=== PATIENT | male | born 1960 | race Caucasian/White ===

== ENCOUNTER 2018-07-20 00:44 | Outpatient (CLI) | payer MEDICARE, MEDICAID, SELFPAY ==
--- NOTE | 2018-07-20 11:55 | DI.MRI_ITS ---
SYMPTOMS/DIAGNOSIS: VERTIGO, ARM PARESTHESIAS BRAIN MRI: T 2 sagittal, T 2 axial, axial diffusion, axial T 2 blade, axial T 1 and axial T 2 hemo pulse sequences were obtained. There are no regions of restricted diffusion. The ventricles are unremarkable. The normal flow void is noted in the cerebral vessels. SUMMARY: A suboptimal examination was obtained due to patient motion. No abnormality is identified.
== END 2018-07-20 01:04 ==
PROVIDERS: PCP General Practice; Visit Provider General Practice
DX: R42 Dizziness and giddiness (principal); R20.2 Paresthesia of skin
CPT/HCPCS: 70551

== ENCOUNTER → 2018-08-11 09:38 | Outpatient (BNVA) | payer MEDICARE, MEDICAID, SELFPAY | PROVIDERS: PCP General Practice; Referring Provider General Practice; Visit Provider Surgery | DX: K42.9 Umbilical hernia without obstruction or gangrene (principal); Z86.010 Personal history of colon polyps | CPT/HCPCS: 99213; 99203 ==

== ENCOUNTER → 2018-08-20 08:41 | Outpatient (BNVA) | payer MEDICARE, MEDICAID, SELFPAY | PROVIDERS: PCP General Practice; Referring Provider General Practice; Visit Provider Student in an Organized Health Care Education/Training Program | DX: M19.071 Primary osteoarthritis, right ankle and foot (principal); E11.9 Type 2 diabetes mellitus without complications; Z79.4 Long term (current) use of insulin; I10 Essential (primary) hypertension | CPT/HCPCS: 20605; 99213; J1040 ==

== ENCOUNTER → 2018-11-01 09:32 | Outpatient (BNVA) | payer MEDICARE, MEDICAID, SELFPAY | PROVIDERS: PCP General Practice; Referring Provider General Practice; Visit Provider Surgery | DX: Z12.11 Encounter for screening for malignant neoplasm of colon (principal); Z12.12 Encounter for screening for malignant neoplasm of rectum; E11.9 Type 2 diabetes mellitus without complications; Z79.4 Long term (current) use of insulin; I10 Essential (primary) hypertension; Z86.010 Personal history of colon polyps ==

== ENCOUNTER 2018-11-05 10:30 | Day surgery (SDC) | payer MEDICARE, MEDICAID, SELFPAY ==
[2018-11-05 10:58] VITALS: BP 126/82; PULSE 67; RESP 18; TEMP 36.9; O2SAT 93
[2018-11-05] MEDS: Lactated Ringers 1,000 ML 30 ML IV (11:44)
--- NOTE | 2018-11-05 12:20 | BOWEL_PTH ---
PATIENT: Armen Fernandez LOC: [facility] U#:[id number] AGE/SX: 58/M ROOM: RE11/05/[address]: Randy Dinero DO : 1960 BED: DIS: 11/05/2018 SPEC #: [id number] RECD: 11/05/18 17:54 STATUS: ANABELA REQ #: [id number] SHRUTHI: 11/05/18 12:[address]: Randy Dinero DEPT: Surgical Specimen RECD BY: Eleanor Rojas ENTERED: 11/05/18 17:55 SP TYPE: Bowel OTHR DR: Angel Camp Tissues: 1 - BIOPSY BOWEL 2 - BIOPSY BOWEL Procedures: GROSS AND MICRO LEVEL 4 Comments: [id number]
--- NOTE | 2018-11-05 12:52 | COLE_ITS ---
Date of service: 11/05/18 Time of Service: 12:52 Colonoscopy Report Date of procedure: 11/05/18 Pre-op diagnosis general: Colorectal cancer screening with a personal history of colon polyps Post-op diagnosis procedure note: other (Colon and rectal polyp) Procedure: Colonoscopy to the cecum with biopsy by cold forceps Surgeon: Randy Dinero Anesthesia proc note operative: MAC (Betty Felix CRNA; ASA 3 Mallampati class II) Estimated blood loss (mL): 1 Pathology: other (1. Ascending colon polyp 2. Rectal polyp) Complications: None Disposition: same day Indications: 58-year-old gentleman presenting for colorectal cancer screening with a personal history of colon polyps. His last colonoscopy was remarkable for a tubular adenoma. He is been asymptomatic since his last colonoscopy. And has no family history of colorectal cancer. The procedure is been reviewed with him, and and the risks of the procedure discussed at length. All his questions been answered to his satisfaction. Consents been obtained to proceed with colonoscopy. Prep: Miralax/Dulcolax (Prep quality good) Findings: In examining the colon from cecum to anus, the patient was noted to have a small less than 1 cm polyp in the ascending colon and a second polyp was identified in the rectum also less than 1 cm in greatest diameter. Both polyps were removed by cold biopsy forceps. No other abnormalities were noted in the colon, rectum, or anorectal junction. Procedure Description: The patient was seen in the day surgery waiting area. His identification was confirmed, and procedure checked. He was then brought to the procedure room. Monitoring for telemetry, blood pressure, oxygen saturation, and end tidal CO2 monitoring were applied. An appropriate time out was performed to confirm, identification, allergies, medication, procedure, was performed. Sedation was titrated for affect by the WOOD TILE INSTALLATION HELPER; Once adequate sedation was achieved, I performed a inspection of the external perineum, and a digitial rectal examination. No significant external abnormalities were noted. On digital rectal examination, there was no blood, no masses, good rectal tone, and a normal prostate. I advanced the colonoscope from the anus to the cecum under direct visualization. The cecum was identified by the ileal-cecal valve, and the appendiceal orifice. The scope was then withdrawn in circumferential manner from the cecum to the rectum. A single polyp was identified in the ascending colon which was less than 1 cm in greatest diameter, and subsequently removed by cold biopsy forceps. The scope was then withdrawn into the rectum, where a second polyp was identified which was less than 1 cm in greatest diameter and removed by cold biopsy forceps. The scope was then retroflexed in the rectum and no further abnormalities are noted of the rectum or anorectal junction.. The scope was then withdrawn, terminating the procedure. There were no complications during the procedure, and the patient tolerated the procedure well. He was returned to the day surgery recovery area in good condition. Plan: We will await pathology results before making further recommendations.
--- NOTE | 2018-11-05 13:04 | W.PM.DSUDISC ---
Discharge Plan Disposition Patient Disposition: HOME Condition: Good Discharge Details Reason For Visit: PERSONAL HX OF COLON POLYPS Attending Provider: Randy Dinero Primary Care Provider: Angel Camp Home Meds and New Rx's Prescriptions: Continued buspirone 15 mg tablet 7.5 mg PO BID RF: 0 Kalyani Brace Qty: 1 RF: 0 escitalopram oxalate [Lexapro] 20 MG tablet 20 mg PO DAILY RF: 0 hydrochlorothiazide 25 MG tablet 50 tab PO DAILY RF: 0 Humalog U-100 Insulin 100 UNITS/ML solution 1 - 8 unit Sub-Q AC PRNRF: 0 gabapentin 300 MG capsule 300 mg PO QID RF: 0 testosterone cypionate 200 MG/1 ML oil 200 mg IM .[id number] RF: 0 bupropion HCl 150 MG tablet extended release 24 hr 75 mg PO DAILY RF: 0 multivitamin 1 EACH capsule 1 ea PO DAILY RF: 0 methadone 5 MG/5 ML solution 123 mg PO DAILY RF: 0 meloxicam 15 MG tablet 15 mg PO DAILY RF: 0 Lantus U-100 Insulin 100 UNITS/ML solution 60 units Sub-Q DAILY RF: 0 Discontinued bisacodyl [Dulcolax (bisacodyl)] 5 mg tablet,delayed release (DR/EC) 10 mg PO BID Qty: 4 RF: 0 Discharge Instructions Instructions: Colonoscopy (DC) Activity:: Activity as Tolerated Diet:: As Tolerated Discharge Orders Discharge Orders: Discharge Order (Routine); Ordered 11/05/18 Ordered By: Randy Dinero DS: Diagnosis Discharge Diagnosis (1) Personal history of colonic polyps: Status: Resolved Asessment and Plan: Colonoscopy performed Colonoscopy Report Date of procedure: 11/05/18 Pre-op diagnosis general: Colorectal cancer screening with a personal history of colon polyps Post-op diagnosis procedure note: other (Colon and rectal polyp) Procedure: Colonoscopy to the cecum with biopsy by cold forceps Surgeon: Randy Dinero Anesthesia proc note operative: MAC (Betty Felix CRNA; ASA 3 Mallampati class II) Estimated blood loss (mL): 1 Pathology: other (1. Ascending colon polyp 2. Rectal polyp) Complications: None Disposition: same day Indications: 58-year-old gentleman presenting for colorectal cancer screening with a personal history of colon polyps. His last colonoscopy was remarkable for a tubular adenoma. He is been asymptomatic since his last colonoscopy. And has no family history of colorectal cancer. The procedure is been reviewed with him, and and the risks of the procedure discussed at length. All his questions been answered to his satisfaction. Consents been obtained to proceed with colonoscopy. Prep: Miralax/Dulcolax (Prep quality good) Findings: In examining the colon from cecum to anus, the patient was noted to have a small less than 1 cm polyp in the ascending colon and a second polyp was identified in the rectum also less than 1 cm in greatest diameter. Both polyps were removed by cold biopsy forceps. No other abnormalities were noted in the colon, rectum, or anorectal junction. Procedure Description: The patient was seen in the day surgery waiting area. His identification was confirmed, and procedure checked. He was then brought to the procedure room. Monitoring for telemetry, blood pressure, oxygen saturation, and end tidal CO2 monitoring were applied. An appropriate time out was performed to confirm, identification, allergies, medication, procedure, was performed. Sedation was titrated for affect by the OPEN SOURCE DEVELOPER; Once adequate sedation was achieved, I performed a inspection of the external perineum, and a digitial rectal examination. No significant external abnormalities were noted. On digital rectal examination, there was no blood, no masses, good rectal tone, and a normal prostate. I advanced the colonoscope from the anus to the cecum under direct visualization. The cecum was identified by the ileal-cecal valve, and the appendiceal orifice. The scope was then withdrawn in circumferential manner from the cecum to the rectum. A single polyp was identified in the ascending colon which was less than 1 cm in greatest diameter, and subsequently removed by cold biopsy forceps. The scope was then withdrawn into the rectum, where a second polyp was identified which was less than 1 cm in greatest diameter and removed by cold biopsy forceps. The scope was then retroflexed in the rectum and no further abnormalities are noted of the rectum or anorectal junction.. The scope was then withdrawn, terminating the procedure. There were no complications during the procedure, and the patient tolerated the procedure well. He was returned to the day surgery recovery area in good condition. Plan: We will await pathology results before making further recommendations.
[2018-11-05 13:21] VITALS: BP 131/84; PULSE 66; RESP 20; TEMP 36.5; O2SAT 93
== END 2018-11-05 13:46 | disposition home or self-care (01) ==
PROVIDERS: PCP General Practice; Visit Provider Surgery
PROC: 0DJD8ZZ Inspection of Lower Intestinal Tract, Via Natural or Artificial Opening Endoscopic (ICD-10-PCS; CPT 45378; principal; 2018-11-05 11:30)
DX: Z12.11 Encounter for screening for malignant neoplasm of colon (principal); K62.1 Rectal polyp; K63.5 Polyp of colon; Z86.010 Personal history of colon polyps; E11.9 Type 2 diabetes mellitus without complications; Z79.4 Long term (current) use of insulin; I10 Essential (primary) hypertension
CPT/HCPCS: 45380; 88305; J2250

== ENCOUNTER 2018-11-30 11:36 | Outpatient (CLI) | payer MEDICARE, MEDICAID, SELFPAY ==
[2018-11-30 12:51] LABS: Hemoglobin A1C 7.5 % (4.5-6.2)
== END 2018-11-30 11:56 ==
PROVIDERS: PCP General Practice; Visit Provider General Practice
DX: E10.9 Type 1 diabetes mellitus without complications (principal)
CPT/HCPCS: 36415; 83036

== ENCOUNTER 2019-03-23 10:01 | Outpatient (CLI) | payer MEDICARE, MEDICAID, SELFPAY ==
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
== END 2019-03-23 10:21 ==
PROVIDERS: PCP General Practice; Referring Provider General Practice; Visit Provider Student in an Organized Health Care Education/Training Program
DX: M54.2 Cervicalgia (principal); M47.812 Spondylosis without myelopathy or radiculopathy, cervical region; E11.9 Type 2 diabetes mellitus without complications; I10 Essential (primary) hypertension; Z79.4 Long term (current) use of insulin; M19.071 Primary osteoarthritis, right ankle and foot; M43.02 Spondylolysis, cervical region
CPT/HCPCS: 99213; 72050

== ENCOUNTER 2019-03-24 07:58 | Outpatient (CLI) | payer MEDICARE, MEDICAID, SELFPAY ==
--- NOTE | 2019-03-24 11:00 | DI.RAD_ITS ---
SYMPTOMS/DIAGNOSIS: RT ANKLE INJECTION, PRIMARY OA, M01.071 RIGHT ANKLE INJECTION: Fluoroscopy Time: 27.9 sec 1.18 mGy Under fluoroscopic guidance, Dr. Banuelos positioned a needle and carried out an injection into the right tibiotalar joint. Please see the procedure report for further information.
[2019-03-24] MEDS: Omnipaque 300 MG/ML 10 ML BTL IJ (11:52)
[2019-03-24] MEDS: Bupivacaine 0.5% Pres-Free 10 ML VIAL 4 ML IJ (11:53)
[2019-03-24] MEDS: methylPREDNISolone ACETATE 80 MG/ML VIAL IM (11:54)
--- NOTE | 2019-03-29 16:47 | W.PROCNOTE ---
Date of service: 03/24/19 Time of Service: 10:47 Procedure Note Date of procedure: 03/24/19 Procedure: Right ankle joint injection with fluoroscopy Surgeon/Proceduralist/Physician: Eddie Banuelos Procedure Diagnosis: Right ankle arthritis Procedure Indications: Armen has had persistent pain of the RIGHT ankle. Noninvasive measures have been tried. To serve as both diagnostic and therapeutic, an injection under fluoroscopy was recommended. Previously attempted injection in the office was unsuccessful. I had discussed the risks of the procedure and the patient elected to proceed. Procedure Description: Armen was greeted in the flouroscopy room. The correct side was identified and the consent was reviewed with the patient and signed. The patient was then placed in the supine position on the fluoroscopy table. The RIGHT ankle was then prepped with Chloraprep. The anterior injection starting point was identiifed by bony landmarks and fluoroscopy. The skin and soft tissue in the tract of the injection was anesthetized with 1% Lidocaine. A needle was then inserted deep into the shoulder joint at the level of the recess between the glenoid and superior humeral head. A small amount of Omnipaque solution was injected to confirm intraarticular placement. Once confirmed, the shoulder was injected with 2cc of 0.5% Bupivicaine and 40mg of Depo-Medrol. A bandaid was placed on the injection site. The patient tolerated the procedure well and noted improvement in pre-injection pain.
== END 2019-03-24 08:18 ==
PROVIDERS: PCP General Practice; Visit Provider Student in an Organized Health Care Education/Training Program
DX: M19.071 Primary osteoarthritis, right ankle and foot (principal); M25.571 Pain in right ankle and joints of right foot
CPT/HCPCS: 20605; 77002; J1040

== ENCOUNTER 2019-04-22 13:28 | Emergency (ER) | payer MEDICARE, MEDICAID, SELFPAY ==
[2019-04-22 13:31] VITALS: TEMP 37
[2019-04-22 13:39] VITALS: BP 137/76; RESP 16; O2SAT 92
--- NOTE | 2019-04-22 13:50 | DI.RAD_ITS ---
SYMPTOMS/DIAGNOSIS: PAIN S/P FALL PELVIS AND RIGHT HIP: No fracture or dislocation is seen. There are smoothly marginated bony densities adjacent to the right superior acetabulum, which may represent a nonunited ossification center versus a soft tissue calcification. IMPRESSION: No acute abnormality.
--- NOTE | 2019-04-22 13:52 | W.ED.GENAD ---
Discharge Plan Disposition Patient Disposition: HOME Condition: Stable Discharge Details Chief Complaint: Orthopedic Clinical Impression: Contusion of hip, right, Muscle spasm Primary Care Provider: Alfredo Camp ED Provider: Bennett Verduzco Home Meds and New Rx's Prescriptions: New cyclobenzaprine 10 mg tablet 10 mg PO TID PRN (Reason: muscle spasm) Qty: 20 RF: 0 Continued amlodipine 10 mg tablet 10 mg PO DAILY RF: 0 clonazepam [Klonopin] 1 mg tablet 0.75 mg PO BID RF: 0 Kalyani Brace Qty: 1 RF: 0 escitalopram oxalate [Lexapro] 20 MG tablet 20 mg PO DAILY RF: 0 hydrochlorothiazide 25 MG tablet 50 tab PO DAILY RF: 0 Humalog U-100 Insulin 100 UNITS/ML solution 1 - 8 unit Sub-Q AC PRNRF: 0 gabapentin 300 MG capsule 800 mg PO QID RF: 0 testosterone cypionate 200 MG/1 ML oil 200 mg IM .[id number] RF: 0 multivitamin 1 EACH capsule 1 ea PO DAILY RF: 0 methadone 5 MG/5 ML solution 123 mg PO DAILY RF: 0 meloxicam 15 MG tablet 15 mg PO DAILY RF: 0 Lantus U-100 Insulin 100 UNITS/ML solution 60 units Sub-Q DAILY RF: 0 Discharge Instructions Instructions: Contusion in Adults (ED), Muscle Spasm (ED) Additional Instructions: if pain continues next week see your primary care provider do not drive or drink alcohol if you take the flexeril if you develop severe worsening pain or new symptoms such as fevers or rash return to the emergency department for reevaluation Medical Decision Making 58 yo male comes in with right sided hip pain. he states he tripped using his walker about a week ago and then landed on his right hip and has had pain since. Denies any systemic symptoms such as fevers, chills, and no rashes. He has pain over lateral right hip, is able to bear weight. No warmth, erythema, crepitus, no findings to suspect infectious etiologies such as septic joint at this time. I suspect muscle contusion but will xray to eval for possible fx though unlikely given able to bear weight pt remains stable still with full rom of the hip. xray negative on my read, will d/c if radiology agrees. Differential Diagnosis contusion, fx, sprain strain, muscle spasm Imaging Data Radiologic Study: Attestation: I personally reviewed and interpreted this imaging study as follows: Imaging: X-Ray My impression: no acute findings HPI General Mode of arrival: ambulatory. Date/Time Provider Initiated Documentation: 04/22/19 13:29. Limitations to Documentation: no limitations. Information obtained by: patient. History of Present Illness 58 year old M presents to the emergency department with the chief complaint of right hip pain, described as moderate, Quality is described as aching, and is localized to the right and lower extremity. Patient reports no radiation. Patient started experiencing this week(s) (1) and it has been constant. No relieving factors improve symptom(s), No exacerbating factors reported . Patient notes no other symptoms.. Related Data Home Medications Medication Instructions Recorded Confirmed escitalopram oxalate [Lexapro] 20 mg PO DAILY 06/24/15 04/22/19 hydrochlorothiazide 50 tab PO DAILY 07/12/15 04/22/19 Humalog U-100 Insulin 1 - 8 unit SUB-Q AC PRN 06/11/16 04/22/19 gabapentin 800 mg PO QID 06/11/16 04/22/19 methadone 123 mg PO DAILY 02/10/17 04/22/19 multivitamin 1 ea PO DAILY 02/10/17 04/22/19 testosterone cypionate 200 mg IM .[id number] 02/10/17 04/22/19 meloxicam 15 mg PO DAILY 08/20/17 04/22/19 Lantus U-100 Insulin 60 units SUB-Q DAILY 11/05/18 04/22/19 amlodipine 10 mg tablet 10 mg PO DAILY 03/23/19 04/22/19 clonazepam 1 mg tablet 0.75 mg PO BID tab 03/23/19 04/22/19 cyclobenzaprine 10 mg PO TID PRN #20 tab 04/22/19 Previous Rx's Medication Instructions Recorded cyclobenzaprine 10 mg PO TID PRN #20 tab 04/22/19 Allergies Allergy/AdvReac Type Severity Reaction Status Date / Time lisinopril Allergy angioedema Verified 03/23/19 09:27 ? General Stated Complaint: Orthopedic SHWETA: 3 Review of Systems Review of Systems All systems reviewed & are unremarkable except as noted in HPI and below Constitutional Denies chills, Denies fever(s) and Denies weakness Cardiovascular Denies chest pain and Denies dyspnea Respiratory Denies cough and Denies dyspnea Gastrointestinal Denies abdominal pain, Denies nausea and Denies vomiting Musculoskeletal Denies joint swelling Integumentary/Breasts Denies rash Neurologic Denies weakness Endocrine Denies heat intolerance PFSH Medical History History of MRSA infection (Chronic ~10/2017) Diabetes mellitus (Chronic) Depression (Chronic) Chronic pain of left knee (Chronic) Tobacco abuse (Chronic) HTN (hypertension) (Chronic) Personal history of colonic polyps (Chronic) Colon adenoma (Resolved) Fibula fracture (Resolved) Normal colonoscopy (Resolved 11/05/18) Surgical History Colonoscopy planned (Acute ~11/2018) H/O colonoscopy with polypectomy (Resolved) History of repair of left rotator cuff (Resolved) History of left knee replacement (Resolved) Umbilical hernia without mention of obstruction or gangrene (Acute) Arthroplasty of knee Rotator Cuff Repair left index finger amputation Social History Smoking/Tobacco Use Status: Current every day Tobacco Type: cigarettes Tobacco: How many years used: 30 Alcohol Intake: former Drug use: Never Substance use type: former substance user Do you feel safe in your relationship?: Yes Exam Const General: no acute distress Orientation: alert HENMT Head: normal to inspection Ears: external ears normal General nose exam: external nose normal Mouth: moist mucous membranes Eyes General: appearance normal, both eyes and all related structures Neck Neck: normal visual inspection Resp Effort & Inspection: normal respiratory effort and able to speak in complete sentences Cardio Rate: regular rate Skin General skin exam: no rashes or lesions noted Neuro General: alert and oriented x3 Extrem General: normal capillary refill Psych Mental Status: mental status grossly normal Course Vital Signs Temperature 37 C 04/22/19 13:31 Temperature 37 C 04/22/19 13:31 Temperature Source Temporal Artery Scan 04/22/19 13:31 Respiratory Rate 16 04/22/19 13:39 Respiratory Effort Non-Labored 04/22/19 13:40 Blood Pressure 137/76 04/22/19 13:39 Pulse Oximetry 92 L 04/22/19 13:39 Oxygen Delivery Method Room Air 04/22/19 13:39 Oxygen Flow Rate 0 04/22/19 13:39 Pain Level 6 04/22/19 13:39
[2019-04-22] MEDS: Acetaminophen 500 MG TAB 1000 MG PO (13:54)
--- NOTE | 2019-04-22 14:00 | ED.GENADUL_ITS ---
Discharge Plan Disposition Patient Disposition: HOME Condition: Stable Discharge Details Chief Complaint: Orthopedic Clinical Impression: Contusion of hip, right, Muscle spasm Primary Care Provider: Alfredo Camp ED Provider: Bennett Verduzco Home Meds and New Rx's Prescriptions: New cyclobenzaprine 10 mg tablet 10 mg PO TID PRN (Reason: muscle spasm) Qty: 20 RF: 0 Continued amlodipine 10 mg tablet 10 mg PO DAILY RF: 0 clonazepam [Klonopin] 1 mg tablet 0.75 mg PO BID RF: 0 Kalyani Brace Qty: 1 RF: 0 escitalopram oxalate [Lexapro] 20 MG tablet 20 mg PO DAILY RF: 0 hydrochlorothiazide 25 MG tablet 50 tab PO DAILY RF: 0 Humalog U-100 Insulin 100 UNITS/ML solution 1 - 8 unit Sub-Q AC PRNRF: 0 gabapentin 300 MG capsule 800 mg PO QID RF: 0 testosterone cypionate 200 MG/1 ML oil 200 mg IM .[id number] RF: 0 multivitamin 1 EACH capsule 1 ea PO DAILY RF: 0 methadone 5 MG/5 ML solution 123 mg PO DAILY RF: 0 meloxicam 15 MG tablet 15 mg PO DAILY RF: 0 Lantus U-100 Insulin 100 UNITS/ML solution 60 units Sub-Q DAILY RF: 0 Discharge Instructions Instructions: Contusion in Adults (ED), Muscle Spasm (ED) Additional Instructions: if pain continues next week see your primary care provider do not drive or drink alcohol if you take the flexeril if you develop severe worsening pain or new symptoms such as fevers or rash return to the emergency department for reevaluation Medical Decision Making 58 yo male comes in with right sided hip pain. he states he tripped using his walker about a week ago and then landed on his right hip and has had pain since. Denies any systemic symptoms such as fevers, chills, and no rashes. He has pain over lateral right hip, is able to bear weight. No warmth, erythema, crepitus, no findings to suspect infectious etiologies such as septic joint at this time. I suspect muscle contusion but will xray to eval for possible fx though unlikely given able to bear weight pt remains stable still with full rom of the hip. xray negative on my read, will d/c if radiology agrees. Differential Diagnosis contusion, fx, sprain strain, muscle spasm Imaging Data Radiologic Study: Attestation: I personally reviewed and interpreted this imaging study as follows: Imaging: X-Ray My impression: no acute findings HPI General Mode of arrival: ambulatory . Date/Time Provider Initiated Documentation: 04/22/19 13:29 . Limitations to Documentation: no limitations . Information obtained by: patient . History of Present Illness 58 year old M presents to the emergency department with the chief complaint of right hip pain, described as moderate, Quality is described as aching, and is localized to the right and lower extremity. Patient reports no radiation. Patient started experiencing this week(s) (1) and it has been constant. No relieving factors improve symptom(s), No exacerbating factors reported . Patient notes no other symptoms.. Related Data Home Medications Medication Instructions Recorded Confirmed escitalopram oxalate [Lexapro] 20 mg PO DAILY 06/24/15 04/22/19 hydrochlorothiazide 50 tab PO DAILY 07/12/15 04/22/19 Humalog U-100 Insulin 1 - 8 unit SUB-Q AC PRN 06/11/16 04/22/19 gabapentin 800 mg PO QID 06/11/16 04/22/19 methadone 123 mg PO DAILY 02/10/17 04/22/19 multivitamin 1 ea PO DAILY 02/10/17 04/22/19 testosterone cypionate 200 mg IM .[id number] 02/10/17 04/22/19 meloxicam 15 mg PO DAILY 08/20/17 04/22/19 Lantus U-100 Insulin 60 units SUB-Q DAILY 11/05/18 04/22/19 amlodipine 10 mg tablet 10 mg PO DAILY 03/23/19 04/22/19 clonazepam 1 mg tablet 0.75 mg PO BID tab 03/23/19 04/22/19 cyclobenzaprine 10 mg PO TID PRN #20 tab 04/22/19 Previous Rx's Medication Instructions Recorded cyclobenzaprine 10 mg PO TID PRN #20 tab 04/22/19 Allergies Allergy/AdvReac Type Severity Reaction Status Date / Time lisinopril Allergy angioedema Verified 03/23/19 09:27 ? General Stated Complaint: Orthopedic SHWETA: 3 Review of Systems Review of Systems All systems reviewed & are unremarkable except as noted in HPI and below Constitutional Denies chills, Denies fever(s) and Denies weakness Cardiovascular Denies chest pain and Denies dyspnea Respiratory Denies cough and Denies dyspnea Gastrointestinal Denies abdominal pain, Denies nausea and Denies vomiting Musculoskeletal Denies joint swelling Integumentary/Breasts Denies rash Neurologic Denies weakness Endocrine Denies heat intolerance PFSH Medical History History of MRSA infection (Chronic ~10/2017) Diabetes mellitus (Chronic) Depression (Chronic) Chronic pain of left knee (Chronic) Tobacco abuse (Chronic) HTN (hypertension) (Chronic) Personal history of colonic polyps (Chronic) Colon adenoma (Resolved) Fibula fracture (Resolved) Normal colonoscopy (Resolved 11/05/18) Surgical History Colonoscopy planned (Acute ~11/2018) H/O colonoscopy with polypectomy (Resolved) History of repair of left rotator cuff (Resolved) History of left knee replacement (Resolved) Umbilical hernia without mention of obstruction or gangrene (Acute) Arthroplasty of knee Rotator Cuff Repair left index finger amputation Social History Smoking/Tobacco Use Status: Current every day Tobacco Type: cigarettes Tobacco: How many years used: 30 Alcohol Intake: former Drug use: Never Substance use type: former substance user Do you feel safe in your relationship?: Yes Exam Const General: no acute distress Orientation: alert HENMT Head: normal to inspection Ears: external ears normal General nose exam: external nose normal Mouth: moist mucous membranes Eyes General: appearance normal, both eyes and all related structures Neck Neck: normal visual inspection Resp Effort & Inspection: normal respiratory effort and able to speak in complete sentences Cardio Rate: regular rate Skin General skin exam: no rashes or lesions noted Neuro General: alert and oriented x3 Extrem General: normal capillary refill Psych Mental Status: mental status grossly normal Course Vital Signs Temperature 37 C 04/22/19 13:31 Temperature 37 C 04/22/19 13:31 Temperature Source Temporal Artery Scan 04/22/19 13:31 Respiratory Rate 16 04/22/19 13:39 Respiratory Effort Non-Labored 04/22/19 13:40 Blood Pressure 137/76 04/22/19 13:39 Pulse Oximetry 92 L 04/22/19 13:39 Oxygen Delivery Method Room Air 04/22/19 13:39 Oxygen Flow Rate 0 04/22/19 13:39 Pain Level 6 04/22/19 13:39
[2019-04-22 15:09] VITALS: BP 124/80; PULSE 68; O2SAT 99
== END 2019-04-22 15:13 | disposition home or self-care (01) ==
PROVIDERS: Emergency Provider Emergency Medicine; PCP General Practice
DX: S70.01XA Contusion of right hip, initial encounter (principal); M62.838 Other muscle spasm; W18.09XA Striking against other object with subsequent fall, initial encounter; I10 Essential (primary) hypertension; E11.9 Type 2 diabetes mellitus without complications; Z79.4 Long term (current) use of insulin
CPT/HCPCS: 99283; 73502

== ENCOUNTER 2019-09-08 15:54 | Outpatient (CLI) | payer MEDICARE, MEDICAID, SELFPAY ==
[2019-09-08 17:23] LABS: COMMENT (LAB VIEW ONLY) 118.15 mg/dL; Microalb ug/mg Crea 57.3 ug/mg Cr
[2019-09-08 18:11] LABS: Hemoglobin A1C 7.1 % (4.5-6.2)
[2019-09-08 23:38] LABS: Anion Gap 8.8 mmol/L (3-11); BUN 17 mg/dL (7-18); CO2 31.2 mmol/L (21.0-32.0); CREATININE 1.06 mg/dL (0.70-1.30); Chloride 100 mmol/L (98-107); Potassium 3.7 mmol/L (3.5-5.1); Sodium 140 mmol/L (136-145)
== END 2019-09-08 16:14 ==
PROVIDERS: PCP Obstetrics & Gynecology; Visit Provider General Practice
DX: E11.9 Type 2 diabetes mellitus without complications (principal); I10 Essential (primary) hypertension
CPT/HCPCS: 36415; 80051; 84520; 82043; 82565; 82570; 83036

== ENCOUNTER 2019-10-04 07:43 | Emergency (ER) | payer MEDICARE, MEDICAID, SELFPAY ==
[2019-10-04 07:46] VITALS: BP 152/77; PULSE 90; RESP 18; TEMP 36.1; O2SAT 91
--- NOTE | 2019-10-04 08:21 | W.ED.GENAD ---
Discharge Plan Disposition Patient Disposition: HOME Discharge Details Chief Complaint: Laceration Clinical Impression: Foreign body in right upper extremity Primary Care Provider: Angel Camp ED Provider: Gurinedr Singleton Home Meds and New Rx's Prescriptions: Continued amlodipine 10 mg tablet 10 mg PO DAILY RF: 0 Kalyani Brace Qty: 1 RF: 0 hydrochlorothiazide 25 MG tablet 50 tab PO DAILY RF: 0 insulin lispro [Humalog U-100 Insulin] 100 UNITS/ML solution 1 - 8 unit Sub-Q AC PRNRF: 0 gabapentin 300 MG capsule 800 mg PO QID RF: 0 testosterone cypionate 200 MG/1 ML oil 200 mg IM .[id number] RF: 0 multivitamin 1 EACH capsule 1 ea PO DAILY RF: 0 methadone 5 MG/5 ML solution 115 mg PO DAILY RF: 0 meloxicam 15 MG tablet 15 mg PO DAILY RF: 0 Lantus U-100 Insulin 100 UNITS/ML solution 65 units Sub-Q DAILY RF: 0 clonazepam 0.5 mg Tablet 0.5 mg PO TID RF: 0 venlafaxine 150 mg Capsule,Extended Release 24hr 150 mg PO DAILY RF: 0 Discharge Instructions Additional Instructions: Please stop abusing drugs. Please follow-up with general surgery as necessary for foreign body removal if you develop redness, pain, or other concerning symptom. Return to the ER for any worsening or new concerning symptoms. Referrals: Dara Christine MD [ [facility] STAFF PHYSICIAN] - Medical Decision Making 59-year-old male here with concern for insulin needle broken off in his right upper arm. No signs of infection. Bedside [id number] ultrasound performed by me does not reveal definitive foreign body. X-ray of the right upper arm reviewed and interpreted by me: fb in soft tissue. Patient was instructed to follow-up with surgery. Usual and customary discharge instructions were provided. HPI General Mode of arrival: ambulatory. Date/Time Provider Initiated Documentation: 10/04/19 08:09. Limitations to Documentation: no limitations. Information obtained by: patient. HPI Narrative: 59-year-old male here with complaint of foreign body in his right upper arm. Patient notes he was injecting Ritalin into his right upper arm yesterday and believes he broke off the tip of insulin needle. Patient notes no discomfort in the arm. No associated redness. No modifiers. Related Data Home Medications Medication Instructions Recorded Confirmed hydrochlorothiazide 50 tab PO DAILY 07/12/15 10/04/19 gabapentin 800 mg PO QID 06/11/16 10/04/19 insulin lispro [Humalog U-100 1 - 8 unit SUB-Q AC PRN 06/11/16 10/04/19 Insulin] methadone 115 mg PO DAILY 02/10/17 10/04/19 multivitamin 1 ea PO DAILY 02/10/17 10/04/19 testosterone cypionate 200 mg IM .[id number] 02/10/17 10/04/19 meloxicam 15 mg PO DAILY 08/20/17 10/04/19 Lantus U-100 Insulin 65 units SUB-Q DAILY 11/05/18 10/04/19 amlodipine 10 mg tablet 10 mg PO DAILY 03/23/19 10/04/19 clonazepam 0.5 mg PO TID 10/04/19 10/04/19 venlafaxine 150 mg PO DAILY 10/04/19 10/04/19 Allergies Allergy/AdvReac Type Severity Reaction Status Date / Time lisinopril Allergy angioedema Verified 10/04/19 07:51 ? General Stated Complaint: Laceration SHWETA: 4 Review of Systems Integumentary/Breasts Skin/Breast: Reports as per HPI [facility] Medical History Chronic pain of left knee (Chronic) Colon adenoma (Resolved) 11/10/11 - Dr Benson Hebert, hyperplastic polyp, but with tubulovillous adenoma in nov, recommended repeat in five years. Depression (Chronic) Diabetes mellitus (Chronic) Fibula fracture (Resolved) right History of MRSA infection (Chronic ~10/2017) HTN (hypertension) (Chronic) Normal colonoscopy (Resolved 11/05/18) [facility] recommends repeat in 5 years. Personal history of colonic polyps (Chronic) Tobacco abuse (Chronic) Surgical History Arthroplasty of knee left knee Colonoscopy planned (Acute ~11/2018) H/O colonoscopy with polypectomy (Resolved) 11/10/11 - Dr Benson Hebert, hyperplastic polyp, but with tubulovillous adenoma in nov, recommended repeat in five years. History of left knee replacement (Resolved) History of repair of left rotator cuff (Resolved) left index finger amputation Rotator Cuff Repair left Umbilical hernia without mention of obstruction or gangrene (Acute) Social History Smoking/Tobacco Use Status: Current every day Tobacco Type: cigarettes Smoking packs per day: 0.5 Smoking cigarettes per day: 10.0 Years smoked: 30 Smoking pack-years: 15.00 Tobacco: How many years used: 30 Alcohol Intake: former Drug use: Occasionally Substance use type: marijuana and methamphetamine Do you feel safe at home: Yes Do you feel safe in your relationship?: Yes Exam Const General: cooperative, comfortable and no acute distress Skin Rashes: no rashes Extrem General: other (2+ radial right) Right upper extremity: shoulder/upper arm (No palpable foreign body) Course Vital Signs Vital signs: Vital Signs Temperature 36.1 C L 10/04/19 07:46 Pulse 90 10/04/19 07:46 Respiratory Rate 18 10/04/19 07:46 Blood Pressure 152/77 H 10/04/19 07:46 Pulse Oximetry 91 L 10/04/19 07:46 Temperature 36.1 C L 10/04/19 07:46 Temperature Source Temporal Artery Scan 10/04/19 07:46 Pulse 90 10/04/19 07:46 Respiratory Rate 18 10/04/19 07:46 Respiratory Effort Non-Labored 10/04/19 07:49 Blood Pressure 152/77 H 10/04/19 07:46 Blood Pressure Position Sitting 10/04/19 07:46 Pulse Oximetry 91 L 10/04/19 07:46 Oxygen Delivery Method Room Air 10/04/19 07:46 Oxygen Flow Rate 0 10/04/19 07:46 Pain Level 0 10/04/19 07:59
--- NOTE | 2019-10-04 08:30 | DI.RAD_ITS ---
EXAM: XR HUMERUS RT INDICATION: insulin needle broke off in rt upper arm. COMPARISON: No exams were available for comparison TECHNIQUE: 2D digital imaging was performed. FINDINGS: There is a 1.5 centimeter long linear density in the soft tissues anterior to the mid shaft of the ri ght humerus. This would be consistent with a foreign body. The bone is unremarkable. No other radi opaque foreign bodies are seen in the soft tissues. IMPRESSION: 1.5 centimeter long foreign body in the soft tissues anterior to the midshaft of the right humerus.
== END 2019-10-04 08:51 | disposition home or self-care (01) ==
PROVIDERS: Emergency Provider Student in an Organized Health Care Education/Training Program; PCP General Practice
DX: S41.141A Puncture wound with foreign body of right upper arm, initial encounter (principal); W46.1XXA Contact with contaminated hypodermic needle, initial encounter; F15.10 Other stimulant abuse, uncomplicated; I10 Essential (primary) hypertension; E11.9 Type 2 diabetes mellitus without complications; Z79.4 Long term (current) use of insulin
CPT/HCPCS: 99283; 73060

== ENCOUNTER 2019-12-05 14:49 | Outpatient (CLI) | payer MEDICARE, MEDICAID, SELFPAY ==
--- NOTE | 2019-12-05 14:03 | DI.RAD_ITS ---
EXAM: XR ANKLE RT 2V INDICATION: ankle pain. COMPARISON: No exams were available for comparison TECHNIQUE: 2D digital imaging was performed. FINDINGS: Chronic advanced changes are seen in the right ankle. Findings include narrow marked narrowing of th e ankle joint. Deformity of the articular surfaces the talar dome and the tibial plafond. Osteophyt ic densities apparent around the ankle joint. These appear chronic. But an acute fracture cannot be excluded. There is marked soft tissue swelling about the ankle. There are degenerative changes see n in the tarsal bones IMPRESSION: Chronic severe changes of the ankle joint. While this may be degenerative in nature, infection and p ost-traumatic change cannot be excluded. A CT scan of the right ankle should be considered in this p atient for further evaluation.
== END 2019-12-05 15:09 ==
PROVIDERS: PCP Family Medicine; Referring Provider General Practice; Visit Provider Student in an Organized Health Care Education/Training Program
DX: M25.571 Pain in right ankle and joints of right foot (principal); M79.89 Other specified soft tissue disorders; M19.071 Primary osteoarthritis, right ankle and foot; M25.771 Osteophyte, right ankle; I10 Essential (primary) hypertension; E11.9 Type 2 diabetes mellitus without complications; Z79.4 Long term (current) use of insulin
CPT/HCPCS: 99213; 73600

== ENCOUNTER 2020-01-11 01:28 | Outpatient (CLI) | payer MEDICARE, MEDICAID, SELFPAY ==
--- NOTE | 2020-01-11 06:15 | DI.CT_ITS ---
EXAM: CT LOWER EXTREMITY RT WO CLINICAL HISTORY: R ankle OA and deformity,SURGICAL PLANNING,M19.071,PRIMARY OA TECHNIQUE: Noncontrast COMPARISON: RIGHT FOOT COMPLETE from 08/19/2017 XR ANKLE RT 2V from 12/05/2019 FINDINGS: The exam is mildly limited by patient motion. As seen on plain films, there are severe degenerative changes of the tibiotalar joint, fibular talar, tibial fibular and posterior talocalcaneal joints. There is obliteration of the joint spaces with multiple subchondral cysts on both sides of the joint. Degenerative changes are also seen in the tarsal region. There is diffuse soft tissue edema as wel l as joint effusion. IMPRESSION: Numerous bony erosions about the ankle joint. The findings could be secondary to longstanding erosive osteoarthritis or be secondary to previous or current infection. Clinical correlation is recommende paul
== END 2020-01-11 01:48 ==
PROVIDERS: PCP Family Medicine; Visit Provider Student in an Organized Health Care Education/Training Program
DX: M19.071 Primary osteoarthritis, right ankle and foot (principal); M25.471 Effusion, right ankle; M85.871 Other specified disorders of bone density and structure, right ankle and foot; Z01.818 Encounter for other preprocedural examination
CPT/HCPCS: 73700

== ENCOUNTER 2020-12-28 14:56 | Emergency (ER) | payer MEDICARE, MEDICAID, SELFPAY ==
[2020-12-28 15:00] VITALS: BP 121/67; PULSE 89; RESP 20; TEMP 36.2; O2SAT 95
--- NOTE | 2020-12-28 15:15 | DI.CT_ITS ---
EXAM: CT HEAD WO CLINICAL HISTORY: confusion. TECHNIQUE: Imaging Protocol: Axial computed tomography images with coronal and sagittal reformatted images were created and reviewed COMPARISON: CT HEAD AND CSPINE W/O CONTRAST from 04/26/2016 FINDINGS: Ventricles and Extra axial spaces: Normal in size and morphology for the patient's age. Hemorrhage: None. Cerebral parenchyma: Normal. Midline shift: None. Brainstem/Cerebellum: Normal. Calvarium: Normal. Visualized Paranasal sinuses/Mastoids: Clear. Soft Tissues: Unremarkable. IMPRESSION: No acute intracranial process. RADIATION DOSE DELIVERED: 788.56mGy.cm Total DLP DATA REPOSITORY: All CT scans at this facility are submitted to the National Radiology Data Registry (NRDR) Dose Index Registry (DIR) with the [employer] ([employer]). RADIATION OPTIMIZATION: All CT scans at this facility use at least one of these dose optimization te chniques: automated exposure control; mA and/or kV adjustment per patient size (includes targeted exa ms where dose is matched to clinical indication); or iterative reconstruction.
[2020-12-28 15:30] VITALS: BP 102/62; PULSE 81; RESP 18; TEMP 36.6; O2SAT 93
--- NOTE | 2020-12-28 15:30 | DI.RAD_ITS ---
EXAM: XR FOOT RT COMPLETE CLINICAL HISTORY: cellulitis, ?osteo. TECHNIQUE: 2D digital imaging was performed. COMPARISON: CR RIGHT FOOT COMPLETE from 08/19/[address] LOWER EXTREMITY RT WO from 01/11/2020 FINDINGS: There are marked degenerative changes of the ankle joint with subchondral sclerosis, subchondral cyst s, joint space narrowing and hypertrophic changes. Dystrophic calcifications are seen around the ank le joint. There are degenerative changes seen at the tarsal joints. There is an amputation of the 2 nd toe at the MTP joint. No new destructive or erosive changes are seen to suggest osteomyelitis. N o acute fracture or dislocation is seen. There is diffuse soft tissue swelling of the ankle and foot . No radiopaque foreign bodies are seen. IMPRESSION: 1. Status post amputation of the 2nd toe. 2. No new erosive changes or subcutaneous gas seen to suggest acute osteomyelitis. 3. Marked degenerative changes seen at the ankle joint. DATA REPOSITORY: RADIATION DOSE DELIVERED:
--- NOTE | 2020-12-28 15:35 | W.ED.GENAD ---
Discharge Plan Disposition Patient Disposition: HOME Condition: Stable Discharge Details Clinical Impression: Headache, Cellulitis of foot, right Primary Care Provider: Delaney Box ED Provider: Bennett Verduzco Home Meds and New Rx's Prescriptions: New ciprofloxacin HCl 500 mg tablet 500 mg PO BID Qty: 14 RF: 0 doxycycline hyclate 100 mg tablet 100 mg PO BID Qty: 14 RF: 0 Continued amlodipine 10 mg tablet 10 mg PO DAILY RF: 0 (DME) Rolling Knee Scooter Qty: 1 RF: 0 Kalayni Brace Qty: 1 RF: 0 hydrochlorothiazide 25 MG tablet 50 tab PO DAILY RF: 0 insulin lispro [Humalog U-100 Insulin] 100 UNITS/ML solution 1 - 8 unit Sub-Q AC PRNRF: 0 gabapentin 300 mg capsule 800 mg PO TID RF: 0 multivitamin 1 EACH capsule 1 ea PO DAILY RF: 0 methadone 5 MG/5 ML solution 115 mg PO DAILY RF: 0 meloxicam 15 MG tablet 15 mg PO DAILY RF: 0 Lantus U-100 Insulin 100 UNITS/ML solution 65 units Sub-Q DAILY RF: 0 clonazepam 0.5 mg Tablet 1 mg PO BID RF: 0 venlafaxine 150 mg Capsule,Extended Release 24hr 150 mg PO DAILY RF: 0 Discharge Instructions Instructions: Cellulitis (ED) Additional Instructions: follow up with your primary care provider within 1 week if you have severe worsening pain, fevers or feel more ill return to the emergency department Medical Decision Making 60 yo male with hx of diabetes, depression, prior osteo of right big toe s/p amputation, who comes in with complaint of not feeling well for a week.He states he was started on zyprexa on 12/17 and when these symptoms started and still has them. He states he has had intermittent subjective fevers but he will check his temperature and it will be normal. Denies pain, dyspnea, vomit, urinary symptoms. HE has had intermittent confusion per the patient and intermittent mild headaches. No neck stiffness of pain. He does have 2 1mm open wounds to the right medial foot without tunneling and has erythema of dorsal surface of the foot which he is not sure is new or not. No crepitus, has neuropathy so can't feel in his feet at baseline. No meningismus, caox4, speaking clearly without si/hi and nofocal neuro deficits. Suspect he could have a diabetic foot infection, will obtain lab work and xray of the foot. GIven the headaches and confusion will obtain ct head. No findings on history such as thundeclap headache or worse headache of life so doubt subarachnoid hemorhage. No meningismus and pain has been mild so doubt currency exchange specialist infection labs show mild leukocytosis of 15 and crp elevated, imaging unremarkable. He remains stable, sitting in a chair eating without complaints now and still caox4 with no si/hi and clear thoughts. Suspect diabetic foot infection. Dicussed admitting for iv antibiotics vs trialling outpatient therapy and he would prefer to try outpatient therapy and if not improving following up with pcp and returning if worsening which I feel is reasonable given well systemic appearance. Will d/c home and return precautions given Differential Diagnosis Differential Diagnosis: diabetic foot, medication reaction, dka Medical Records Medical records reviewed: Yes I reviewed the patient's medical records. Imaging Data Radiologic Study: Attestation: I personally reviewed and interpreted this imaging study as follows: Imaging: CT Scan Radiologist's impression: IMPRESSION: No acute intracranial abnormality Radiologic Study #2: Attestation: I personally reviewed and interpreted this imaging study as follows: Imaging: X-Ray Radiologist's impression: IMPRESSION: 1. 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 2. Status post amputation of the 2nd toe. 3. No gas is noted within the soft tissues. Lab Data Lab results reviewed: Yes I reviewed the patient's lab results. HPI General Mode of arrival: ambulatory. Date/Time Provider Initiated Documentation: 12/28/20 14:59. Limitations to Documentation: no limitations. Information obtained by: patient. History of Present Illness 60 year old M presents to the emergency department with the chief complaint of not feeling well, described as moderate, Patient started experiencing this week(s) (1) and it has been intermittent. No relieving factors improve symptom(s), No exacerbating factors reported . Patient did receive the following treatments prior to arrival, none Related Data Home Medications Medication Instructions Recorded Confirmed hydrochlorothiazide 50 tab PO DAILY 07/12/15 12/28/20 insulin lispro [Humalog U-100 1 - 8 unit SUB-Q AC PRN 06/11/16 12/28/20 Insulin] methadone 115 mg PO DAILY 02/10/17 12/28/20 multivitamin 1 ea PO DAILY 02/10/17 12/28/20 meloxicam 15 mg PO DAILY 08/20/17 12/28/20 Lantus U-100 Insulin 65 units SUB-Q DAILY 11/05/18 12/28/20 amlodipine 10 mg tablet 10 mg PO DAILY 03/23/19 12/28/20 clonazepam 1 mg PO BID 10/04/19 12/28/20 venlafaxine 150 mg PO DAILY 10/04/19 12/28/20 gabapentin 300 mg capsule 800 mg PO TID cap 12/05/19 12/28/20 Rolling Knee Scooter #1 ea 12/07/19 01/09/20 ciprofloxacin HCl 500 mg PO BID #14 tab 12/28/20 doxycycline hyclate 100 mg PO BID #14 tab 12/28/20 Previous Rx's Medication Instructions Recorded Rolling Knee Scooter #1 ea 12/07/19 ciprofloxacin HCl 500 mg PO BID #14 tab 12/28/20 doxycycline hyclate 100 mg PO BID #14 tab 12/28/20 Allergies Allergy/AdvReac Type Severity Reaction Status Date / Time lisinopril Allergy angioedema Verified 12/28/20 15:11 ? General Stated Complaint: PsychEval SHWETA: 2 Review of Systems All systems reviewed & are unremarkable except as noted in HPI and below Constitutional Constitutional: Denies weakness Cardiovascular Cardiovascular: Denies chest pain and Denies dyspnea Respiratory Respiratory: Denies cough and Denies dyspnea Gastrointestinal Gastrointestinal: Denies abdominal pain, Denies nausea and Denies vomiting Musculoskeletal Musculoskeletal: Denies joint swelling Neurologic Neurologic: Denies weakness [facility] Medical History (Updated 12/28/20 @ 17:53 by Bennett Verduzco MD) Chronic pain of left knee Colon adenoma 11/10/11 - Dr Benson Hebert, hyperplastic polyp, but with tubulovillous adenoma in nov, recommended repeat in five years. Depression Diabetes mellitus Fibula fracture right History of MRSA infection (~10/2017) HTN (hypertension) Hypogonadism Normal colonoscopy (11/05/18) [facility] recommends repeat in 5 years. Personal history of colonic polyps Tobacco abuse Surgical History Amputated toe of right foot (~11/2016) 2nd toe, Rt foot Arthroplasty of knee left knee Colonoscopy planned (~11/2018) H/O colonoscopy with polypectomy 11/10/11 - Dr Benson Hebert, hyperplastic polyp, but with tubulovillous adenoma in nov, recommended repeat in five years. History of left knee replacement History of repair of left rotator cuff left index finger amputation (~1994) Rotator Cuff Repair left Umbilical hernia without mention of obstruction or gangrene Family History Father Alcohol abuse Hypertension Sister Anxiety Mother Depression Maternal Grandmother Depression Cancer Colon Paternal Grandmother Depression Cancer Colon Aunt Cancer Colon cancer Social History (Updated 12/19/19 @ 11:10 by Latasha Crabtree LPN) Smoking/Tobacco Use Status: Current, status unknown Tobacco Type: cigarettes Smoking risk assessment performed?: Yes Alcohol Intake: former Drug use: Occasionally Substance use type: marijuana and methamphetamine Adopted: No Caregiver/Support person: No Foster care: No Household members: none Housing: apartment Number of Children: 3 Communication Needs: None Do you need help understanding health information?: Often current occupation: Disabled Sexually active: Yes Do you think of yourself as: straight/heterosexual Current gender identity: male What is your relationship status?: Panel score (0-1 are the most socially isolated patients): 0 What type of physical activity do you participate in: none Seatbelt use: always Drive intox or ride w/intox 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 Working smoke detector in home: Yes Fire extinguisher in home: Yes Carbon monox detector in home: Yes Do you feel safe at home: Yes Do you feel safe in your relationship?: Yes Exam Const General: no acute distress Orientation: alert HENMT Head: normal to inspection Ears: external ears normal General nose exam: external nose normal Mouth: moist mucous membranes Eyes General: appearance normal, both eyes and all related structures Neck Neck: normal visual inspection Resp Effort & Inspection: normal respiratory effort and able to speak in complete sentences Cardio Rate: regular rate Skin General skin exam: no rashes or lesions noted Neuro General: patient alert and patient oriented x3 Extrem General: full ROM Psych Mental Status: mental status grossly normal Course Vital Signs Vital signs: Vital Signs Temperature 36.2 C L 12/28/20 15:00 Pulse 89 12/28/20 15:00 Respiratory Rate 20 12/28/20 15:00 Blood Pressure 121/67 12/28/20 15:00 Pulse Oximetry 95 12/28/20 15:00 Temperature 36.2 C L 12/28/20 15:00 Temperature Source Skin 12/28/20 15:00 Pulse 89 12/28/20 15:00 Respiratory Rate 20 12/28/20 15:00 Respiratory Effort Non-Labored 12/28/20 15:09 Blood Pressure 121/67 12/28/20 15:00 Blood Pressure Position Supine 12/28/20 15:00 Pulse Oximetry 95 12/28/20 15:00 Oxygen Delivery Method Room Air 12/28/20 15:00 Oxygen Flow Rate 0 12/28/20 15:00 Pain Level 0 12/28/20 15:00 Lab/Test Results Lab/Test Results: 12/28/20 15:23 Blood Blood Culture - Pending 12/28/20 15:23 Blood Blood Culture - Pending
[2020-12-28 16:23] LABS: BE (Venous) 15 mmol/L (-2-3); HCO3 (Venous) 38 mmol/L (23-28); O2 Sat (Venous) 56 %; TCO2 (Venous) 35 mmol/L (24-29); pCO2 (Venous) 52 mmHg (41-51); pH (Venous) 7.48 (7.31-7.41); pO2 (Venous) 27 mmHg
[2020-12-28 16:25] LABS: Lactate 0.9 mmol/L (0.6-1.4)
[2020-12-28 16:32] LABS: Abs Immature Grans 0.06 10^3/uL (0.0-0.06); Absolute Basophil Count 0.03 10^3/uL (0.0-0.2); Absolute Lymphocyte Count 1.74 10^3/uL (1.2-3.4); Absolute Monocyte Count 1.93 10^3/uL (0.1-0.8); Basophils % 0.2; Eosinophils % 0.6; HCT 34.7 % (40.0-50.0); HGB 11.6 g/dL (13.5-17.5); Immature Grans % 0.4; Lymphocytes % 10.9; MCH 31.4 pg (27.0-33.0); MCHC 33.4 % (32.0-36.0); MPV 9.8 fL (8.0-11.0); Monocytes % 12.1; Neutrophils % 75.8; Nucleated RBC 0 %; Platelet Count 215 10^3/uL (130-400); RBC 3.69 10^6/uL (4.36-5.78); RDW 13.8 % (11.8-14.1); RDW-SD 47.2 fL; WBC 15.97 10^3/uL (4.4-10.8)
[2020-12-28 16:38] LABS: INR 1.1 (0.9-1.1); PTT Activated 28.4 sec (21.0-27.5); Prothrombin Time 10.8 sec (9.3-11.0)
[2020-12-28 16:40] LABS: ALT 59 U/L (16-63); AST 54 U/L (15-37); Alkaline Phosphatase 103 U/L (46-116); Anion Gap 7.2 mmol/L (3-11); BUN 17 mg/dL (7-18); Bilirubin, Total 0.9 mg/dL (0.2-1.0); CO2 34.8 mmol/L (21.0-32.0); Chloride 93 mmol/L (98-107); Glucose 136 mg/dL (74-106); Magnesium 1.8 mg/dL (1.8-2.4); Potassium 3.3 mmol/L (3.5-5.1); Sodium 135 mmol/L (136-145)
[2020-12-28 16:48] LABS: Absolute Neutrophil Count 12.11 10^3/uL (1.2-6.7)
[2020-12-28 16:54] LABS: C-Reactive Protein > 25.00 mg/dL (0.0-0.3); Diff Comment Diff Reviewed
[2020-12-28 16:55] LABS: RBC Morphology Normal
--- NOTE | 2020-12-28 17:18 | DI.VRAD_ITS ---
PROCEDURE INFORMATION: Exam: CT Head Without Contrast Exam date and time: 12/28/2020 4:49 PM Age: 60 years old Clinical indication: Altered mental status/memory loss; Confusion or disorientation TECHNIQUE: Imaging protocol: Computed tomography of the head without contrast. COMPARISON: CT HEAD AND CSPINE W/O CONTRAST 04/26/2016 7:46 AM FINDINGS: Brain: Normal. No hemorrhage. Unremarkable white matter. No mass effect. Cerebral ventricles: No ventriculomegaly. Bones/joints: Unremarkable. No acute fracture. Paranasal sinuses: Visualized sinuses are unremarkable. No fluid levels. Mastoid air cells: Visualized mastoid air cells are well aerated. Soft tissues: Unremarkable. IMPRESSION: No acute intracranial abnormality. Dictated and Authenticated by: Everardo Gomez MD. Ordering:VICENTE Guajardo MD
--- NOTE | 2020-12-28 17:22 | DI.VRAD_ITS ---
PROCEDURE INFORMATION: Exam: XR Right Foot Exam date and time: 12/28/2020 3:35 PM Age: 60 years old Clinical indication: Condition or disease; Patient HX: Cellulitis, ? osteo TECHNIQUE: Imaging protocol: XR Right foot. Views: 3 or more views. COMPARISON: CT LOWER EXTREMITY RT WO 01/11/2020 8:52 AM FINDINGS: Bones/joints: As seen on the prior CT there are advanced erosive changes of the ankle joint with marked loss of joint space, subchondral sclerosis, and subchondral cyst formation. Heterotopic calcification of adjacent soft tissues is present. The 2nd toe is surgically absent. Mild hypertrophic change at the 1st MTP joint is present. No acute fracture or dislocation is seen. No focal new erosive changes are seen. Soft tissues: Normal. IMPRESSION: 1. 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 2. Status post amputation of the 2nd toe. 3. No gas is noted within the soft tissues. Dictated and Authenticated by: Everardo Gomez MD. Ordering:VICENTE Guajardo MD
[2020-12-28 17:26] LABS: Bilirubin Small (Negative); Blood Negative (Negative); Clarity Clear (Clear); Glucose Negative (Negative); Ketones Trace mg/dL (Negative); Leukocyte Esterase Negative (Negative); Nitrite Negative (Negative); Specific Gravity 1.025 (1.005-1.025)
[2020-12-28 17:38] LABS: Epithelial Cells Few HPF (Negative); RBC Negative HPF (0-2)
[2020-12-28 17:39] LABS: Bacteria Negative HPF (Negative); C & S Indicated? Yes; Casts Negative LPF (Negative); Crystals Negative HPF (Negative); Mucus Moderate (Negative); Other Cells Mod Transitional (Negative)
[2020-12-28] MEDS: Ciprofloxacin 500 MG TAB PO (17:54)
[2020-12-28] MEDS: Clindamycin 150 MG CAP 450 MG PO (17:54)
[2020-12-28 18:32] VITALS: BP 101/55; PULSE 89; RESP 20; TEMP 37.2; O2SAT 94
[2020-12-28 20:31] LABS: ESR 127 mm/hr (<or=20)
[2020-12-30 16:34] LABS: COVID-19 RT-PCR UVMMC Result Negative (Negative)
== END 2020-12-28 18:50 | disposition home or self-care (01) ==
PROVIDERS: Emergency Provider Emergency Medicine; PCP Nurse Practitioner Family
DX: L03.115 Cellulitis of right lower limb (principal); B96.89 Other specified bacterial agents as the cause of diseases classified elsewhere; R51.9 Headache, unspecified; Z20.822 Contact with and (suspected) exposure to COVID-19
CPT/HCPCS: 80053; 82805; 85652; 87040; 99284; U0003; 70450; 73630; 81003; 81015; 83605; 83735; 85025; 85610; 85730; 86140; 87086; 99283

== ENCOUNTER 2021-01-01 05:22 | Emergency (ER) | payer MEDICARE, MEDICAID, SELFPAY ==
[2021-01-01] VITALS (117 sets, daily range): BP systolic 88–153; BP diastolic 57–96; PULSE 47–99; RESP 8–35; TEMP 36.5–38.7; O2SAT 77–100
--- NOTE | 2021-01-01 05:30 | DI.RAD_ITS ---
EXAM: XR PORTABLE CHEST AP CLINICAL HISTORY: fever, rlq abd pain TECHNIQUE: COMPARISON: CR CHEST 2 VIEWS PA,LAT from 08/19/2017 FINDINGS: The heart is not enlarged. Lungs are grossly clear and well expanded. No gross pleural effusion on this frontal film. IMPRESSION: No evidence of acute process. RADIATION DOSE DELIVERED: Total DLP
--- NOTE | 2021-01-01 05:30 | DI.CT_ITS ---
EXAM: CT ABDOMEN PELVIS CTA INDICATION: rlq pain. COMPARISON: No exams were available for comparison TECHNIQUE: FINDINGS: CT examination of the abdomen and pelvis was performed using CT angiography protocol with intravenous infusion of 100 cc of Visipaque 320 period No prior images available for comparison. Images obtained through the lung bases are unremarkable ex cept for slight atelectasis or scarring bases.. The liver contains a large apparently septated low-attenuation lesion of the posterior segment the ri ght hepatic lobe with mild surrounding enhancement of hepatic parenchyma, the patient reportedly is f ebrile and in the appropriate clinical situation the findings would be highly suspicious for hepatic abscess. Please correlate clinically. Other etiologies including primary or metastatic hepatic lesi on not excluded. Gallbladder and bile ducts are CT normal. Pancreas appears normal. Spleen is unremarkable in appearance. Adrenals appear normal. The kidneys contain multiple homogeneous low-attenuation lesions consistent with cysts, the largest o f the left kidney measuring roughly 5-6 cm in greatest diameter. No hydronephrosis, renal solid mass , or nephrolithiasis seen. Urinary bladder grossly unremarkable. Abdominal aorta is of normal diameter and no major vascular abnormality is seen. There are small bilateral fat containing inguinal hernias and small fat containing umbilical hernia. No abdominal or pelvic adenopathy. Prostate and seminal vesicles are unremarkable. Appendix is normal. No evidence of diverticulitis or bowel obstruction. IMPRESSION: Findings suggestive of large right lobe posterior segment hepatic abscess in the appropriate clinical setting. Other etiologies including primary or metastatic neoplastic disease not excluded. RADIATION DOSE DELIVERED: 999.83mGy.cm Total DLP 999.83mGy.cm Total DLP
--- NOTE | 2021-01-01 05:44 | W.ED.GENAD ---
Discharge Plan Disposition Patient Disposition: STILL A PATIENT Condition: Serious Discharge Details Clinical Impression: Abscess, hepatic, Hypoxia, Fever, Hypokalemia Primary Care Provider: Delaney Box ED Provider: Maya Mcnamara Home Meds and New Rx's Prescriptions: No Action amlodipine 10 mg tablet 10 mg PO DAILY RF: 0 (DME) Rolling Knee Scooter Qty: 1 RF: 0 Kalyani Brace Qty: 1 RF: 0 hydrochlorothiazide 25 MG tablet 50 tab PO DAILY RF: 0 insulin lispro [Humalog U-100 Insulin] 100 UNITS/ML solution 1 - 8 unit Sub-Q AC PRNRF: 0 gabapentin 300 mg capsule 800 mg PO TID RF: 0 methadone 5 MG/5 ML solution 115 mg PO DAILY RF: 0 olanzapine 5 mg tablet 5 mg PO DAILY RF: 0 meloxicam 15 MG tablet 15 mg PO DAILY RF: 0 Lantus U-100 Insulin 100 UNITS/ML solution 65 units Sub-Q DAILY RF: 0 clonazepam 0.5 mg Tablet 1 mg PO BID RF: 0 venlafaxine 150 mg Capsule,Extended Release 24hr 150 mg PO DAILY RF: 0 Discharge Data Discharge Date/Time-TO BE ENTERED AT DEPARTURE: 01/01/21 12:53 Medical Decision Making <Boom Barros DO - Last Filed: 01/01/21 07:37> 60-year-old male with a past medical history of diabetes, cellulitis of his toe for which he is currently taking Cipro and doxycycline which she was just prescribed. He presents today for evaluation of abdominal pain, patient states that 25 minutes prior to arrival he had a sudden onset sharp right lower quadrant abdominal pain which she describes as on and off, and severe. He denies any tearing or ripping sensation. He was febrile per EMS upon their arrival. He denies any genital or groin pain. Slight radiation is present to the back. He denies history of kidney stones. He was nauseous prior to arrival. No other complaints at this time. No other modifying factors. Exam demonstrates notable tenderness in the right lower quadrant, positive Rovsing sign, positive rebound. Differential is highest for acute appendicitis, but also includes AAA and less likely dissection. Dorsalis pedis pulses +2 bilaterally. Radial pulses +2 bilaterally. We will treat the patient's pain, gently rehydrate, get a CAT scan, monitor closely and reassess. Vital signs are encouraging at this point. 7:30 AM Laboratory work-up is returned, lactate is equivocal, white count elevated at 13.5, notable left shift. Patient is hypokalemic with a potassium of 3, magnesium is normal. We will replace the potassium with IV potassium [address] results show evidence of a large hepatic abscess that is 11 x 7.7 cm. We started the patient on Zosyn. I did contact her surgeon Dr. Dacosta, she felt that this case would be best managed at [facility] with more robust ICU capabilities. We will contact [facility] for transfer. Case will be signed out to my colleague Dr. Maya Mcnamara for facilitation of transfer to [facility]. FINDINGS: Aorta: No aortic aneurysm. No aortic dissection. Celiac trunk and mesenteric arteries: No occlusion or significant stenosis. Renal arteries: No occlusion or significant stenosis. Right iliac arteries: No occlusion or significant stenosis. Left iliac arteries: No occlusion or significant stenosis. Liver: Heterogeneous focus of decreased attenuation involving segments 6 and 7 of the posterior right lobe of the liver suspicious for hepatic abscess measuring up to 11 x 7.7 cm. Gallbladder and bile ducts: Unremarkable. No calcified stones. No ductal dilation. Pancreas: Unremarkable. No mass. No ductal dilation. Spleen: Unremarkable. No splenomegaly. Adrenal glands: Unremarkable. No mass. Kidneys and ureters: Simple renal cysts measure up to 6.7 cm on the left Stomach and bowel: Unremarkable. No obstruction. No mucosal thickening. Appendix: No evidence of appendicitis. Intraperitoneal space: Unremarkable. No free air. No significant fluid collection. Lymph nodes: Unremarkable. No enlarged lymph nodes. Urinary bladder: Unremarkable. No mass. Reproductive: Unremarkable as visualized. Bones/joints: No acute fracture. No dislocation. Soft tissues: Unremarkable. IMPRESSION: Heterogeneous focus of decreased attenuation involving segments 6 and 7 of the posterior right lobe of the liver suspicious for hepatic abscess measuring up to 11 x 7.7 cm. Thank you for allowing us to participate in the care of your patient. Dictated and Authenticated by: Sukhdeep Gilliland MD 01/01/2021 7:17 AM Eastern Time ([place] & [place]) FINDINGS: Lungs: Mild interstitial prominence may be slightly increased No consolidation. Pleural spaces: Unremarkable. No pleural effusion. No pneumothorax. Heart/Mediastinum: Unremarkable. No cardiomegaly. Bones/joints: Postsurgical changes in the left clavicle and left shoulder are grossly stable IMPRESSION: Question mild increased interstitial prominence which may represent mild interstitial pneumonitis versus edema No focal consolidation Thank you for allowing us to participate in the care of your patient. Dictated and Authenticated by: Joseph Fletcher MD 01/01/2021 6:32 AM Eastern Time ([place] & [place]) <Maya Mcnamara DO - Last Filed: 01/03/21 09:07> 0800 -- Please see Dr. Barros's note for initial presentation, exam or plan. Case endorsed to follow-up with [facility] for transfer. 60-year-old male with a history of diabetes, IV drug use, last use in the last week, complaints of fatigue, body aches and headache for the past week, noted to have a temp of 101.6, white blood cell count of 13, lactate of 1.5, potassium 3.0, and hepatic abscess on CT this morning. He arrived to the ED on 5 L of nasal cannula oxygen. He has been continued on 4 L nasal cannula oxygen in the ED. He denies any complaint of cough, shortness of breath. Chest x-ray noted questionable pneumonitis versus edema. Denies any pleuritic pain, chest pain, shortness of breath and presentation not consistent with PE. Nasal cannula oxygen discontinued during my assessment oxygen saturation 94% on room air. He is a marijuana smoker and longtime tobacco smoker who quit within the last year in prep for surgery of his chronic right ankle deformity and pain. He has a morbidly obese body habitus, consider hypoventilation, COPD, obstructive sleep apnea. He has slightly diminished breath sounds right chest but no wheezing or rhonchi. His abdomen is soft and tender in the right upper or right lower quadrants. He did not take his methadone dose this morning. He is complaining of continued abdominal pain. We will give IV Tylenol for his fever, another dose of IV morphine and IV Zofran for his nausea. 0845 -- oxygen saturation decreased to high 70s with a good waveform. Patient placed on 1 L nasal cannula oxygen and O2 sat increased to 93 to 94%. 0945 -- discussed with [facility] and there is likely not a bed available. Surgery does not think this is a surgical case. Interventional radiology may be able to drain the abscess tomorrow. I discussed with [facility] and they are closed to transfers. I discussed with our hospitalist and she would potentially accept the patient if they could do IR drainage today. [facility] unable to do IR drainage today but can tomorrow. 1115 -- I discussed with [facility] and they have accepted patient for transfer. Accepting physician Dr. Bautista. Patient remained hemodynamically stable prior to transfer. Medical Records Medical records reviewed: Yes I reviewed the patient's medical records. Imaging Data Radiologic Study: Radiologist's impression: CT ABDOMEN PELVIS CTA INDICATION: rlq pain. COMPARISON: No exams were available for comparison TECHNIQUE: FINDINGS: CT examination of the abdomen and pelvis was performed using CT angiography protocol with intravenous infusion of 100 cc of Visipaque 320 period No prior images available for comparison. Images obtained through the lung bases are unremarkable except for slight atelectasis or scarring bases.. The liver contains a large apparently septated low-attenuation lesion of the posterior segment the right hepatic lobe with mild surrounding enhancement of hepatic parenchyma, the patient reportedly is febrile and in the appropriate clinical situation the findings would be highly suspicious for hepatic abscess. Please correlate clinically. Other etiologies including primary or metastatic hepatic lesion not excluded. Gallbladder and bile ducts are CT normal. Pancreas appears normal. Spleen is unremarkable in appearance. Adrenals appear normal. The kidneys contain multiple homogeneous low-attenuation lesions consistent with cysts, the largest of the left kidney measuring roughly 5-6 cm in greatest diameter. No hydronephrosis, renal solid mass, or nephrolithiasis seen. Urinary bladder grossly unremarkable. Abdominal aorta is of normal diameter and no major vascular abnormality is seen. There are small bilateral fat containing inguinal hernias and small fat containing umbilical hernia. No abdominal or pelvic adenopathy. Prostate and seminal vesicles are unremarkable. Appendix is normal. No evidence of diverticulitis or bowel obstruction. IMPRESSION: Findings suggestive of large right lobe posterior segment hepatic abscess in the appropriate clinical setting. Other etiologies including primary or metastatic neoplastic disease not excluded. Lab Data Lab results reviewed: Yes I reviewed the patient's lab results. Labs: 01/01/21 07:10 Urine - Reflex from Ua Urine Culture - Final Gram Positive Christine 01/01/21 05:40 Blood Blood Culture - Preliminary NO GROWTH 48 HOURS 01/01/21 05:40 Blood Blood Culture - Preliminary NO GROWTH 48 HOURS Laboratory Tests Range/Units 01/01/21 01/01/21 01/01/21 04:40 04:40 04:40 WBC (4.4-10.8) 10^3/uL 13.55 H RBC (4.36-5.78) 10^6/uL 3.83 L Hgb (13.5-17.5) g/dL 11.9 L Hct (40.0-50.0) % 36.5 L MCV (80-95) fL 95.3 H MCH (27.0-33.0) pg 31.1 MCHC (32.0-36.0) % 32.6 RDW (11.8-14.1) % 13.7 Plt Count (130-400) 10^3/uL 334 D MPV (8.0-11.0) fL 10.1 Immature Gran % 0.9 Neutrophils % 79.3 Lymphocytes % 7.3 Monocytes % 11.8 Eosinophils % 0.4 Basophils % 0.3 Nucleated RBC % % 0 Absolute Neutrophils (1.2-6.7) 10^3/uL 10.75 H Absolute Lymphocytes (1.2-3.4) 10^3/uL 0.99 L Absolute Monocytes (0.1-0.8) 10^3/uL 1.60 H Absolute Eosinophils (0.0-0.7) 10^3/uL 0.05 Absolute Basophils (0.0-0.2) 10^3/uL 0.04 VBG Lactate (0.6-1.4) mmol/L 1.5 H Sodium (136-145) mmol/L 134 L Potassium (3.5-5.1) mmol/L 3.0 L Chloride (98-107) mmol/L 89 L Carbon Dioxide (21.0-32.0) mmol/L 35.9 H Anion Gap (3-11) mmol/L 9.1 BUN (7-18) mg/dL 14 Creatinine (0.70-1.30) mg/dL 1.2 Estimated GFR/1.73 m2 (mL/min/1.73m2) >= 60.00 Glucose (74-106) mg/dL 193 H Calcium (8.5-10.1) mg/dL 8.6 Magnesium (1.8-2.4) mg/dL Total Bilirubin (0.2-1.0) mg/dL 0.7 AST (15-37) U/L 70 H ALT (16-63) U/L 87 H Alkaline Phosphatase (46-116) U/L 170 H Total Protein (6.4-8.2) g/dL 8.0 Albumin (3.4-5.0) g/dL 2.7 L Lipase (73-393) U/L 44 Urine Color (Yellow) Urine Clarity (Clear) Urine pH (5-8) Ur Specific [place] (1.005-1.025) Urine Protein (Negative) mg/dL Urine Ketones (Negative) mg/dL Urine Blood (Negative) Urine Nitrite (Negative) Urine Bilirubin (Negative) Urine Urobilinogen (Up TO 0.2) EU/dL Ur Leukocyte Esterase (Negative) Urine RBC (0-2) HPF Urine WBC (0-5) HPF Ur Epithelial Cells (Negative) HPF Urine Crystals (Negative) HPF Urine Bacteria (Negative) HPF Urine Casts (Negative) LPF Urine Mucus (Negative) Urine Other (Negative) Ur Culture Indicated? Urine Glucose (Negative) mg/dL COVID-19 Source SARS-CoV-2 (PCR) (Negative) Influenza Type A (PCR) (Negative) Influenza Type B (PCR) (Negative) RSV (PCR) (Negative) Range/Units 01/01/21 01/01/21 01/01/21 04:40 06:11 07:10 WBC (4.4-10.8) 10^3/uL RBC (4.36-5.78) 10^6/uL Hgb (13.5-17.5) g/dL Hct (40.0-50.0) % MCV (80-95) fL MCH (27.0-33.0) pg MCHC (32.0-36.0) % RDW (11.8-14.1) % Plt Count (130-400) 10^3/uL MPV (8.0-11.0) fL Immature Gran % Neutrophils % Lymphocytes % Monocytes % Eosinophils % Basophils % Nucleated RBC % % Absolute Neutrophils (1.2-6.7) 10^3/uL Absolute Lymphocytes (1.2-3.4) 10^3/uL Absolute Monocytes (0.1-0.8) 10^3/uL Absolute Eosinophils (0.0-0.7) 10^3/uL Absolute Basophils (0.0-0.2) 10^3/uL VBG Lactate (0.6-1.4) mmol/L Sodium (136-145) mmol/L Potassium (3.5-5.1) mmol/L Chloride (98-107) mmol/L Carbon Dioxide (21.0-32.0) mmol/L Anion Gap (3-11) mmol/L BUN (7-18) mg/dL Creatinine (0.70-1.30) mg/dL Estimated GFR/1.73 m2 (mL/min/1.73m2) Glucose (74-106) mg/dL Calcium (8.5-10.1) mg/dL Magnesium (1.8-2.4) mg/dL 1.9 Total Bilirubin (0.2-1.0) mg/dL AST (15-37) U/L ALT (16-63) U/L Alkaline Phosphatase (46-116) U/L Total Protein (6.4-8.2) g/dL Albumin (3.4-5.0) g/dL Lipase (73-393) U/L Urine Color (Yellow) Dark yellow Urine Clarity (Clear) Clear Urine pH (5-8) 6.5 Ur Specific [place] (1.005-1.025) 1.020 Urine Protein (Negative) mg/dL 100 H Urine Ketones (Negative) mg/dL 40 H Urine Blood (Negative) Negative Urine Nitrite (Negative) Negative Urine Bilirubin (Negative) Negative Urine Urobilinogen (Up TO 0.2) EU/dL 1.0 H Ur Leukocyte Esterase (Negative) Negative Urine RBC (0-2) HPF 0-2 Urine WBC (0-5) HPF 10-20 H Ur Epithelial Cells (Negative) HPF Rare Urine Crystals (Negative) HPF Negative Urine Bacteria (Negative) HPF Few Urine Casts (Negative) LPF 0-2 fine granular Urine Mucus (Negative) Negative Urine Other (Negative) Few renal Ur Culture Indicated? Yes Urine Glucose (Negative) mg/dL Negative COVID-19 Source Nasopharyx SARS-CoV-2 (PCR) (Negative) Negative Influenza Type A (PCR) (Negative) Negative Influenza Type B (PCR) (Negative) Negative RSV (PCR) (Negative) Negative HPI <Boom Barros DO - Last Filed: 01/01/21 07:37> General Date/Time Provider Initiated Documentation: 01/01/21 05:30. HPI Narrative: 60-year-old male with a past medical history of diabetes, cellulitis of his toe for which he is currently taking Cipro and doxycycline which she was just prescribed. He presents today for evaluation of abdominal pain, patient states that 25 minutes prior to arrival he had a sudden onset sharp right lower quadrant abdominal pain which she describes as on and off, and severe. He denies any tearing or ripping sensation. He was febrile per EMS upon their arrival. He denies any genital or groin pain. Slight radiation is present to the back. He denies history of kidney stones. He was nauseous prior to arrival. No other complaints at this time. No other modifying factors. Related Data Home Medications Medication Instructions Recorded Confirmed hydrochlorothiazide 50 tab PO DAILY 07/12/15 01/01/21 insulin lispro [Humalog U-100 1 - 8 unit SUB-Q AC PRN 06/11/16 01/01/21 Insulin] methadone 115 mg PO DAILY 02/10/17 01/01/21 meloxicam 15 mg PO DAILY 08/20/17 01/01/21 Lantus U-100 Insulin 65 units SUB-Q DAILY 11/05/18 01/01/21 amlodipine 10 mg tablet 10 mg PO DAILY 03/23/19 01/01/21 clonazepam 1 mg PO BID 10/04/19 01/01/21 venlafaxine 150 mg PO DAILY 10/04/19 01/01/21 gabapentin 300 mg capsule 800 mg PO TID cap 12/05/19 01/01/21 Rolling Knee Scooter #1 ea 12/07/19 01/09/20 olanzapine 5 mg PO DAILY 01/01/21 01/01/21 Previous Rx's Medication Instructions Recorded Rolling Knee Scooter #1 ea 12/07/19 Allergies Allergy/AdvReac Type Severity Reaction Status Date / Time lisinopril Allergy angioedema Verified 01/01/21 05:48 ? General Stated Complaint: Abd Prob SHWETA: 3 Review of Systems <Boom Barros DO - Last Filed: 01/01/21 07:37> All systems reviewed & are unremarkable except as noted in HPI and below PFS <Boom Barros DO - Last Filed: 01/01/21 07:37> Medical History Chronic pain of left knee Colon adenoma 11/10/11 - Dr Benson Hebert, hyperplastic polyp, but with tubulovillous adenoma in nov, recommended repeat in five years. Depression Diabetes mellitus Fibula fracture right History of MRSA infection (~10/2017) HTN (hypertension) Hypogonadism Normal colonoscopy (11/05/18) [facility] recommends repeat in 5 years. Personal history of colonic polyps Tobacco abuse Surgical History Amputated toe of right foot (~11/2016) 2nd toe, Rt foot Arthroplasty of knee left knee Colonoscopy planned (~11/2018) H/O colonoscopy with polypectomy 11/10/11 - Dr Benson Hebert, hyperplastic polyp, but with tubulovillous adenoma in nov, recommended repeat in five years. History of left knee replacement History of repair of left rotator cuff left index finger amputation (~1994) Rotator Cuff Repair left Umbilical hernia without mention of obstruction or gangrene Family History Father Alcohol abuse Hypertension Sister Anxiety Mother Depression Maternal Grandmother Depression Cancer Colon Paternal Grandmother Depression Cancer Colon Aunt Cancer Colon cancer Social History Smoking/Tobacco Use Status: Former Tobacco Use Smoking risk assessment performed?: Yes Alcohol Intake: former Drug use: Occasionally Substance use type: marijuana and methamphetamine Adopted: No Caregiver/Support person: No Foster care: No Household members: none Housing: apartment Number of Children: 3 Communication Needs: None Do you need help understanding health information?: Often current occupation: Disabled Sexually active: Yes Do you think of yourself as: straight/heterosexual Current gender identity: male What is your relationship status?: Panel score (0-1 are the most socially isolated patients): 0 What type of physical activity do you participate in: none Seatbelt use: always Drive intox or ride w/intox 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 3.ENT: Atraumatic external nose and ears. Moist MM. Neck: Symmetric, trachea midline, No thyromegaly. 4.CVS: +S1/S2, No murmurs or gallops. Peripheral pulses 2+ and equal in all extremities. Brisk capillary refill in all extremities. 5.RESP: Unlabored respiratory effort. Clear to auscultation bilaterally. No wheezes rales or rhonchi 6.GI: Soft, nondistended, voluntary guarding, notable right lower quadrant tenderness, positive Rovsing sign. Rebound is present. 7.MSK: Normocephalic/Atraumatic, Extremities w/o deformity or ttp No cyanosis or clubbing, Normal movement of all extremities 8.Skin: Warm, Dry. No rashes or lesions. 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 Sensation grossly intact, no focal neurologic deficits. 10.Psych: (AAO) x3. Appropriate mood and affect Course <Boom Romano Papo DO - Last Filed: 01/01/21 07:37> Vital Signs Vital signs: Vital Signs Temperature 38.7 C H 01/01/21 05:32 Pulse 90 01/01/21 05:32 Respiratory Rate 14 01/01/21 05:32 Blood Pressure 134/77 01/01/21 05:32 Pulse Oximetry 98 01/01/21 05:32 Temperature 38.7 C H 01/01/21 05:32 Temperature Source Oral 01/01/21 05:32 Pulse 90 01/01/21 05:32 Respiratory Rate 14 01/01/21 05:32 Respiratory Effort Non-Labored 01/01/21 05:41 Blood Pressure 134/77 01/01/21 05:32 Blood Pressure Position Sitting 01/01/21 05:32 Pulse Oximetry 98 01/01/21 05:32 Oxygen Delivery Method Room Air 01/01/21 05:32 Oxygen Flow Rate 0 01/01/21 05:32 Pain Level 7 01/01/21 05:32 Lab/Test Results Lab/Test Results: 01/01/21 05:41 Blood Blood Culture - Pending 01/01/21 05:41 Blood Blood Culture - Pending Sign Out <Boom Barros DO - Last Filed: 01/01/21 07:37> Sign Out Data: Sign Out Comment: Large hepatic abscess, surgery recommends transfer to [facility] for SICU management. Pending [facility] callback Last updated by Boom Barros DO at 01/01/21 07:50
[2021-01-01 06:00] LABS: Lactate 1.5 mmol/L (0.6-1.4)
[2021-01-01 06:01] LABS: Abs Immature Grans 0.12 10^3/uL (0.0-0.06); Absolute Basophil Count 0.04 10^3/uL (0.0-0.2); Absolute Eosinophil Count 0.05 10^3/uL (0.0-0.7); Absolute Lymphocyte Count 0.99 10^3/uL (1.2-3.4); Absolute Neutrophil Count 10.75 10^3/uL (1.2-6.7); Basophils % 0.3; Eosinophils % 0.4; HCT 36.5 % (40.0-50.0); HGB 11.9 g/dL (13.5-17.5); Immature Grans % 0.9; Lymphocytes % 7.3; MCH 31.1 pg (27.0-33.0); MCHC 32.6 % (32.0-36.0); MCV 95.3 fL (80-95); MPV 10.1 fL (8.0-11.0); Monocytes % 11.8; Neutrophils % 79.3; Nucleated RBC 0 %; RBC 3.83 10^6/uL (4.36-5.78); RDW 13.7 % (11.8-14.1); RDW-SD 47.9 fL; WBC 13.55 10^3/uL (4.4-10.8)
[2021-01-01] MEDS: Ondansetron 4 MG/2 ML VIAL IVP ×2 (06:06→08:23)
[2021-01-01] MEDS: Normal Saline 500 ML IV (06:07)
[2021-01-01 06:16] LABS: ALT 87 U/L (16-63); AST 70 U/L (15-37); Albumin 2.7 g/dL (3.4-5.0); Alkaline Phosphatase 170 U/L (46-116); Anion Gap 9.1 mmol/L (3-11); BUN 14 mg/dL (7-18); Bilirubin, Total 0.7 mg/dL (0.2-1.0); CO2 35.9 mmol/L (21.0-32.0); CREATININE 1.2 mg/dL (0.70-1.30); Calcium 8.6 mg/dL (8.5-10.1); Chloride 89 mmol/L (98-107); Glucose 193 mg/dL (74-106); Lipase 44 U/L (73-393); Sodium 134 mmol/L (136-145)
[2021-01-01 06:27] LABS: Diff Comment Agrees w/ Instrument; Platelet Count 334 10^3/uL (130-400)
--- NOTE | 2021-01-01 06:32 | DI.VRAD_ITS ---
PROCEDURE INFORMATION: Exam: XR Chest Exam date and time: 01/01/2021 5:43 AM Age: 60 years old Clinical indication: Fever; Prior surgery; Surgery date: 6+ months; Surgery type: Clavicle; Additional info: Fever, rlq abd pain TECHNIQUE: Imaging protocol: XR of the chest Views: 1 view. COMPARISON: CR CHEST 2 VIEWS PA,LAT 08/19/2017 1:19 PM FINDINGS: Lungs: Mild interstitial prominence may be slightly increased No consolidation. Pleural spaces: Unremarkable. No pleural effusion. No pneumothorax. Heart/Mediastinum: Unremarkable. No cardiomegaly. Bones/joints: Postsurgical changes in the left clavicle and left shoulder are grossly stable IMPRESSION: Question mild increased interstitial prominence which may represent mild interstitial pneumonitis versus edema No focal consolidation Dictated and Authenticated by: Joseph Fletcher MD. Ordering:DOMINGO Nur MD
[2021-01-01 06:37] LABS: Magnesium 1.9 mg/dL (1.8-2.4)
[2021-01-01 06:55] LABS: COVID-19 PCR Negative (Negative); Influenza A PCR Negative (Negative); Influenza B PCR Negative (Negative); RSV PCR Negative (Negative)
[2021-01-01] MEDS: Normal Saline - Diluent 50 ML VIAL IV (07:06)
[2021-01-01] MEDS: Normal Saline Flush 10 ML SYR IVP (07:07)
--- NOTE | 2021-01-01 07:17 | DI.VRAD_ITS ---
PROCEDURE INFORMATION: Exam: CT Angiography Abdomen and Pelvis With Contrast Exam date and time: 01/01/2021 6:50 AM Age: 60 years old Clinical indication: Abdominal pain; Localized; Right lower quadrant (rlq); Prior surgery; Surgery date: 6+ months; Surgery type: Hernia repair; Additional info: Fever, rlq abd pain TECHNIQUE: Imaging protocol: Computed tomographic angiography of the abdomen and pelvis with contrast material. 3D rendering (Not supervised by radiologist): MIP and/or 3D reconstructed images were created by the technologist. Radiation optimization: All CT scans at this facility use at least one of these dose optimization techniques: automated exposure control; mA and/or kV adjustment per patient size (includes targeted exams where dose is matched to clinical indication); or iterative reconstruction. Contrast material: VISIPAQUE 320; Contrast volume: 100 ml; Contrast route: INTRAVENOUS (IV); COMPARISON: CR XR hip RT complete AP pelvis 04/22/2019 2:03 PM FINDINGS: Aorta: No aortic aneurysm. No aortic dissection. Celiac trunk and mesenteric arteries: No occlusion or significant stenosis. Renal arteries: No occlusion or significant stenosis. Right iliac arteries: No occlusion or significant stenosis. Left iliac arteries: No occlusion or significant stenosis. Liver: Heterogeneous focus of decreased attenuation involving segments 6 and 7 of the posterior right lobe of the liver suspicious for hepatic abscess measuring up to 11 x 7.7 cm. Gallbladder and bile ducts: Unremarkable. No calcified stones. No ductal dilation. Pancreas: Unremarkable. No mass. No ductal dilation. Spleen: Unremarkable. No splenomegaly. Adrenal glands: Unremarkable. No mass. Kidneys and ureters: Simple renal cysts measure up to 6.7 cm on the left Stomach and bowel: Unremarkable. No obstruction. No mucosal thickening. Appendix: No evidence of appendicitis. Intraperitoneal space: Unremarkable. No free air. No significant fluid collection. Lymph nodes: Unremarkable. No enlarged lymph nodes. Urinary bladder: Unremarkable. No mass. Reproductive: Unremarkable as visualized. Bones/joints: No acute fracture. No dislocation. Soft tissues: Unremarkable. IMPRESSION: Heterogeneous focus of decreased attenuation involving segments 6 and 7 of the posterior right lobe of the liver suspicious for hepatic abscess measuring up to 11 x 7.7 cm. Dictated and Authenticated by: Sukhdeep Gilliland MD. Ordering:DOMINGO Nur MD
[2021-01-01] MEDS: POTASSIUM CHLORIDE 20 MEQ/100 ML BAG 50 MEQ IVPB (07:18)
[2021-01-01 07:24] LABS: Bilirubin Negative (Negative); Blood Negative (Negative); Clarity Clear (Clear); Glucose Negative (Negative); Ketones 40 mg/dL (Negative); Leukocyte Esterase Negative (Negative); Nitrite Negative (Negative); pH 6.5 (5-8)
[2021-01-01 07:31] LABS: Bacteria Few HPF (Negative); C & S Indicated? Yes; Casts 0-2 Fine Granular LPF (Negative); Crystals Negative HPF (Negative); Epithelial Cells Rare HPF (Negative); Mucus Negative (Negative); Other Cells Few Renal (Negative); RBC 0-2 HPF (0-2)
[2021-01-01] MEDS: PIPERACILLIN/TAZO 4.5 GM in Normal Saline 100 ML IVPB (07:39)
[2021-01-01] MEDS: ACETAMINOPHEN 1,000 MG/100 ML BTL 400 MG IVPB (08:28)
[2021-01-01] MEDS: LORazepam 1 MG TAB PO (09:15)
[2021-01-01] MEDS: Methadone Liquid 10 MG/ML 60 MG PO (10:04)
[2021-01-01] MEDS: Normal Saline 1,000 ML 1000 ML IV (10:18)
--- NOTE | 2021-01-01 10:57 | NUR.NOTE ---
Nursing Note: Pt drowsy after Methadone dose--easily roused/oriented/encouraged to take deep breaths. Sao2 [address]%. Dr Mcnamara notified.
[2021-01-01] MEDS: Normal Saline 1,000 ML 150 ML IV (11:17)
--- NOTE | 2021-01-01 12:50 | NUR.NOTE ---
Nursing Note: CALDERON Underwood called stating that Perry had gotten hold of the neighbor and the cat is going to be taken care of. Tricia Reed
--- NOTE | 2021-01-01 16:54 | NUR.NOTE ---
Nursing Note: Patient transferred to [facility], [address], bed 5048. Main phone # [phone], report to [phone] ext. [phone]. Tricia Reed
== END 2021-01-01 12:53 | disposition still patient (30) ==
LOC: ER 08:35
PROVIDERS: Student in an Organized Health Care Education/Training Program; Emergency Provider Physician Assistant; PCP Nurse Practitioner Family
DX: K75.0 Abscess of liver (principal); R09.02 Hypoxemia; E87.6 Hypokalemia; R50.9 Fever, unspecified; Z03.818 Encounter for observation for suspected exposure to other biological agents ruled out
CPT/HCPCS: 36415; 80053; 83690; 87040; 96361; 96365; 96366; 96367; 96375; 96376; 99285; 71045; 74174; 81003; 81015; 83605; 83735; 85025; 87086; J0131; J2405; J2543; J3480

== ENCOUNTER 2021-02-13 09:17 | Outpatient (REF) | payer MEDICARE, MEDICAID, SELFPAY ==
[2021-02-13 15:28] LABS: Abs Immature Grans 0.01 10^3/uL (0.0-0.06); Absolute Basophil Count 0.07 10^3/uL (0.0-0.2); Absolute Eosinophil Count 0.28 10^3/uL (0.0-0.7); Absolute Lymphocyte Count 1.43 10^3/uL (1.2-3.4); Absolute Monocyte Count 0.56 10^3/uL (0.1-0.8); Absolute Neutrophil Count 4.08 10^3/uL (1.2-6.7); Basophils % 1.1; Eosinophils % 4.4; HCT 40.6 % (40.0-50.0); HGB 13.2 g/dL (13.5-17.5); Immature Grans % 0.2; Lymphocytes % 22.2; MCH 30.2 pg (27.0-33.0); MCHC 32.5 % (32.0-36.0); MCV 92.9 fL (80-95); MPV 9.9 fL (8.0-11.0); Monocytes % 8.7; Neutrophils % 63.4; Nucleated RBC 0 %; Platelet Count 489 10^3/uL (130-400); RBC 4.37 10^6/uL (4.36-5.78); RDW 13.4 % (11.8-14.1); RDW-SD 45.7 fL; WBC 6.43 10^3/uL (4.4-10.8)
[2021-02-13 15:51] LABS: ALT 25 U/L (16-63); AST 17 U/L (15-37); Albumin 3.5 g/dL (3.4-5.0); Alkaline Phosphatase 105 U/L (46-116); Anion Gap 7.1 mmol/L (3-11); BUN 22 mg/dL (7-18); Bilirubin, Total 0.2 mg/dL (0.2-1.0); CO2 32.9 mmol/L (21.0-32.0); CREATININE 0.8 mg/dL (0.70-1.30); Calcium 9.4 mg/dL (8.5-10.1); Calculated LDL 80 mg/dL (<100); Chloride 101 mmol/L (98-107); Cholesterol 180 mg/dL (<200); Glucose 94 mg/dL (74-106); HDL Cholesterol 38 mg/dL (40-60); Potassium 4.3 mmol/L (3.5-5.1); Sodium 141 mmol/L (136-145); Total Protein 7.5 g/dL (6.4-8.2); Triglyceride 312 mg/dL (<150)
[2021-02-13 16:03] LABS: Hemoglobin A1C 7.6 % (<5.7)
== END 2021-02-13 09:18 | disposition home or self-care (01) ==
LOC: NCHCN 09:17
PROVIDERS: PCP Nurse Practitioner Family; Visit Provider Nurse Practitioner Family
DX: E11.9 Type 2 diabetes mellitus without complications (principal); K75.0 Abscess of liver
CPT/HCPCS: 80053; 80061; 83036; 85025

== ENCOUNTER 2021-03-01 20:41 | Emergency (ER) | payer MEDICARE, MEDICAID, SELFPAY ==
[2021-03-01 20:47] VITALS: BP 124/74; PULSE 104; RESP 18; TEMP 36.7; O2SAT 97
[2021-03-01 20:50] VITALS: BP 124/74; PULSE 104; RESP 18; TEMP 36.7; O2SAT 97
--- NOTE | 2021-03-01 20:54 | W.ED.GENAD ---
Discharge Plan Disposition Patient Disposition: HOME Condition: Stable Discharge Details Clinical Impression: Tick bite of back Primary Care Provider: Delaney Box ED Provider: Gurinder Singleton Home Meds and New Rx's Prescriptions: Continued amlodipine 10 mg tablet 10 mg PO DAILY RF: 0 (DME) Rolling Knee Scooter Qty: 1 RF: 0 Kalyani Brace Qty: 1 RF: 0 hydrochlorothiazide 25 MG tablet 50 tab PO DAILY RF: 0 insulin lispro [Humalog U-100 Insulin] 100 UNITS/ML solution 1 - 8 unit Sub-Q AC PRNRF: 0 gabapentin 300 mg capsule 800 mg PO TID RF: 0 methadone 5 MG/5 ML solution 115 mg PO DAILY RF: 0 olanzapine 5 mg tablet 5 mg PO DAILY RF: 0 meloxicam 15 MG tablet 15 mg PO DAILY RF: 0 Lantus U-100 Insulin 100 UNITS/ML solution 65 units Sub-Q DAILY RF: 0 clonazepam 0.5 mg Tablet 1 mg PO BID RF: 0 venlafaxine 150 mg Capsule,Extended Release 24hr 150 mg PO DAILY RF: 0 Discharge Instructions Instructions: Tick Bite (ED) Additional Instructions: The tick that was removed from your back is an Belgian dog tick, otherwise known as a wood tick. Be sure to wear light-colored pants and long socks anytime that you are outdoors and be sure to check for ticks regularly. Please contact your primary care physician to arrange follow-up. Return to the ER for any worsening or new concerning symptoms. Referrals: Delaney Box [Primary Care Provider] - Medical Decision Making 60-year-old male here with tick bite mid back. Tick was removed easily. Mouthparts intact. No retained tick parts. Tick identified as male dog tick. No prophylactic treatment warranted at this time. Usual customary discharge instructions reviewed with the patient including tick prevention strategies. HPI General Mode of arrival: ambulatory. Date/Time Provider Initiated Documentation: 03/01/21 20:51. Limitations to Documentation: no limitations. Information obtained by: patient. HPI Narrative: 60-year-old male here with chief complaint of tick bite. Patient notes he was outside in his yard yesterday and then noticed a tick biting his back today. He has not yet remove the tick. Denies rash. Denies fever. No modifiers. Related Data Home Medications Medication Instructions Recorded Confirmed hydrochlorothiazide 50 tab PO DAILY 07/12/15 03/01/21 insulin lispro [Humalog U-100 1 - 8 unit SUB-Q AC PRN 06/11/16 03/01/21 Insulin] methadone 115 mg PO DAILY 02/10/17 03/01/21 meloxicam 15 mg PO DAILY 08/20/17 03/01/21 Lantus U-100 Insulin 65 units SUB-Q DAILY 11/05/18 03/01/21 amlodipine 10 mg tablet 10 mg PO DAILY 03/23/19 03/01/21 clonazepam 1 mg PO BID 10/04/19 03/01/21 venlafaxine 150 mg PO DAILY 10/04/19 03/01/21 gabapentin 300 mg capsule 800 mg PO TID cap 12/05/19 03/01/21 Rolling Knee Scooter #1 ea 12/07/19 01/09/20 olanzapine 5 mg PO DAILY 01/01/21 03/01/21 Previous Rx's Medication Instructions Recorded Rolling Knee Scooter #1 ea 12/07/19 Allergies Allergy/AdvReac Type Severity Reaction Status Date / Time lisinopril Allergy angioedema Verified 03/01/21 20:50 ? General Stated Complaint: RashLesion SHWETA: 4 Review of Systems Constitutional Constitutional: Denies fever(s) Integumentary/Breasts Skin/Breast: Reports as per HPI Neurologic Neurologic: Denies sensory deficit PFSH Medical History Chronic pain of left knee Colon adenoma 11/10/11 - Dr Benson Hebert, hyperplastic polyp, but with tubulovillous adenoma in nov, recommended repeat in five years. Depression Diabetes mellitus Fibula fracture right History of MRSA infection (~10/2017) HTN (hypertension) Hypogonadism Normal colonoscopy (11/05/18) [facility] recommends repeat in 5 years. Personal history of colonic polyps Tobacco abuse Surgical History Amputated toe of right foot (~11/2016) 2nd toe, Rt foot Arthroplasty of knee left knee Colonoscopy planned (~11/2018) H/O colonoscopy with polypectomy 11/10/11 - Dr Benson Hebert, hyperplastic polyp, but with tubulovillous adenoma in nov, recommended repeat in five years. History of left knee replacement History of repair of left rotator cuff left index finger amputation (~1994) Rotator Cuff Repair left Umbilical hernia without mention of obstruction or gangrene Family History Father Alcohol abuse Hypertension Sister Anxiety Mother Depression Maternal Grandmother Depression Cancer Colon Paternal Grandmother Depression Cancer Colon Aunt Cancer Colon cancer Social History Smoking/Tobacco Use Status: Former Tobacco Use Smoking risk assessment performed?: Yes Alcohol Intake: former Drug use: Occasionally Substance use type: marijuana and methamphetamine Adopted: No Caregiver/Support person: No Foster care: No Household members: none Housing: apartment Number of Children: 3 Communication Needs: None Do you need help understanding health information?: Often current occupation: Disabled Sexually active: Yes Do you think of yourself as: straight/heterosexual Current gender identity: male What is your relationship status?: Panel score (0-1 are the most socially isolated patients): 0 What type of physical activity do you participate in: none Seatbelt use: always Drive intox or ride w/intox delivery driver/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 service: No Working smoke detector in home: Yes Fire extinguisher in home: Yes Carbon monox detector in home: Yes Do you feel safe at home: Yes Do you feel safe in your relationship?: Yes Exam Const General: cooperative and no acute distress HENMT Mouth: moist mucous membranes Skin Other: tick biting mid back, no rash Neuro General: patient alert, patient awake, patient oriented x3 and tone normal Course Vital Signs Vital signs: Vital Signs Temperature 36.7 C 03/01/21 20:47 Pulse 104 H 03/01/21 20:47 Respiratory Rate 18 03/01/21 20:47 Blood Pressure 124/74 03/01/21 20:47 Pulse Oximetry 97 03/01/21 20:47 Temperature 36.7 C 03/01/21 20:50 Temperature Source Temporal Artery Scan 03/01/21 20:47 Pulse 104 H 03/01/21 20:50 Respiratory Rate 18 03/01/21 20:50 Respiratory Effort 03/01/21 20:49 Blood Pressure 124/74 03/01/21 20:50 Blood Pressure Position Sitting 03/01/21 20:47 Pulse Oximetry 97 03/01/21 20:50 Oxygen Delivery Method Room Air 03/01/21 20:47 Oxygen Flow Rate 0 03/01/21 20:47 Pain Level 0 03/01/21 20:50
== END 2021-03-01 21:00 | disposition home or self-care (01) ==
PROVIDERS: Emergency Provider Student in an Organized Health Care Education/Training Program; PCP Nurse Practitioner Family
DX: S20.461A Insect bite (nonvenomous) of right back wall of thorax, initial encounter (principal); W57.XXXA Bitten or stung by nonvenomous insect and other nonvenomous arthropods, initial encounter
CPT/HCPCS: 99282; 99283

== ENCOUNTER 2021-04-03 10:37 | Outpatient (REF) | payer MEDICARE, MEDICAID, SELFPAY ==
[2021-04-03 15:41] LABS: Cholesterol 229 mg/dL (<200); HDL Cholesterol 37 mg/dL (40-60); Triglyceride 425 mg/dL (<150)
[2021-04-03 19:01] LABS: LDL CHOLESTEROL 99 mg/dL (<100)
== END 2021-04-03 10:38 | disposition home or self-care (01) ==
LOC: NCHCN 10:37
PROVIDERS: PCP Nurse Practitioner Family; Visit Provider Nurse Practitioner Family
DX: E78.89 Other lipoprotein metabolism disorders (principal)
CPT/HCPCS: 80061; 83721

== ENCOUNTER 2022-03-28 18:42 | Outpatient (REF) | payer MEDICARE, MEDICAID, SELFPAY ==
[2022-03-28 15:30] LABS: Abs Immature Grans 0.02 10^3/uL (0.0-0.06); Absolute Basophil Count 0.06 10^3/uL (0.0-0.2); Absolute Eosinophil Count 0.27 10^3/uL (0.0-0.7); Absolute Lymphocyte Count 1.68 10^3/uL (1.2-3.4); Absolute Monocyte Count 0.61 10^3/uL (0.1-0.8); Absolute Neutrophil Count 5.57 10^3/uL (1.2-6.7); Basophils % 0.7; Eosinophils % 3.3; HCT 40.3 % (40.0-50.0); HGB 13.5 g/dL (13.5-17.5); Immature Grans % 0.2; Lymphocytes % 20.5; MCH 30.9 pg (27.0-33.0); MCHC 33.5 % (32.0-36.0); MCV 92 fL (80-95); MPV 10.5 fL (8.0-11.0); Monocytes % 7.4; Neutrophils % 67.9; Platelet Count 262 10^3/uL (130-400); RBC 4.37 10^6/uL (4.36-5.78); RDW 14.2 % (11.8-14.1); RDW-SD 47.3 fL; WBC 8.21 10^3/uL (4.4-10.8)
[2022-03-28 16:27] LABS: ALT 24 U/L (16-63); AST 15 U/L (15-37); Albumin 3.3 g/dL (3.4-5.0); Alkaline Phosphatase 91 U/L (46-116); Anion Gap 9.3 mmol/L (3-11); BUN 18 mg/dL (7-18); Bilirubin, Total 0.2 mg/dL (0.2-1.0); CO2 31.7 mmol/L (21.0-32.0); Chloride 99 mmol/L (98-107); Glucose 273 mg/dL (74-106); Potassium 3.5 mmol/L (3.5-5.1); Sodium 140 mmol/L (136-145); Total Protein 7.1 g/dL (6.4-8.2)
[2022-03-28 16:30] LABS: COMMENT (LAB VIEW ONLY) 134.75 mg/dL; Microalb ug/mg Crea 2.3 ug/mg Cr
[2022-04-03 10:17] LABS: Testosterone, Free 0.21 ng/dL (3.87-14.7); Testosterone, Total 8.7 ng/dL (240-950)
== END 2022-03-28 18:43 | disposition home or self-care (01) ==
LOC: NCHCN 18:42
PROVIDERS: PCP Nurse Practitioner Family; Visit Provider Nurse Practitioner Family
DX: E11.9 Type 2 diabetes mellitus without complications (principal); R10.11 Right upper quadrant pain; E29.1 Testicular hypofunction
CPT/HCPCS: 80053; 84402; 84403; 82043; 82570; 85025

== ENCOUNTER → 2022-05-06 00:57 | Outpatient (CLI) | payer MEDICARE, MEDICAID, SELFPAY ==
--- NOTE | 2022-05-06 13:30 | DI.CTLCSR_ITS ---
Exam(s) CT CHEST LUNG CANCER SCREEN EXAM: CT CHEST LUNG CANCER SCREEN CLINICAL HISTORY: SCREENING FOR LUNG CA, FORMER SMOKER, [id number]. TECHNIQUE: Imaging Protocol: Low Dose Technique CONTRAST MATERIAL: None COMPARISON: CT CHEST WITH CONTRAST from 04/26/2016 FINDINGS: CHEST: LUNGS: There is a fissure related 3 millimeter nodule in the right lower lobe noted. No other signif icant right lung findings nor pleural effusion. Mild increased markings noted in the lingular segmen t of the left lung, similar to previous however, there has been significant improvement in the bilate ral infiltrates which are evident in both lower lobes on the 2016 study. There are no pleural effusi ons. No significant focal findings in the trachea and mainstem bronchi. MEDIASTINUM: No obvious hilar adenopathy. However, there is subcarinal adenopathy evident. Bilatera l gynecomastia again noted. CARDIAC: Heart size is normal. There is no pericardial effusion.Caliber of the thoracic aorta is wit hin normal limits. OTHER: Partially included cyst in left kidney again noted. OSSEOUS: No significant osseous lesions.. IMPRESSION: 1. Compared to the prior CT scan of 2015 there has been significant improvement in bilateral infiltra nadir. There is presently a 3 millimeter solitary nodule in the right lower lobe and there are mild be nign-appearing increased markings in the lingular segment of the left lung. No pleural effusions. 2. Subcarinal adenopathy is evident. 3. Lung RADS Cat 3 - Probably Benign: Probably benign finding(s) - short term follow-up suggested in 6 months; include nodules with a low likelihood of becoming a clinically active cancer. Lung-RADS 1.0 CATEGORIES: Category 0 - Prior chest CT exam(s) being located for comparison. Category 1 - Annual screening in 12 months. No nodules or definitely benign nodules. Category 2 - Annual screening in 12 months. Benign appearance. Nodules with low likelihood of becomin g active cancer. Category 3 - 6-month follow-up. Probably benign. Short-term follow-up suggested. Nodules with low lik elihood of becoming active cancer. Category 4A - 3-month follow-up and CT/PET if >8 mm in size. Suspicious finding. Findings which requi re additional testing. Category 4B - Findings which require additional testing and tissue sampling. Category 4X - Category 3 or 4 nodules with additional features or imaging findings that increases the suspicion of malignancy. Modifier S- Potentially clinically significant findings (non lung cancer) RADIATION DOSE DELIVERED: 102.35mGy.cm Total DLP 2.21mGy CTDIvol DATA REPOSITORY: All CT scans at this facility are submitted to the National Radiology Data Registry (NRDR) Dose Index Registry (DIR) with the [employer] (ACR). RADIATION OPTIMIZATION: All CT scans at this facility use at least one of these dose optimization te chniques: automated exposure control; mA and/or kV adjustment per patient size (includes targeted exa ms where dose is matched to clinical indication); or iterative reconstruction.
== END ==
PROVIDERS: PCP Nurse Practitioner Family; Visit Provider Nurse Practitioner Family
DX: Z12.2 Encounter for screening for malignant neoplasm of respiratory organs (principal); R91.8 Other nonspecific abnormal finding of lung field; R91.1 Solitary pulmonary nodule; Z87.891 Personal history of nicotine dependence
CPT/HCPCS: 71271

== ENCOUNTER 2022-06-02 04:29 | Outpatient (CLI) | payer MEDICARE, MEDICAID, SELFPAY ==
--- NOTE | 2022-06-02 11:30 | RT.EKG_ITS ---
APPROVED REPORT Exam: Resting ECG Reason for Exam: HIGH RISK MEDICATION Patient Location: O HR:71 bpm ECG Measurements Heart Rate 71 AXIS UT 153 P 2 QRSd 99 QRS 2 QT 422 T 68 QTc 459 Conclusion Sinus rhythm...normal P axis, V-rate 50- 99 Low voltage, extremity leads...all extremity leads <0.5mV
== END 2022-06-02 04:30 | disposition home or self-care (01) ==
LOC: RT 04:29
PROVIDERS: PCP Nurse Practitioner Family; Visit Provider Family Medicine
DX: Z79.899 Other long term (current) drug therapy (principal); Z13.6 Encounter for screening for cardiovascular disorders
CPT/HCPCS: 93005; 93010

== ENCOUNTER 2022-07-11 02:06 | Outpatient (CLI) | payer MEDICARE, MEDICAID, SELFPAY ==
--- NOTE | 2022-07-11 11:00 | NS.NUTBLAN_ITS ---
Armen was referred for diabetes self management education. 5'8 255 lbs BMI: 39 Highest weight 365 lbs. Able to lose 100 lbs since starting methadone. PMH: DM2, HTN, HLD, Obesity, endentulous, methadone DM meds: takes 65 units lantus at night. Only takes humalog if blood sugars > 250 mg/dl- then takes 8 units. reports no hypoglycemia. Prescribed: lantus 15 u AM, 50 u PM. Humalog 1-8 u at meals 1:5 insulin to carb ratio 1:10 correction factor Diet Recall: B: coffee with sweet creamer with life cereal or shredded wheat cereal with whole milk. Skips lunch but snacks on fruit and turn overs during day. Dinner- he often makes several servings of stir zamorano and noodles with shrimp or chicken. Often skips dinner and has cereal. Exercise: regular exercise- uses his electric bike as transportation daily. Armen reports his blood sugars are > 250 mg/dl most of the time despite taking lantus daily. He reports that he was told to take lantus 15 u AM and 50 units PM-however, he did not follow this advice as he often forgot second dose. He feels tired most of the time and craves sugar. Armen is frustrated that he keeps gaining weight and his blood sugars are often over 300 mg/dl. Reviewed how insulin resistance interferes with insulin sensitivity. Also, discussed importance of lower carb meals and higher protein meals and snacks. 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 Recommend continue low sugar cereal for Breakfast but to stop fruit and pastries during day and substitute with a protein shake, cheese, and pairing fruit with protein such as cottage cheese, PB. Encouraged continue to prepare dinner meal with emphasis on protein and vegetables. Eat 3 meals daily Topic 3: Importance of taking short acting insulin at meals Recommend: 1. change lantus to detrimir/toujeo or tresiba for once a day dosing as unable to remember to take lantus BID 2. consider adding trulicity and/ or Jardiance to aid in weight loss, insulin sensitivity 3. Armen instructed to take 10 units humalog at meals 4. Armen instructed to correct with humalog at a 1:10 ratio. follow up for data down load scheduled for 07/24/22 at 11 am.
== END 2022-07-11 02:07 | disposition home or self-care (01) ==
LOC: DS 02:06
PROVIDERS: PCP Nurse Practitioner Family; Visit Provider Dietitian, Registered
DX: E11.9 Type 2 diabetes mellitus without complications (principal); Z79.4 Long term (current) use of insulin; Z71.3 Dietary counseling and surveillance
CPT/HCPCS: 97802

== ENCOUNTER 2022-07-30 19:15 | Emergency (ER) | payer MEDICARE, MEDICAID, SELFPAY ==
[2022-07-30] VITALS (44 sets, daily range): BP systolic 129–188; BP diastolic 63–106; PULSE 54–95; RESP 8–22; TEMP 37.2; O2SAT 96
--- NOTE | 2022-07-30 19:15 | DI.RAD_ITS ---
Exam(s) XR PORTABLE CHEST AP EXAM: XR PORTABLE CHEST AP CLINICAL HISTORY: chest pain TECHNIQUE: 2D digital imaging was performed of the chest. One image was obtained. An AP view was ob tained. COMPARISON: CR,XR XR PORTABLE CHEST AP from 01/01/2021 FINDINGS: MEDIASTINUM: Normal. HEART: Normal. PULMONARY VASCULATURE: Normal. LUNGS: Linear atelectasis or scarring in the left lung base. Patchy densities are seen in the lung b ases. PLEURAL SPACE: No pleural effusion or pneumothorax. BONE:Within normal limits for the patient's age. There is again seen a sideplate and screws in the le ft clavicle. Postsurgical changes are seen in the left shoulder. OTHER FINDINGS:Normal. IMPRESSION: Patchy densities in the lung bases which may represent pneumonia. DATA REPOSITORY: RADIATION DOSE DELIVERED:
--- NOTE | 2022-07-30 19:15 | RT.EKG_ITS ---
APPROVED REPORT Exam: Resting ECG Reason for Exam: sob Patient Location: E HR:82 bpm ECG Measurements Heart Rate 82 AXIS MD 167 P 45 QRSd 100 QRS -51 QT 392 T 66 QTc 457 Conclusion Sinus rhythm...normal P axis, V-rate 60- 99 LAD, consider left anterior fascicular block...axis(240,-40), S>R II III aVF Physician: no stemi
[2022-07-30 19:35] LABS: Source Nasal/Nares
[2022-07-30 19:51] LABS: Abs Immature Grans 0.04 10^3/uL (0.0-0.06); Absolute Basophil Count 0.05 10^3/uL (0.0-0.2); Absolute Eosinophil Count 0.18 10^3/uL (0.0-0.7); Absolute Lymphocyte Count 1.75 10^3/uL (1.2-3.4); Absolute Monocyte Count 1.02 10^3/uL (0.1-0.8); Absolute Neutrophil Count 6.63 10^3/uL (1.2-6.7); Basophils % 0.5; Eosinophils % 1.9; HCT 51.5 % (40.0-50.0); HGB 16.7 g/dL (13.5-17.5); Immature Grans % 0.4; Lymphocytes % 18.1; MCH 29.3 pg (27.0-33.0); MCHC 32.4 % (32.0-36.0); MCV 90 fL (80-95); MPV 9.8 fL (8.0-11.0); Monocytes % 10.5; Neutrophils % 68.6; Platelet Count 271 10^3/uL (130-400); RDW 14.9 % (11.8-14.1); RDW-SD 48.7 fL; WBC 9.67 10^3/uL (4.4-10.8)
[2022-07-30 20:00] LABS: ALT 18 U/L (16-63); AST 24 U/L (15-37); Albumin 3.8 g/dL (3.4-5.0); Alkaline Phosphatase 84 U/L (46-116); Anion Gap 8.9 mmol/L (3-11); BUN 23 mg/dL (7-18); Bilirubin, Total 0.4 mg/dL (0.2-1.0); CO2 29.1 mmol/L (21.0-32.0); Calcium 8.9 mg/dL (8.5-10.1); Chloride 95 mmol/L (98-107); Glucose 225 mg/dL (74-106); Lipase 74 U/L (73-393); Potassium 3.4 mmol/L (3.5-5.1); Sodium 133 mmol/L (136-145); Total Protein 8.2 g/dL (6.4-8.2); Troponin I < 50 ng/L (<or=60)
[2022-07-30 20:10] LABS: COVID-19 PCR Negative (Negative)
[2022-07-30] MEDS: Aspirin 81 MG CHEW 324 MG CH (20:12)
[2022-07-30] MEDS: Albuterol/Ipratropium 3 ML UPD VIAL UPD (20:12)
[2022-07-30] MEDS: methylPREDNISolone SUCC 125 MG VIAL 80 MG IVP (20:12)
--- NOTE | 2022-07-30 20:28 | DI.VRAD_ITS ---
PROCEDURE INFORMATION: Exam: XR Chest Exam date and time: 07/30/2022 7:20 PM Age: 61 years old Clinical indication: Other: Chest pain TECHNIQUE: Imaging protocol: Radiologic exam of the chest. Views: 1 view. COMPARISON: CT CHEST LUNG CANCER SCREEN 05/06/2022 1:30 PM FINDINGS: Tubes, catheters and devices: Surgical plate traversing a healed fracture of the left clavicle. Postsurgical changes present at the left glenohumeral joint. Lungs: Patchy consolidation at the and right lower lobes of the lung likely represents acute pneumonia. The pulmonary vasculature is normal. Pleural spaces: There is no evidence of pneumothorax. There are no pleural effusions present. Heart/Mediastinum: The cardiac silhouette is within normal limits. The mediastinum is normal. Bones/joints: The spine, sternum, ribs, and pectoral girdles show no evidence of acute abnormality Other findings: There are no soft tissue masses or calcifications. IMPRESSION: Patchy consolidation at the and right lower lobes of the lung likely represents acute pneumonia. Dictated and Authenticated by: Elmo Pierson MD. Ordering:LEDY Webster MD
[2022-07-30 21:44] LABS: D-Dimer 915 ng/mlFEU (<500)
--- NOTE | 2022-07-30 21:45 | DI.CT_ITS ---
Exam(s) CT CHEST PE CTA EXAM: CT CHEST PE CTA CLINICAL HISTORY: elevated dimer, chest pain. TECHNIQUE: Imaging Protocol: Axial CT angiography was performed with multi-slice acquisition and mu lti-planar and/or 3D reconstructions. CONTRAST MATERIAL: Intravenous: Omnipaque 350 contrast volume:100 mL COMPARISON: CT CT CHEST LUNG CANCER SCREEN from 05/06/2022 FINDINGS: Tracheobronchial tree: Patent where visualized. Pulmonary parenchyma: There are bilateral dependent infiltrates in the lungs which may represent atel ectasis. No architectural distortion. Pulmonary Arteries: No evidence of filling defect to suggest pulmonary emboli. Mediastinum and Brianda: No dominant adenopathy or fluid collection. The esophagus is unremarkable. Visualized thyroid gland: Unremarkable. Pleura: No effusion or pneumothorax. Heart: Mild cardiomegaly. No coronary artery calcifications are seen. No pericardial effusion. Aorta: Thoracic aorta non-dilated. No evidence of dissection. Atherosclerosis is present. Upper abdomen: Stable renal cysts. Soft tissues: Bilateral gynecomastia. Bones: Within normal limits for the patient's age.There are old healed left rib fractures. IMPRESSION: 1. No evidence of pulmonary embolism, thoracic aortic dissection or aneurysm. 2. Bilateral patchy infiltrates. This may represent atelectasis or scarring. Pneumonia cannot be en tirely excluded. Please correlate clinically. RADIATION DOSE DELIVERED: 594.53mGy.cm Total DLP DATA REPOSITORY: All CT scans at this facility are submitted to the National Radiology Data Registry (NRDR) Dose Index Registry (DIR) with the [employer] (ACR). RADIATION OPTIMIZATION: All CT scans at this facility use at least one of these dose optimization te chniques: automated exposure control; mA and/or kV adjustment per patient size (includes targeted exa ms where dose is matched to clinical indication); or iterative reconstruction.
[2022-07-30] MEDS: Omnipaque 350 MG/ML 100 ML BTL IJ (22:14)
--- NOTE | 2022-07-30 22:36 | ED.GENADUL_ITS ---
Discharge Plan Disposition Patient Disposition: [facility] INPATIENT Condition: Serious Discharge Details Clinical Impression: Respiratory failure, Diabetes, Chest pain Primary Care Provider: Delaney Box ED Provider: Eleanor Wadsworth Home Meds and New Rx's Prescriptions: No Action amlodipine 10 mg tablet 10 mg PO DAILY (DME) Rolling Knee Scooter Qty: 1 0RF Rx Instructions: To be used to assist with mobilization postoperatively. Armen will be limited weight bearing for 3 months on the right leg. Kalyani Brace Qty: 1 0RF Rx Instructions: Please provide a custom-molded Kalyani brace to stabilize the ankle and subtalar joint due to severe ankle osteoarthritis, posterior tibial dysfunction, and peripheral edema. methadone 5 mg/5 mL solution 150 mg PO DAILY hydrochlorothiazide 25 mg tablet 50 mg PO DAILY testosterone cypionate 200 mg/mL oil 200 mg IM Q2W gabapentin 400 mg capsule 400 mg PO BID insulin lispro [Humalog U-100 Insulin] 100 unit/mL solution 100 unit subcut DIRECTED cholecalciferol (vitamin D3) 50 mcg (2,000 unit) capsule 50 mcg PO DAILY insulin glargine [Lantus Solostar U-100 Insulin] 100 unit/mL (3 mL) insulin pen 50 unit subcut BID dextroamphetamine-amphetamine [Adderall] 20 mg tablet 20 mg PO BID Rx Instructions: administer doses at least 4-6 hours apart olanzapine 5 mg tablet 5 mg PO DAILY meloxicam 15 MG tablet 15 mg PO DAILY clonazepam 0.5 mg Tablet 1 mg PO BID venlafaxine 150 mg Capsule,Extended Release 24hr 150 mg PO DAILY Medical Decision Making Patient appears chronically ill, hypoxic on room air, 87% Speaking in complete sentences, DuoNeb administered without significant change in symptoms Received Solu-Medrol with history of COPD Remains hypoxic and with exertion desats to 87%, dyspneic at this time Troponin x2 negative, EKG without acute abnormality Heart score of 4 without any cardiac evaluation in the past and a high risk individual with polysubstance abuse, recommendation for admission to the hospital for observation and cardiac rule out in addition to further assessment of hypoxia Agreeable to admission at this time Chest x-ray showed evidence of possible pneumonia, however CTA which was ordered secondary to elevated D-dimer shows evidence of atelectasis and blood, no evidence of acute pneumonia therefore without leukocytosis, fever, I will not initiate antibiotics With suspicion for infectious etiology of patient's complaints Case was discussed with Dr. Pineda who is agreeable to admitting this patient received asa 324 upon arrival, evan gann Medical Records Medical records reviewed: Yes I reviewed the patient's medical records. Lab Data Lab results reviewed: Yes I reviewed the patient's lab results. HPI General Date/Time Provider Initiated Documentation: 07/30/22 19:18 . HPI Narrative: This 61-year-old gentleman presents with report of chest tightness over the course of the past several weeks. He states his episodes typically occur during rest. He had physical therapy this morning and did exert himself without symptoms for patient. He states that he was watching TV this evening and developed acute onset of chest tightness. He therefore decided to ride his electric bike to the emergency department for assessment. He denies any known history of coronary artery disease. When asked regarding chest pain he adamantly refuses that he has any pain. He denies any cough, fever. He denies any new calf pain or swelling. Denies prior history of coagulopathy. Denies any recent flights, surgeries, long drives. Denies any history of COPD but does report smoking tobacco daily He has a history of intermittent cocaine abuse. He last used cocaine this morning. Last use of IV heroin was approximately 3 months prior to arrival. Does report snorting his Adderall daily as well. Related Data Home Medications Medication Instructions Recorded Confirmed meloxicam 15 mg tablet 15 mg PO DAILY 08/20/17 03/01/21 amlodipine 10 mg tablet 10 mg PO DAILY 03/23/19 07/30/22 clonazepam 0.5 mg tablet 1 mg PO BID 10/04/19 07/30/22 venlafaxine 150 mg 150 mg PO DAILY 10/04/19 07/30/22 capsule,extended release 24 hr Rolling Knee Scooter #1 ea 12/07/19 01/09/20 olanzapine 5 mg tablet 5 mg PO DAILY 01/01/21 07/30/22 cholecalciferol (vitamin D3) 50 50 mcg PO DAILY 07/22/22 07/30/22 mcg (2,000 unit) capsule dextroamphetamine-amphetamine 20 20 mg PO BID 07/22/22 07/30/22 mg tablet (Adderall) gabapentin 400 mg capsule 400 mg PO BID 07/22/22 07/30/22 hydrochlorothiazide 25 mg tablet 50 mg PO DAILY 07/22/22 07/30/22 insulin glargine 100 unit/mL (3 50 unit subcut BID 07/22/22 mL) subcutaneous pen (Lantus Solostar U-100 Insulin) insulin lispro 100 unit/mL 100 unit subcut DIRECTED 07/22/22 07/30/22 subcutaneous solution (Humalog U-100 Insulin) methadone 5 mg/5 mL oral solution 150 mg PO DAILY 07/22/22 07/30/22 testosterone cypionate 200 mg/mL 200 mg IM Q2W 07/22/22 07/30/22 intramuscular oil Previous Rx's Medication Instructions Recorded Rolling Knee Scooter #1 ea 12/07/19 Allergies Allergy/AdvReac Type Severity Reaction Status Date / Time lisinopril Allergy angioedema Verified 07/30/22 19:29 ? General Stated Complaint: Chest Pain SHWETA: 4 Review of Systems All systems reviewed & are unremarkable except as noted in HPI and below PFSH All Active Problems (Updated 07/30/22 @ 23:28 by CELY Taveras) Headache (Acute) Cellulitis of foot, right (Acute) Abscess, hepatic (Acute) Hypoxia (Acute) Fever (Acute) Hypokalemia (Acute) Tick bite of back (Acute) Respiratory failure (Acute) Diabetes (Chronic) Chest pain (Acute) Hypogonadism (Acute) Arthritis of right subtalar joint (Acute) Cervical spondylolysis (Chronic) Colonoscopy planned (Acute ~11/2018) Primary osteoarthritis, right ankle and foot (Chronic) Umbilical hernia without mention of obstruction or gangrene (Acute) History of MRSA infection (Chronic ~10/2017) Diabetes mellitus (Chronic) Depression (Chronic) Chronic pain of left knee (Chronic) Tobacco abuse (Chronic) HTN (hypertension) (Chronic) Primary osteoarthritis of right knee (Chronic 04/28/18) Primary osteoarthritis of right ankle (Chronic 02/15/18) Medical History Chronic pain of left knee Colon adenoma 11/10/11 - Dr Benson Hebert, hyperplastic polyp, but with tubulovillous adenoma in nov, recommended repeat in five years. Depression Diabetes mellitus Fibula fracture right History of MRSA infection (~10/2017) HTN (hypertension) Hypogonadism Normal colonoscopy (11/05/18) [facility] recommends repeat in 5 years. Personal history of colonic polyps Tobacco abuse Surgical History Amputated toe of right foot (~11/2016) 2nd toe, Rt foot Arthroplasty of knee left knee Colonoscopy planned (~11/2018) H/O colonoscopy with polypectomy 11/10/11 - Dr Benson Hebert, hyperplastic polyp, but with tubulovillous adenoma in nov, recommended repeat in five years. History of left knee replacement History of repair of left rotator cuff left index finger amputation (~1994) Rotator Cuff Repair left Umbilical hernia without mention of obstruction or gangrene Family History Father Alcohol abuse Hypertension Sister Anxiety Mother Depression Maternal Grandmother Depression Cancer Colon Paternal Grandmother Depression Cancer Colon Aunt Cancer Colon cancer Social History Smoking/Tobacco Use Status: Current every day Tobacco Type: cigarettes Smoking risk assessment performed?: Yes Alcohol Intake: former Drug use: Occasionally Substance use type: marijuana and methamphetamine Adopted: No Caregiver/Support person: No Foster care: No Household members: none Housing: apartment Number of Children: 3 Communication Needs: None Do you need help understanding health information?: Often current occupation: Disabled Sexually active: Yes Do you think of yourself as: straight/heterosexual Current gender identity: male What is your relationship status?: Panel score (0-1 are the most socially isolated patients): 0 What type of physical activity do you participate in: none Seatbelt use: always Drive intox or ride w/intox drivers license examiner: No Working smoke detector in home: Yes Fire extinguisher in home: Yes Carbon monox detector in home: Yes Do you feel safe at home: Yes Do you feel safe in your relationship?: Yes Exam Const General: cooperative, comfortable and no acute distress Orientation: alert and oriented x3 HENMT Head: normal to inspection Eyes Pupils: PERRL Resp Effort & Inspection: normal respiratory effort Auscultation: clear to auscultation bilaterally Cardio Rate: regular rate Rhythm: regular rhythm Heart Sounds: murmur Skin Other: pallor Neuro General: patient alert and patient oriented x3 Extrem Other: PVD noted to bilateral lower extremities, distal pulses intact, 3+ pitting edema Course Vital Signs Vital signs: Vital Signs Respiratory Rate 18 07/30/22 19:19 Temperature 37.2 C 07/30/22 19:24 Temperature Source Temporal Artery Scan 07/30/22 19:24 Pulse 63 07/30/22 21:31 Pulse 63 07/30/22 21:40 Respiratory Rate 8 L 07/30/22 21:40 Respiratory Effort 07/30/22 20:16 Respiratory Depth Normal 07/30/22 20:16 Respiratory Pattern Normal 07/30/22 20:16 Blood Pressure 129/71 07/30/22 21:31 Blood Pressure Mean 84 07/30/22 21:31 Blood Pressure Position Supine 07/30/22 19:24 Pulse Oximetry 96 07/30/22 19:24 Oxygen Delivery Method Room Air 07/30/22 19:24 Oxygen Flow Rate 0 07/30/22 19:24 Pain Level 0 07/30/22 19:24 Lab/Test Results Lab/Test Results: Laboratory Tests Range/Units 07/30/22 07/30/22 07/30/22 19:27 19:27 19:27 WBC (4.4-10.8) 10^3/uL 9.67 RBC (4.36-5.78) 10^6/uL 5.70 Hgb (13.5-17.5) g/dL 16.7 Hct (40.0-50.0) % 51.5 H MCV (80-95) fL 90 MCH (27.0-33.0) pg 29.3 MCHC (32.0-36.0) % 32.4 RDW (11.8-14.1) % 14.9 H Plt Count (130-400) 10^3/uL 271 MPV (8.0-11.0) fL 9.8 Immature Gran % 0.4 Neutrophils % 68.6 Lymphocytes % 18.1 Monocytes % 10.5 Eosinophils % 1.9 Basophils % 0.5 Nucleated RBC % (0.0-0.3) % 0.0 Absolute Neutrophils (1.2-6.7) 10^3/uL 6.63 Absolute Lymphocytes (1.2-3.4) 10^3/uL 1.75 Absolute Monocytes (0.1-0.8) 10^3/uL 1.02 H Absolute Eosinophils (0.0-0.7) 10^3/uL 0.18 Absolute Basophils (0.0-0.2) 10^3/uL 0.05 D-Dimer (<500) ng/mlFEU 915 H Sodium (136-145) mmol/L 133 L Potassium (3.5-5.1) mmol/L 3.4 L Chloride (98-107) mmol/L 95 L Carbon Dioxide (21.0-32.0) mmol/L 29.1 Anion Gap (3-11) mmol/L 8.9 BUN (7-18) mg/dL 23 H Creatinine (0.70-1.30) mg/dL 1.0 Est GFR (CKD-EPI 2020) (mL/min/1.73m2) 86.70 Glucose (74-106) mg/dL 225 H Calcium (8.5-10.1) mg/dL 8.9 Total Bilirubin (0.2-1.0) mg/dL 0.4 AST (15-37) U/L 24 ALT (16-63) U/L 18 Alkaline Phosphatase (46-116) U/L 84 Troponin I (<or=60) ng/L < 50 Total Protein (6.4-8.2) g/dL 8.2 Albumin (3.4-5.0) g/dL 3.8 Lipase (73-393) U/L 74 COVID-19 Source SARS-CoV-2 (PCR) (Negative) Range/Units 07/30/22 19:30 WBC (4.4-10.8) 10^3/uL RBC (4.36-5.78) 10^6/uL Hgb (13.5-17.5) g/dL Hct (40.0-50.0) % MCV (80-95) fL MCH (27.0-33.0) pg MCHC (32.0-36.0) % RDW (11.8-14.1) % Plt Count (130-400) 10^3/uL MPV (8.0-11.0) fL Immature Gran % Neutrophils % Lymphocytes % Monocytes % Eosinophils % Basophils % Nucleated RBC % (0.0-0.3) % Absolute Neutrophils (1.2-6.7) 10^3/uL Absolute Lymphocytes (1.2-3.4) 10^3/uL Absolute Monocytes (0.1-0.8) 10^3/uL Absolute Eosinophils (0.0-0.7) 10^3/uL Absolute Basophils (0.0-0.2) 10^3/uL D-Dimer (<500) ng/mlFEU Sodium (136-145) mmol/L Potassium (3.5-5.1) mmol/L Chloride (98-107) mmol/L Carbon Dioxide (21.0-32.0) mmol/L Anion Gap (3-11) mmol/L BUN (7-18) mg/dL Creatinine (0.70-1.30) mg/dL Est GFR (CKD-EPI 2020) (mL/min/1.73m2) Glucose (74-106) mg/dL Calcium (8.5-10.1) mg/dL Total Bilirubin (0.2-1.0) mg/dL AST (15-37) U/L ALT (16-63) U/L Alkaline Phosphatase (46-116) U/L Troponin I (<or=60) ng/L Total Protein (6.4-8.2) g/dL Albumin (3.4-5.0) g/dL Lipase (73-393) U/L COVID-19 Source Nasal/Nares SARS-CoV-2 (PCR) (Negative) Negative
--- NOTE | 2022-07-30 22:38 | DI.VRAD_ITS ---
PROCEDURE INFORMATION: Exam: CTA Chest With Contrast Exam date and time: 07/30/2022 10:10 PM Age: 61 years old Clinical indication: Other: Elevated dimer, chest pain; Prior surgery; Surgery date: 6+ months; Surgery type: Clavicle TECHNIQUE: Imaging protocol: Computed tomographic angiography of the chest with contrast. 3D rendering (Not supervised by radiologist): MIP and/or 3D reconstructed images were created by the technologist. Radiation optimization: All CT scans at this facility use at least one of these dose optimization techniques: automated exposure control; mA and/or kV adjustment per patient size (includes targeted exams where dose is matched to clinical indication); or iterative reconstruction. Contrast material: OMNI 350; Contrast volume: 100 ml; Contrast route: INTRAVENOUS (IV); COMPARISON: CT CHEST LUNG CANCER SCREEN 05/06/2022 1:30 PM FINDINGS: Pulmonary arteries: The pulmonary arteries are normal in caliber. No evidence of acute pulmonary embolism. Aorta: The aorta is normal without evidence of aneurysmal dilatation, dissection or occlusive disease. Lungs: Bilateral lower lobe patchy atelectatic changes and scarring present. Blebs are seen at the pleural space and within the left lower posterior pulmonary parenchyma. Early pneumonia cannot be excluded. There is no evidence of focal pulmonary consolidation. No evidence of pulmonary parenchymal inflammatory changes. There is no evidence of pulmonary masses. Pleural spaces: There is no evidence of pneumothorax. There are no pleural effusions present. Heart: The cardiac structures are normal. The cardiac structures are normal. The right ventricular to left ventricular ratio is normal measuring approximately 0.95 there has been surgical repair of the healed fracture of the left clavicle.. Lymph nodes: There is no evidence of lymphadenopathy. Bones/joints: Old, partially healed fractures of the left anterior and posterior ribs. The spine, sternum, ribs, and pectoral girdles show no evidence of acute abnormality. Soft tissues: There is nonspecific gynecomastia. There are no soft tissue masses or fluid collections. The upper abdominal viscera are unremarkable. Other findings: The mediastinal structures are normal. IMPRESSION: 1. Bilateral lower lobe patchy atelectatic changes and scarring present. Blebs are seen at the pleural space and within the left lower posterior pulmonary parenchyma. Early pneumonia cannot be excluded. 2. No evidence of acute pulmonary embolism. Dictated and Authenticated by: Elmo Pierson MD. Ordering:LEDY Webster MD
[2022-07-30 22:49] LABS: Troponin I < 50 ng/L (<or=60)
--- NOTE | 2022-07-30 23:23 | W.PM.HP.N ---
Date of service: 07/30/22 Assessment and Plan Assessment and plan (1) Hypoxia: Status: Acute Assessment and plan: Hypoxia may be a chronic issue given smoking and possible undiagnosed COPD (2) Diabetes: Status: Chronic (3) Tobacco abuse: Status: Chronic (4) HTN (hypertension): Status: Chronic (5) Chest pain: Status: Acute (6) Pneumonia: Status: Acute History of Present Illness Narrative: This is a 61 yo man with IDDM, HTN, polysubstance abuse on methadone and tobacco use who presents to the ED with acute on subacute chest pains. His chest pains originally developed a month or so ago, however this evening he experienced an acute episode which brought him into the ED via his electronic bike. He also does has shortness of breath. Upon arrival his EKG was found to be non ischemic and his first 2 troponins were negative. Although he has risk factors for cardiac disease, there is nothing acute that requires inpatient management from this perspective in my opinion. Armen was however found to be hypoxic with ambulation to 87%. Per the patient his baseline is low 90's. He does have a significant tobacco use history and has blebs and emphysema on his chest CT (he had a high D-dimer) so it is possible he has undiagnosed COPD. The chest CT does show bibasilar infiltrates that are likely atelectasis, however given his symptoms and his hypoxia, warrant a treatment course and he should be assessed for ambulatory oxygen needs. Today, Review of Systems All systems reviewed & are unremarkable except as noted in HPI and below PFSH All Active Problems (Updated 07/30/22 @ 23:33 by Bernarda Fisher MD) Pneumonia (Acute) Chest pain (Acute) Headache (Acute) Cellulitis of foot, right (Acute) Abscess, hepatic (Acute) Hypoxia (Acute) Fever (Acute) Hypokalemia (Acute) Tick bite of back (Acute) Respiratory failure (Acute) Diabetes (Chronic) Chest pain (Acute) Hypogonadism (Acute) Arthritis of right subtalar joint (Acute) Cervical spondylolysis (Chronic) Colonoscopy planned (Acute ~11/2018) Primary osteoarthritis, right ankle and foot (Chronic) Umbilical hernia without mention of obstruction or gangrene (Acute) History of MRSA infection (Chronic ~10/2017) Diabetes mellitus (Chronic) Depression (Chronic) Chronic pain of left knee (Chronic) Tobacco abuse (Chronic) HTN (hypertension) (Chronic) Primary osteoarthritis of right knee (Chronic 04/28/18) Primary osteoarthritis of right ankle (Chronic 02/15/18) Medical History Chronic pain of left knee Colon adenoma 11/10/11 - Dr Benson Hebert, hyperplastic polyp, but with tubulovillous adenoma in nov, recommended repeat in five years. Depression Diabetes mellitus Fibula fracture right History of MRSA infection (~10/2017) HTN (hypertension) Hypogonadism Normal colonoscopy (11/05/18) [facility] recommends repeat in 5 years. Personal history of colonic polyps Tobacco abuse Surgical History Amputated toe of right foot (~11/2016) 2nd toe, Rt foot Arthroplasty of knee left knee Colonoscopy planned (~11/2018) H/O colonoscopy with polypectomy 11/10/11 - Dr Benson Hebert, hyperplastic polyp, but with tubulovillous adenoma in nov, recommended repeat in five years. History of left knee replacement History of repair of left rotator cuff left index finger amputation (~1994) Rotator Cuff Repair left Umbilical hernia without mention of obstruction or gangrene Family History Father Alcohol abuse Hypertension Sister Anxiety Mother Depression Maternal Grandmother Depression Cancer Colon Paternal Grandmother Depression Cancer Colon Aunt Cancer Colon cancer Social History Smoking/Tobacco Use Status: Current every day Tobacco Type: cigarettes Smoking risk assessment performed?: Yes Alcohol Intake: former Drug use: Occasionally Substance use type: marijuana and methamphetamine Adopted: No Caregiver/Support person: No Foster care: No Household members: none Housing: apartment Number of Children: 3 Communication Needs: None Do you need help understanding health information?: Often current occupation: Disabled Sexually active: Yes Do you think of yourself as: straight/heterosexual Current gender identity: male What is your relationship status?: Panel score (0-1 are the most socially isolated patients): 0 What type of physical activity do you participate in: none Seatbelt use: always Drive intox or ride w/intox security patrol driver: No Working smoke detector in home: Yes Fire extinguisher in home: Yes Carbon monox detector in home: Yes Do you feel safe at home: Yes Do you feel safe in your relationship?: Yes Meds Allergies and Home Medications Allergies Allergy/AdvReac Type Severity Reaction Status Date / Time lisinopril Allergy angioedema Verified 07/30/22 19:29 ? Home Medications Medication Instructions Recorded Confirmed Type meloxicam 15 mg tablet 15 mg PO DAILY 08/20/17 03/01/21 History [place] [facility] ##1 02/23/18 03/23/19 Clinic amlodipine 10 mg tablet 10 mg PO DAILY 03/23/19 07/30/22 History clonazepam 0.5 mg tablet 1 mg PO BID 10/04/19 07/30/22 History venlafaxine 150 mg 150 mg PO DAILY 10/04/19 07/30/22 History capsule,extended release 24 hr Rolling Knee Scooter #1 ea 12/07/19 01/09/20 Rx olanzapine 5 mg tablet 5 mg PO DAILY 01/01/21 07/30/22 History cholecalciferol (vitamin D3) 50 50 mcg PO DAILY 07/22/22 07/30/22 History mcg (2,000 unit) capsule dextroamphetamine-amphetamine 20 20 mg PO BID 07/22/22 07/30/22 History mg tablet (Adderall) gabapentin 400 mg capsule 400 mg PO BID 07/22/22 07/30/22 History hydrochlorothiazide 25 mg tablet 50 mg PO DAILY 07/22/22 07/30/22 History insulin glargine 100 unit/mL (3 50 unit subcut BID 07/22/22 History mL) subcutaneous pen (Lantus Solostar U-100 Insulin) insulin lispro 100 unit/mL 100 unit subcut DIRECTED 07/22/22 07/30/22 History subcutaneous solution (Humalog U-100 Insulin) methadone 5 mg/5 mL oral solution 150 mg PO DAILY 07/22/22 07/30/22 History testosterone cypionate 200 mg/mL 200 mg IM Q2W 07/22/22 07/30/22 History intramuscular oil Exam Narrative Exam Narrative: Gen: NAD, normal respiratory effort, well-nourished HENT: PERRL, nasal turbinates normal without erythema or inflammation, moist oral mucosa, Mallampati 2, No LAD or JVD Chest: No respiratory distress, normal appearance of chest, clear to auscultation bilaterally, no crackles or wheezes, normal inspiratory effort Heart: regular rate and rhythym, no murmurs, rubs or gallops Abdomen: Non-distended, soft, non tender Extremities: No clubbing, edema, cyanosis, rashes Neuro: AAOx3 , non focal Psych: cooperative, appropriate mental affect Results Labs Result diagrams: 07/30/22 19:27 07/30/22 19:27 Labs: Laboratory Results - last 24 hr 07/30/22 07/30/22 07/30/22 19:27 19:27 19:27 WBC 9.67 RBC 5.70 Hgb 16.7 Hct 51.5 H MCV 90 MCH 29.3 MCHC 32.4 RDW 14.9 H Plt Count 271 MPV 9.8 Immature Gran % 0.4 Neutrophils % 68.6 Lymphocytes % 18.1 Monocytes % 10.5 Eosinophils % 1.9 Basophils % 0.5 Nucleated RBC % 0.0 Absolute Neutrophils 6.63 Absolute Lymphocytes 1.75 Absolute Monocytes 1.02 H Absolute Eosinophils 0.18 Absolute Basophils 0.05 D-Dimer 915 H Sodium 133 L Potassium 3.4 L Chloride 95 L Carbon Dioxide 29.1 Anion Gap 8.9 BUN 23 H Creatinine 1.0 Est GFR (CKD-EPI 2020) 86.70 Glucose 225 H Calcium 8.9 Total Bilirubin 0.4 AST 24 ALT 18 Alkaline Phosphatase 84 Troponin I < 50 Total Protein 8.2 Albumin 3.8 Lipase 74 COVID-19 Source SARS-CoV-2 (PCR) 07/30/22 07/30/22 19:30 22:20 WBC RBC Hgb Hct MCV MCH MCHC RDW Plt Count MPV Immature Gran % Neutrophils % Lymphocytes % Monocytes % Eosinophils % Basophils % Nucleated RBC % Absolute Neutrophils Absolute Lymphocytes Absolute Monocytes Absolute Eosinophils Absolute Basophils D-Dimer Sodium Potassium Chloride Carbon Dioxide Anion Gap BUN Creatinine Est GFR (CKD-EPI 2020) Glucose Calcium Total Bilirubin AST ALT Alkaline Phosphatase Troponin I < 50 Total Protein Albumin Lipase COVID-19 Source Nasal/Nares SARS-CoV-2 (PCR) Negative Last Vital Signs Temp 37.2 C 07/30/22 19:24 Pulse 80 07/30/22 22:46 Resp 13 07/30/22 23:00 BP 180/97 H 07/30/22 22:46 Pulse Ox 96 07/30/22 19:24
== END 2022-07-30 23:37 | disposition left against medical advice (07) ==
PROVIDERS: Emergency Provider Physician Assistant; PCP Nurse Practitioner Family
DX: J96.90 Respiratory failure, unspecified, unspecified whether with hypoxia or hypercapnia (principal); E11.9 Type 2 diabetes mellitus without complications; I10 Essential (primary) hypertension; J44.9 Chronic obstructive pulmonary disease, unspecified; F17.210 Nicotine dependence, cigarettes, uncomplicated; Z20.822 Contact with and (suspected) exposure to COVID-19; Z79.84 Long term (current) use of oral hypoglycemic drugs
CPT/HCPCS: 71275; 80053; 83690; 87635; 93005; 96372; 96374; 99285; 71045; 84484; 85025; 85379; 93010; J2930; J3490; J7620

== ENCOUNTER 2022-08-29 14:48 | Emergency (ER) | payer MEDICARE, MEDICAID, SELFPAY ==
[2022-08-29] VITALS (19 sets, daily range): BP systolic 106–138; BP diastolic 58–79; PULSE 64–85; RESP 8–20; TEMP 36.6; O2SAT 85–96
--- NOTE | 2022-08-29 14:45 | RT.EKG_ITS ---
APPROVED REPORT Exam: Resting ECG Reason for Exam: Chest rosaline n Patient Location: E HR:77 bpm ECG Measurements Heart Rate 77 AXIS NJ 154 P 13 QRSd 99 QRS -61 QT 388 T 56 QTc 438 Conclusion Sinus rhythm...normal P axis, V-rate 60- 99 Left anterior fascicular block...axis(240,-40), init forces inf. Sinus. LAFB. No STEMI. I have reviewed and interpreted ECG and agree with software generated interpretation.
[2022-08-29] MEDS: Aspirin 81 MG CHEW 324 MG CH (15:34)
[2022-08-29 15:54] LABS: PTT Activated 27.6 sec (21.0-27.5); Prothrombin Time 10.2 sec (9.3-11.0)
[2022-08-29 15:55] LABS: Abs Immature Grans 0.04 10^3/uL (0.0-0.06); Absolute Basophil Count 0.05 10^3/uL (0.0-0.2); Absolute Eosinophil Count 0.15 10^3/uL (0.0-0.7); Absolute Lymphocyte Count 1.53 10^3/uL (1.2-3.4); Absolute Neutrophil Count 6.78 10^3/uL (1.2-6.7); Basophils % 0.5; Eosinophils % 1.6; HCT 53.9 % (40.0-50.0); HGB 17.1 g/dL (13.5-17.5); Immature Grans % 0.4; Lymphocytes % 16.4; MCH 28.3 pg (27.0-33.0); MCHC 31.7 % (32.0-36.0); MCV 89 fL (80-95); MPV 9.9 fL (8.0-11.0); Monocytes % 8.6; Neutrophils % 72.5; Platelet Count 278 10^3/uL (130-400); WBC 9.35 10^3/uL (4.4-10.8)
--- NOTE | 2022-08-29 16:04 | ED.GENADUL_ITS ---
Discharge Plan Disposition Patient Disposition: HOME Condition: Good Discharge Details Chief Complaint: Chest Pain Clinical Impression: Chest pain Primary Care Provider: Delaney Box ED Provider: Boom Barros Home Meds and New Rx's Prescriptions: No Action amlodipine 10 mg tablet 10 mg PO DAILY (DME) Rolling Knee Scooter Qty: 1 0RF Rx Instructions: To be used to assist with mobilization postoperatively. Armen will be limited weight bearing for 3 months on the right leg. Kalyani Brace Qty: 1 0RF Rx Instructions: Please provide a custom-molded Kalyani brace to stabilize the ankle and subtalar joint due to severe ankle osteoarthritis, posterior tibial dysfunction, and peripheral edema. methadone 5 mg/5 mL solution 150 mg PO DAILY hydrochlorothiazide 25 mg tablet 50 mg PO DAILY testosterone cypionate 200 mg/mL oil 200 mg IM Q2W gabapentin 400 mg capsule 400 mg PO BID insulin lispro [Humalog U-100 Insulin] 100 unit/mL solution 100 unit subcut DIRECTED cholecalciferol (vitamin D3) 50 mcg (2,000 unit) capsule 50 mcg PO DAILY insulin glargine [Lantus Solostar U-100 Insulin] 100 unit/mL (3 mL) insulin pen 50 unit subcut BID dextroamphetamine-amphetamine [Adderall] 20 mg tablet 20 mg PO BID Rx Instructions: administer doses at least 4-6 hours apart olanzapine 5 mg tablet 5 mg PO DAILY meloxicam 15 MG tablet 15 mg PO DAILY clonazepam 0.5 mg Tablet 1 mg PO BID venlafaxine 150 mg Capsule,Extended Release 24hr 150 mg PO DAILY Discharge Instructions Instructions: Chest Pain (ED) Additional Instructions: At this time your work-up is reassuring, there is no evidence of significant abnormality. Please do not miss your scheduled stress test that you have coming up. Until your stress test please avoid any vigorous physical activity. If you notice any worsening of your symptoms, or any new symptoms such as vomiting, diarrhea, fever, chills, shortness of breath, chest pain, numbness, weakness, or fainting , please return immediately to the emergency department for reevaluation. Please follow up with your primary care provider as soon as possible for reassessment and reevaluation. As always, it was a pleasure participating in your medical care today. Referrals: Delaney Box [Primary Care Provider] - Medical Decision Making 61-year-old male with a past medical history of diabetes, tobacco use, hypertension, presents today for chest tightness. Patient states that over the last 2 or 3 months he has had intermittent episodes of chest tightness. The most recent event occurred last night while he was significantly exerting himself on his E bike. He states that he was going much faster than normal and pushing himself trying to get home before dark. This brought about a notable chest tightness. This improved with rest afterwards. In addition to this he noticed a pleuritic component which she states is new. Currently he is chest pain-free but still does have a small pleuritic component to his chest tightness. He denies any trauma otherwise. He denies any tearing or ripping sensation, any neck pain or arm or shoulder pain. He does admit to occasionally using crack cocaine, and most recent time was about 26 days ago. He states that the symptoms were occurring before he began using the crack cocaine. He denies any history of previous cardiac etiology. He denies any family history of cardiac disease. No history of blood clots in the past. No other complaints at this time. Physical exam demonstrates no significant abnormalities. Patient's oxygen status is slightly atypical with his O2 hovering around the high 80s to low 90s. He does not normally use oxygen. No wheezes are noted on exam. Differential includes cardiac etiology, subtle asthma/reactive airway disease, or pulmonary embolism. We will evaluate for these etiologies, monitor closely and reassess. EKG at this time shows no evidence of STEMI. 6:[address] scan has returned negative for any significant abnormalities. There are some questionable opacities in the lower lobes, however on review the patient does not have any cough, fever, chills or anything else to suggest a bacterial pneumonia clinically. No indication for starting antibiotics. I did discuss with the patient concerning red flags for which should be monitoring for for potential lung infection though moving forward. Additionally the patient's initial and repeat troponin are normal. EKG is notably benign. CTA shows no evidence of pulmonary embolism. The remainder of his labs are stable. Vital signs stable. Patient feels well and would like to go home. Patient does have a stress test scheduled for next week. We have recommended that he continue to keep this scheduled as this would be ideal after this visit. Patient understands this. Recommend avoidance of vigorous physical activity until the stress test has been performed. Discussed red flags which to return. At this time his symptoms are inconsistent with dissection, aneurysm, or ACS. I have extensively reviewed the treatment plan and discharge instructions with the patient. I have addressed all patient concerns at this time. The patient was made aware of what symptoms to monitor for that would warrant a return to the emergency department. Discussed the plan with the patient, they demonstrate verbal understanding and agreement with our assessment and plan at this time. The documentation in this chart was dictated using [employer] dictation software. Please excuse any dictation errors. FINDINGS: Pulmonary arteries: No evidence of pulmonary embolus to the segmental level. Aorta: No aneurysm of the aorta. No dissection of the aorta. Lungs: Opacities in the lower lobes may represent atelectasis or pneumonia.. Pleural spaces: Unremarkable. No pneumothorax. No pleural effusion. Heart: Coronary artery calcifications may indicate coronary artery disease. Lymph nodes: Unremarkable. No enlarged lymph nodes. Bones/joints: Plate and screws in the left clavicle. Healed left rib fractures Soft tissues: Unremarkable. IMPRESSION: 1. No evidence of pulmonary embolus to the segmental level. 2. No aneurysm of the aorta. 3. No dissection of the aorta. 4. Opacities in the lower lobes may represent atelectasis or pneumonia.. Thank you for allowing us to participate in the care of your patient. Dictated and Authenticated by: Cecilia Martin MD 08/29/2022 6:08 PM Eastern Time ([place] & [place]) HPI General Date/Time Provider Initiated Documentation: 08/29/22 15:04 . HPI Narrative: 61-year-old male with a past medical history of diabetes, tobacco use, hypertension, presents today for chest tightness. Patient states that over the last 2 or 3 months he has had intermittent episodes of chest tightness. The most recent event occurred last night while he was significantly exerting himself on his E bike. He states that he was going much faster than normal and pushing himself trying to get home before dark. This brought about a notable chest tightness. This improved with rest afterwards. In addition to this he noticed a pleuritic component which she states is new. Currently he is chest pain-free but still does have a small pleuritic component to his chest tightness. He denies any trauma otherwise. He denies any tearing or ripping sensation, any neck pain or arm or shoulder pain. He does admit to occasionally using crack cocaine, and most recent time was about 26 days ago. He states that the symptoms were occurring before he began using the crack cocaine. He denies any history of previous cardiac etiology. He denies any family history of cardiac disease. No history of blood clots in the past. No other complaints at this time. Related Data Home Medications Medication Instructions Recorded Confirmed meloxicam 15 mg tablet 15 mg PO DAILY 08/20/17 03/01/21 amlodipine 10 mg tablet 10 mg PO DAILY 03/23/19 07/30/22 clonazepam 0.5 mg tablet 1 mg PO BID 10/04/19 07/30/22 venlafaxine 150 mg 150 mg PO DAILY 10/04/19 07/30/22 capsule,extended release 24 hr Rolling Knee Scooter #1 ea 12/07/19 01/09/20 olanzapine 5 mg tablet 5 mg PO DAILY 01/01/21 07/30/22 cholecalciferol (vitamin D3) 50 50 mcg PO DAILY 07/22/22 07/30/22 mcg (2,000 unit) capsule dextroamphetamine-amphetamine 20 20 mg PO BID 07/22/22 07/30/22 mg tablet (Adderall) gabapentin 400 mg capsule 400 mg PO BID 07/22/22 07/30/22 hydrochlorothiazide 25 mg tablet 50 mg PO DAILY 07/22/22 07/30/22 insulin glargine 100 unit/mL (3 50 unit subcut BID 07/22/22 mL) subcutaneous pen (Lantus Solostar U-100 Insulin) insulin lispro 100 unit/mL 100 unit subcut DIRECTED 07/22/22 07/30/22 subcutaneous solution (Humalog U-100 Insulin) methadone 5 mg/5 mL oral solution 150 mg PO DAILY 07/22/22 07/30/22 testosterone cypionate 200 mg/mL 200 mg IM Q2W 07/22/22 07/30/22 intramuscular oil Previous Rx's Medication Instructions Recorded Rolling Knee Scooter #1 ea 12/07/19 Allergies Allergy/AdvReac Type Severity Reaction Status Date / Time lisinopril Allergy angioedema Verified 07/30/22 19:29 ? General Stated Complaint: Chest Pain SHWETA: 2 Review of Systems All systems reviewed & are unremarkable except as noted in HPI and below PFSH All Active Problems (Updated 08/29/22 @ 18:47 by Boom Barros DO) Chest pain (Acute) Pneumonia (Acute) Chest pain (Acute) Headache (Acute) Cellulitis of foot, right (Acute) Abscess, hepatic (Acute) Hypoxia (Acute) Fever (Acute) Hypokalemia (Acute) Tick bite of back (Acute) Respiratory failure (Acute) Diabetes (Chronic) Chest pain (Acute) Hypogonadism (Acute) Arthritis of right subtalar joint (Acute) Cervical spondylolysis (Chronic) Colonoscopy planned (Acute ~11/2018) Primary osteoarthritis, right ankle and foot (Chronic) Umbilical hernia without mention of obstruction or gangrene (Acute) History of MRSA infection (Chronic ~10/2017) Diabetes mellitus (Chronic) Depression (Chronic) Chronic pain of left knee (Chronic) Tobacco abuse (Chronic) HTN (hypertension) (Chronic) Primary osteoarthritis of right knee (Chronic 04/28/18) Primary osteoarthritis of right ankle (Chronic 02/15/18) Medical History Colon adenoma 11/10/11 - Dr Benson Hebert, hyperplastic polyp, but with tubulovillous adenoma in nov, recommended repeat in five years. Fibula fracture right Normal colonoscopy (11/05/18) [facility] recommends repeat in 5 years. Personal history of colonic polyps Surgical History Amputated toe of right foot (~11/2016) 2nd toe, Rt foot Arthroplasty of knee left knee left index finger amputation (~1994) Rotator Cuff Repair left Umbilical hernia without mention of obstruction or gangrene Family History Father Alcohol abuse Hypertension Sister Anxiety Mother Depression Maternal Grandmother Depression Cancer Colon Paternal Grandmother Depression Cancer Colon Aunt Cancer Colon cancer Social History Smoking/Tobacco Use Status: Current every day Tobacco Type: cigarettes Smoking risk assessment performed?: Yes Alcohol Intake: former Drug use: Occasionally Substance use type: marijuana and crack/cocaine Details: history of methamphetamine use 20+ years ago per patient Adopted: No Caregiver/Support person: No Foster care: No Household members: none Housing: apartment Number of Children: 3 Communication Needs: None Do you need help understanding health information?: Often current occupation: Disabled Sexually active: Yes Do you think of yourself as: straight/heterosexual Current gender identity: male What is your relationship status?: Panel score (0-1 are the most socially isolated patients): 0 What type of physical activity do you participate in: none Seatbelt use: always Drive intox or ride w/intox driver salesman: No Working smoke detector in home: Yes Fire extinguisher in home: Yes Carbon monox detector in home: Yes Do you feel safe at home: Yes Do you feel safe in your relationship?: Yes Exam Narrative Exam Narrative: 1.Const: Well-nourished, Well-developed, appearing stated age 2.Eyes: PERRL, no conjunctival injection, and symmetrical lids. 3.ENT: Atraumatic external nose and ears. Moist MM. Neck: Symmetric, trachea midline, No thyromegaly. 4.CVS: +S1/S2, No murmurs or gallops. Peripheral pulses 2+ and equal in all extremities. Brisk capillary refill in all extremities. 5.RESP: Unlabored respiratory effort. Clear to auscultation bilaterally. No wheezes rales or rhonchi 6.GI: Soft, Nontender/Nondistended, No hepatosplenomegaly. No guarding or rebound. 7.MSK: Normocephalic/Atraumatic, Extremities w/o deformity or ttp No cyanosis or clubbing, Normal movement of all extremities 8.Skin: Warm, Dry. No rashes or lesions. 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 Sensation grossly intact, no focal neurologic deficits. 10.Psych: (AAO) x3. Appropriate mood and affect Course Vital Signs Vital signs: Vital Signs Temperature 36.6 C 08/29/22 14:53 Pulse 85 08/29/22 14:53 Respiratory Rate 18 08/29/22 14:53 Blood Pressure 138/79 08/29/22 14:53 Pulse Oximetry 92 08/29/22 14:53 Temperature 36.6 C 08/29/22 14:53 Temperature Source Tympanic 08/29/22 14:53 Pulse 85 08/29/22 14:53 Respiratory Rate 16 08/29/22 15:01 Respiratory Effort Non-Labored 08/29/22 15:01 Respiratory Depth Normal 08/29/22 15:01 Respiratory Pattern Normal 08/29/22 15:01 Blood Pressure 138/79 08/29/22 14:53 Blood Pressure Position Sitting 08/29/22 14:53 Pulse Oximetry 92 08/29/22 14:53 Oxygen Delivery Method Room Air 08/29/22 14:53 Oxygen Flow Rate 0 08/29/22 14:53 Pain Level 0 08/29/22 14:53 Lab/Test Results Lab/Test Results: Laboratory Tests Range/Units 08/29/22 15:25 PT (9.3-11.0) sec 10.2 INR (0.9-1.1) 1.0 APTT (21.0-27.5) sec 27.6 H POCUS Exam (ED) Limited Cardiac Exam DATE OF EXAM: 08/29/22 TIME OF EXAM: 17:59 PROVIDER THAT PERFORMED THE STUDY: Boom Barros IS THIS A REPEAT EXAM DURING THIS ENCOUNTER: no REASON FOR EXAM: Chest pain VISUALIZED STRUCTURES: Left atrium, Left ventricle and Right ventricle VIEW OBTAINED: Parasternal long-axis PERTINENT FINDINGS/IMPRESSION: No apparent abnormalities Exam complete
[2022-08-29 16:13] LABS: Diff Comment Diff Reviewed; Polychromasia Present; RBC 6.05 10^6/uL (4.36-5.78)
[2022-08-29 16:17] LABS: D-Dimer 965 ng/mlFEU (<500)
[2022-08-29 16:19] LABS: ALT 18 U/L (16-63); AST 28 U/L (15-37); Albumin 3.6 g/dL (3.4-5.0); Alkaline Phosphatase 79 U/L (46-116); BUN 22 mg/dL (7-18); Bilirubin, Total 0.4 mg/dL (0.2-1.0); Chloride 97 mmol/L (98-107); Glucose 151 mg/dL (74-106); NT-proBNP 59 pg/mL (<300); Potassium 3.4 mmol/L (3.5-5.1); Sodium 137 mmol/L (136-145); Total Protein 7.8 g/dL (6.4-8.2); Troponin I < 50 ng/L (<or=60)
[2022-08-29] MEDS: Albuterol/Ipratropium 3 ML UPD VIAL UPD (16:43)
--- NOTE | 2022-08-29 16:45 | DI.CT_ITS ---
Exam(s) CT CHEST PE CTA EXAM: CT CHEST PE CTA CLINICAL HISTORY: elevated dimer, cp w/ breathing. TECHNIQUE: Imaging Protocol: Axial CT angiography was performed with multi-slice acquisition and mu lti-planar and/or 3D reconstructions. CONTRAST MATERIAL: Intravenous: Omnipaque 350 contrast volume:100 mL COMPARISON: CT CT CHEST PE CTA from 07/30/2022 FINDINGS: Tracheobronchial tree: Patent where visualized. Pulmonary parenchyma: No consolidation or dominant measurable mass. No architectural distortion. Ther e are infiltrates seen in the dependent portions of the lungs. This may represent atelectasis or pne umonia. Pulmonary Arteries: No evidence of filling defect to suggest pulmonary emboli. Mediastinum and Brianda: No dominant adenopathy or fluid collection. The esophagus is unremarkable. Visualized thyroid gland: Unremarkable. Pleura: No effusion or pneumothorax. Heart: The heart is not dilated. Mild coronary artery calcification is present. No pericardial effus ion. Aorta: Thoracic aorta non-dilated. No evidence of dissection. Atherosclerosis is present. Upper abdomen: Unremarkable. Soft tissues: Bilateral gynecomastia. Bones: Within normal limits for the patient's age.There are old healed left rib fractures. IMPRESSION: 1. No evidence of pulmonary embolism, thoracic aortic dissection or aneurysm. 2. Bilateral dependent opacities which may represent atelectasis or pneumonia. RADIATION DOSE DELIVERED: 557.85mGy.cm Total DLP DATA REPOSITORY: All CT scans at this facility are submitted to the National Radiology Data Registry (NRDR) Dose Index Registry (DIR) with the [employer] (ACR). RADIATION OPTIMIZATION: All CT scans at this facility use at least one of these dose optimization te chniques: automated exposure control; mA and/or kV adjustment per patient size (includes targeted exa ms where dose is matched to clinical indication); or iterative reconstruction.
[2022-08-29] MEDS: Omnipaque 350 MG/ML 100 ML BTL IJ (17:34)
[2022-08-29] MEDS: Normal Saline Flush 10 ML SYR IVP (17:42)
--- NOTE | 2022-08-29 18:08 | DI.VRAD_ITS ---
PROCEDURE INFORMATION: Exam: CTA Chest With Contrast Exam date and time: 08/29/2022 5:35 PM Age: 61 years old Clinical indication: Pain; Other: Elevated d-dimer. On breathing TECHNIQUE: Imaging protocol: Computed tomographic angiography of the chest with contrast. 3D rendering (Not supervised by radiologist): MIP and/or 3D reconstructed images were created by the technologist. Radiation optimization: All CT scans at this facility use at least one of these dose optimization techniques: automated exposure control; mA and/or kV adjustment per patient size (includes targeted exams where dose is matched to clinical indication); or iterative reconstruction. Contrast material: OMNIPAQUE 350; Contrast volume: 100 ml; Contrast route: INTRAVENOUS (IV); COMPARISON: CT CHEST PE CTA 07/30/2022 10:10 PM FINDINGS: Pulmonary arteries: No evidence of pulmonary embolus to the segmental level. Aorta: No aneurysm of the aorta. No dissection of the aorta. Lungs: Opacities in the lower lobes may represent atelectasis or pneumonia.. Pleural spaces: Unremarkable. No pneumothorax. No pleural effusion. Heart: Coronary artery calcifications may indicate coronary artery disease. Lymph nodes: Unremarkable. No enlarged lymph nodes. Bones/joints: Plate and screws in the left clavicle. Healed left rib fractures Soft tissues: Unremarkable. IMPRESSION: 1. No evidence of pulmonary embolus to the segmental level. 2. No aneurysm of the aorta. 3. No dissection of the aorta. 4. Opacities in the lower lobes may represent atelectasis or pneumonia.. Dictated and Authenticated by: Cecilia Martin MD. Ordering:DOMINGO Nur MD
[2022-08-29 18:33] LABS: Troponin I < 50 ng/L (<or=60)
== END 2022-08-29 19:01 | disposition home or self-care (01) ==
PROVIDERS: Emergency Provider Student in an Organized Health Care Education/Training Program; PCP Nurse Practitioner Family
DX: R07.89 Other chest pain (principal); I10 Essential (primary) hypertension; E11.9 Type 2 diabetes mellitus without complications; Z79.4 Long term (current) use of insulin; F17.210 Nicotine dependence, cigarettes, uncomplicated
CPT/HCPCS: 71275; 80053; 93005; 93308; 94640; 99285; 83880; 84484; 85025; 85379; 85610; 85730; 93010; 99284; J3490; J7620

== ENCOUNTER → 2022-09-04 01:28 | Outpatient (CLI) | payer MEDICARE, MEDICAID, SELFPAY ==
--- NOTE | 2022-09-04 09:15 | DI.NM_ITS ---
APPROVED REPORT Exam: Pharmacologic Patient Location: Out-Patient Room/Bed: Stress Nurse: Marian Parker RN Ordering Provider:ROMEL NICHOLAS, Contact Number: [phone] BMI: 44.08 Baseline Rhythm: Sinus Rhythm Indications: Chest pain. Medical History Medical History: DM. HTN. Tobacco abuse. Hepatitis C. HLD. Depression. PTSD. Chronic knee pain. Ankl e issues. Bilateral leg edema. Cardiac Medications: HCTZ. Lisinopril. Insulin Lispro. Insulin Glargine. Allergies: Lisinopril Cardiac Risk Factors: HTN. Diabetes. Smoker. HLD. Previous Cardiac Procedures: None Pretest Chest Pain Characteristics: None Exercise History: Sedentary Physical Disabilities: Legs, Knees, pt using crutches to get around. Lung Sounds: Clear to auscultation Heart Sounds: Regular Stress Test Details Test: Pharmacologic stress testing performed using 0.4 mg of regadenoson per 5 mL given IV over 10 s econds. Nuclear Acquisition: Rest Tc-99m/Stress Tc-99m 1 day Rest Isotope: Tc-99m Sestamibi. Dose: 11 Date: 09/04/2022 Injection Time: 0930 Stress Isotope: Tc-99m Sestamibi. Dose: 37 Date: 09/04/2022 Injection Time: 1125 HR Resting HR Supine: 64 bpm Max Heart Rate (APMHR): 161.257657 bpm Target HR (85% APMHR): 136.057523 bpm Max HR Achieved: 79 bpm % of APMHR: 49.07 Recovery HR: 63 bpm Comment: Pharmacologic stress test only. BP Resting BP Supine: 118/78 mmHg Max BP: 134/64 mmHg Recovery BP: 118/70 mmHg Comment: Pharmacologic stress test only. ECG Resting ECG: Sinus Rhythm Ectopy: none Recovery ECG: Sinus Rhythm Recovery Arrhythmia: None Clinical Angina Score: None Rate Pressure Product: [id number] Stress ECG Conclusion 1. Resting Electrocardiogram showed vertical axis poor R wave progression 2. Patient underwent pharmacologic stress with regadenoson 3. Blunted hemodynamics. Peak heart rate achieved was 49% of predicted for age 4. See MPI report Stress Test Summary STAGE HR BP SpO2 Symptoms NOTES Supine 64 118/78 1 min post Lexiscan injection 70 130/68 3 min post Lexiscan injection 73 134/64 6 min post Lexiscan injection 63 118/70 MPI Conclusion Normal myocardial perfusion. There is no myocardial ischemia or evidence of prior infarction EF is 58%. Wall motion is normal Radiologist Interpretation Radiologist agrees with Report Developer's Interpretation. Radiologist Interpretation by: Rafael Callahan MD Interpretation Date/Time: 09/04/2022 16:01:12
[2022-09-04] MEDS: Regadenoson 0.4 MG/5 ML SYR IVP (11:16)
== END ==
PROVIDERS: PCP Nurse Practitioner Family; Visit Provider Nurse Practitioner Family
DX: R07.9 Chest pain, unspecified (principal)
CPT/HCPCS: 78452; 93016; 93018; 93306; 93308; 93017; J2785

== ENCOUNTER 2022-09-15 13:31 | Outpatient (CLI) | payer MEDICARE, MEDICAID, SELFPAY ==
--- NOTE | 2022-09-15 13:15 | DI.RAD_ITS ---
Exam(s) XR ELBOW RT COMPLETE EXAM: XR ELBOW RT COMPLETE CLINICAL HISTORY: pain. TECHNIQUE: 2D digital imaging was performed. Three views. COMPARISON: CR XR HUMERUS RT from 10/04/2019 FINDINGS: BONES: No acute fracture is present. No bony destructive lesion is seen. JOINTS: There is narrowing of the radiocapitellar joint space. There is prominent spurring at the ol ecranon. There is an anterior spur at the distal humerus as well as an enthesophyte at the triceps i nsertion. Several loose bodies are seen. There is a calcific density seen posteriorly measuring 2.5 cm in length.. SOFT TISSUE: Circumscribed bony densities are noted adjacent to the lateral epicondyle. IMPRESSION: Degenerative changes and joint space loose bodies. DATA REPOSITORY: RADIATION DOSE DELIVERED:
== END 2022-09-15 13:32 | disposition home or self-care (01) ==
LOC: DIORS 13:32
PROVIDERS: PCP Nurse Practitioner Family; Referring Provider Nurse Practitioner Family; Visit Provider Physician Assistant Surgical
DX: M19.021 Primary osteoarthritis, right elbow; E11.9 Type 2 diabetes mellitus without complications
CPT/HCPCS: 20605; 73080; J1030

== ENCOUNTER 2023-01-15 15:53 | Outpatient (REF) | payer MEDICARE, MEDICAID, SELFPAY ==
[2023-01-15 15:49] LABS: Hemoglobin A1C 8.7 % (<5.7)
[2023-01-15 15:55] LABS: ALT 21 U/L (16-63); AST 20 U/L (15-37); Albumin 3.6 g/dL (3.4-5.0); Alkaline Phosphatase 76 U/L (46-116); Anion Gap 4.3 mmol/L (3-11); BUN 15 mg/dL (7-18); Bilirubin, Total 0.6 mg/dL (0.2-1.0); CO2 36.7 mmol/L (21.0-32.0); CREATININE 0.9 mg/dL (0.70-1.30); Calcium 8.9 mg/dL (8.5-10.1); Calculated LDL 93 mg/dL (<100); Chloride 100 mmol/L (98-107); Cholesterol 187 mg/dL (<200); Estimated GFR 97.78 (mL/min/1.73m2); Glucose 121 mg/dL (74-106); HDL Cholesterol 35 mg/dL (40-60); Potassium 4.2 mmol/L (3.5-5.1); Sodium 141 mmol/L (136-145); Total Protein 7.9 g/dL (6.4-8.2); Triglyceride 295 mg/dL (<150)
== END 2023-01-15 15:54 | disposition home or self-care (01) ==
LOC: NCHCN 15:53
PROVIDERS: PCP Nurse Practitioner Family; Visit Provider Nurse Practitioner Family
DX: E11.9 Type 2 diabetes mellitus without complications (principal); E78.5 Hyperlipidemia, unspecified; I10 Essential (primary) hypertension
CPT/HCPCS: 80053; 80061; 83036

== ENCOUNTER 2023-03-26 12:44 | Outpatient (REF) | payer MEDICARE, MEDICAID, SELFPAY ==
[2023-03-26 19:43] LABS: TSH (W/Ref FT4) 5.94 uIU/mL (0.36-3.74)
[2023-03-26 19:56] LABS: Vitamin D 25 Total 21.1 ng/mL (30-100)
[2023-03-26 20:16] LABS: FREE T4 0.96 ng/dL (0.76-1.46)
[2023-03-27 20:30] LABS: PSA, Screening 1.2 ng/mL (<=4.5)
[2023-04-03 10:39] LABS: Testosterone, Free 3.95 ng/dL (3.67-13.9); Testosterone, Total 161 ng/dL (240-950)
== END 2023-03-26 12:45 | disposition home or self-care (01) ==
LOC: NCHCN 12:44
PROVIDERS: PCP Nurse Practitioner Family; Visit Provider Registered Nurse
DX: F33.1 Major depressive disorder, recurrent, moderate (principal)
CPT/HCPCS: 82306; 84153; 84402; 84403; 84439; 84443

== ENCOUNTER 2023-05-13 01:29 | Outpatient (CLI) | payer MEDICARE, MEDICAID, SELFPAY ==
--- NOTE | 2023-05-13 08:42 | DI.CT_ITS ---
Exam(s) CT CHEST WO EXAM: CT CHEST WO CLINICAL HISTORY: ABNL CHEST CT, R91.8, 1-YEAR F/U nodule rll. TECHNIQUE: Multi planar reconstructions were performed. CONTRAST MATERIAL: None COMPARISON: CT CT CHEST LUNG CANCER SCREEN from 05/06/[address] CHEST PE CTA from 08/29/2022 FINDINGS: CHEST: LUNGS: Previously present pleural base infiltrates in the posterior basal segment of both lower lobes have mostly resolved. There is some mild remaining platelike atelectasis in the posterior basal and lateral basal segments of the right lower lobe. Some residual benign-appearing increased markings in the lingular segment of the left lung are unchan ged. There are no new confluent infiltrates nor pleural effusions. There is a subpleural 3 millimeter nodule in the left lower lobe, located 3 mm in from the pleural ryan rface. This is in an area of prior infiltrate on the CT a study of August 2022. It is unchanged fr om CT scan of May 2022. A slightly smaller pleural base nodule in the lateral aspect of the right l dionicio is also unchanged. MEDIASTINUM: Slightly prominent paratracheal lymph nodes are unchanged and subcarinal nodes are also unchanged. Visualized thyroid unremarkable.No obvious axillary adenopathy. Prominent bilateral gynecomastia is again noted. Unchanged. CARDIAC: Heart size is normal. There is no pericardial effusion.Caliber of the thoracic aorta is wit hin normal limits. VISUALIZED UPPER ABDOMEN:Partially included prominent cyst in the left kidney is again noted. No adr enal masses. No splenomegaly. OSSEOUS: No significant osseous lesions.Healed fractures of the posterior left 4th and 5th ribs are a gain noted. Also healed fractures in these anterior ribs also again noted. There are no acute fract ures evident. No vertebral fractures. IMPRESSION: 1. Stable appearance of small bilateral pulmonary nodules when compared to 05/06/2022 CT scan. The b ilateral lower lobe infiltrates which were evident on the August 2022 CT scan have improved/mostly r esolved. There are no pleural effusions. 2. Enlarged subcarinal mediastinal lymph nodes are again noted as are slightly prominent paratracheal lymph nodes. There is no obvious hilar adenopathy. 3. Healed left-sided rib fractures again noted as well as bilateral gynecomastia. RADIATION DOSE DELIVERED: 759.18mGy.cm Total DLP DATA REPOSITORY: All CT scans at this facility are submitted to the National Radiology Data Registry (NRDR) Dose Index Registry (DIR) with the [employer] (ACR). RADIATION OPTIMIZATION: All CT scans at this facility use at least one of these dose optimization te chniques: automated exposure control; mA and/or kV adjustment per patient size (includes targeted exa ms where dose is matched to clinical indication); or iterative reconstruction.
== END 2023-05-13 01:49 ==
LOC: DI 01:29
PROVIDERS: PCP Nurse Practitioner Family; Visit Provider Nurse Practitioner Family
DX: R91.8 Other nonspecific abnormal finding of lung field (principal); J98.4 Other disorders of lung; R59.0 Localized enlarged lymph nodes
CPT/HCPCS: 71250

== ENCOUNTER 2023-05-29 13:35 | Outpatient (REF) | payer MEDICARE, MEDICAID, SELFPAY | END 2023-05-29 13:36 | disposition home or self-care (01) | LOC: NCHCN 13:35 | PROVIDERS: PCP Nurse Practitioner Family; Visit Provider Nurse Practitioner Family | DX: L08.89 Other specified local infections of the skin and subcutaneous tissue (principal) | CPT/HCPCS: 87077; 87070; 87186; 87205 ==

== ENCOUNTER 2023-08-12 13:41 | Emergency (ER) | payer MEDICARE, MEDICAID, SELFPAY ==
[2023-08-12 13:46] VITALS: BP 168/91; PULSE 65; RESP 18; TEMP 36.8; O2SAT 99
[2023-08-12 14:23] LABS: BE (Venous) 10 mmol/L (-2-3); HCO3 (Venous) 35 mmol/L (23-28); O2 Sat (Venous) 77 %; TCO2 (Venous) 29 mmol/L (24-29); pCO2 (Venous) 60 mmHg (41-51); pH (Venous) 7.38 (7.31-7.41); pO2 (Venous) 42 mmHg
[2023-08-12 14:24] LABS: Abs Immature Grans 0.01 10^3/uL (0.0-0.06); Absolute Basophil Count 0.04 10^3/uL (0.0-0.2); Absolute Eosinophil Count 0.12 10^3/uL (0.0-0.7); Absolute Lymphocyte Count 1.16 10^3/uL (1.2-3.4); Absolute Monocyte Count 0.67 10^3/uL (0.1-0.8); Absolute Neutrophil Count 4.94 10^3/uL (1.2-6.7); Basophils % 0.6; Eosinophils % 1.7; Immature Grans % 0.1; Lymphocytes % 16.7; MCH 29.5 pg (27.0-33.0); MCHC 33.4 % (32.0-36.0); MCV 88 fL (80-95); MPV 9.6 fL (8.0-11.0); Monocytes % 9.7; Neutrophils % 71.2; Platelet Count 190 10^3/uL (130-400); RBC 6.78 10^6/uL (4.36-5.78); RDW 15.1 % (11.8-14.1); RDW-SD 45.8 fL; WBC 6.94 10^3/uL (4.4-10.8)
[2023-08-12 14:29] LABS: HCT 59.8 % (40.0-50.0)
[2023-08-12 14:45] LABS: ALT 25 U/L (16-63); AST 13 U/L (15-37); Albumin 4.1 g/dL (3.4-5.0); Alkaline Phosphatase 84 U/L (46-116); Anion Gap 6.1 mmol/L (3-11); BUN 12 mg/dL (7-18); Bilirubin, Total 0.5 mg/dL (0.2-1.0); CO2 32.9 mmol/L (21.0-32.0); Calcium 9.8 mg/dL (8.5-10.1); Chloride 95 mmol/L (98-107); Estimated GFR 86.16 (mL/min/1.73m2); Potassium 3.8 mmol/L (3.5-5.1); Sodium 134 mmol/L (136-145); Total Protein 8.4 g/dL (6.4-8.2)
[2023-08-12 14:46] LABS: Glucose 379 mg/dL (74-106)
--- NOTE | 2023-08-12 15:02 | NUR.NOTE ---
Referral faxed to Hemetology for Polycythemia Vera as soon as possible.
--- NOTE | 2023-08-12 15:23 | NUR.NOTE ---
Referral Put in for establishing a primary care provider.
--- NOTE | 2023-08-12 16:02 | ED.GENADUL_ITS ---
Discharge Plan Disposition Patient Disposition: Home Discharge Details Clinical Impression: Erythrocytosis, Diabetes mellitus Primary Care Provider: Delaney Box ED Provider: Eleanor Wadsworth Home Meds and New Rx's Prescriptions: New insulin glargine [Basaglar Tempo Pen(U-100)Insln] 100 unit/mL (3 mL) insulin pen 76 unit subcut DAILY Qty: 15 2RF insulin lispro [Humalog KwikPen Insulin] 100 unit/mL insulin pen 1 sliding scale dose subcut USEASDIRECTD Qty: 15 0RF Continued amlodipine 10 mg tablet 10 mg PO DAILY Kalyani Brace Qty: 1 0RF Rx Instructions: Please provide a custom-molded Kalyani brace to stabilize the ankle and subtalar joint due to severe ankle osteoarthritis, posterior tibial dysfunction, and peripheral edema. hydrochlorothiazide 25 mg tablet 50 mg PO DAILY testosterone cypionate 200 mg/mL oil 200 mg IM Q2W gabapentin 400 mg capsule 400 mg PO BID insulin lispro [Humalog U-100 Insulin] 100 unit/mL solution 100 unit subcut DIRECTED insulin glargine [Lantus Solostar U-100 Insulin] 100 unit/mL (3 mL) insulin pe n 50 unit subcut BID methadone 5 mg/5 mL solution 160 mg PO DAILY cholecalciferol (vitamin D3) 50 mcg (2,000 unit) capsule 50 mcg PO DAILY clotrimazole 1 % cream 1 applic topical BID lamotrigine 100 mg tablet 100 mg PO DAILY hydroxyzine HCl 25 mg tablet 25 mg PO BID PRN lamotrigine 25 mg tablet 50 mg PO DAILY ergocalciferol (vitamin D2) 1,250 mcg (50,000 unit) capsule 1,250 mcg PO QWEEK rosuvastatin 5 mg tablet 5 mg PO DAILY clonazepam 0.5 mg tablet 0.5 mg PO TID meloxicam 15 MG tablet 15 mg PO DAILY venlafaxine 150 mg Capsule,Extended Release 24hr 150 mg PO DAILY Discharge Instructions Additional Instructions: Use your insulin pens as prescribed, I have put you on the Lantus due to follow- up with hematology and to follow up with the primary care physician, it is essential that you establish care with a primary care physician for your multiple comorbidities Use your sliding scale Humalog and use your insulin glargine as prescribed Follow-up with a cad draftsman regarding your blood counts for reassessment and return earlier should you have new or worsening complaints Make sure you are checking your blood sugar prior to administering your insulin Discharge Data Discharge Date/Time-TO BE ENTERED AT DEPARTURE: 08/12/23 15:17 Medical Decision Making 62-year-old male, alert and oriented, labs do not show significant acute abnormality, concern for erythrocytosis, gradually increasing hemoglobin hematocrit, this does not appear to be significantly acute Cardiac rate rhythm regular, lungs clear to auscultation, alert and oriented x4, cranial 2 through 12 intact, ambulatory steady gait, labs reviewed in detail Referred to hematology at [facility] for reassessment, placed on primary care physician to establish care list and given prescriptions for his insulin for home use Discharged home in stable condition with stable vitals Insulin refilled HPI General Date/Time Provider Initiated Documentation: 08/12/23 13:51 . HPI Narrative: 62-year-old male with history of diabetes and substance abuse presents with report of concern with elevated blood sugars at home. He has been without his medications for the past month and a half as he stopped seeing his primary care physician. He states his blood sugars have been in the 300s which concerned him . He denies any specific complaints at this time. He is just hoping for a refill on his insulin. Related Data Home Medications Medication Instructions Recorded Confirmed meloxicam 15 mg tablet 15 mg PO DAILY 08/20/17 09/16/22 amlodipine 10 mg tablet 10 mg PO DAILY 03/23/19 09/16/22 venlafaxine 150 mg 150 mg PO DAILY 10/04/19 09/16/22 capsule,extended release 24 hr gabapentin 400 mg capsule 400 mg PO BID 07/22/22 09/16/22 hydrochlorothiazide 25 mg tablet 50 mg PO DAILY 07/22/22 09/16/22 insulin glargine 100 unit/mL (3 50 unit subcut BID 07/22/22 09/16/22 mL) subcutaneous pen (Lantus Solostar U-100 Insulin) insulin lispro 100 unit/mL 100 unit subcut DIRECTED 07/22/22 09/16/22 subcutaneous solution (Humalog U-100 Insulin) testosterone cypionate 200 mg/mL 200 mg IM Q2W 07/22/22 09/16/22 intramuscular oil methadone 5 mg/5 mL oral solution 160 mg PO DAILY 09/15/22 09/16/22 cholecalciferol (vitamin D3) 50 50 mcg PO DAILY 05/04/23 mcg (2,000 unit) capsule clotrimazole 1 % topical cream 1 applic topical BID 05/04/23 ergocalciferol (vitamin D2) 1,250 1,250 mcg PO QWEEK 05/04/23 mcg (50,000 unit) capsule hydroxyzine HCl 25 mg tablet 25 mg PO BID PRN 05/04/23 lamotrigine 100 mg tablet 100 mg PO DAILY 05/04/23 lamotrigine 25 mg tablet 50 mg PO DAILY 05/04/23 rosuvastatin 5 mg tablet 5 mg PO DAILY 05/04/23 clonazepam 0.5 mg tablet 0.5 mg PO TID 05/11/23 insulin glargine 100 unit/mL (3 76 unit (0.76 mL) subcut DAILY #15 08/12/23 mL) subcutaneous pen (Basaglar mL Tempo Pen (U-100) Insulin) insulin lispro 100 unit/mL 1 sliding scale dose subcut 08/12/23 subcutaneous pen (Humalog KwikPen USEASDIRECTD #15 mL (U-100) Insulin) Previous Rx's Medication Instructions Recorded insulin glargine 100 unit/mL (3 76 unit (0.76 mL) subcut DAILY #15 08/12/23 mL) subcutaneous pen (Basaglar mL Tempo Pen (U-100) Insulin) insulin lispro 100 unit/mL 1 sliding scale dose subcut 08/12/23 subcutaneous pen (Humalog KwikPen USEASDIRECTD #15 mL (U-100) Insulin) Allergies Allergy/AdvReac Type Severity Reaction Status Date / Time buspirone Allergy Verified 08/12/23 13:49 lisinopril Allergy angioedema Verified 08/12/23 13:49 ? paroxetine [From Paxil] Allergy Verified 08/12/23 13:49 trazodone Allergy Verified 08/12/23 13:49 General Stated Complaint: Diabetes SHWETA: 3 PFSH All Active Problems (Updated 08/12/23 @ 15:13 by CELY Taveras) Diabetes mellitus (Chronic) Erythrocytosis (Acute) Substance abuse (Acute) Erectile dysfunction (Acute) Knee pain (Acute) Obesity (Chronic) Neuropathy (Acute) Positive PPD (Acute) PTSD (post-traumatic stress disorder) (Acute) Leg edema (Acute) Diverticulosis (Acute) Hypogonadism in male (Acute) Cervical spondylolysis (Acute) Smoker (Acute) Osteomyelitis (Acute) ADHD (Acute) Tinea corporis (Acute) Hepatitis C (Chronic) Major depression (Chronic) BPH w urinary obs/LUTS (Acute) Vitamin D deficiency (Acute) Neck swelling (Acute) Arthritis of right elbow (Acute) Pneumonia (Acute) Chest pain (Acute) Headache (Acute) Cellulitis of foot, right (Acute) Abscess, hepatic (Acute) Hypoxia (Acute) Fever (Acute) Hypokalemia (Acute) Tick bite of back (Acute) Hypogonadism (Acute) Arthritis of right subtalar joint (Acute) Cervical spondylolysis (Chronic) Colonoscopy planned (Acute ~11/2018) Primary osteoarthritis, right ankle and foot (Chronic) Umbilical hernia without mention of obstruction or gangrene (Acute) History of MRSA infection (Chronic ~10/2017) Diabetes mellitus (Chronic) Depression (Chronic) Chronic pain of left knee (Chronic) Tobacco abuse (Chronic) HTN (hypertension) (Chronic) Primary osteoarthritis of right knee (Chronic 04/28/18) Primary osteoarthritis of right ankle (Chronic 02/15/18) Medical History Colon adenoma 11/10/11 - Dr Benson Hebert, hyperplastic polyp, but with tubulovillous adenoma in nov, recommended repeat in five years. Fibula fracture right Normal colonoscopy (11/05/18) [facility] recommends repeat in 5 years. Personal history of colonic polyps Surgical History Amputated toe of right foot (~11/2016) 2nd toe, Rt foot Arthroplasty of knee left knee left index finger amputation (~1994) Rotator Cuff Repair left Umbilical hernia without mention of obstruction or gangrene Family History Father Alcohol abuse Hypertension Sister Anxiety Mother Depression Maternal Grandmother Depression Cancer Colon Paternal Grandmother Depression Cancer Colon Aunt Cancer Colon cancer Social History (Updated 05/11/23 @ 11:23 by Daphne Mack) Smoking/Tobacco Use Status: Former Tobacco Use tobacco type: cigarettes Quit Date: 11/02/22 Pack-years: 15 Smoking risk assessment performed?: Yes Alcohol Intake: former Drug use: Occasionally Substance use type: marijuana and crack/cocaine Details: history of methamphetamine use 20+ years ago per patient Adopted: No Caregiver/Support person: No Foster care: No Household members: none Housing: apartment Number of Children: 3 Communication Needs: None Do you need help understanding health information?: Often current occupation: Disabled Sexually active: Yes Do you think of yourself as: straight/heterosexual Current gender identity: male What is your relationship status?: Panel score (0-1 are the most socially isolated patients): 0 What type of physical activity do you participate in: none Seatbelt use: always 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 Working smoke detector in home: Yes Fire extinguisher in home: Yes Carbon monox detector in home: Yes Do you feel safe at home: Yes Do you feel safe in your relationship?: Yes Course Vital Signs Vital signs: Vital Signs Temperature 36.8 C 08/12/23 13:46 Pulse 65 08/12/23 13:46 Respiratory Rate 18 08/12/23 13:46 Blood Pressure 168/91 H 08/12/23 13:46 Pulse Oximetry 99 08/12/23 13:46 Temperature 36.8 C 08/12/23 13:46 Temperature Source Skin 08/12/23 13:46 Pulse 65 08/12/23 13:46 Respiratory Rate 18 08/12/23 13:46 Respiratory Effort Normal 08/12/23 13:57 Blood Pressure 168/91 H 08/12/23 13:46 Blood Pressure Position Sitting 08/12/23 13:46 Pulse Oximetry 99 08/12/23 13:46 Oxygen Delivery Method Room Air 08/12/23 13:46 Oxygen Flow Rate 0 08/12/23 13:46 Pain Level 0 08/12/23 13:46 Lab/Test Results Lab/Test Results: Laboratory Tests Range/Units 08/12/23 08/12/23 08/12/23 14:18 14:18 14:18 WBC (4.4-10.8) 10^3/uL 6.94 RBC (4.36-5.78) 10^6/uL 6.78 H Hgb (13.5-17.5) g/dL 20.0 H* Hct (40.0-50.0) % 59.8 H* MCV (80-95) fL 88 MCH (27.0-33.0) pg 29.5 MCHC (32.0-36.0) % 33.4 RDW (11.8-14.1) % 15.1 H Plt Count (130-400) 10^3/uL 190 MPV (8.0-11.0) fL 9.6 Immature Gran % 0.1 Neutrophils % 71.2 Lymphocytes % 16.7 Monocytes % 9.7 Eosinophils % 1.7 Basophils % 0.6 Nucleated RBC % (0.0-0.3) % 0.0 Absolute Neutrophils (1.2-6.7) 10^3/uL 4.94 Absolute Lymphocytes (1.2-3.4) 10^3/uL 1.16 L Absolute Monocytes (0.1-0.8) 10^3/uL 0.67 Absolute Eosinophils (0.0-0.7) 10^3/uL 0.12 Absolute Basophils (0.0-0.2) 10^3/uL 0.04 VBG pH (7.31-7.41) 7.38 VBG pCO2 (41-51) mmHg 60 H VBG pO2 mmHg 42 VBG HCO3 (23-28) mmol/L 35 H VBG Total CO2 (24-29) mmol/L 29 VBG O2 Saturation % 77 VBG Base Excess (-2-3) mmol/L 10 H Sodium (136-145) mmol/L 134 L Potassium (3.5-5.1) mmol/L 3.8 Chloride (98-107) mmol/L 95 L Carbon Dioxide (21.0-32.0) mmol/L 32.9 H Anion Gap (3-11) mmol/L 6.1 BUN (7-18) mg/dL 12 Creatinine (0.70-1.30) mg/dL 1.0 Est GFR (CKD-EPI 2020) (mL/min/1.73m2) 86.16 Glucose (74-106) mg/dL 379 H Calcium (8.5-10.1) mg/dL 9.8 Total Bilirubin (0.2-1.0) mg/dL 0.5 AST (15-37) U/L 13 L ALT (16-63) U/L 25 Alkaline Phosphatase (46-116) U/L 84 Total Protein (6.4-8.2) g/dL 8.4 H Albumin (3.4-5.0) g/dL 4.1
--- NOTE | 2023-08-12 16:18 | NUR.NOTE ---
Referral was given to Establish a Primary Care Physician for Diabetes Management as soon as possible.
== END 2023-08-12 15:17 | disposition home or self-care (01) ==
PROVIDERS: Emergency Provider Physician Assistant; PCP Nurse Practitioner Family
DX: D75.1 Secondary polycythemia; E11.9 Type 2 diabetes mellitus without complications
CPT/HCPCS: 80053; 82805; 99283; 85025; 99284

== ENCOUNTER → 2023-09-22 10:01 | Outpatient (BNVA) | payer MEDICARE, MEDICAID, SELFPAY | PROVIDERS: PCP Nurse Practitioner Family; Referring Provider Nurse Practitioner Family; Visit Provider Urology | DX: R35.1 Nocturia (principal); N40.1 Benign prostatic hyperplasia with lower urinary tract symptoms; N13.8 Other obstructive and reflux uropathy; R60.0 Localized edema | CPT/HCPCS: 51798; 81003; 99215 ==

== ENCOUNTER 2023-11-18 13:42 | Emergency (ER) | payer MEDICARE, MEDICAID, SELFPAY ==
[2023-11-18 13:52] VITALS: PULSE 79; RESP 16; TEMP 37.4; O2SAT 95
--- NOTE | 2023-11-18 14:56 | ED.GENADUL_ITS ---
HPI General Date/Time Provider Initiated Documentation: 11/18/23 14:40 . HPI Narrative: 63-year-old male with history of diabetes, polysubstance abuse and onychomycosis presents with report of avulsed left toenail and running out of his insulin. He has an appointment scheduled podiatry on 02 December and the PCP, or seventh. He simply asking for a refill on his insulin and evaluation of his toe. He denies any pain but does have neuropathy. Denies fever or chills. Denies any additional complaints at this time. Per triage nurse glucose 182 Related Data Home Medications Medication Instructions Recorded Confirmed meloxicam 15 mg tablet 15 mg PO DAILY 08/20/17 11/18/23 amlodipine 10 mg tablet 10 mg PO DAILY 03/23/19 11/18/23 hydrochlorothiazide 25 mg tablet 50 mg PO DAILY 07/22/22 11/18/23 insulin glargine 100 unit/mL (3 50 unit subcut BID 07/22/22 11/18/23 mL) subcutaneous pen (Lantus Solostar U-100 Insulin) testosterone cypionate 200 mg/mL 200 mg IM Q2W 07/22/22 11/18/23 intramuscular oil methadone 5 mg/5 mL oral solution 160 mg PO DAILY 09/15/22 11/18/23 cholecalciferol (vitamin D3) 50 50 mcg PO DAILY 05/04/23 11/18/23 mcg (2,000 unit) capsule ergocalciferol (vitamin D2) 1,250 1,250 mcg PO QWEEK 05/04/23 11/18/23 mcg (50,000 unit) capsule lamotrigine 25 mg tablet 50 mg PO DAILY 05/04/23 11/18/23 insulin lispro 100 unit/mL 1 sliding scale dose subcut 08/12/23 11/18/23 subcutaneous pen (Humalog KwikPen USEASDIRECTD #15 mL (U-100) Insulin) cephalexin 500 mg capsule 500 mg PO Q6H 7 days #28 caps 11/18/23 insulin lispro 100 unit/mL 1 sliding scale dose subcut 11/18/23 subcutaneous pen USEASDIRECTD #15 mL Previous Rx's Medication Instructions Recorded insulin lispro 100 unit/mL 1 sliding scale dose subcut 08/12/23 subcutaneous pen (Humalog KwikPen USEASDIRECTD #15 mL (U-100) Insulin) cephalexin 500 mg capsule 500 mg PO Q6H 7 days #28 caps 11/18/23 insulin lispro 100 unit/mL 1 sliding scale dose subcut 11/18/23 subcutaneous pen USEASDIRECTD #15 mL Allergies Allergy/AdvReac Type Severity Reaction Status Date / Time buspirone Allergy Verified 11/18/23 13:50 lisinopril Allergy angioedema Verified 11/18/23 13:50 ? paroxetine [From Paxil] Allergy Verified 11/18/23 13:50 trazodone Allergy Verified 11/18/23 13:50 General Stated Complaint: RX Refill SHWETA: 4 Course Vital Signs Vital signs: Vital Signs Temperature 37.4 C 11/18/23 13:52 Pulse 79 11/18/23 13:52 Respiratory Rate 16 11/18/23 13:52 Pulse Oximetry 95 11/18/23 13:52 Temperature 37.4 C 11/18/23 13:52 Temperature Source Temporal Artery Scan 11/18/23 13:52 Pulse 79 11/18/23 13:52 Respiratory Rate 16 11/18/23 13:52 Blood Pressure Position Sitting 11/18/23 13:52 Pulse Oximetry 95 11/18/23 13:52 Oxygen Delivery Method Room Air 11/18/23 13:52 Oxygen Flow Rate 0 11/18/23 13:52 Pain Level 0 11/18/23 13:52 Comment chronic pain, snorts fent for pain at times, last use 2 weeks ago 11/18/23 13:52 Medical Decision Making 63-year-old male known to this facility with history of diabetes, refilled insulin lispro Avulsed second toenail, mild surrounding erythema, given Band-Aid, Keflex Encouraged to keep his appointments, specifically with podiatry on the . Blood glucose 182, alert, oriented, no acute distress Patient is alert, oriented, pleasant in demeanor, well-kempt He has an appointment with his primary care physician on 06 January He assures me he will attend this appointment Return precautions reviewed and patient expressed understanding Quality:SDOH Health Related Social Needs: No Data to Display PFSH All Active Problems (Updated 11/18/23 @ 15:02 by CELY Taveras) Avulsed toenail (Acute) Cellulitis (Acute) Nocturia (Acute) Substance abuse (Acute) Erectile dysfunction (Acute) Knee pain (Acute) Obesity (Chronic) Neuropathy (Acute) Positive PPD (Acute) PTSD (post-traumatic stress disorder) (Acute) Leg edema (Acute) Diverticulosis (Acute) Hypogonadism in male (Acute) Cervical spondylolysis (Acute) Smoker (Acute) Osteomyelitis (Acute) ADHD (Acute) Tinea corporis (Acute) Hepatitis C (Chronic) Major depression (Chronic) BPH w urinary obs/LUTS (Acute) Vitamin D deficiency (Acute) Neck swelling (Acute) Arthritis of right elbow (Acute) Pneumonia (Acute) Chest pain (Acute) Headache (Acute) Cellulitis of foot, right (Acute) Abscess, hepatic (Acute) Hypoxia (Acute) Fever (Acute) Hypokalemia (Acute) Tick bite of back (Acute) Hypogonadism (Acute) Arthritis of right subtalar joint (Acute) Cervical spondylolysis (Chronic) Colonoscopy planned (Acute ~11/2018) Primary osteoarthritis, right ankle and foot (Chronic) Umbilical hernia without mention of obstruction or gangrene (Acute) History of MRSA infection (Chronic ~10/2017) Diabetes mellitus (Chronic) Depression (Chronic) Chronic pain of left knee (Chronic) Tobacco abuse (Chronic) HTN (hypertension) (Chronic) Primary osteoarthritis of right knee (Chronic 04/28/18) Primary osteoarthritis of right ankle (Chronic 02/15/18) Medical History Colon adenoma 11/10/11 - Dr Benson Hebert, hyperplastic polyp, but with tubulovillous adenoma in nov, recommended repeat in five years. Fibula fracture right Normal colonoscopy (11/05/18) [facility] recommends repeat in 5 years. Personal history of colonic polyps Surgical History Amputated toe of right foot (~11/2016) 2nd toe, Rt foot Arthroplasty of knee left knee left index finger amputation (~1994) Rotator Cuff Repair left Umbilical hernia without mention of obstruction or gangrene Family History Father Alcohol abuse Hypertension Sister Anxiety Mother Depression Maternal Grandmother Depression Cancer Colon Paternal Grandmother Depression Cancer Colon Aunt Cancer Colon cancer Social History (Updated 09/02/23 @ 11:15 by Kathrin Harrison) Smoking/Tobacco Use Status: Former Tobacco Use tobacco type: cigarettes Quit Date: 11/02/22 Pack-years: 15 Tobacco: How many years used: 32 Second Hand Exposure: No Smoking risk assessment performed?: Yes Alcohol Intake: former Drug use: Occasionally Substance use type: marijuana and crack/cocaine Details: history of methamphetamine use 20+ years ago per patient Adopted: No Caregiver/Support person: No Foster care: No Household members: none Housing: apartment Number of Children: 3 number of grandchildren: 1 Communication Needs: None Education Level: high school Do you need help understanding health information?: Often current occupation: Disabled Pets and animals: Yes (1) Pets and animals: cat(s) Sexually active: No Do you think of yourself as: straight/heterosexual Current gender identity: male What is your relationship status?: How often do you talk on the phone with friends or family?: three or more times per week How often do you get together with friends or relatives?: twice per week Do you belong to any clubs or organized social groups?: no Panel score (0-1 are the most socially isolated patients): 1 What type of physical activity do you participate in: none, walking and additional Details: electric bike riding Duration: 60-90 minutes/day Frequency: 3-4 times per week Katy/Scientologist: [employer] Special katy needs: No Seatbelt use: sometimes Helmet use: Yes Helmet use: sometimes 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 Working smoke detector in home: Yes Fire extinguisher in home: Yes Carbon monox detector in home: Yes Do you feel safe at home: Yes Do you feel safe in your relationship?: Yes Discharge Plan Disposition Patient Disposition: Home Discharge Details Clinical Impression: Diabetes mellitus, Cellulitis, Avulsed toenail Primary Care Provider: Unknown,Unknown ED Provider: Eleanor Wadsworth Home Meds and New Rx's Prescriptions: New cephalexin 500 mg capsule 500 mg PO Q6H 7 Days Qty: 28 0RF insulin lispro 100 unit/mL insulin pen 1 sliding scale dose subcut USEASDIRECTD Qty: 15 1RF Continued amlodipine 10 mg tablet 10 mg PO DAILY Kalyani Brace Qty: 1 0RF Rx Instructions: Please provide a custom-molded Kalyani brace to stabilize the ankle and subtalar joint due to severe ankle osteoarthritis, posterior tibial dysfunction, and peripheral edema. hydrochlorothiazide 25 mg tablet 50 mg PO DAILY testosterone cypionate 200 mg/mL oil 200 mg IM Q2W insulin glargine [Lantus Solostar U-100 Insulin] 100 unit/mL (3 mL) insulin p en 50 unit subcut BID Hold Instructions: Formulary/Insurance Patient Comments: running out of med, no PCP methadone 5 mg/5 mL solution 160 mg PO DAILY cholecalciferol (vitamin D3) 50 mcg (2,000 unit) capsule 50 mcg PO DAILY lamotrigine 25 mg tablet 50 mg PO DAILY ergocalciferol (vitamin D2) 1,250 mcg (50,000 unit) capsule 1,250 mcg PO QWEEK insulin lispro [Humalog KwikPen Insulin] 100 unit/mL insulin pen 1 sliding scale dose subcut USEASDIRECTD Qty: 15 0RF Patient Comments: received by ED but running out meloxicam 15 MG tablet 15 mg PO DAILY Discharge Instructions Instructions: Cellulitis (ED) Additional Instructions: Change the dressing on your toe daily Take antibiotic as prescribed Yogurt daily while on antibiotic I am refilling your lispro, please follow-up with both the creel operator and your new primary care physician at your scheduled appointments, this is very important You may apply bacitracin to your toe prior to applying the Band-Aid Use your sliding scale to dose your insulin and return earlier should he have new or worsening complaints Discharge Data Discharge Date/Time-TO BE ENTERED AT DEPARTURE: 11/18/23 15:22
[2023-11-18 15:17] VITALS: BP 142/83; PULSE 67; RESP 16; O2SAT 99
== END 2023-11-18 15:22 | disposition home or self-care (01) ==
PROVIDERS: Emergency Provider Physician Assistant
DX: E11.65 Type 2 diabetes mellitus with hyperglycemia (principal); S91.205A Unspecified open wound of left lesser toe(s) with damage to nail, initial encounter; L03.032 Cellulitis of left toe; Z79.4 Long term (current) use of insulin; Z87.891 Personal history of nicotine dependence; X58.XXXA Exposure to other specified factors, initial encounter
CPT/HCPCS: 82962; 99283

== ENCOUNTER → 2023-12-02 09:04 | Outpatient (BNVA) | payer MEDICARE, MEDICAID, SELFPAY | PROVIDERS: PCP Nurse Practitioner Family; Referring Provider Nurse Practitioner Family; Visit Provider Podiatrist | DX: E11.40 Type 2 diabetes mellitus with diabetic neuropathy, unspecified (principal); R60.0 Localized edema; E11.9 Type 2 diabetes mellitus without complications; I87.2 Venous insufficiency (chronic) (peripheral); B35.1 Tinea unguium; L84 Corns and callosities | CPT/HCPCS: 99214 ==

== ENCOUNTER 2024-01-12 14:51 | Emergency (ER) | payer MEDICARE, MEDICAID, SELFPAY ==
[2024-01-12 14:54] VITALS: BP 176/97; PULSE 86; RESP 18; TEMP 36.6; O2SAT 96
--- NOTE | 2024-01-12 15:01 | W.ED.GENAD ---
Discharge Plan Disposition Patient Disposition: Home Condition: Improving Discharge Details Clinical Impression: Groin pain Primary Care Provider: Delaney Box ED Provider: Dewayne Winter Home Meds and New Rx's Prescriptions: New lidocaine [Lidoderm] 5 % adhesive patch,medicated 1 patch topical DAILY PRNQty: 15 0RF Rx Instructions: leave on most painful area for up to 12 hrs No Action amlodipine 10 mg tablet 10 mg PO DAILY hydrochlorothiazide 25 mg tablet 50 mg PO DAILY testosterone cypionate 200 mg/mL oil 200 mg IM Q2W insulin glargine [Lantus Solostar U-100 Insulin] 100 unit/mL (3 mL) insulin pen 50 unit subcut BID Hold Instructions: Formulary/Insurance Patient Comments: running out of med, no PCP lamotrigine 25 mg tablet 50 mg PO DAILY venlafaxine 75 mg tablet 75 mg PO DAILY Basaglar Tempo Pen(U-100)Insln 100 unit/mL (3 mL) insulin pen, sensor 76 unit subcut DAILY gabapentin 400 mg capsule 400 mg PO BID methadone 5 mg/5 mL solution 185 mg PO DAILY clonazepam 0.5 mg tablet 0.5 mg PO TID ketoconazole 2 % cream 1 applic topical DAILY 180 Days Qty: 60 6RF Rx Instructions: Apply to toenails once daily insulin lispro [Humalog KwikPen Insulin] 100 unit/mL insulin pen 1 sliding scale dose subcut USEASDIRECTD Qty: 15 0RF Patient Comments: received by ED but running out meloxicam 15 MG tablet 15 mg PO DAILY insulin lispro 100 unit/mL insulin pen 1 sliding scale dose subcut USEASDIRECTD Qty: 15 1RF Discharge Instructions Instructions: Groin Pain (ED) HPI General Date/Time Provider Initiated Documentation: 01/12/24 14:56. HPI Narrative: 63-year-old male presents with left groin and hip discomfort fell to bed 4 to 5 days ago, has been ambulatory since then mainly ambulates with a walker. Related Data Home Medications Medication Instructions Recorded Confirmed meloxicam 15 mg tablet 15 mg PO DAILY 08/20/17 12/02/23 amlodipine 10 mg tablet 10 mg PO DAILY 03/23/19 12/02/23 hydrochlorothiazide 25 mg tablet 50 mg PO DAILY 07/22/22 12/02/23 insulin glargine 100 unit/mL (3 50 unit subcut BID 07/22/22 12/02/23 mL) subcutaneous pen (Lantus Solostar U-100 Insulin) testosterone cypionate 200 mg/mL 200 mg IM Q2W 07/22/22 12/02/23 intramuscular oil lamotrigine 25 mg tablet 50 mg PO DAILY 05/04/23 12/02/23 insulin lispro 100 unit/mL 1 sliding scale dose subcut 08/12/23 12/02/23 subcutaneous pen (Humalog KwikPen USEASDIRECTD #15 mL (U-100) Insulin) insulin lispro 100 unit/mL 1 sliding scale dose subcut 11/18/23 12/02/23 subcutaneous pen USEASDIRECTD #15 mL clonazepam 0.5 mg tablet 0.5 mg PO TID 01/04/24 gabapentin 400 mg capsule 400 mg PO BID 01/04/24 insulin glargine 100 unit/mL (3 76 unit subcut DAILY 01/04/24 mL) subcutaneous pen, sensor (Basaglar Tempo Pen (U-100) Insulin) methadone 5 mg/5 mL oral solution 185 mg PO DAILY 01/04/24 venlafaxine 75 mg tablet 75 mg PO DAILY 01/04/24 ketoconazole 2 % topical cream 1 applic topical DAILY 6 months 01/06/24 #60 grams lidocaine 5 % topical patch 1 patch topical DAILY PRN #15 ea 01/12/24 (Lidoderm) Previous Rx's Medication Instructions Recorded insulin lispro 100 unit/mL 1 sliding scale dose subcut 08/12/23 subcutaneous pen (Humalog KwikPen USEASDIRECTD #15 mL (U-100) Insulin) insulin lispro 100 unit/mL 1 sliding scale dose subcut 11/18/23 subcutaneous pen USEASDIRECTD #15 mL ketoconazole 2 % topical cream 1 applic topical DAILY 6 months 01/06/24 #60 grams lidocaine 5 % topical patch 1 patch topical DAILY PRN #15 ea 01/12/24 (Lidoderm) Allergies Allergy/AdvReac Type Severity Reaction Status Date / Time buspirone Allergy Other (See Verified 01/12/24 14:58 Comment) lisinopril Allergy angioedema Verified 01/12/24 14:58 ? paroxetine [From Paxil] Allergy Other (See Verified 01/12/24 14:58 Comment) trazodone Allergy Other (See Verified 01/12/24 14:58 Comment) General Stated Complaint: Orthopedic SHWETA: 4 Review of Systems Narrative: Review of Systems Constitutional: negative Eyes: negative ENT: negative Cardiovascular: negative Respiratory: negative Gastrointestinal: negative : negative Musculoskeletal: Hip pain Skin: negative Neurologic: negative Psych: negative Exam Narrative Exam Narrative: Physical Examination General: alert, awake, cooperative, resting comfortably, no acute distress HEENT: normocephalic, atraumatic; PERRL, EOM intact, conjunctiva normal; no nasal discharge; moist mucous membranes, oral and pharyngeal mucosa normal, tolerating secretions Neck: supple, trachea midline; full ROM Chest: normal to inspection Respiratory: normal respiratory effort, speaking in full sentences, clear to auscultation, no wheezing, rales or rhonchi Cardiac: regular rate, regular rhythm, S1S2 intact, no murmurs rubs or gallops GI: abdomen soft, non-tender, non-distended; no palpable mass or hepatosplenomegaly : Normal external genitalia, no appreciable inguinal hernia Back: No midline spinal tenderness step-off or deformity Skin: no lesions, rashes or trauma appreciated Neuro: AAOx3, normal speech, moving all extremities Extremities: Full range of motion lower extremities ambulatory without assistance, no step-off crepitus or deformity, no ecchymosis or abrasions Psych: Appropriate mood and affect Course Vital Signs Vital signs: Vital Signs Temperature 36.6 C 01/12/24 14:54 Pulse 86 01/12/24 14:54 Respiratory Rate 18 01/12/24 14:54 Blood Pressure 176/97 H 01/12/24 14:54 Pulse Oximetry 96 01/12/24 14:54 Temperature 36.6 C 01/12/24 14:54 Pulse 86 01/12/24 14:54 Respiratory Rate 18 01/12/24 14:54 Blood Pressure 176/97 H 01/12/24 14:54 Pulse Oximetry 96 01/12/24 14:54 Medical Decision Making 63-year-old male presents 4-5 days after falling out of bed, pain today in his left hip, has been ambulatory with assistance of his walker, pain localized to left groin and left hip, full range of motion ambulatory without assistance no ecchymosis abrasion or trauma appreciated, no evidence of inguinal hernia. No midline spinal tenderness step-off crepitus or deformity. Consider hip contusion versus groin strain versus subclinical inguinal hernia versus sciatica low suspicion for fracture or dislocation. Trial of analgesia anti-inflammatory likely home with close follow-up. 15: 55 resting comfortably no acute distress. Quality:SDOH Health Related Social Needs: No Data to Display PFSH All Active Problems (Updated 01/12/24 @ 15:56 by Dewayne Winter MD) Groin pain (Acute) Bilateral leg edema (Acute) Tubulovillous adenoma of colon (Acute) History of knee replacement (Chronic) Depression with anxiety (Acute) Hyperlipidemia (Acute) Elbow joint pain (Acute) Corns and callosities (Acute) Onychomycosis (Acute) Venous insufficiency (Acute) Diabetes mellitus with neuropathy (Acute) Nocturia (Acute) Substance abuse (Acute) Erectile dysfunction (Acute) Knee pain (Acute) Obesity (Chronic) Neuropathy (Acute) Positive PPD (Acute) PTSD (post-traumatic stress disorder) (Acute) Leg edema (Acute) Diverticulosis (Acute) Hypogonadism in male (Acute) Cervical spondylolysis (Acute) Smoker (Acute) Osteomyelitis (Acute) ADHD (Acute) Tinea corporis (Acute) Hepatitis C (Chronic) Major depression (Chronic) BPH w urinary obs/LUTS (Acute) Vitamin D deficiency (Acute) Arthritis of right elbow (Acute) Pneumonia (Acute) Chest pain (Acute) Headache (Acute) Cellulitis of foot, right (Acute) Abscess, hepatic (Acute) Hypoxia (Acute) Fever (Acute) Hypokalemia (Acute) Tick bite of back (Acute) Hypogonadism (Acute) Arthritis of right subtalar joint (Acute) Cervical spondylolysis (Chronic) Colonoscopy planned (Acute ~11/2018) Primary osteoarthritis, right ankle and foot (Chronic) Umbilical hernia without mention of obstruction or gangrene (Acute) History of MRSA infection (Chronic ~10/2017) Diabetes mellitus (Chronic) Depression (Chronic) Chronic pain of left knee (Chronic) Tobacco abuse (Chronic) HTN (hypertension) (Chronic) Primary osteoarthritis of right knee (Chronic 04/28/18) Primary osteoarthritis of right ankle (Chronic 02/15/18) Medical History (Updated 01/12/24 @ 15:56 by Dewayne Winter MD) Lower urinary tract symptoms Infection of toe Neck swelling Normal colonoscopy (11/05/18) [facility] recommends repeat in 5 years. Personal history of colonic polyps Colon adenoma 11/10/11 - Dr Benson Hebert, hyperplastic polyp, but with tubulovillous adenoma in nov, recommended repeat in five years. Fibula fracture right Surgical History (Updated 12/23/23 @ 13:46 by Kathrin Harrison) Amputated toe of right foot (~11/2016) 2nd toe, Rt foot Umbilical hernia without mention of obstruction or gangrene left index finger amputation (~1994) Rotator Cuff Repair left Arthroplasty of knee left knee Family History Father Alcohol abuse Hypertension Sister Anxiety Mother Depression Maternal Grandmother Depression Cancer Colon Paternal Grandmother Depression Cancer Colon Aunt Cancer Colon cancer Social History Smoking/Tobacco Use Status: Former Tobacco Use tobacco type: cigarettes Quit Date: 11/02/22 Pack-years: 15 Tobacco: How many years used: 32 Second Hand Exposure: No Smoking risk assessment performed?: Yes Alcohol Intake: former Drug use: Occasionally Substance use type: marijuana and crack/cocaine Details: history of methamphetamine use 20+ years ago per patient Adopted: No Caregiver/Support person: No Foster care: No Household members: none Housing: apartment Number of Children: 3 number of grandchildren: 1 Communication Needs: None Education Level: high school Do you need help understanding health information?: Often current occupation: Disabled Pets and animals: Yes (1) Pets and animals: cat(s) Sexually active: No Do you think of yourself as: straight/heterosexual Current gender identity: male What is your relationship status?: How often do you talk on the phone with friends or family?: three or more times per week How often do you get together with friends or relatives?: twice per week Do you belong to any clubs or organized social groups?: no Panel score (0-1 are the most socially isolated patients): 1 What type of physical activity do you participate in: none, walking and additional Details: electric bike riding Duration: 60-90 minutes/day Frequency: 3-4 times per week Katy/Cheondoism: Taoism Special katy needs: No Seatbelt use: sometimes Helmet use: Yes Helmet use: sometimes 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
[2024-01-12] MEDS: Ketorolac 15 MG/ML VIAL IM (15:38)
[2024-01-12] MEDS: Dexamethasone 10 MG/ML VIAL PO (15:39)
[2024-01-12] MEDS: Lidocaine 5% Patch 1 PATCH TP (15:39)
[2024-01-12 16:12] VITALS: BP 176/97; PULSE 86; RESP 18; TEMP 36.6; O2SAT 96
== END 2024-01-12 16:13 | disposition home or self-care (01) ==
PROVIDERS: Emergency Provider Emergency Medicine; PCP Nurse Practitioner Family
DX: M25.552 Pain in left hip (principal); R10.2 Pelvic and perineal pain; I10 Essential (primary) hypertension; W06.XXXA Fall from bed, initial encounter
CPT/HCPCS: 96372; 99283; J1100; J1885

== ENCOUNTER 2024-01-17 10:04 | Emergency (ER) | payer MEDICARE, MEDICAID, SELFPAY ==
[2024-01-17 10:06] VITALS: BP 167/89; PULSE 89; RESP 20; TEMP 36.5; O2SAT 95
--- NOTE | 2024-01-17 10:15 | DI.CT_ITS ---
Exam(s) CT PELVIC WO EXAM: CT PELVIC WO CLINICAL HISTORY: left hip and inguinal pain, ?hernia. TECHNIQUE: Imaging Protocol: Axial computed tomography images with coronal and sagittal reformatted images were created and reviewed CONTRAST MATERIAL: Intravenous: none Oral: None COMPARISON: CT CT CHEST PE CTA from 07/30/[address] CHEST WO from 05/13/2023 FINDING: PELVIS: Uppermost image reveals partially included cysts in left kidney. OSSEOUS: No pelvic nor hip fractures evident.No significant osseous lesions evident.Advanced facet ar thropathy noted in the lower lumbar spine. There is mild degenerative anterolisthesis of L4 upon L5 related to facet arthropathy. There is no prominent disc space narrowing in the lumbar spine. The s acroiliac joints appear unremarkable.. ANTERIOR ABDOMINAL WALL/GI:There is an anterior abdominal wall midline umbilical hernia which contain s fat but no bowel loops and there is no bowel obstruction transition point at this level no bowel co ntaining inguinal hernias LYMPH NODES: There is no intrapelvic nor inguinal adenopathy. URINARY BLADDER: No calculi nor obvious masses evident REPRODUCTIVE: Prostate size normal. Seminal vesicles unremarkable.. IMPRESSION: 1. No significant acute findings in the pelvis. 2. Degenerative changes in the lumbar spine noted. 3. There is an anterior abdominal wall fat only containing umbilical hernia. No bowel obstruction. RADIATION DOSE DELIVERED: Total DLP DATA REPOSITORY: All CT scans at this facility are submitted to the National Radiology Data Registry (NRDR) Dose Index Registry (DIR) with the [employer] (ACR). RADIATION OPTIMIZATION: All CT scans at this facility use at least one of these dose optimization te chniques: automated exposure control; mA and/or kV adjustment per patient size (includes targeted exa ms where dose is matched to clinical indication); or iterative reconstruction.
--- NOTE | 2024-01-17 10:28 | W.ED.GENAD ---
Discharge Plan Disposition Patient Disposition: Home Condition: Stable Discharge Details Clinical Impression: Left groin pain Primary Care Provider: Delaney Box ED Provider: Bennett Verduzco Home Meds and New Rx's Prescriptions: Continued amlodipine 10 mg tablet 10 mg PO DAILY hydrochlorothiazide 25 mg tablet 50 mg PO DAILY testosterone cypionate 200 mg/mL oil 200 mg IM Q2W insulin glargine [Lantus Solostar U-100 Insulin] 100 unit/mL (3 mL) insulin pen 50 unit subcut BID Hold Instructions: Formulary/Insurance Patient Comments: running out of med, no PCP lamotrigine 25 mg tablet 50 mg PO DAILY venlafaxine 75 mg tablet 75 mg PO DAILY Basaglar Tempo Pen(U-100)Insln 100 unit/mL (3 mL) insulin pen, sensor 76 unit subcut DAILY gabapentin 400 mg capsule 400 mg PO BID methadone 5 mg/5 mL solution 185 mg PO DAILY clonazepam 0.5 mg tablet 0.5 mg PO TID ketoconazole 2 % cream 1 applic topical DAILY 180 Days Qty: 60 6RF Rx Instructions: Apply to toenails once daily insulin lispro [Humalog KwikPen Insulin] 100 unit/mL insulin pen 1 sliding scale dose subcut USEASDIRECTD Qty: 15 0RF Patient Comments: received by ED but running out meloxicam 15 MG tablet 15 mg PO DAILY insulin lispro 100 unit/mL insulin pen 1 sliding scale dose subcut USEASDIRECTD Qty: 15 1RF lidocaine [Lidoderm] 5 % adhesive patch,medicated 1 patch topical DAILY PRNQty: 15 0RF Rx Instructions: leave on most painful area for up to 12 hrs Discharge Instructions Additional Instructions: your imaging did not show any concerning findings at this time other then disc herniations in your back which are chronic. Follow-up with your primary care provider within 1 week especially if pain continues If you feel more ill, have severe worsening pain, or new symptoms such as persistent vomiting or fevers return to the emergency department for reevaluation HPI General Mode of arrival: ambulatory. Date/Time Provider Initiated Documentation: 01/17/24 10:04. Limitations to Documentation: no limitations. Information obtained by: patient. History of Present Illness 63 year old M presents to the emergency department with the chief complaint of left inguinal pain, described as moderate, Quality is described as aching, Patient started experiencing this day(s) (6) and it has been intermittent. No relieving factors improve symptom(s), No exacerbating factors reported . Patient notes no other symptoms.. Patient did receive the following treatments prior to arrival, none Related Data Home Medications Medication Instructions Recorded Confirmed meloxicam 15 mg tablet 15 mg PO DAILY 08/20/17 01/17/24 amlodipine 10 mg tablet 10 mg PO DAILY 03/23/19 01/17/24 hydrochlorothiazide 25 mg tablet 50 mg PO DAILY 07/22/22 01/17/24 insulin glargine 100 unit/mL (3 50 unit subcut BID 07/22/22 01/17/24 mL) subcutaneous pen (Lantus Solostar U-100 Insulin) testosterone cypionate 200 mg/mL 200 mg IM Q2W 07/22/22 01/17/24 intramuscular oil lamotrigine 25 mg tablet 50 mg PO DAILY 05/04/23 01/17/24 insulin lispro 100 unit/mL 1 sliding scale dose subcut 08/12/23 01/17/24 subcutaneous pen (Humalog KwikPen USEASDIRECTD #15 mL (U-100) Insulin) insulin lispro 100 unit/mL 1 sliding scale dose subcut 11/18/23 01/17/24 subcutaneous pen USEASDIRECTD #15 mL clonazepam 0.5 mg tablet 0.5 mg PO TID 01/04/24 01/17/24 gabapentin 400 mg capsule 400 mg PO BID 01/04/24 01/17/24 insulin glargine 100 unit/mL (3 76 unit subcut DAILY 01/04/24 01/17/24 mL) subcutaneous pen, sensor (Basaglar Tempo Pen (U-100) Insulin) methadone 5 mg/5 mL oral solution 185 mg PO DAILY 01/04/24 01/17/24 venlafaxine 75 mg tablet 75 mg PO DAILY 01/04/24 01/17/24 ketoconazole 2 % topical cream 1 applic topical DAILY 6 months 01/06/24 01/17/24 #60 grams lidocaine 5 % topical patch 1 patch topical DAILY PRN #15 ea 01/12/24 01/17/24 (Lidoderm) Previous Rx's Medication Instructions Recorded insulin lispro 100 unit/mL 1 sliding scale dose subcut 08/12/23 subcutaneous pen (Humalog KwikPen USEASDIRECTD #15 mL (U-100) Insulin) insulin lispro 100 unit/mL 1 sliding scale dose subcut 11/18/23 subcutaneous pen USEASDIRECTD #15 mL ketoconazole 2 % topical cream 1 applic topical DAILY 6 months 01/06/24 #60 grams lidocaine 5 % topical patch 1 patch topical DAILY PRN #15 ea 01/12/24 (Lidoderm) Allergies Allergy/AdvReac Type Severity Reaction Status Date / Time buspirone Allergy Other (See Verified 01/17/24 10:10 Comment) lisinopril Allergy angioedema Verified 01/17/24 10:10 ? paroxetine [From Paxil] Allergy Other (See Verified 01/17/24 10:10 Comment) trazodone Allergy Other (See Verified 01/17/24 10:10 Comment) General Stated Complaint: Orthopedic SHWETA: 3 Review of Systems All systems reviewed & are unremarkable except as noted in HPI and below Constitutional Constitutional: Denies chills, Denies fever(s) and Denies weakness Cardiovascular Cardiovascular: Denies chest pain and Denies dyspnea Respiratory Respiratory: Denies cough and Denies dyspnea Gastrointestinal Gastrointestinal: Denies abdominal pain, Denies nausea and Denies vomiting Musculoskeletal Musculoskeletal: Denies joint swelling Neurologic Neurologic: Denies weakness Exam Const General: no acute distress Orientation: alert HENWA Head: normal to inspection Ears: external ears normal General nose exam: external nose normal Mouth: moist mucous membranes Eyes General: appearance normal, both eyes and all related structures Neck Neck: normal visual inspection Resp Effort & Inspection: normal respiratory effort and able to speak in complete sentences Cardio Rate: regular rate Skin General skin exam: no rashes or lesions noted Neuro General: patient alert and patient oriented x3 Extrem General: full ROM and capillary refill normal Psych Mental Status: mental status grossly normal Course Vital Signs Vital signs: Vital Signs Temperature 36.5 C 01/17/24 10:06 Pulse 89 01/17/24 10:06 Respiratory Rate 20 01/17/24 10:06 Blood Pressure 167/89 H 01/17/24 10:06 Pulse Oximetry 95 01/17/24 10:06 Temperature 36.5 C 01/17/24 10:06 Temperature Source Temporal Artery Scan 01/17/24 10:06 Pulse 89 01/17/24 10:06 Respiratory Rate 20 01/17/24 10:06 Respiratory Effort Normal, Non-Labored 01/17/24 10:10 Blood Pressure 167/89 H 01/17/24 10:06 Blood Pressure Position Sitting 01/17/24 10:06 Pulse Oximetry 95 01/17/24 10:06 Oxygen Delivery Method Room Air 01/17/24 10:06 Oxygen Flow Rate 0 01/17/24 10:06 Medical Decision Making 63-year-old male comes in with 5 to 6 days of left inguinal and left hip pain. Denies any fevers, chills, leg swelling, drug use. Denies any weakness. No vomiting or nausea. He is ambulating using his walker at baseline is able to bear weight, he localizes the pain to the left inguinal fold, I do not feel or see any palpable deformities, he has full range of motion of the hip, no scrotal swelling or testicle tenderness, no abdominal tenderness. Suspect hip strain but given continued pain will obtain CT to rule out on palpable inguinal hernia. pt stable has been ambulating without assistance using his walker at his baseline while waiting for results. His CT shows no acute findings, does have neuroforaminal narrowing in the lumbar area and also chronic peripheral vascular disease findings. He is intact sensation and cap refill in his lower legs, no pain in his distal legs so doubt acute arterial occlusion. Patient is stable, discussed results with him and that he should follow-up with his primary care provider for his peripheral vascular disease and lumbar stenosis. He states last time he was here he got oral Decadron which helped so ordered a dose of this here. Return precautions given Differential Diagnosis Differential Diagnosis: Inguinal hernia, hip strain, bursitis Imaging Data Radiologic Study: Attestation: I personally reviewed and interpreted this imaging study as follows: Imaging: CT Scan Radiologist's impression: IMPRESSION: 1. No acute findings. 2. Severe bilateral neural foraminal narrowing L4-L5 and L5-S1. There is severe spinal stenosis L4- L5 where there is grade 1 anterolisthesis.3. Moderate atherosclerotic peripheral vascular disease. Ectasia of both common iliac arteries Quality:SDOH Health Related Social Needs: No Data to Display PFSH All Active Problems (Updated 01/17/24 @ 11:19 by Bennett Verduzco MD) Left groin pain (Acute) Groin pain (Acute) Bilateral leg edema (Acute) Tubulovillous adenoma of colon (Acute) History of knee replacement (Chronic) Depression with anxiety (Acute) Hyperlipidemia (Acute) Elbow joint pain (Acute) Corns and callosities (Acute) Onychomycosis (Acute) Venous insufficiency (Acute) Diabetes mellitus with neuropathy (Acute) Nocturia (Acute) Substance abuse (Acute) Erectile dysfunction (Acute) Knee pain (Acute) Obesity (Chronic) Neuropathy (Acute) Positive PPD (Acute) PTSD (post-traumatic stress disorder) (Acute) Leg edema (Acute) Diverticulosis (Acute) Hypogonadism in male (Acute) Cervical spondylolysis (Acute) Smoker (Acute) Osteomyelitis (Acute) ADHD (Acute) Tinea corporis (Acute) Hepatitis C (Chronic) Major depression (Chronic) BPH w urinary obs/LUTS (Acute) Vitamin D deficiency (Acute) Arthritis of right elbow (Acute) Pneumonia (Acute) Chest pain (Acute) Headache (Acute) Cellulitis of foot, right (Acute) Abscess, hepatic (Acute) Hypoxia (Acute) Fever (Acute) Hypokalemia (Acute) Tick bite of back (Acute) Hypogonadism (Acute) Arthritis of right subtalar joint (Acute) Cervical spondylolysis (Chronic) Colonoscopy planned (Acute ~11/2018) Primary osteoarthritis, right ankle and foot (Chronic) Umbilical hernia without mention of obstruction or gangrene (Acute) History of MRSA infection (Chronic ~10/2017) Diabetes mellitus (Chronic) Depression (Chronic) Chronic pain of left knee (Chronic) Tobacco abuse (Chronic) HTN (hypertension) (Chronic) Primary osteoarthritis of right knee (Chronic 04/28/18) Primary osteoarthritis of right ankle (Chronic 02/15/18) Medical History (Updated 01/17/24 @ 11:19 by Bennett Verduzco MD) Lower urinary tract symptoms Infection of toe Neck swelling Normal colonoscopy (11/05/18) [facility] recommends repeat in 5 years. Personal history of colonic polyps Colon adenoma 11/10/11 - Dr Benson Hebert, hyperplastic polyp, but with tubulovillous adenoma in nov, recommended repeat in five years. Fibula fracture right Surgical History (Updated 12/23/23 @ 13:46 by Kathrin Harrison) Amputated toe of right foot (~11/2016) 2nd toe, Rt foot Umbilical hernia without mention of obstruction or gangrene left index finger amputation (~1994) Rotator Cuff Repair left Arthroplasty of knee left knee Family History Father Alcohol abuse Hypertension Sister Anxiety Mother Depression Maternal Grandmother Depression Cancer Colon Paternal Grandmother Depression Cancer Colon Aunt Cancer Colon cancer Social History Smoking/Tobacco Use Status: Current every day Tobacco: How many years used: 32 Second Hand Exposure: No Smoking risk assessment performed?: Yes Alcohol Intake: former Drug use: Occasionally Substance use type: marijuana Details: history of methamphetamine use 20+ years ago per patient Adopted: No Caregiver/Support person: No Foster care: No Household members: none Housing: apartment Number of Children: 3 number of grandchildren: 1 Communication Needs: None Education Level: high school Do you need help understanding health information?: Often current occupation: Disabled Pets and animals: Yes (1) Pets and animals: cat(s) Sexually active: No Do you think of yourself as: straight/heterosexual Current gender identity: male What is your relationship status?: How often do you talk on the phone with friends or family?: three or more times per week How often do you get together with friends or relatives?: twice per week Do you belong to any clubs or organized social groups?: no Panel score (0-1 are the most socially isolated patients): 1 What type of physical activity do you participate in: none, walking and additional Details: electric bike riding Duration: 60-90 minutes/day Frequency: 3-4 times per week Katy/Anabaptist: Evangelical Special katy needs: No Seatbelt use: sometimes Helmet use: Yes Helmet use: sometimes Drive intox or ride w/intox forklift driver: No Working smoke detector in home: Yes Fire extinguisher in home: Yes Carbon monox detector in home: Yes Do you feel safe at home: Yes Do you feel safe in your relationship?: Yes
[2024-01-17] MEDS: Ketorolac 15 MG/ML VIAL IM (10:50)
--- NOTE | 2024-01-17 11:30 | DI.VRAD_ITS ---
PROCEDURE INFORMATION: Exam: CT Pelvis Without Contrast Exam date and time: 01/17/2024 10:57 AM Age: 63 years old Clinical indication: Other: Left hip and inguinal pain, ? hernia TECHNIQUE: Imaging protocol: Computed tomography of the pelvis without contrast. COMPARISON: CT ABDOMEN PELVIS CTA 01/01/2021 6:53 AM FINDINGS: Kidneys and ureters: Visualized kidneys show no conspicuous hydronephrosis. There are multiple simple appearing cysts in the lower pole left kidney no further imaging follow-up. Stomach and bowel: Visualized small bowel and colon are unremarkable. Appendix: A normal appendix is identified. Intraperitoneal space: Unremarkable. No free air. No significant fluid collection. Vasculature: No abdominal aortic aneurysm. Ectasia of the common iliac vessels measuring 1.5 cm on the right 1.6 cm on the left. Lymph nodes: Unremarkable. No enlarged lymph nodes. Urinary bladder: Normal. No mass. Reproductive: Normal as visualized. Bones/joints: No acute fracture. [id number] degenerative changes of the osseous structures. Severe bilateral neural foraminal narrowing L4-L5 and L5-S1. Severe multifactorial spinal stenosis L4-L5. Soft tissues: No hernia or soft tissue mass. IMPRESSION: 1. No acute findings. 2. Severe bilateral neural foraminal narrowing L4-L5 and L5-S1. There is severe spinal stenosis L4-L5 where there is grade 1 anterolisthesis. 3. Moderate atherosclerotic peripheral vascular disease. Ectasia of both common iliac arteries. Dictated and Authenticated by: James Porter MD. Ordering:VICENTE Guajardo MD
[2024-01-17] MEDS: Lidocaine 5% Patch 1 PATCH TP ×2 (11:44)
[2024-01-17] MEDS: Dexamethasone 4 MG TAB 10 MG PO (11:44)
== END 2024-01-17 11:53 | disposition home or self-care (01) ==
PROVIDERS: Emergency Provider Emergency Medicine; PCP Nurse Practitioner Family
DX: M25.552 Pain in left hip (principal); K42.9 Umbilical hernia without obstruction or gangrene; E11.40 Type 2 diabetes mellitus with diabetic neuropathy, unspecified; I10 Essential (primary) hypertension; F17.210 Nicotine dependence, cigarettes, uncomplicated; Z79.4 Long term (current) use of insulin
CPT/HCPCS: 96372; 99284; 72192; J1885; J8540

== ENCOUNTER 2024-01-29 10:00 | Outpatient (CLI) | payer MEDICARE, MEDICAID, SELFPAY ==
--- NOTE | 2024-01-29 10:00 | RT.EKG_ITS ---
APPROVED REPORT Exam: Resting ECG Reason for Exam: High Risk Medication Patient Location: O HR:61 bpm ECG Measurements Heart Rate 61 AXIS VT 172 P 36 QRSd 110 QRS -23 QT 468 T 48 QTc 472 Conclusion Sinus rhythm...normal P axis, V-rate 50- 99 Borderline left axis deviation...QRS axis (-15,-29) Borderline low voltage, extremity leads...all extremity leads <0.6mV RSR' in V1 or V2, probably normal variant...small R' only Baseline wander in lead(s) V1,V2 Partial missing lead(s): V1
== END 2024-01-29 10:01 | disposition home or self-care (01) ==
LOC: CARDOPNVT 10:00
PROVIDERS: PCP Nurse Practitioner Adult Health; Visit Provider Family Medicine
DX: Z79.899 Other long term (current) drug therapy (principal)
CPT/HCPCS: 93005; 93010

== ENCOUNTER 2024-02-28 05:31 | Emergency (ER) | payer MEDICARE, MEDICAID, SELFPAY ==
[2024-02-28 05:31] VITALS: BP 117/67; PULSE 50; RESP 16; TEMP 36.4; O2SAT 94
--- NOTE | 2024-02-28 06:00 | W.ED.GENAD ---
Discharge Plan Discharge Details Chief Complaint: Orthopedic Primary Care Provider: Sahra Ye ED Provider: Lilia Souza Home Meds and New Rx's Prescriptions: No Action amlodipine 10 mg tablet 10 mg PO DAILY lamotrigine 25 mg tablet 75 mg PO DAILY meloxicam 15 mg tablet 15 mg PO DAILY PRN (Reason: pain) Qty: 90 0RF Rx Instructions: Take with food daily as needed for pain insulin glargine [Lantus Solostar U-100 Insulin] 100 unit/mL (3 mL) insulin pen 10 unit subcut DAILY Qty: 15 0RF Hold Instructions: Formulary/Insurance Rx Instructions: Restart lantus 01/18/24 methadone 5 mg/5 mL solution 185 mg PO DAILY insulin lispro 100 unit/mL insulin pen 1 sliding scale dose subcut USEASDIRECTD Qty: 15 1RF lidocaine [Lidoderm] 5 % adhesive patch,medicated 1 patch topical DAILY PRNQty: 15 0RF Rx Instructions: leave on most painful area for up to 12 hrs HPI General Mode of arrival: EMS. Date/Time Provider Initiated Documentation: 02/28/24 05:49. Limitations to Documentation: other (poor historian). Information obtained by: patient and EMS. HPI Narrative: 63yo M with hx HTN, HLD, depression/anxiety, colon cancer, DM, osteoarthritis, left knee repalcement, ambulates with a walker at baseline, presents with left knee pain after a fall. Two days ago tripped over his walker and fell, twisted and struck his knee, since then has had persistent and worsening left knee pain with some swelling. Did not strike his head and denies pain or injury elsewhere. Knee feels warm and swollen since the event. Was normal prior to the fall. More difficulty ambulating than baseline. No change in sensation in left leg. No calf pain. Reports mild headache and nausea. He is otherwise in his usual state of health with no fevers, chills, rash, chest pain, shortness of breath, abdominal pain, or other concerns. Related Data Home Medications Medication Instructions Recorded Confirmed amlodipine 10 mg tablet 10 mg PO DAILY 03/23/19 02/28/24 insulin lispro 100 unit/mL 1 sliding scale dose subcut 11/18/23 02/28/24 subcutaneous pen USEASDIRECTD #15 mL methadone 5 mg/5 mL oral solution 185 mg PO DAILY 01/04/24 02/28/24 lidocaine 5 % topical patch 1 patch topical DAILY PRN #15 ea 01/12/24 02/28/24 (Lidoderm) insulin glargine 100 unit/mL (3 10 unit (0.1 mL) subcut DAILY #15 01/18/24 02/28/24 mL) subcutaneous pen (Lantus mL Solostar U-100 Insulin) lamotrigine 25 mg tablet 75 mg PO DAILY 01/18/24 02/28/24 meloxicam 15 mg tablet 15 mg PO DAILY PRN pain #90 tabs 01/18/24 02/28/24 Previous Rx's Medication Instructions Recorded insulin lispro 100 unit/mL 1 sliding scale dose subcut 11/18/23 subcutaneous pen USEASDIRECTD #15 mL lidocaine 5 % topical patch 1 patch topical DAILY PRN #15 ea 01/12/24 (Lidoderm) insulin glargine 100 unit/mL (3 10 unit (0.1 mL) subcut DAILY #15 01/18/24 mL) subcutaneous pen (Lantus mL Solostar U-100 Insulin) meloxicam 15 mg tablet 15 mg PO DAILY PRN pain #90 tabs 01/18/24 Allergies Allergy/AdvReac Type Severity Reaction Status Date / Time buspirone Allergy Other (See Verified 02/28/24 05:43 Comment) lisinopril Allergy angioedema Verified 02/28/24 05:43 ? paroxetine [From Paxil] Allergy Other (See Verified 02/28/24 05:43 Comment) trazodone Allergy Other (See Verified 02/28/24 05:43 Comment) General Stated Complaint: Orthopedic SHWETA: 4 Review of Systems Narrative: see HPI Exam Narrative Exam Narrative: General: Alert, chronically ill appearing. No acute distress. Non-toxic. Head: Normocephalic, atraumatic Neck: Trachea midline, ?Neck supple. ENT: ?MMM.? Cardiac: ?RRR, no murmurs appreciated Resp: No respiratory distress. CTAB. Abd: ?Obese, nontender Extremities: ?Symmetric bilateral LE edema. Symmetrically decreased sensation to light touch BLE. RLE: Right ankle deformity (chronic), surgical digit amputation. LLE: Left knee warm, slightly erythematous. Severe pain with active flexion/extension as well with pain with passive ROM. No palpable effusion compared to right. No calf tenderness. Neurologic: GCS 15. Moves all extremities freely against gravity Course Vital Signs Vital signs: Vital Signs Temperature 36.4 C L 02/28/24 05:31 Pulse 50 L 02/28/24 05:31 Respiratory Rate 16 02/28/24 05:31 Blood Pressure 117/67 02/28/24 05:31 Pulse Oximetry 94 02/28/24 05:31 Temperature 36.4 C L 02/28/24 05:31 Temperature Source Skin 02/28/24 05:31 Pulse 50 L 02/28/24 05:31 Respiratory Rate 16 02/28/24 05:31 Respiratory Effort Normal, Non-Labored 02/28/24 05:40 Blood Pressure 117/67 02/28/24 05:31 Blood Pressure Position Supine 02/28/24 05:31 Pulse Oximetry 94 02/28/24 05:31 Oxygen Delivery Method Room Air 02/28/24 05:31 Oxygen Flow Rate 0 02/28/24 05:31 Pain Level 9 02/28/24 05:41 Medical Decision Making 63yo M with hx HTN, HLD, depression/anxiety, colon cancer, DM, osteoarthritis, left knee repalcement, ambulates with a walker at baseline, presents with left knee pain. Poor historian, difficulty clarifying time course of symptoms (whether knee pain started before or after fall). Two days ago he tripped over his walker and fell, twisted and struck his knee, since then has had persistent and worsening left knee pain with some swelling. Now unable to ambulate. Vital signs reassuring on arrival. Exam with warm, erythematous, tender left knee. Pain with active and passive ROM. Concern for traumatic injury vs septic arthritis (pt with DM, chronically ill) less likely crystal arthropathy. History/exam not consistent with DVT. Warrants joint aspiration however prosthetic joint so will defer to orthopedics; regrettably no one available at [facility] currently. Plain film independently reviewed, no displaced fracture on my view awaiting radiology read. Labs reviewed as below, CBC with significant leukocytosis to 16, ESR elevated at 30, CRP markedly elevated at >25. Bloodwork not reassuring against septic joint and so [facility] [place] [facility] consulted for orthopedics/tap. Awaiting callback. XR read as below, intraarticular and soft tissue gas concerning for infection. Overall clinical presentation and workup consistent with septic joint. Signed out to oncoming physician; awaiting [facility] [place] callback. Imaging Data Radiologic Study: Imaging: X-Ray Radiologist's impression: IMPRESSION: 1. Status post left knee arthroplasty without evidence of hardware failure. 2. Small to moderate joint effusion with intra-articular and soft tissue gas. If patient's surgery was recent these findings may be postsurgical. Otherwise findings are concerning for infection. Lab Data Lab results reviewed: Yes I reviewed the patient's lab results. Labs: Laboratory Tests Range/Units 02/28/24 05:50 WBC (4.4-10.8) 10^3/uL 16.30 H RBC (4.36-5.78) 10^6/uL 5.19 Hgb (13.5-17.5) g/dL 15.7 Hct (40.0-50.0) % 46.4 MCV (80-95) fL 89 MCH (27.0-33.0) pg 30.3 MCHC (32.0-36.0) % 33.8 RDW (11.8-14.1) % 13.6 Plt Count (130-400) 10^3/uL 143 MPV (8.0-11.0) fL 9.9 Immature Gran % 0.0 Neutrophils % 85.0 Band Neutrophils % 7 Lymphocytes % 3.0 Monocytes % 4.0 Eosinophils % 0.0 Basophils % 0.0 Nucleated RBC % (0.0-0.3) % 0.0 Absolute Neutrophils (1.2-6.7) 10^3/uL 15.00 H Absolute Lymphocytes (1.2-3.4) 10^3/uL 0.49 L Absolute Monocytes (0.1-0.8) 10^3/uL 0.65 Absolute Eosinophils (0.0-0.7) 10^3/uL 0.00 Absolute Basophils (0.0-0.2) 10^3/uL 0.00 RBC Morphology Normal ESR (0-20) mm/hr 30 H Sodium (136-145) mmol/L 134 L Potassium (3.5-5.1) mmol/L 3.1 L Chloride (98-107) mmol/L 92 L Carbon Dioxide (21.0-32.0) mmol/L 32.2 H Anion Gap (3-11) mmol/L 9.8 BUN (7-18) mg/dL 16 Creatinine (0.70-1.30) mg/dL 1.1 Est GFR (CKD-EPI 2020) (mL/min/1.73m2) 76.37 Glucose (74-106) mg/dL 253 H Calcium (8.5-10.1) mg/dL 9.3 Total Bilirubin (0.2-1.0) mg/dL 0.8 AST (15-37) U/L 55 H ALT (16-63) U/L 31 Alkaline Phosphatase (46-116) U/L 74 C-Reactive Protein (<or=0.5) mg/dL > 25.00 H Total Protein (6.4-8.2) g/dL 7.6 Albumin (3.4-5.0) g/dL 3.0 L Quality:SDOH Health Related Social Needs: No Data to Display PFSH All Active Problems (Updated 02/17/24 @ 00:09 by JUHI APPLE) History of opioid abuse (Chronic) Heroin + fentanyl; L-T methadone at [facility] Elevated hemoglobin (Acute) Panic attacks (Acute) Bilateral leg edema (Acute) Tubulovillous adenoma of colon (Acute) Depression with anxiety (Acute) Hyperlipidemia (Acute) Venous insufficiency (Acute) Diabetes mellitus with neuropathy (Chronic) T2; 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 Erectile dysfunction (Acute) Obesity (Chronic) Positive PPD (Acute) PTSD (post-traumatic stress disorder) (Acute) Diverticulosis (Acute) Hypogonadism in male (Acute) Cervical spondylolysis (Acute) ADHD (Acute) Arthritis of right elbow (Acute) Arthritis of right subtalar joint (Acute) Primary osteoarthritis, right ankle and foot (Chronic) Umbilical hernia without mention of obstruction or gangrene (Acute) History of MRSA infection (Chronic ~10/2017) Depression (Chronic) Chronic pain of left knee (Chronic) Tobacco abuse (Chronic) HTN (hypertension) (Chronic) Primary osteoarthritis of right knee (Chronic 04/28/18) Primary osteoarthritis of right ankle (Chronic 02/15/18) Medical History (Updated 02/17/24 @ 00:09 by JUHI APPLE) Leg edema Corns and callosities Onychomycosis Tinea corporis Nocturia 09/2023 uro consult normal--take HCTZ in AM Vitamin D deficiency Angioedema Fever Pneumonia Umbilical hernia without mention of obstruction or gangrene Elbow joint pain Osteomyelitis Tick bite of back Cellulitis of foot, right Encounter for colorectal cancer screening Hepatitis C Abscess, hepatic Chest pain Lower urinary tract symptoms Infection of toe Neck swelling Normal colonoscopy (11/05/18) [facility] recommends repeat in 5 years. Personal history of colonic polyps Colon adenoma 11/10/11 - Dr Benson Hebert, hyperplastic polyp, but with tubulovillous adenoma in nov, recommended repeat in five years. Fibula fracture right Surgical History (Updated 01/18/24 @ 09:39 by Sahra Ye NP) H/O rotator cuff surgery LEFT--rmote History of left knee replacement (~2017) Amputated toe of right foot (~11/2016) 2nd toe, Rt foot left index finger amputation (~1994) Family History (Updated 01/18/24 @ 09:44 by Sahra Ye NP) Father , alcohol abuse-- in late 70s Alcohol abuse Hypertension Sister Anxiety Mother Depression Maternal Grandmother Depression Paternal Grandmother Depression Cancer Colon Colon cancer Social History Smoking/Tobacco Use Status: Former Tobacco Use tobacco type: cigarettes Pack-years: 15 Tobacco: How many years used: 32 Second Hand Exposure: No Smoking risk assessment performed?: Yes Alcohol Intake: former Drug use: Occasionally Substance use type: marijuana Details: history of methamphetamine use 20+ years ago per patient Adopted: No Caregiver/Support person: No Foster care: No Household members: none Housing: apartment Number of Children: 3 number of grandchildren: 1 Communication Needs: None Education Level: high school Do you need help understanding health information?: Often current occupation: Disabled Pets and animals: Yes (1) Pets and animals: cat(s) Sexually active: No Do you think of yourself as: straight/heterosexual Current gender identity: male What is your relationship status?: How often do you talk on the phone with friends or family?: three or more times per week How often do you get together with friends or relatives?: twice per week Do you belong to any clubs or organized social groups?: no Panel score (0-1 are the most socially isolated patients): 1 What type of physical activity do you participate in: none, walking and additional Details: electric bike riding Duration: 60-90 minutes/day Frequency: 3-4 times per week Katy/Sikhism: Jew Special katy needs: No Seatbelt use: sometimes Helmet use: Yes Helmet use: sometimes Drive intox or ride w/intox security patrol driver: No Working smoke detector in home: Yes Fire extinguisher in home: Yes Carbon monox detector in home: Yes Do you feel safe at home: Yes Do you feel safe in your relationship?: Yes
[2024-02-28] MEDS: Ketorolac 15 MG/ML VIAL IVP (06:04)
[2024-02-28 06:05] LABS: HCT 46.4 % (40.0-50.0); HGB 15.7 g/dL (13.5-17.5); MCH 30.3 pg (27.0-33.0); MCHC 33.8 % (32.0-36.0); MCV 89 fL (80-95); MPV 9.9 fL (8.0-11.0); Platelet Count 143 10^3/uL (130-400); RBC 5.19 10^6/uL (4.36-5.78); RDW 13.6 % (11.8-14.1); RDW-SD 45.1 fL
[2024-02-28 06:08] LABS: ESR 30 mm/hr (0-20)
[2024-02-28] MEDS: Ondansetron 4 MG/2 ML VIAL (06:19)
[2024-02-28 06:22] LABS: Absolute Lymphocyte Count 0.49 10^3/uL (1.2-3.4); Absolute Monocyte Count 0.65 10^3/uL (0.1-0.8); Bands % 7; Diff Comment Manual Differential; RBC Morphology Normal
[2024-02-28 06:23] LABS: ALT 31 U/L (16-63); AST 55 U/L (15-37); Alkaline Phosphatase 74 U/L (46-116); Anion Gap 9.8 mmol/L (3-11); BUN 16 mg/dL (7-18); Bilirubin, Total 0.8 mg/dL (0.2-1.0); CO2 32.2 mmol/L (21.0-32.0); CREATININE 1.1 mg/dL (0.70-1.30); Chloride 92 mmol/L (98-107); Estimated GFR 76.37 (mL/min/1.73m2); Glucose 253 mg/dL (74-106); Potassium 3.1 mmol/L (3.5-5.1); Sodium 134 mmol/L (136-145); Total Protein 7.6 g/dL (6.4-8.2)
[2024-02-28 06:33] LABS: Calcium 9.3 mg/dL (8.5-10.1)
--- NOTE | 2024-02-28 06:37 | DI.RAD_ITS ---
Exam(s) XR KNEE LT 3V AP,LAT,GURPREET EXAM: XR KNEE LT 3V AP,LAT,GURPREET CLINICAL HISTORY: fall 2 days ago, left knee pain. TECHNIQUE: 2D digital imaging was performed. COMPARISON: CR LEFT KNEE LIMITED 1 OR 2 VIEWS from 01/22/2017 FINDINGS: Four views: There is normal position alignment of the components of the left knee prosthesis. No fracture or loo sening evident. There is a suture anchor device in the upper medial femoral condyle, unchanged from 2017. There is a joint effusion. On the lateral view there is also gas in the soft tissues anteriorly. IMPRESSION: Satisfactory appearance of the components of the left knee prosthesis. No fractures nor loosening. Joint effusion. Soft tissue air noted anteriorly. Correlation with time since surgery recommended. DATA REPOSITORY: RADIATION DOSE DELIVERED:
[2024-02-28 06:47] LABS: C-Reactive Protein > 25.00 mg/dL (<or=0.5)
[2024-02-28] MEDS: Potassium Chloride 20 MEQ TABCR 40 MEQ PO (07:10)
[2024-02-28 07:11] VITALS: BP 123/75; PULSE 103; RESP 16; O2SAT 90
--- NOTE | 2024-02-28 07:19 | DI.VRAD_ITS ---
PROCEDURE INFORMATION: Exam: XR Left Knee Exam date and time: 02/28/2024 6:22 AM Age: 63 years old Clinical indication: Injury or trauma; Blunt trauma; Injury date: 02/26/24; Prior surgery; Surgery date: 6+ months; Surgery type: Knee replacement; Patient HX: Fall 2 days ago, left knee pain TECHNIQUE: Imaging protocol: Radiologic exam of the left knee. Views: 3 views. COMPARISON: No relevant prior studies available. FINDINGS: Bones/joints: Status post left knee arthroplasty with suture anchor in the medial femoral condyle. Hardware is intact. Anatomic alignment. No perihardware lucency. No acute fracture or dislocation. Small to moderate joint effusion with intra-articular gas. Soft tissues: Small to moderate joint effusion with intra-articular and soft tissue gas. IMPRESSION: 1. Status post left knee arthroplasty without evidence of hardware failure. 2. Small to moderate joint effusion with intra-articular and soft tissue gas. If patient's surgery was recent these findings may be postsurgical. Otherwise findings are concerning for infection. Dictated and Authenticated by: Amarilis Hunter MD. Ordering:LYNSEY Rodrigues MD
--- NOTE | 2024-02-28 07:26 | ED.PROG_ITS ---
Date of service: 02/28/24 Time of Service: 07:45 Medical Decision Making Care accepted in signout. 63-year-old gentleman with history of diabetes, hypertension presents for evaluation of left knee pain. Reports that he had a fall 3 days ago and afterwards started having left knee pain. Left knee pain is severe. The workup was concerning for septic arthritis with elevated white blood cell count, and inflammatory markers. On examination the patient has a warm tender knee with a large effusion. He reports arthroplasty of that knee 10 years ago. Discussed with orthopedic surgery at [facility] as we do not have any orthopedic services available here, will be an ED to ED transfer for evaluation by them. Quality:[facility] Health Related Social Needs: No Data to Display Sign Out Sign Out Data: Sign Out Comment: Likely septic joint. Needs tap and admission. Awaiting [facility] ortho callback. Last updated by Lilia Souza MD at 02/28/24 07:24 Discharge Plan Discharge Details Chief Complaint: Orthopedic Primary Care Provider: Sahra Ye ED Provider: Rogelio Redman Home Meds and New Rx's Prescriptions: No Action amlodipine 10 mg tablet 10 mg PO DAILY lamotrigine 25 mg tablet 75 mg PO DAILY meloxicam 15 mg tablet 15 mg PO DAILY PRN (Reason: pain) Qty: 90 0RF Rx Instructions: Take with food daily as needed for pain insulin glargine [Lantus Solostar U-100 Insulin] 100 unit/mL (3 mL) insulin pen 10 unit subcut DAILY Qty: 15 0RF Hold Instructions: Formulary/Insurance Rx Instructions: Restart lantus 01/18/24 methadone 5 mg/5 mL solution 185 mg PO DAILY insulin lispro 100 unit/mL insulin pen 1 sliding scale dose subcut USEASDIRECTD Qty: 15 1RF lidocaine [Lidoderm] 5 % adhesive patch,medicated 1 patch topical DAILY PRNQty: 15 0RF Rx Instructions: leave on most painful area for up to 12 hrs
[2024-02-28 07:29] VITALS: RESP 16; O2SAT 90
[2024-02-28] MEDS: Ondansetron 4 MG/2 ML VIAL IVP (08:16)
[2024-02-28] MEDS: Acetaminophen 500 MG TAB 1000 MG PO (08:21)
--- NOTE | 2024-02-28 13:52 | NUR.NOTE ---
[facility] called asking for an operative report on patient, done by Dr. Dent. Jeramy was the one requesting this for the provider. Operative report found by nursing shell core and molding supervisor and faxed to [facility] ED. . Nursing Note:
== END 2024-02-28 08:38 | disposition home or self-care (01) ==
PROVIDERS: Student in an Organized Health Care Education/Training Program; Emergency Provider Emergency Medicine; PCP Nurse Practitioner Adult Health
DX: M25.562 Pain in left knee (principal); M25.462 Effusion, left knee; I10 Essential (primary) hypertension; E78.5 Hyperlipidemia, unspecified; E11.40 Type 2 diabetes mellitus with diabetic neuropathy, unspecified; Z96.652 Presence of left artificial knee joint; Z79.4 Long term (current) use of insulin; Z87.891 Personal history of nicotine dependence
CPT/HCPCS: 00123; 36415; 73562; 80053; 85652; 96374; 96375; 99285; 85025; 86140; J1885; J2405

== ENCOUNTER 2024-04-22 01:43 | Outpatient (CLI) | payer MEDICARE, MEDICAID, SELFPAY ==
[2024-04-22 09:00] LABS: Abs Immature Grans 0.02 10^3/uL (0.0-0.06); Absolute Basophil Count 0.03 10^3/uL (0.0-0.2); Absolute Eosinophil Count 0.35 10^3/uL (0.0-0.7); Absolute Lymphocyte Count 1.71 10^3/uL (1.2-3.4); Absolute Monocyte Count 0.69 10^3/uL (0.1-0.8); Absolute Neutrophil Count 4.77 10^3/uL (1.2-6.7); Basophils % 0.4 %; Eosinophils % 4.6 %; HCT 40.6 % (40.0-50.0); HGB 12.7 g/dL (13.5-17.5); Immature Grans % 0.3 %; Lymphocytes % 22.6 %; MCH 29.4 pg (27.0-33.0); MCHC 31.3 % (32.0-36.0); MCV 94 fL (80-95); MPV 8.8 fL (8.0-11.0); Monocytes % 9.1 %; Platelet Count 291 10^3/uL (130-400); RBC 4.32 10^6/uL (4.36-5.78); RDW 14.2 % (11.8-14.1); RDW-SD 49.4 fL; WBC 7.57 10^3/uL (4.4-10.8)
[2024-04-22 09:30] LABS: Hemoglobin A1C 6.1 % (<5.7)
[2024-04-22 09:49] LABS: COMMENT (LAB VIEW ONLY) 138.41 mg/dL; Microalb ug/mg Crea 11.6 ug/mg Cr
[2024-04-22 10:04] LABS: ALT 19 U/L (16-63); AST 16 U/L (15-37); Albumin 3.5 g/dL (3.4-5.0); Alkaline Phosphatase 73 U/L (46-116); Anion Gap 7.6 mmol/L (3-11); BUN 13 mg/dL (7-18); Bilirubin, Total 0.42 mg/dL (0.2-1.0); CO2 32.4 mmol/L (21.0-32.0); Calcium 9.4 mg/dL (8.5-10.1); Calculated LDL 80 mg/dL (<100); Chloride 100 mmol/L (98-107); Cholesterol 151 mg/dL (<200); Estimated GFR 85.63 (mL/min/1.73m2); Glucose 159 mg/dL (74-106); HDL Cholesterol 38 mg/dL (40-60); Potassium 3.9 mmol/L (3.5-5.1); Sodium 140 mmol/L (136-145); TSH (W/Ref FT4) 3.77 uIU/mL (0.36-3.74); Total Protein 8.8 g/dL (6.4-8.2); Triglyceride 166 mg/dL (<150)
[2024-04-22 10:42] LABS: FREE T4 0.96 ng/dL (0.76-1.46)
[2024-04-26 09:16] LABS: Testosterone, Total 7.5 ng/dL (240-950)
== END 2024-04-22 01:44 | disposition home or self-care (01) ==
LOC: LBO 01:43
PROVIDERS: PCP Nurse Practitioner Adult Health; Referring Provider Nurse Practitioner Adult Health; Visit Provider Nurse Practitioner Adult Health
DX: F41.0 Panic disorder [episodic paroxysmal anxiety] (principal); I10 Essential (primary) hypertension; E11.40 Type 2 diabetes mellitus with diabetic neuropathy, unspecified; E29.1 Testicular hypofunction; K42.9 Umbilical hernia without obstruction or gangrene; D58.2 Other hemoglobinopathies
CPT/HCPCS: 36415; 80053; 80061; 84403; 82043; 82570; 83036; 84439; 84443; 85025

== ENCOUNTER 2024-05-09 03:29 | Outpatient (CLI) | payer MEDICARE, MEDICAID, SELFPAY ==
[2024-05-09 09:00] LABS: HCT 40.9 % (40.0-50.0); HGB 12.7 g/dL (13.5-17.5); MCH 28.9 pg (27.0-33.0); MCHC 31.1 % (32.0-36.0); MCV 93 fL (80-95); MPV 9.3 fL (8.0-11.0); Platelet Count 246 10^3/uL (130-400); RDW 13.8 % (11.8-14.1); RDW-SD 47.4 fL; WBC 6.16 10^3/uL (4.4-10.8)
== END 2024-05-09 03:30 | disposition home or self-care (01) ==
LOC: LBO 03:29
PROVIDERS: PCP Nurse Practitioner Adult Health; Visit Provider Nurse Practitioner Adult Health
DX: D64.9 Anemia, unspecified (principal)
CPT/HCPCS: 36415; 85027

== ENCOUNTER 2024-06-06 16:25 | Emergency (ER) | payer MEDICARE, MEDICAID, SELFPAY ==
[2024-06-06] VITALS (15 sets, daily range): BP systolic 112–160; BP diastolic 70–93; PULSE 63–89; RESP 9–21; TEMP 36.7; O2SAT 93–97
--- NOTE | 2024-06-06 16:15 | RT.EKG_ITS ---
APPROVED REPORT Exam: Resting ECG Reason for Exam: Palpations Patient Location: E HR:74 bpm ECG Measurements Heart Rate 74 AXIS GA 170 P 44 QRSd 93 QRS 219 QT 426 T 30 QTc 467 Conclusion Sinus rhythm...normal P axis, V-rate 60- 99 Ventricular premature complex...V complex w/ short R-R interval Right axis deviation...QRS axis ( 93,825)
--- NOTE | 2024-06-06 17:09 | W.ED.GENAD ---
Discharge Plan Disposition Patient Disposition: Home Condition: Stable Discharge Details Clinical Impression: Palpitations Primary Care Provider: Sahra Ye ED Provider: Boom Monroy Home Meds and New Rx's Prescriptions: No Action insulin glargine [Lantus Solostar U-100 Insulin] 100 unit/mL (3 mL) insulin pen 15 unit subcut DAILY Rx Instructions: Dose change at [facility] apixaban 5 mg tablet 5 mg PO BID Qty: 60 0RF Rx Instructions: Acute PE treatment (started 03/11/24 with last day ~06/11/24 for total therapy 3 months). lamotrigine 25 mg tablet 50 mg PO DAILY Qty: 28 0RF Rx Instructions: Courtesy RX until pt seen at [facility] 05/16/24 gabapentin 400 mg capsule 400 mg PO TID Qty: 270 0RF clonazepam 0.5 mg tablet 0.5 mg PO DAILY PRN (Reason: anxiety) Qty: 30 0RF methadone 5 mg/5 mL solution 185 mg PO DAILY acetaminophen 500 mg tablet 500 mg PO TID PRN calcium carbonate 1,000 mg tablet PO DAILY cholecalciferol (vitamin D3) 50 mcg (2,000 unit) capsule 50 mcg PO DAILY cyanocobalamin (vitamin B-12) 1,000 mcg tablet 1,000 mcg PO DAILY folic acid 1 mg tablet 1 mg PO DAILY melatonin 3 mg tablet 9 mg PO HS PRN multivitamin,tx-minerals Tablet 1 tab PO DAILY insulin lispro 100 unit/mL insulin pen 1 sliding scale dose subcut USEASDIRECTD Qty: 15 1RF lidocaine [Lidoderm] 5 % adhesive patch,medicated 1 patch topical DAILY PRNQty: 15 0RF Rx Instructions: leave on most painful area for up to 12 hrs Discharge Instructions Instructions: Palpitations Additional Instructions: You were seen in the emergency department for your palpitations since 230 this afternoon, you had no chest pain throughout this and your heart was observed in a normal rhythm for entirety of visit this evening. Your laboratory results are all within normal limits-no signs of infection or anemia, no electrolyte abnormalities, no elevation of thyroid hormone and there is no evidence of any damage to the heart with a troponin test. I recommend you follow-up with your primary care provider and seek a heart monitor necklace from an outpatient visit that you can wear around your neck and keep a journal of when you are having palpitations so that your heart rhythm at these times can be observed to make sure that this is a benign palpitation and not a serious arrhythmia, I do not suspect any serious arrhythmia at this time, please return to the emergency department for irregular heartbeat especially with chest pain, diaphoresis or sweating, dizziness, near fainting, shortness of breath. Referrals: [facility] [Provider Group] Sahra Ye [employer] [Primary Care Provider] - HPI General Date/Time Provider Initiated Documentation: 06/06/24 16:27. HPI Narrative: 63 year-old male presents to ED today by POV/ambulating with a chief complaint of palpitations with onset around 1430 today, patient has had history of palpitations. Quality described as no chest pain, no shortness of breath, just feels like his heart skips a beat- onset was after a lengthy walk- when he went to sit down to rest when he got home, no radiation to cough, fever, chest pain, shortness of breath, near syncope, diaphoresis, abdominal pain, weakness, patient endorsed mild dizziness. Severity is described as mild. Palliating factors include nothing specific. Provoking factors include nothing specific- daily walk, no onset of chest pain during walk. Events leading up to the incident/Associated Symptoms: Patient denies cardiac history, questions anxiety. Patient is anticoagulated due to past PE. Related Data Home Medications ?Medication ?Instructions ?Recorded ?Confirmed insulin lispro 100 unit/mL 1 sliding scale dose subcut 11/18/23 05/04/24 subcutaneous pen USEASDIRECTD #15 mL methadone 5 mg/5 mL oral solution 185 mg PO DAILY 01/04/24 05/04/24 lidocaine 5 % topical patch 1 patch topical DAILY PRN #15 ea 01/12/24 04/14/24 (Lidoderm) clonazepam 0.5 mg tablet 0.5 mg PO DAILY PRN anxiety #30 04/14/24 05/04/24 tabs acetaminophen 500 mg tablet 500 mg PO TID PRN 05/03/24 05/04/24 calcium carbonate 1,000 mg tablet mg PO DAILY 05/03/24 05/04/24 cholecalciferol (vitamin D3) 50 50 mcg PO DAILY 05/03/24 05/04/24 mcg (2,000 unit) capsule cyanocobalamin (vitamin B-12) 1,000 mcg PO DAILY 05/03/24 1,000 mcg tablet folic acid 1 mg tablet 1 mg PO DAILY 05/03/24 melatonin 3 mg tablet 9 mg PO HS PRN 05/03/24 05/04/24 multivitamin,tx-minerals 1 tab PO DAILY 05/03/24 05/04/24 apixaban 5 mg tablet 5 mg PO BID #60 tabs 05/04/24 05/04/24 insulin glargine 100 unit/mL (3 15 unit subcut DAILY 05/04/24 05/04/24 mL) subcutaneous pen (Lantus Solostar U-100 Insulin) lamotrigine 25 mg tablet 50 mg (2 x 25 mg) PO DAILY #28 tabs 05/04/24 05/04/24 gabapentin 400 mg capsule 400 mg PO TID #270 caps 06/06/24 06/06/24 Previous Rx's ?Medication ?Instructions ?Recorded insulin lispro 100 unit/mL 1 sliding scale dose subcut 11/18/23 subcutaneous pen USEASDIRECTD #15 mL lidocaine 5 % topical patch 1 patch topical DAILY PRN #15 ea 01/12/24 (Lidoderm) clonazepam 0.5 mg tablet 0.5 mg PO DAILY PRN anxiety #30 04/14/24 tabs apixaban 5 mg tablet 5 mg PO BID #60 tabs 05/04/24 lamotrigine 25 mg tablet 50 mg (2 x 25 mg) PO DAILY #28 tabs 05/04/24 gabapentin 400 mg capsule 400 mg PO TID #270 caps 06/06/24 Allergies Allergy/AdvReac Type Severity Reaction Status Date / Time buspirone Allergy Other (See Verified 05/04/24 10:44 Comment) lisinopril Allergy angioedema Verified 05/04/24 10:44 ? paroxetine (From Paxil) Allergy Other (See Verified 05/04/24 10:44 Comment) trazodone Allergy Other (See Verified 05/04/24 10:44 Comment) General Stated Complaint: Palpitatns SHWETA: 3 Review of Systems All systems reviewed & are unremarkable except as noted in HPI and below Exam Narrative Exam Narrative: GENERAL APPEARANCE: Well-nourished, non-toxic, awake and alert, atraumatic, no acute distress. SKIN: Warm, pink, dry, intact, without rashes/lesions/ulcerations. HEAD: Normocephalic, atraumatic, normal hair distribution for gender/age. EYES: Normal conjunctiva, no exudates on lids/lashes. ENT: Nares patent, no circumoral cyanosis, no facial swelling NECK: Supple, trachea midline, painless cervical ROM. LUNGS/CHEST: Lungs CTA bilaterally- no rhonchi/rales/wheezes diffusely, non-labored respirations, normal A/P diameter, symmetrical expansion, no chest wall deformity HEART (CV/PV): Regular rate and rhythm without murmur, no peripheral edema, no JVD. ABDOMEN: Soft, non-distended, no guarding. MSK: Normal ROM, no swelling/deformity to bilateral UEs or LEs, moving all extremities without weakness, no cyanosis, spine midline without tenderness, normal curvature. NEURO: Mental Status AAOx4 - alert to person, place, time, events No facial droop, no forehead involvement. Motor: No focal weakness - strength 5/5 in bilateral UEs and LEs, proximal and distal, symmetric. Sensory: sensation intact to light touch globally. Gait normal: patient ambulated without ataxia into ED room with walker as normal PSYCH: euthymic, cooperative, pleasant, appropriate speech Course Vital Signs Vital signs: Vital Signs Temperature 36.7 C 06/06/24 16:34 Pulse 74 06/06/24 16:34 Respiratory Rate 16 06/06/24 16:34 Blood Pressure 160/70 H 06/06/24 16:34 Pulse Oximetry 93 06/06/24 16:34 Temperature 36.7 C 06/06/24 16:34 Pulse 74 06/06/24 16:34 Respiratory Rate 16 06/06/24 16:34 Blood Pressure 160/70 H 06/06/24 16:34 Pulse Oximetry 93 06/06/24 16:34 Oxygen Delivery Method Room Air 06/06/24 16:34 Oxygen Flow Rate 0 06/06/24 16:34 Medical Decision Making This dictation utilizes [id number] dictation software and may contain unedited grammatical errors. 63 year-old male presents to ED today by POV/ambulating with a chief complaint of palpitations with onset around 1430 today, patient has had history of palpitations. Quality described as no chest pain, no shortness of breath, just feels like his heart skips a beat- onset was after a lengthy walk- when he went to sit down to rest when he got home, no radiation to cough, fever, chest pain, shortness of breath, near syncope, diaphoresis, abdominal pain, weakness, patient endorsed mild dizziness. Severity is described as mild. Palliating factors include nothing specific. Provoking factors include nothing specific- daily walk, no onset of chest pain during walk. Events leading up to the incident/Associated Symptoms: Patient denies cardiac history, questions anxiety. Patient is anticoagulated due to past PE. Patients' medical history: History of leg edema, hepatitis C, anemia, mood disorder, pulmonary embolism, history of opioid abuse, panic attacks, obesity, hypertension. Family and social history: Eats normal diet, tries to exercise daily. Pertinent exam findings / vital signs include benign cardiopulmonary exam, observed in normal sinus rhythm throughout entirety of visit on monitors, benign abdomen, nontoxic, neuro intact. Differential / pathologies of concern include palpitations, PVC, unlikely ACS, unlikely PE, anxiety. Diagnostic studies of: -CBC, CMP, lipase, TSH, BNP, troponin I, EKG, chest x-ray. -CBC shows no leukocytosis, no anemia. -CMP is benign with mildly elevated chronic carbon oxide likely due to COPD -Troponin I negative with reliable onset, BNP negative -Lipase negative -TSH within normal limits -EKG shows normal sinus rhythm without heart block, no ischemic changes -Chest x-ray shows no acute pathology Interventions of: -1 L IV fluid bolus. ED Course/Assessment/Plan: 63-year-old male presents with palpitations after his daily walk, had no chest pain throughout visit, troponin is negative with reliable onset, sparse PVC observed on monitor but overall almost complete normal sinus rhythm observed on monitor, patient was asymptomatic here in the department, I counseled him on a low heart risk score and the need for follow-up with primary care, likely needs a heart monitor so he can keep a journal of when his palpitations are happening, stress strict return criteria for signs of infection like cough and fever, shortness of breath, stressed strict return criteria for chest pain, sweating, dizziness or near fainting Findings not consistent with ACS, arrhythmia, infection, electrolyte disturbance. Disposition of palpitations. Patient verbalized understanding of the plan and return to ED criteria and engaged in shared decision making. Medical Records Medical records reviewed: Yes I reviewed the patient's medical records. Imaging Data Radiologic Study: Attestation: I personally reviewed and interpreted this imaging study as follows: Imaging: X-Ray Radiologist's impression: EXAM: XR CHEST 2V PA LATERAL CLINICAL HISTORY: chest tightness TECHNIQUE: 2D digital imaging was performed. Two views. COMPARISON: CT CT CHEST WO from 05/13/2023 FINDINGS: HEART: Normal size. Aorta: Mildly tortuous. PULMONARY VASCULATURE: Normal. MEDIASTINUM: Unremarkable. LUNGS: Clear. PLEURAL SPACE: No pleural effusion or pneumothorax. BONE:Fixation plate in left clavicle. Degenerative changes in the thoracic spine. SOFT TISSUES: Unremarkable. IMPRESSION: No acute abnormality. Lab Data Lab results reviewed: Yes I reviewed the patient's lab results. Labs: Laboratory Tests Range/Units 06/06/24 17:40 WBC (4.4-10.8) 10^3/uL 9.73 RBC (4.36-5.78) 10^6/uL 4.89 Hgb (13.5-17.5) g/dL 14.3 Hct (40.0-50.0) % 44.3 MCV (80-95) fL 91 MCH (27.0-33.0) pg 29.2 MCHC (32.0-36.0) % 32.3 RDW (11.8-14.1) % 14.3 H Plt Count (130-400) 10^3/uL 234 MPV (8.0-11.0) fL 9.1 Immature Gran % % 0.1 Neutrophils % % 77.7 Lymphocytes % % 12.9 Monocytes % % 7.6 Eosinophils % % 1.3 Basophils % % 0.4 Nucleated RBC % (0.0-0.3) % 0.0 Absolute Neutrophils (1.2-6.7) 10^3/uL 7.55 H Absolute Lymphocytes (1.2-3.4) 10^3/uL 1.26 Absolute Monocytes (0.1-0.8) 10^3/uL 0.74 Absolute Eosinophils (0.0-0.7) 10^3/uL 0.13 Absolute Basophils (0.0-0.2) 10^3/uL 0.04 Sodium (136-145) mmol/L 139 Potassium (3.5-5.1) mmol/L 4.3 Chloride (98-107) mmol/L 99 Carbon Dioxide (21.0-32.0) mmol/L 33.6 H Anion Gap (3-11) mmol/L 6.4 BUN (7-18) mg/dL 18 Creatinine (0.70-1.30) mg/dL 0.9 Est GFR (CKD-EPI 2020) (mL/min/1.73m2) 97.17 Glucose (74-106) mg/dL 161 H Calcium (8.5-10.1) mg/dL 9.4 Magnesium (1.8-2.4) mg/dL 2.0 Total Bilirubin (0.2-1.0) mg/dL 0.25 AST (15-37) U/L 14 L ALT (16-63) U/L 22 Alkaline Phosphatase (46-116) U/L 94 Troponin I (< or =60) ng/L < 50 NT-Pro-B Natriuret Pep (<300) pg/mL 81 Total Protein (6.4-8.2) g/dL 8.6 H Albumin (3.4-5.0) g/dL 3.7 Lipase (16-77) U/L 22 TSH (0.36-3.74) uIU/mL 2.19 Quality:SDOH Health Related Social Needs: No Data to Display PFSH All Active Problems (Updated 06/06/24 @ 18:52 by CELY Hernandez) Palpitations (Acute) Anemia (Chronic ~04/2024) Mood disorder (Acute ~2023) [facility] [place] concern for bipolar-->started on lamotrigine Septic joint of left knee joint (Acute) Pulmonary embolism (Chronic) Combined forms of age-related cataract, bilateral (Acute) [place] 10/21/21 History of opioid abuse (Chronic) Heroin + fentanyl; L-T methadone at [facility] Elevated hemoglobin (Acute) Panic attacks (Acute) Bilateral leg edema (Acute) Tubulovillous adenoma of colon (Acute) Depression with anxiety (Acute) Hyperlipidemia (Acute) Venous insufficiency (Acute) Diabetes mellitus with neuropathy (Chronic) T2; 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 Erectile dysfunction (Acute) Obesity (Chronic) Positive PPD (Acute) PTSD (post-traumatic stress disorder) (Acute) Diverticulosis (Acute) Hypogonadism in male (Acute) Cervical spondylolysis (Acute) ADHD (Acute) Arthritis of right elbow (Acute) Arthritis of right subtalar joint (Acute) Primary osteoarthritis, right ankle and foot (Chronic) Umbilical hernia without mention of obstruction or gangrene (Acute) History of MRSA infection (Chronic ~10/2017) Depression (Chronic) Chronic pain of left knee (Chronic) Tobacco abuse (Chronic) HTN (hypertension) (Chronic) Primary osteoarthritis of right knee (Chronic 04/28/18) Primary osteoarthritis of right ankle (Chronic 02/15/18) Medical History (Updated 06/06/24 @ 18:52 by CELY Hernandez) Leg edema Corns and callosities Onychomycosis Tinea corporis Nocturia 09/2023 uro consult normal--take HCTZ in AM Vitamin D deficiency Angioedema Fever Pneumonia Umbilical hernia without mention of obstruction or gangrene Elbow joint pain Osteomyelitis Tick bite of back Cellulitis of foot, right Encounter for colorectal cancer screening Hepatitis C Abscess, hepatic Chest pain Lower urinary tract symptoms Infection of toe Neck swelling Normal colonoscopy (11/05/18) [facility] recommends repeat in 5 years. Personal history of colonic polyps Colon adenoma 11/10/11 - Dr Benson Hebert, hyperplastic polyp, but with tubulovillous adenoma in nov, recommended repeat in five years. Fibula fracture right Surgical History (Updated 01/18/24 @ 09:39 by Sahra Ye NP) H/O rotator cuff surgery LEFT--[facility] History of left knee replacement (~2017) Amputated toe of right foot (~11/2016) 2nd toe, Rt foot left index finger amputation (~1994) Family History (Updated 01/18/24 @ 09:44 by Sahra Ye NP) Father , alcohol abuse-- in late 70s Alcohol abuse Hypertension Sister Anxiety Mother Depression Maternal Grandmother Depression Paternal Grandmother Depression Cancer Colon Colon cancer Social History Smoking/Tobacco Use Status: Former Tobacco Use tobacco type: cigarettes Pack-years: 15 Tobacco: How many years used: 32 Second Hand Exposure: No Smoking risk assessment performed?: Yes Alcohol Intake: current Alcohol Intake frequency: a few times a week Alcohol type: hard liquor Drug use: Occasionally Substance use type: marijuana Details: history of methamphetamine use 20+ years ago per patient Adopted: No Caregiver/Support person: No Foster care: No Household members: none Housing: apartment Number of Children: 3 number of grandchildren: 1 Communication Needs: None Education Level: high school Do you need help understanding health information?: Often current occupation: Disabled Pets and animals: Yes (1) Pets and animals: cat(s) Sexually active: No Do you think of yourself as: straight/heterosexual Current gender identity: male What is your relationship status?: How often do you talk on the phone with friends or family?: three or more times per week How often do you get together with friends or relatives?: twice per week Do you belong to any clubs or organized social groups?: no Panel score (0-1 are the most socially isolated patients): 1 What type of physical activity do you participate in: none, walking and additional Details: electric bike riding Duration: 60-90 minutes/day Frequency: 3-4 times per week Katy/Yarsani: [employer] Special katy needs: No Seatbelt use: sometimes Helmet use: Yes Helmet use: sometimes Drive intox or ride w/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
[2024-06-06 18:00] LABS: Abs Immature Grans 0.01 10^3/uL (0.0-0.06); Absolute Basophil Count 0.04 10^3/uL (0.0-0.2); Absolute Eosinophil Count 0.13 10^3/uL (0.0-0.7); Absolute Lymphocyte Count 1.26 10^3/uL (1.2-3.4); Absolute Monocyte Count 0.74 10^3/uL (0.1-0.8); Absolute Neutrophil Count 7.55 10^3/uL (1.2-6.7); Basophils % 0.4 %; Eosinophils % 1.3 %; HCT 44.3 % (40.0-50.0); HGB 14.3 g/dL (13.5-17.5); Immature Grans % 0.1 %; Lymphocytes % 12.9 %; MCH 29.2 pg (27.0-33.0); MCHC 32.3 % (32.0-36.0); MCV 91 fL (80-95); MPV 9.1 fL (8.0-11.0); Monocytes % 7.6 %; Neutrophils % 77.7 %; Platelet Count 234 10^3/uL (130-400); RBC 4.89 10^6/uL (4.36-5.78); RDW 14.3 % (11.8-14.1); RDW-SD 47.6 fL; WBC 9.73 10^3/uL (4.4-10.8)
[2024-06-06] MEDS: Normal Saline 500 ML IV (18:06)
--- NOTE | 2024-06-06 18:18 | DI.RAD_ITS ---
Exam(s) XR CHEST 2V PA LATERAL EXAM: XR CHEST 2V PA LATERAL CLINICAL HISTORY: chest tightness TECHNIQUE: 2D digital imaging was performed. Two views. COMPARISON: CT CT CHEST WO from 05/13/2023 FINDINGS: HEART: Normal size. Aorta: Mildly tortuous. PULMONARY VASCULATURE: Normal. MEDIASTINUM: Unremarkable. LUNGS: Clear. PLEURAL SPACE: No pleural effusion or pneumothorax. BONE:Fixation plate in left clavicle. Degenerative changes in the thoracic spine. SOFT TISSUES: Unremarkable. IMPRESSION: No acute abnormality. DATA REPOSITORY: RADIATION DOSE DELIVERED:
[2024-06-06 18:25] LABS: ALT 22 U/L (16-63); AST 14 U/L (15-37); Albumin 3.7 g/dL (3.4-5.0); Alkaline Phosphatase 94 U/L (46-116); Anion Gap 6.4 mmol/L (3-11); BUN 18 mg/dL (7-18); Bilirubin, Total 0.25 mg/dL (0.2-1.0); CO2 33.6 mmol/L (21.0-32.0); CREATININE 0.9 mg/dL (0.70-1.30); Calcium 9.4 mg/dL (8.5-10.1); Chloride 99 mmol/L (98-107); Estimated GFR 97.17 (mL/min/1.73m2); Glucose 161 mg/dL (74-106); Lipase 22 U/L (16-77); NT-proBNP 81 pg/mL (<300); Potassium 4.3 mmol/L (3.5-5.1); Sodium 139 mmol/L (136-145); TSH (W/Ref FT4) 2.19 uIU/mL (0.36-3.74); Total Protein 8.6 g/dL (6.4-8.2); Troponin I < 50 ng/L (< or =60)
== END 2024-06-06 19:14 | disposition home or self-care (01) ==
LOC: ER 18:52 → RED 19:14
PROVIDERS: Emergency Provider Physician Assistant; PCP Nurse Practitioner Adult Health
DX: R00.2 Palpitations (principal); I10 Essential (primary) hypertension; E78.5 Hyperlipidemia, unspecified; I25.10 Atherosclerotic heart disease of native coronary artery without angina pectoris; E11.40 Type 2 diabetes mellitus with diabetic neuropathy, unspecified; Z86.711 Personal history of pulmonary embolism; Z79.4 Long term (current) use of insulin; Z79.02 Long term (current) use of antithrombotics/antiplatelets; Z87.891 Personal history of nicotine dependence
CPT/HCPCS: 36415; 80053; 83690; 93005; 96360; 99284; 71046; 83735; 83880; 84443; 84484; 85025; 93010

== ENCOUNTER 2024-06-24 17:34 | Emergency (ER) | payer MEDICARE, MEDICAID, SELFPAY ==
[2024-06-24] VITALS (11 sets, daily range): BP systolic 155–159; BP diastolic 71–84; PULSE 70–87; RESP 18–20; TEMP 36.2–36.9; O2SAT 91–98
--- NOTE | 2024-06-24 18:05 | W.ED.GENAD ---
Discharge Plan Disposition Patient Disposition: Home Condition: Stable Discharge Details Clinical Impression: Accidental overdose of insulin Primary Care Provider: Sahra Ye ED Provider: Margie Aldana Home Meds and New Rx's Prescriptions: Continued insulin glargine [Lantus Solostar U-100 Insulin] 100 unit/mL (3 mL) insulin pen 13 unit subcut DAILY Rx Instructions: Dose change at [facility] gabapentin 400 mg capsule 400 mg PO TID Qty: 270 0RF clonazepam 0.5 mg tablet 0.5 mg PO DAILY PRN (Reason: anxiety) Qty: 30 0RF methadone 5 mg/5 mL solution 195 mg PO DAILY acetaminophen 500 mg tablet 500 mg PO TID PRN calcium carbonate 1,000 mg tablet 1 mg PO DAILY cholecalciferol (vitamin D3) 50 mcg (2,000 unit) capsule 50 mcg PO DAILY cyanocobalamin (vitamin B-12) 1,000 mcg tablet 1,000 mcg PO DAILY folic acid 1 mg tablet 1 mg PO DAILY melatonin 3 mg tablet 9 mg PO HS PRN multivitamin,tx-minerals Tablet 1 tab PO DAILY apixaban 2.5 mg tablet 2.5 mg PO BID Rx Instructions: For 25 days per [facility] cephalexin 500 mg capsule 1,000 mg PO Q8H Rx Instructions: for 37 days per [facility] ID cyclobenzaprine 5 mg tablet 5 mg PO BID PRN (Reason: muscle spasm) hydromorphone 2 mg tablet 2 mg PO Q4H PRN (Reason: pain) Rx Instructions: Wean off this medication and back to just Methadone(per [facility]) lamotrigine 100 mg tablet 150 mg PO DAILY Rx Instructions: [facility] writes this medication magnesium oxide 400 mg magnesium tablet 400 mg PO DAILY polyethylene glycol 3350 4 gram powder in packet 4 g PO DAILY simethicone [Gas Relief (simethicone)] 80 mg tablet,chewable 80 mg PO .6hrs PRN Keflex parental 1 g 1 g IM/IV .Q 8hrs Rx Instructions: until 07/27/2024 per [facility] insulin lispro 100 unit/mL insulin pen 1 sliding scale dose subcut USEASDIRECTD Qty: 15 1RF lidocaine [Lidoderm] 5 % adhesive patch,medicated 1 patch topical DAILY PRNQty: 15 0RF Rx Instructions: leave on most painful area for up to 12 hrs Discharge Instructions Instructions: Using insulin Additional Instructions: Please keep checking your blood sugar every hour for the next few hours. Your last blood sugar here at 830 was 108. Please continue to eat meals including protein such as peanut butter or milk. Follow up with primary care provider in 3-5 days. Return to ED sooner if any worsening symptoms of low sugar dizziness confusion sweatiness or concerns. Referrals: Sahra Ye AC[employer] SPLICER [Primary Care Provider] - 3 days Discharge Data Discharge Date/Time-TO BE ENTERED AT DEPARTURE: 06/24/24 20:52 HPI General Mode of arrival: ambulatory. Date/Time Provider Initiated Documentation: 06/24/24 17:38. Limitations to Documentation: no limitations. Information obtained by: patient, RN notes reviewed and old records reviewed. HPI Narrative: 63 year old male presents with accidentally taking 13 units of Humalog insulin at [address] [employer]. He did eat some honey and some cantelope after realizing the mistake. He reports some sweatiness, but no other complaints at this time. Past medical history includes hepatitis C, insulin-dependent diabetes. Related Data Home Medications ?Medication ?Instructions ?Recorded ?Confirmed insulin lispro 100 unit/mL 1 sliding scale dose subcut 11/18/23 06/24/24 subcutaneous pen USEASDIRECTD #15 mL methadone 5 mg/5 mL oral solution 195 mg PO DAILY 01/04/24 06/24/24 lidocaine 5 % topical patch 1 patch topical DAILY PRN #15 ea 01/12/24 06/24/24 (Lidoderm) clonazepam 0.5 mg tablet 0.5 mg PO DAILY PRN anxiety #30 04/14/24 06/24/24 tabs acetaminophen 500 mg tablet 500 mg PO TID PRN 05/03/24 06/24/24 calcium carbonate 1,000 mg tablet 1 mg PO DAILY 05/03/24 06/24/24 cholecalciferol (vitamin D3) 50 50 mcg PO DAILY 05/03/24 06/24/24 mcg (2,000 unit) capsule cyanocobalamin (vitamin B-12) 1,000 mcg PO DAILY 05/03/24 06/24/24 1,000 mcg tablet folic acid 1 mg tablet 1 mg PO DAILY 05/03/24 06/24/24 melatonin 3 mg tablet 9 mg PO HS PRN 05/03/24 06/24/24 multivitamin,tx-minerals 1 tab PO DAILY 05/03/24 06/24/24 insulin glargine 100 unit/mL (3 13 unit subcut DAILY 05/04/24 06/24/24 mL) subcutaneous pen (Lantus Solostar U-100 Insulin) gabapentin 400 mg capsule 400 mg PO TID #270 caps 06/06/24 06/24/24 Keflex parental 1 g IM/IV .Q 8hrs 06/21/24 06/24/24 apixaban 2.5 mg tablet 2.5 mg PO BID 06/21/24 06/24/24 cephalexin 500 mg capsule 1,000 mg PO Q8H 06/21/24 06/24/24 cyclobenzaprine 5 mg tablet 5 mg PO BID PRN muscle spasm 06/21/24 06/24/24 hydromorphone 2 mg tablet 2 mg PO Q4H PRN pain 06/21/24 06/24/24 lamotrigine 100 mg tablet 150 mg PO DAILY 06/21/24 06/24/24 magnesium oxide 400 mg PO DAILY 06/21/24 06/24/24 polyethylene glycol 3350 4 gram 4 g PO DAILY 06/21/24 06/24/24 oral powder packet simethicone 80 mg chewable tablet 80 mg PO .6hrs PRN 06/21/24 06/24/24 (Gas Relief (simethicone)) Previous Rx's ?Medication ?Instructions ?Recorded insulin lispro 100 unit/mL 1 sliding scale dose subcut 11/18/23 subcutaneous pen USEASDIRECTD #15 mL lidocaine 5 % topical patch 1 patch topical DAILY PRN #15 ea 01/12/24 (Lidoderm) clonazepam 0.5 mg tablet 0.5 mg PO DAILY PRN anxiety #30 04/14/24 tabs gabapentin 400 mg capsule 400 mg PO TID #270 caps 06/06/24 Allergies Allergy/AdvReac Type Severity Reaction Status Date / Time buspirone Allergy Other (See Verified 06/24/24 17:39 Comment) lisinopril Allergy angioedema Verified 06/24/24 17:39 ? paroxetine (From Paxil) Allergy Other (See Verified 06/24/24 17:39 Comment) trazodone Allergy Other (See Verified 06/24/24 17:39 Comment) General Stated Complaint: Diabetes SHWETA: 3 Review of Systems All systems reviewed & are unremarkable except as noted in HPI and below Exam Narrative Exam Narrative: Constitutional: Alert and oriented x3. Appears stated age. Normal body habitus. Head: Normocephalic, no trauma. Eyes: Pupils PERRL, Red reflex noted, EOM's intact. Eyelids symmetrical without lesions, discharge, or swelling. ENT: Bilateral TM's WNL, External ear normal to inspection, no mastoid TTP, swelling, or erythema, Nasal turbinates WNL, no nasal discharge. Normal dentition, Posterior pharynx WNL, no exudate. Chest: RRR, Normal S1, S2, distal pulses intact. Resp: Lungs clear to auscultation bilaterally, no wheezes, rales, or rhonchi. Abdomen: Soft, non-distended, Normoactive bowel sounds all 4 quads. Musculoskeletal: Normal gait, Moves all 4 extremities without difficulty. Skin: No suspicious rashes or lesions. Capillary refill less than 2 sec. Neurologic: Cranial nerves II-XII intact. Alert and oriented x 3. Motor: No deficits noted. Sensory: Intact bilaterally all 4 extremities. Hematologic/Lymphatic: No ecchymosis, no lymphadenopathy. Course Vital Signs Vital signs: Vital Signs Temperature 36.2 C L 06/24/24 17:35 Pulse 87 06/24/24 17:35 Respiratory Rate 20 06/24/24 17:35 Blood Pressure 159/84 H 06/24/24 17:35 Pulse Oximetry 91 L 06/24/24 17:35 Temperature 36.2 C L 06/24/24 17:35 Temperature Source Temporal Artery Scan 06/24/24 17:35 Pulse 87 06/24/24 17:35 Respiratory Rate 20 06/24/24 17:35 Blood Pressure 159/84 H 06/24/24 17:35 Blood Pressure Position Sitting 06/24/24 17:35 Pulse Oximetry 91 L 06/24/24 17:35 Oxygen Delivery Method Room Air 06/24/24 17:35 Oxygen Flow Rate 0 06/24/24 17:35 Medical Decision Making 63 year old male presents with accidentally taking 13 units of Humalog insulin at [address] [employer] [address]. He did eat some honey and some cantelope after realizing the mistake. He reports some sweatiness, but no other complaints at this time. Past medical history includes hepatitis C, insulin-dependent diabetes. Will feed patient dinner tray and check BGL's every hour. Initial BGL 161. Repeat BGL 78 at 1900. Patient given orange juice and a dinner tray and will recheck BGL in 30 minutes. Patient is alert and oriented. Repeat BGL 82. BGL 102 and then 108, will discharge home after 2 BGL's above 100. Will encourage patient to check sugars periodically and continue to eat. To return to ED for any symptoms of low glucose or concerns. This text was generated using MENABAN[employer]ation system, please disregard any oddities of phrase or misspellings. Quality:[facility] Health Related Social Needs: No Data to Display PFSH All Active Problems (Updated 06/24/24 @ 20:33 by Margie Aldana NP) Accidental overdose of insulin (Acute) History of revision of total knee arthroplasty (Acute) Left on 06/14/2024 at [facility] by Palpitations (Acute) Anemia (Chronic ~04/2024) Mood disorder (Acute ~2023) [facility] concern for bipolar-->started on lamotrigine Septic joint of left knee joint (Acute) Pulmonary embolism (Chronic) Combined forms of age-related cataract, bilateral (Acute) [place] 10/21/21 History of opioid abuse (Chronic) Heroin + fentanyl; L-T methadone at [facility] Elevated hemoglobin (Acute) Panic attacks (Acute) Bilateral leg edema (Acute) Tubulovillous adenoma of colon (Acute) Depression with anxiety (Acute) Hyperlipidemia (Acute) Venous insufficiency (Acute) Diabetes mellitus with neuropathy (Chronic) T2; 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 Erectile dysfunction (Acute) Obesity (Chronic) Positive PPD (Acute) PTSD (post-traumatic stress disorder) (Acute) Diverticulosis (Acute) Hypogonadism in male (Acute) Cervical spondylolysis (Acute) ADHD (Acute) Arthritis of right elbow (Acute) Arthritis of right subtalar joint (Acute) Primary osteoarthritis, right ankle and foot (Chronic) Umbilical hernia without mention of obstruction or gangrene (Acute) History of MRSA infection (Chronic ~10/2017) Depression (Chronic) Chronic pain of left knee (Chronic) Tobacco abuse (Chronic) HTN (hypertension) (Chronic) Primary osteoarthritis of right knee (Chronic 04/28/18) Primary osteoarthritis of right ankle (Chronic 02/15/18) Medical History Streptococcal arthritis of left knee (~06/2024) 06/08/24 Orthopedic visit, plan for L total kne revision Leg edema Corns and callosities Onychomycosis Tinea corporis Nocturia 09/2023 uro consult normal--take HCTZ in AM Vitamin D deficiency Angioedema Fever Pneumonia Umbilical hernia without mention of obstruction or gangrene Elbow joint pain Osteomyelitis Tick bite of back Cellulitis of foot, right Encounter for colorectal cancer screening Hepatitis C Abscess, hepatic Chest pain Lower urinary tract symptoms Infection of toe Neck swelling Normal colonoscopy (11/05/18) [facility] repeat in 5 years. Personal history of colonic polyps Colon adenoma 11/10/11 - Dr Benson Hebert, hyperplastic polyp, but with tubulovillous adenoma in nov, recommended repeat in five years. Fibula fracture right Surgical History H/O rotator cuff surgery LEFT--[facility]ote History of left knee replacement (~2017) Amputated toe of right foot (~11/2016) 2nd toe, Rt foot left index finger amputation (~1994) Family History Father , alcohol abuse-- in late 70s Alcohol abuse Hypertension Sister Anxiety Mother Depression Maternal Grandmother Depression Paternal Grandmother Depression Cancer Colon Colon cancer Social History Smoking/Tobacco Use Status: Former Tobacco Use tobacco type: cigarettes Pack-years: 15 Tobacco: How many years used: 32 Second Hand Exposure: No Smoking risk assessment performed?: Yes Alcohol Intake: current Alcohol Intake frequency: a few times a week Alcohol type: hard liquor Drug use: Occasionally Substance use type: marijuana Details: history of methamphetamine use 20+ years ago per patient Adopted: No Caregiver/Support person: No Foster care: No Household members: none Housing: apartment Number of Children: 3 number of grandchildren: 1 Communication Needs: None Education Level: high school Do you need help understanding health information?: Often current occupation: Disabled Pets and animals: Yes (1) Pets and animals: cat(s) Sexually active: No Do you think of yourself as: straight/heterosexual Current gender identity: male What is your relationship status?: How often do you talk on the phone with friends or family?: three or more times per week How often do you get together with friends or relatives?: twice per week Do you belong to any clubs or organized social groups?: no Panel score (0-1 are the most socially isolated patients): 1 What type of physical activity do you participate in: none, walking and additional Details: electric bike riding Duration: 60-90 minutes/day Frequency: 3-4 times per week [place]/Judaism: Lutheran Special katy needs: No Seatbelt use: sometimes Helmet use: Yes Helmet use: sometimes Drive intox or ride w/intox local delivery driver: No Working smoke detector in home: Yes Fire extinguisher in home: Yes Carbon monox detector in home: Yes Do you feel safe at home: Yes Do you feel safe in your relationship?: Yes
== END 2024-06-24 20:52 | disposition home or self-care (01) ==
PROVIDERS: Emergency Provider Registered Nurse Emergency; PCP Nurse Practitioner Adult Health
DX: T38.3X1A Poisoning by insulin and oral hypoglycemic [antidiabetic] drugs, accidental (unintentional), initial encounter (principal); E11.40 Type 2 diabetes mellitus with diabetic neuropathy, unspecified; I10 Essential (primary) hypertension; E78.5 Hyperlipidemia, unspecified; Z79.4 Long term (current) use of insulin; Z79.01 Long term (current) use of anticoagulants; Z87.891 Personal history of nicotine dependence; Y92.018 Other place in single-family (private) house as the place of occurrence of the external cause
CPT/HCPCS: 82962; 99283

== ENCOUNTER 2024-06-27 15:20 | Outpatient (REF) | payer MEDICARE, MEDICAID, SELFPAY ==
[2024-06-27 22:00] LABS: Abs Immature Grans 0.14 10^3/uL (0.0-0.06); Absolute Basophil Count 0.06 10^3/uL (0.0-0.2); Absolute Lymphocyte Count 1.63 10^3/uL (1.2-3.4); Absolute Monocyte Count 0.72 10^3/uL (0.1-0.8); Absolute Neutrophil Count 3.94 10^3/uL (1.2-6.7); Basophils % 0.9 %; Eosinophils % 5.8 %; HCT 35.8 % (40.0-50.0); HGB 11.2 g/dL (13.5-17.5); Lymphocytes % 23.7 %; MCH 29.2 pg (27.0-33.0); MCHC 31.3 % (32.0-36.0); MCV 94 fL (80-95); MPV 9.2 fL (8.0-11.0); Monocytes % 10.4 %; Neutrophils % 57.2 %; Nucleated RBC 0.4 % (0.0-0.3); Platelet Count 376 10^3/uL (130-400); RBC 3.83 10^6/uL (4.36-5.78); RDW 14.4 % (11.8-14.1); RDW-SD 48.5 fL; WBC 6.89 10^3/uL (4.4-10.8)
[2024-06-27 22:10] LABS: ALT 19 U/L (16-63); AST 16 U/L (15-37); Albumin 3.4 g/dL (3.4-5.0); Alkaline Phosphatase 123 U/L (46-116); Anion Gap 5.9 mmol/L (3-11); BUN 22 mg/dL (7-18); C-Reactive Protein 1.79 mg/dL (<or=0.5); CO2 29.1 mmol/L (21.0-32.0); CREATININE 0.9 mg/dL (0.70-1.30); Calcium 9.1 mg/dL (8.5-10.1); Chloride 101 mmol/L (98-107); Estimated GFR 97.17 (mL/min/1.73m2); Glucose 202 mg/dL (74-106); Potassium 5.1 mmol/L (3.5-5.1); Sodium 136 mmol/L (136-145); Total Protein 7.6 g/dL (6.4-8.2)
== END 2024-06-27 15:21 | disposition home or self-care (01) ==
LOC: LBN 15:20
PROVIDERS: PCP Nurse Practitioner Adult Health
DX: Z96.652 Presence of left artificial knee joint (principal); Z47.1 Aftercare following joint replacement surgery
CPT/HCPCS: 80053; 85025; 86140

== ENCOUNTER 2024-07-11 18:36 | Outpatient (REF) | payer MEDICARE, MEDICAID, SELFPAY ==
[2024-07-11 16:15] LABS: Abs Immature Grans 0.02 10^3/uL (0.0-0.06); Absolute Basophil Count 0.03 10^3/uL (0.0-0.2); Absolute Lymphocyte Count 1.41 10^3/uL (1.2-3.4); Absolute Monocyte Count 0.56 10^3/uL (0.1-0.8); Basophils % 0.4 %; Eosinophils % 2.9 %; HCT 40.8 % (40.0-50.0); HGB 12.6 g/dL (13.5-17.5); Immature Grans % 0.3 %; Lymphocytes % 20.4 %; MCH 28.6 pg (27.0-33.0); MCHC 30.9 % (32.0-36.0); MCV 93 fL (80-95); MPV 9.4 fL (8.0-11.0); Monocytes % 8.1 %; Neutrophils % 67.9 %; Platelet Count 283 10^3/uL (130-400); RBC 4.41 10^6/uL (4.36-5.78); RDW 14.8 % (11.8-14.1); RDW-SD 50.7 fL; WBC 6.92 10^3/uL (4.4-10.8)
[2024-07-11 16:43] LABS: ALT 16 U/L (16-63); AST 19 U/L (15-37); Albumin 3.8 g/dL (3.4-5.0); Alkaline Phosphatase 94 U/L (46-116); Anion Gap 6.2 mmol/L (3-11); BUN 14 mg/dL (7-18); Bilirubin, Total 0.32 mg/dL (0.2-1.0); C-Reactive Protein 0.57 mg/dL (<or=0.5); CO2 31.8 mmol/L (21.0-32.0); CREATININE 0.9 mg/dL (0.70-1.30); Calcium 9.3 mg/dL (8.5-10.1); Chloride 99 mmol/L (98-107); Estimated GFR 97.17 (mL/min/1.73m2); Glucose 169 mg/dL (74-106); Potassium 4.6 mmol/L (3.5-5.1); Sodium 137 mmol/L (136-145); Total Protein 8.3 g/dL (6.4-8.2)
== END 2024-07-11 18:37 | disposition home or self-care (01) ==
LOC: LBN 18:36
PROVIDERS: PCP Nurse Practitioner Adult Health; Visit Provider Orthopaedic Surgery
DX: Z96.652 Presence of left artificial knee joint (principal); Z47.1 Aftercare following joint replacement surgery
CPT/HCPCS: 80053; 85025; 86140

== ENCOUNTER 2024-07-25 16:37 | Outpatient (REF) | payer MEDICARE, MEDICAID, SELFPAY ==
[2024-07-25 18:35] LABS: Abs Immature Grans 0.02 10^3/uL (0.0-0.06); Absolute Basophil Count 0.03 10^3/uL (0.0-0.2); Absolute Eosinophil Count 0.23 10^3/uL (0.0-0.7); Absolute Lymphocyte Count 1.45 10^3/uL (1.2-3.4); Absolute Neutrophil Count 4.42 10^3/uL (1.2-6.7); Basophils % 0.4 %; Eosinophils % 3.4 %; HGB 12.2 g/dL (13.5-17.5); Immature Grans % 0.3 %; Lymphocytes % 21.5 %; MCHC 31.3 % (32.0-36.0); MCV 93 fL (80-95); MPV 10.3 fL (8.0-11.0); Monocytes % 8.9 %; Neutrophils % 65.5 %; Platelet Count 224 10^3/uL (130-400); RDW 14.7 % (11.8-14.1); RDW-SD 50.5 fL; WBC 6.75 10^3/uL (4.4-10.8)
[2024-07-25 18:46] LABS: ALT 21 U/L (16-63); AST 14 U/L (15-37); Albumin 3.5 g/dL (3.4-5.0); Alkaline Phosphatase 100 U/L (46-116); Anion Gap 6.8 mmol/L (3-11); BUN 16 mg/dL (7-18); C-Reactive Protein 0.52 mg/dL (<or=0.5); CO2 31.2 mmol/L (21.0-32.0); CREATININE 0.9 mg/dL (0.70-1.30); Calcium 8.9 mg/dL (8.5-10.1); Chloride 101 mmol/L (98-107); Estimated GFR 97.17 (mL/min/1.73m2); Glucose 157 mg/dL (74-106); Potassium 4.4 mmol/L (3.5-5.1); Sodium 139 mmol/L (136-145); Total Protein 7.5 g/dL (6.4-8.2)
== END 2024-07-25 16:38 | disposition home or self-care (01) ==
LOC: LBN 16:37
PROVIDERS: PCP Nurse Practitioner Adult Health; Visit Provider Internal Medicine
DX: Z96.652 Presence of left artificial knee joint (principal); Z47.1 Aftercare following joint replacement surgery; E11.9 Type 2 diabetes mellitus without complications
CPT/HCPCS: 80053; 85025; 86140

== ENCOUNTER 2024-09-05 03:11 | Outpatient (CLI) | payer MEDICARE, MEDICAID, SELFPAY ==
[2024-09-05 10:25] LABS: Anion Gap 9.6 mmol/L (3-11); BUN 16 mg/dL (7-18); CO2 29.4 mmol/L (21.0-32.0); Calcium 9.3 mg/dL (8.5-10.1); Chloride 101 mmol/L (98-107); Cholesterol 202 mg/dL (<200); Estimated GFR 85.63 (mL/min/1.73m2); Glucose 260 mg/dL (74-106); HDL Cholesterol 38 mg/dL (40-60); Potassium 3.9 mmol/L (3.5-5.1); Sodium 140 mmol/L (136-145); Triglyceride 435 mg/dL (<150)
[2024-09-05 11:00] LABS: LDL CHOLESTEROL 92 mg/dL (<100)
[2024-09-05 11:40] LABS: COMMENT (LAB VIEW ONLY) 108.14 mg/dL; Microalb ug/mg Crea 26.7 ug/mg Cr
== END 2024-09-05 03:12 | disposition home or self-care (01) ==
LOC: LBO 03:11
PROVIDERS: PCP Nurse Practitioner Adult Health; Visit Provider Nurse Practitioner Adult Health
DX: Z79.4 Long term (current) use of insulin (principal); E11.40 Type 2 diabetes mellitus with diabetic neuropathy, unspecified; I10 Essential (primary) hypertension
CPT/HCPCS: 36415; 80048; 80061; 83721; 82043; 82570; 83036

== ENCOUNTER → 2024-09-23 14:58 | Outpatient (BNVA) | payer MEDICARE, MEDICAID, SELFPAY | PROVIDERS: PCP Nurse Practitioner Adult Health; Referring Provider Nurse Practitioner Adult Health; Visit Provider Urology | DX: E29.1 Testicular hypofunction (principal) | CPT/HCPCS: 99214 ==

== ENCOUNTER 2024-10-14 10:10 | Outpatient (CLI) | payer MEDICARE, MEDICAID, SELFPAY ==
--- NOTE | 2024-10-14 10:00 | RT.EKG_ITS ---
APPROVED REPORT Exam: Resting ECG Reason for Exam: HIGH RISK MEDICATION Patient Location: O HR:74 bpm ECG Measurements Heart Rate 74 AXIS NE 158 P 46 QRSd 93 QRS -37 QT 410 T 66 QTc 455 Conclusion Sinus rhythm...normal P axis, V-rate 50- 99 Left axis deviation...QRS axis (-30,-90)
== END 2024-10-14 10:11 | disposition home or self-care (01) ==
PROVIDERS: PCP Nurse Practitioner Adult Health; Visit Provider Family Medicine
DX: Z79.899 Other long term (current) drug therapy (principal)
CPT/HCPCS: 93005; 93010

== ENCOUNTER 2024-11-10 11:56 | Outpatient (CLI) | payer MEDICARE, MEDICAID, SELFPAY ==
[2024-11-14 09:06] LABS: Testosterone, Total 545 ng/dL (240-950)
== END 2024-11-10 11:57 | disposition home or self-care (01) ==
LOC: LBO 11:57
PROVIDERS: PCP Nurse Practitioner Adult Health; Visit Provider Urology
DX: E29.1 Testicular hypofunction (principal)
CPT/HCPCS: 36415; 84403

== ENCOUNTER → 2024-12-02 14:21 | Outpatient (BNVA) | payer MEDICARE, MEDICAID, SELFPAY | PROVIDERS: PCP Nurse Practitioner Adult Health; Visit Provider Urology | DX: E29.1 Testicular hypofunction (principal) | CPT/HCPCS: 99214 ==

== ENCOUNTER → 2024-12-07 09:19 | Outpatient (BNVA) | payer MEDICARE, MEDICAID, SELFPAY | PROVIDERS: PCP Nurse Practitioner Adult Health; Referring Provider Nurse Practitioner Adult Health; Visit Provider Podiatrist | DX: M20.41 Other hammer toe(s) (acquired), right foot (principal); M20.42 Other hammer toe(s) (acquired), left foot; R60.0 Localized edema; E11.42 Type 2 diabetes mellitus with diabetic polyneuropathy; Z79.4 Long term (current) use of insulin; I87.2 Venous insufficiency (chronic) (peripheral); B35.1 Tinea unguium; L84 Corns and callosities; M79.671 Pain in right foot; R09.89 Other specified symptoms and signs involving the circulatory and respiratory systems; L65.9 Nonscarring hair loss, unspecified; R23.8 Other skin changes; L60.8 Other nail disorders | CPT/HCPCS: 11055 ==

== ENCOUNTER 2024-12-15 03:08 | Outpatient (CLI) | payer MEDICARE, MEDICAID, SELFPAY ==
[2024-12-15 09:24] LABS: Calculated LDL 102 mg/dL (<100); Cholesterol 186 mg/dL (<200); HDL Cholesterol 37 mg/dL (40-60); Triglyceride 238 mg/dL (<150)
== END 2024-12-15 03:09 | disposition home or self-care (01) ==
LOC: LBO 03:08
PROVIDERS: PCP Nurse Practitioner Adult Health; Referring Provider Nurse Practitioner Adult Health; Visit Provider Nurse Practitioner Adult Health
DX: E11.40 Type 2 diabetes mellitus with diabetic neuropathy, unspecified (principal); Z79.4 Long term (current) use of insulin
CPT/HCPCS: 36415; 80061; 83036

== ENCOUNTER 2025-01-27 00:56 | Outpatient (CLI) | payer MEDICARE, MEDICAID, SELFPAY ==
[2025-01-27 10:55] LABS: Abs Immature Grans 0.04 10^3/uL (0.0-0.06); Absolute Basophil Count 0.04 10^3/uL (0.0-0.2); Absolute Eosinophil Count 0.21 10^3/uL (0.0-0.7); Absolute Monocyte Count 0.79 10^3/uL (0.1-0.8); Absolute Neutrophil Count 7.73 10^3/uL (1.2-6.7); Basophils % 0.4 %; HCT 45.4 % (40.0-50.0); HGB 14.4 g/dL (13.5-17.5); Immature Grans % 0.4 %; Lymphocytes % 17.7 %; MCH 28.9 pg (27.0-33.0); MCHC 31.7 % (32.0-36.0); MCV 91 fL (80-95); MPV 9.6 fL (8.0-11.0); Monocytes % 7.4 %; Neutrophils % 72.1 %; Platelet Count 250 10^3/uL (130-400); RBC 4.98 10^6/uL (4.36-5.78); RDW 14.4 % (11.8-14.1); RDW-SD 47.7 fL; WBC 10.71 10^3/uL (4.4-10.8)
[2025-01-27 11:21] LABS: ALT 18 U/L (16-63); AST 14 U/L (15-37); Albumin 3.3 g/dL (3.4-5.0); Alkaline Phosphatase 91 U/L (46-116); Anion Gap 6.4 mmol/L (3-11); BUN 17 mg/dL (7-18); Bilirubin, Total 0.4 mg/dL (0.2-1.0); CO2 31.6 mmol/L (21.0-32.0); CREATININE 1.1 mg/dL (0.70-1.30); Calcium 9.2 mg/dL (8.5-10.1); Chloride 104 mmol/L (98-107); Glucose 228 mg/dL (74-106); Sodium 142 mmol/L (136-145); Total Protein 7.5 g/dL (6.4-8.2)
[2025-01-27 22:18] LABS: PSA, Diagnostic 0.8 ng/mL (<=4.5)
[2025-01-31 13:51] LABS: Testosterone, Total 277 ng/dL (240-950)
== END 2025-01-27 00:57 | disposition home or self-care (01) ==
PROVIDERS: PCP Nurse Practitioner Adult Health; Visit Provider Urology
DX: N13.8 Other obstructive and reflux uropathy (principal); N40.1 Benign prostatic hyperplasia with lower urinary tract symptoms; E29.1 Testicular hypofunction
CPT/HCPCS: 36415; 80053; 84403; 84153; 85025

== ENCOUNTER 2025-02-01 16:30 | Outpatient (CLI) | payer MEDICARE, MEDICAID, SELFPAY ==
[2025-02-01 15:18] LABS: Abs Immature Grans 0.02 10^3/uL (0.0-0.06); Absolute Basophil Count 0.05 10^3/uL (0.0-0.2); Absolute Eosinophil Count 0.22 10^3/uL (0.0-0.7); Absolute Lymphocyte Count 1.55 10^3/uL (1.2-3.4); Absolute Monocyte Count 0.76 10^3/uL (0.1-0.8); Absolute Neutrophil Count 7.53 10^3/uL (1.2-6.7); Basophils % 0.5 %; Eosinophils % 2.2 %; HCT 43.8 % (40.0-50.0); HGB 14.3 g/dL (13.5-17.5); Immature Grans % 0.2 %; Lymphocytes % 15.3 %; MCH 29.3 pg (27.0-33.0); MCHC 32.6 % (32.0-36.0); MCV 90 fL (80-95); MPV 9.5 fL (8.0-11.0); Monocytes % 7.5 %; Neutrophils % 74.3 %; Platelet Count 248 10^3/uL (130-400); RBC 4.88 10^6/uL (4.36-5.78); RDW 14.3 % (11.8-14.1); RDW-SD 46.6 fL; WBC 10.13 10^3/uL (4.4-10.8)
[2025-02-01 15:21] LABS: ESR 43 mm/hr (0-20)
[2025-02-01 17:00] LABS: Hemoglobin A1C 7.2 % (<5.7)
== END 2025-02-01 16:31 | disposition home or self-care (01) ==
LOC: LBO 16:35
PROVIDERS: PCP Nurse Practitioner Adult Health; Visit Provider Nurse Practitioner Adult Health
DX: E08.21 Diabetes mellitus due to underlying condition with diabetic nephropathy (principal); Z96.652 Presence of left artificial knee joint
CPT/HCPCS: 36415; 85652; 83036; 85025; 86140

== ENCOUNTER → 2025-02-02 10:39 | Outpatient (BNVA) | payer MEDICARE, MEDICAID, SELFPAY | PROVIDERS: PCP Nurse Practitioner Adult Health; Referring Provider Nurse Practitioner Adult Health; Visit Provider Surgery | DX: K46.9 Unspecified abdominal hernia without obstruction or gangrene (principal) | CPT/HCPCS: 99214 ==

== ENCOUNTER → 2025-02-03 13:56 | Outpatient (BNVA) | payer MEDICARE, MEDICAID, SELFPAY | PROVIDERS: PCP Nurse Practitioner Adult Health; Referring Provider Nurse Practitioner Adult Health; Visit Provider Urology | DX: E29.1 Testicular hypofunction (principal) | CPT/HCPCS: 99214 ==

== ENCOUNTER 2025-02-07 09:53 | Emergency (ER) | payer MEDICARE, MEDICAID, SELFPAY ==
[2025-02-07 10:03] VITALS: BP 154/80; PULSE 71; RESP 20; TEMP 36.9; O2SAT 92
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
[2025-02-07] MEDS: Lidocaine 5% Patch 1 PATCH TP (11:02)
[2025-02-07 11:10] VITALS: BP 128/68; PULSE 67; RESP 20; TEMP 36.6; O2SAT 93
== END 2025-02-07 11:11 | disposition home or self-care (01) ==
PROVIDERS: Emergency Provider Nurse Practitioner Family; PCP Nurse Practitioner Adult Health
DX: M54.2 Cervicalgia (principal); I10 Essential (primary) hypertension
CPT/HCPCS: 99283

== ENCOUNTER → 2025-05-02 10:33 | Outpatient (BNVA) | payer MEDICARE, MEDICAID, SELFPAY | PROVIDERS: PCP Nurse Practitioner Adult Health; Referring Provider Nurse Practitioner Adult Health; Visit Provider Urology | DX: E29.1 Testicular hypofunction (principal) | CPT/HCPCS: 99214 ==

== ENCOUNTER 2025-07-07 12:13 | Emergency (ER) | payer MEDICARE, MEDICAID, SELFPAY ==
[2025-07-07 12:16] VITALS: BP 141/71; PULSE 69; RESP 16; TEMP 36.6; O2SAT 92
[2025-07-07 13:09] VITALS: BP 147/87; PULSE 62; RESP 18; TEMP 36.3; O2SAT 94
--- NOTE | 2025-07-07 13:15 | DI.RAD_ITS ---
Exam(s) XR ANKLE RT COMPLETE EXAM: XR ANKLE RT COMPLETE CLINICAL HISTORY: r/o osteomyelitis due to ulcer on medial malleolus. TECHNIQUE: 2D digital imaging was performed of the right ankle. Four images were obtained. AP, lateral and oblique views were obtained. COMPARISON: CR RIGHT FOOT COMPLETE from 08/19/2017 CR XR ANKLE RT 2V from 12/05/2019 FINDINGS: BONES: No acute fracture is present. There is an old healed fracture deformity of the distal fibula. No bony destructive lesion is seen. JOINTS: There again seen advanced secondary arthritic changes of the ankle and hindfoot. There is loss of volume of the talus. There is marked narrowing of the tibial talar joint. There also advanced arthritic changes seen at the talocalcaneal joints. These findings have progressed since the prior examination from 12/05/2019. There is resultant whole alignment abnormality of the hindfoot particularly the tibial talar articulation. No erosive changes/destructive changes are seen around the medial malleolus at this time to stay to suggest osteomyelitis radiographically. SOFT TISSUE: There is marked soft tissue swelling around the ankle. IMPRESSION: 1. Progressive deformity/arthritic changes in the ankle and hindfoot, particularly at the tibial talar joint in the talocalcaneal joints. 2. The findings are most marked at the tibial talar joint. While this may be secondary to advanced arthrosis, infection/septic joint cannot be excluded. 3. There are no destructive changes seen around the medial malleolus. 4. Marked soft tissue swelling around the ankle. 5. If there is continued clinical concern, MRI may be considered for further characterization. DATA REPOSITORY: RADIATION DOSE DELIVERED:
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
[2025-07-07] MEDS: Doxycycline Hyclate 100 MG CAP PO (13:42)
[2025-07-07] MEDS: Diph,Pertuss(Acell),Tet Vac/Pf 0.5 ML SYR IM (14:37)
[2025-07-07 14:39] VITALS: BP 147/78; PULSE 60; RESP 16; O2SAT 96
== END 2025-07-07 14:55 | disposition home or self-care (01) ==
PROVIDERS: Emergency Provider Nurse Practitioner Family; PCP Nurse Practitioner Adult Health
DX: L03.115 Cellulitis of right lower limb (principal); L97.319 Non-pressure chronic ulcer of right ankle with unspecified severity; E11.622 Type 2 diabetes mellitus with other skin ulcer; Z23 Encounter for immunization; W22.8XXA Striking against or struck by other objects, initial encounter
CPT/HCPCS: 99284 ×2; 90471; 90715; 73610

== ENCOUNTER 2025-08-27 11:43 | Inpatient (IN) | payer MEDICARE, MEDICAID, SELFPAY ==
[2025-08-27 11:48] VITALS: BP 139/44; PULSE 82; RESP 18; O2SAT 94
[2025-08-27 11:52] VITALS: BP 139/44; PULSE 82; RESP 18; O2SAT 94
--- NOTE | 2025-08-27 12:15 | DI.RAD_ITS ---
Exam(s) XR ANKLE RT COMPLETE EXAM: XR ANKLE RT COMPLETE CLINICAL HISTORY: wound medial mallelous, fever. TECHNIQUE: 2D digital imaging was performed of the right ankle. Three images were obtained. AP, lateral and oblique views were obtained. COMPARISON: CR XR ANKLE RT 2V from 12/05/2019 CR XR ANKLE RT COMPLETE from 07/07/2025 FINDINGS: BONES: No acute fracture is present. No bony destructive lesion is seen. There is again seen a pes planus. JOINTS: There are stable chronic changes of the tibial talar joint with marked secondary arthrosis. SOFT TISSUE: There is soft tissue swelling around the ankle. No soft tissue gas is seen. IMPRESSION: 1. No change in appearance of the right ankle and hindfoot compared to the prior examination. 2. No radiographic findings to suggest osteomyelitis. DATA REPOSITORY: RADIATION DOSE DELIVERED:
--- NOTE | 2025-08-27 12:15 | DI.RAD_ITS ---
Exam(s) XR CHEST 2V PA LATERAL EXAM: XR CHEST 2V PA LATERAL CLINICAL HISTORY: fever TECHNIQUE: 2D digital imaging was performed of the chest. Two images were obtained. PA and lateral views were obtained. COMPARISON: CR,XR XR PORTABLE CHEST AP from 01/01/2021 CR,XR XR PORTABLE CHEST AP from 07/30/2022 CR XR CHEST 2V PA LATERAL from 06/06/2024 FINDINGS: MEDIASTINUM: Normal. HEART: Normal. PULMONARY VASCULATURE: Normal. LUNGS: Clear. PLEURAL SPACE: No pleural effusion or pneumothorax. BONE:Within normal limits for the patient's age. There are old healed left rib fractures. There is again seen an orthopedic plate on the left clavicle. OTHER FINDINGS:Normal. IMPRESSION: No acute pulmonary findings. DATA REPOSITORY: RADIATION DOSE DELIVERED:
--- NOTE | 2025-08-27 12:15 | RT.EKG_ITS ---
APPROVED REPORT Exam: Resting ECG Reason for Exam: nausea Patient Location: E HR:74 bpm ECG Measurements Heart Rate 74 AXIS FL 172 P 52 QRSd 96 QRS -62 QT 390 T 60 QTc 434 Conclusion Sinus rhythm...normal P axis, V-rate 60- 99 LAD, consider left anterior fascicular block...axis(240,-40), S>R II III aVF ST elevation V3
[2025-08-27 13:00] LABS: BE (Venous) 5 mmol/L (-2-3); HCO3 (Venous) 31 mmol/L (23-28); O2 Sat (Venous) 63 %; TCO2 (Venous) 27 mmol/L (24-29); pCO2 (Venous) 52 mmHg (41-51); pO2 (Venous) 33 mmHg
[2025-08-27 13:06] LABS: Abs Immature Grans 0.24 10^3/uL (0.0-0.06); HCT 51.0 % (40.0-50.0); HGB 16.3 g/dL (13.5-17.5); Immature Grans % 1.0 %; MCH 27.4 pg (27.0-33.0); MCHC 32.0 % (32.0-36.0); MCV 86 fL (80-95); MPV 9.4 fL (8.0-11.0); Platelet Count 234 10^3/uL (130-400); RBC 5.94 10^6/uL (4.36-5.78); RDW 16.0 % (11.8-14.1); RDW-SD 49.5 fL; WBC 24.90 10^3/uL (4.4-10.8)
[2025-08-27 13:10] LABS: ESR 25 mm/hr (0-20)
[2025-08-27] MEDS: Normal Saline 500 ML IV (13:15)
[2025-08-27 13:20] LABS: ALT 14 U/L (16-63); AST 19 U/L (15-37); Albumin 3.4 g/dL (3.4-5.0); Alkaline Phosphatase 83 U/L (46-116); Anion Gap 7.0 mmol/L (3-11); BUN 14 mg/dL (7-18); Bilirubin, Total 0.8 mg/dL (0.2-1.0); C-Reactive Protein 15.89 mg/dL (<or=0.5); CO2 31.0 mmol/L (21.0-32.0); Calcium 8.5 mg/dL (8.5-10.1); Chloride 96 mmol/L (98-107); Glucose 176 mg/dL (74-106); Potassium 3.7 mmol/L (3.5-5.1); Sodium 134 mmol/L (136-145); Total Protein 7.9 g/dL (6.4-8.2)
[2025-08-27 13:23] LABS: RBC Morphology Normal; Troponin I 15 ng/L (<or=76)
[2025-08-27 13:24] VITALS: BP 164/70; PULSE 71; RESP 14; O2SAT 91
[2025-08-27 13:41] LABS: COVID-19 PCR Negative (Negative); RSV PCR Negative (Negative)
[2025-08-27 13:42] LABS: Glucose Negative (Negative)
[2025-08-27 13:50] LABS: RBC 0-2 HPF (0-2); WBC 0-2 HPF (0-5)
[2025-08-27 13:51] LABS: C & S Indicated? No
[2025-08-27] MEDS: CEFEPIME 2 GM in Normal Saline 100 ML IVPB ×2 (14:20→22:59)
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
[2025-08-27 14:59] LABS: Troponin I 15 ng/L (<or=76)
--- NOTE | 2025-08-27 15:45 | W.PC.ACHO ---
Registration Status: REG ER Primary Language: Preferred Language: Greek ED Information & Data Chief Complaint Cellulitis 08/27/25 14:27 Triage Note pt complaining of diarrhea, 08/27/25 11:48 nausea, headache this morning. Pt had same symptoms last year when he was found to have an infection in left knee. Pt also complaining of a sore on left ankle for 2 months. PT is a diabetic Medical / Surgical History (Last Updated 03/29/25 @ 14:37 by Sahra Ye NP) Elevated hemoglobin Anemia (~04/2024) Septic joint of left knee joint Bilateral leg edema Streptococcal arthritis of left knee (~06/2024) Leg edema Corns and callosities Onychomycosis Tinea corporis Nocturia Vitamin D deficiency Angioedema Fever Pneumonia Umbilical hernia without mention of obstruction or gangrene Elbow joint pain Osteomyelitis Tick bite of back Cellulitis of foot, right Encounter for colorectal cancer screening Hepatitis C Abscess, hepatic Chest pain Lower urinary tract symptoms Infection of toe Neck swelling Normal colonoscopy (11/05/18) Personal history of colonic polyps Colon adenoma Fibula fracture (Last Updated 03/29/25 @ 14:37 by Sahra Ye NP) Status post revision of total replacement of left knee (~07/15/24) H/O rotator cuff surgery History of left knee replacement (~2017) Amputated toe of right foot (~11/2016) left index finger amputation (~1994) Most Recent Vital Signs Pulse 71 08/27/25 13:24 Pulse 71 08/27/25 13:24 Respiratory Rate 14 08/27/25 13:24 Blood Pressure 164/70 H 08/27/25 13:24 Pulse Oximetry 91 L 08/27/25 13:24 Allergies lisinopril Allergy (Verified 08/27/25 11:51) angioedema ? IV IV Catheter Type [Left Saline Lock Antecubital] IV Catheter Gauge [Left 18 Antecubital] Diagnostics 08/27/25 08/27/25 08/27/25 Range/Units 14:10 13:21 12:50 WBC 24.90 H (4.4-10.8) 10^3/uL RBC 5.94 H (4.36-5.78) 10^6/uL Hgb 16.3 (13.5-17.5) g/dL Hct 51.0 H (40.0-50.0) % MCV 86 (80-95) fL MCH 27.4 (27.0-33.0) pg MCHC 32.0 (32.0-36.0) % RDW 16.0 H (11.8-14.1) % Plt Count 234 (130-400) 10^3/uL MPV 9.4 (8.0-11.0) fL Immature Gran % 1.0 % Neutrophils % 93.8 % Lymphocytes % 1.6 % Monocytes % 3.3 % Eosinophils % 0.0 % Basophils % 0.3 % Nucleated RBC % 0.0 (0.0-0.3) % Absolute Neutrophils 23.36 H (1.2-6.7) 10^3/uL Absolute Lymphocytes 0.40 L (1.2-3.4) 10^3/uL Absolute Monocytes 0.82 H (0.1-0.8) 10^3/uL Absolute Eosinophils 0.00 (0.0-0.7) 10^3/uL Absolute Basophils 0.07 (0.0-0.2) 10^3/uL RBC Morphology Normal ESR 25 H (0-20) mm/hr VBG pH 7.38 (7.31-7.41) VBG pCO2 52 H (41-51) mmHg VBG pO2 33 mmHg VBG HCO3 31 H (23-28) mmol/L VBG Total CO2 27 (24-29) mmol/L VBG O2 Saturation 63 % VBG Base Excess 5 H (-2-3) mmol/L VBG Lactate 1.4 (<or=2.0) mmol/L Sodium 134 L (136-145) mmol/L Potassium 3.7 (3.5-5.1) mmol/L Chloride 96 L (98-107) mmol/L Carbon Dioxide 31.0 (21.0-32.0) mmol/L Anion Gap 7.0 (3-11) mmol/L BUN 14 (7-18) mg/dL Creatinine 0.9 (0.70-1.30) mg/dL Est GFR (CKD-EPI 2020) 96.57 (mL/min/1.73m2) Glucose 176 H (74-106) mg/dL Calcium 8.5 (8.5-10.1) mg/dL Total Bilirubin 0.8 (0.2-1.0) mg/dL AST 19 (15-37) U/L ALT 14 L (16-63) U/L Alkaline Phosphatase 83 (46-116) U/L Troponin I 15 15 (<or=76) ng/L C-Reactive Protein 15.89 H (<or=0.5) mg/dL Total Protein 7.9 (6.4-8.2) g/dL Albumin 3.4 (3.4-5.0) g/dL Urine Color Yellow (Yellow) Urine Clarity Clear (Clear) Urine pH 6.0 (5-8) Ur Specific [place] 1.015 (1.005-1.025) Urine Protein Trace (Neg-Trace) mg/dL Urine Ketones 40 H (Negative) mg/dL Urine Blood Trace-intact H (Negative) Urine Nitrite Negative (Negative) Urine Bilirubin Negative (Negative) Urine Urobilinogen 0.2 (Up to 0.2) mg/dL Ur Leukocyte Esterase Negative (Negative) Urine RBC 0-2 (0-2) HPF Urine WBC 0-2 (0-5) HPF Ur Epithelial Cells Rare (Negative) HPF Urine Crystals Negative (Negative) HPF Urine Bacteria Negative (Negative) HPF Urine Casts Negative (Negative) LPF Urine Mucus Negative (Negative) Ur Culture Indicated? No Urine Glucose Negative (Negative) mg/dL B. divergens/MO-1 PCR Pending Babesia duncani (PCR) Pending Babesia microti DNA PCR Pending Lyme Disease Antibody Pending COVID-19 Source Nasopharynx SARS-CoV-2 (PCR) Negative (Negative) E.chaffeensis DNA (PCR) Pending E.ewingii/canis DNA PCR Pending E.muris eauclairensis (PCR) Pending Influenza Type A (PCR) Negative (Negative) Influenza Type B (PCR) Negative (Negative) RSV (PCR) Negative (Negative) A. phagocytophilum (PCR) Pending Blood B. miyamotoi (PCR) Pending 08/27/25 12:39 Wound Culture - Pending Ankle - Right Medial Gram Stain - Final 08/27/25 12:50 Blood Culture - Pending Blood 08/27/25 14:10 Blood Culture - Pending Blood Intake and Output - 24 Hour Total 08/27/25 11:43 thru 08/27/25 14:44 Intake Total 600 Balance 600 Weight 257 lb Intake: IV 600 Falls Risk Assessment History of Falls Previous History 08/27/25 12:56 Contributing Factors Unstable,Impairments 08/27/25 12:56 Ambulatory Aids Independent 08/27/25 12:56 Tubes/Lines None 08/27/25 12:56 Gait Evaluation W/any additional score 08/27/25 12:56 Cognition No cognitive impairment 08/27/25 12:56 Fall Total Score 41 08/27/25 12:56 Level of Risk Moderate Risk 08/27/25 12:56 Problems (Last Updated 03/29/25 @ 14:37 by Sahra Ye NP) Severe obstructive sleep apnea (Acute) Diabetes mellitus with neuropathy (Chronic) Depression (Chronic) HTN (hypertension) (Chronic) v v v v v v v v v Sending and/or Receiving Nurses: Please use comment section below to note any information pertinent to the patient hand-off not included above. Information / Comments: Report received from: Mindi Bland RN
[2025-08-27] MEDS: ACETAMINOPHEN 500 MG/50 ML BAG 200 MG IVPB (16:00)
[2025-08-27 16:27] VITALS: BP 160/76; PULSE 91; RESP 22; TEMP 38.1; O2SAT 93
--- NOTE | 2025-08-27 17:24 | WOUNDCARE ---
Wound Care Report
[2025-08-27] MEDS: Insulin Aspart 300 UNITS/3 ML PEN SC (18:13)
[2025-08-27] MEDS: Normal Saline 1,000 ML 100 ML IV (20:54)
[2025-08-27] MEDS: VANCOMYCIN 1,250 MG in Normal Saline 250 ML 166.667 MG IVPB (20:54)
[2025-08-27] MEDS: Acetaminophen 500 MG TAB PO (20:55)
[2025-08-27] MEDS: Melatonin 3 MG TAB 9 MG PO (20:55)
[2025-08-27] MEDS: Gabapentin 600 MG TAB PO (20:56)
[2025-08-27] MEDS: LORazepam 1 MG TAB 0.5 MG PO (21:05)
[2025-08-27 21:07] VITALS: BP 163/77; PULSE 88; RESP 18; TEMP 38.5; O2SAT 93
[2025-08-27] MEDS: Oxymetazolone 0.05% SPRAY 15 ML BTL NS (23:20)
--- NOTE | 2025-08-28 | DI.MRI_ITS ---
Exam(s) MR LOWER JOINT RT WO/W EXAM: MR LOWER JOINT RT WO/W CLINICAL HISTORY: infection TECHNIQUE: Multiplanar multisequence MRI was performed without intravenous contrast. Multiplanar multisequence MRI of the right ankle was performed on 1.5 haydee unit with both pre and post contrast infused sequences. Intravenous contrast injected was 20 mL Dotarem. COMPARISON: CR XR ANKLE RT COMPLETE from 08/27/2025 FINDINGS: SKIN: There is diffuse soft tissue edema in the visualized distal leg and ankle, most prominent laterally. However, there does not appear to be a distinct skin ulcer nor subcutaneous tract BONES/JOINTS: There is a healed oblique fracture of the distal fibula. There is advanced degenerative change in the tibiotalar joint, subtalar joint, talonavicular and calcaneocuboid joint and with somewhat less involvement of the calcaneocuboid articulation. The involved joints exhibit [id number] narrowing and there are multiple degenerative subarticular cysts, more in keeping with Charcot-type arthropathy than osteomyelitis. There is also an element of disorganization and fragmentation. There is significant widening of the ankle mortise There is milder degenerate involvement of the tarsometatarsal joints and there is no diastasis of the main Lisfranc joint. SINUS TARSI: There is loss of the normal fat signal in this space. There is also a sinus tarsi ganglion cyst which contains debris. LIGAMENTS: The distal tibial fibular syndesmotic ligaments as well as the anterior and posterior talofibular ligaments are poorly defined and most probably torn. Similar for the deltoid ligament on the medial aspect of the ankle. MUSCULOTENDINOUS STRUCTURES: Achilles tendon: Exhibits distal tendinosis signal. No evidence of tear. Plantar fascia: Unremarkable. Medial Tendons: Posterior Tibialis: Exhibits tenosynovitis posterior to the medial malleolus. However, there is no tear of the tendon itself. Flexor Digitorum longus: Minimal tenosynovitis posterior to the medial malleolus. No high-grade tear. Flexor Hallicus longus: Unremarkable. No tear or tenosynovitis evident. Lateral Tendons: Peroneus longus: Unremarkable. No tear nor tenosynovitis evident. Peroneus brevis:Unremarkable. No tear nor tenosynovitis evident. SOFT TISSUES: There is edema signal in much of the visualized musculature around the ankle and foot as well as in the soft tissues. There is, however, no evidence of distinct abscess. IMPRESSION: 1. Advanced Charcot-like degenerative changes in the hindfoot articulations including the tibial talar and tibial calcaneal and talonavicular joints, with somewhat lesser involvement of the calcaneal cuboid joint. There is also marrow edema involving these bones. Also numerous degenerative subarticular cysts are seen in these articulations. The fact that these are present is more in keeping with severe degenerative changes more so than septic arthritis. Also milder degenerative changes in the tarsometatarsal joints and no diastasis of the Lisfranc joint. 2. There is subcutaneous edema around the ankle and partially visualized distal thigh most prominent around the lateral aspect of the ankle. However, there does not appear to be an obvious deep skin ulcer nor evidence of abscess. 3. There is edema evident in the musculature around the foot and ankle which is most probably reactive and related to the neuropathic changes. There is no abscess evident. 3. There is mild tenosynovitis of the tibialis posterior tendon behind the medial malleolus. The posterior tibial tendon, however, appears intact as do the other tendons around the ankle. 4. There is mild tendinosis signal in the distal Achilles tendon. There is no evidence of tear of this structure. DATA REPOSITORY:
[2025-08-28 02:48] VITALS: TEMP 39.1
[2025-08-28] MEDS: Acetaminophen 500 MG TAB PO ×3 (02:53→22:54)
[2025-08-28] MEDS: CEFEPIME 2 GM in Normal Saline 100 ML IVPB (04:54)
[2025-08-28] MEDS: Normal Saline Flush 10 ML SYR ×3 (04:55→14:53)
--- NOTE | 2025-08-28 06:10 | RESPIRATORY ---
RT spoke with patient regarding PRINCE. Pt. reports that he does not use CPAP at home and states he has never had one prescribed or used before.
[2025-08-28 06:26] VITALS: TEMP 36
[2025-08-28 06:41] LABS: Abs Immature Grans 0.07 10^3/uL (0.0-0.06); HCT 45.4 % (40.0-50.0); HGB 14.4 g/dL (13.5-17.5); Immature Grans % 0.5 %; MCH 27.2 pg (27.0-33.0); MCHC 31.7 % (32.0-36.0); MCV 86 fL (80-95); MPV 10.1 fL (8.0-11.0); Platelet Count 177 10^3/uL (130-400); RBC 5.30 10^6/uL (4.36-5.78); RDW 16.1 % (11.8-14.1); RDW-SD 50.2 fL; WBC 13.72 10^3/uL (4.4-10.8)
[2025-08-28 07:00] LABS: Anion Gap 6.9 mmol/L (3-11); BUN 12 mg/dL (7-18); CO2 29.1 mmol/L (21.0-32.0); Calcium 8.2 mg/dL (8.5-10.1); Chloride 99 mmol/L (98-107); Glucose 157 mg/dL (74-106); Potassium 3.5 mmol/L (3.5-5.1); Sodium 135 mmol/L (136-145)
[2025-08-28 07:31] VITALS: BP 137/59; PULSE 74; RESP 16; TEMP 36.8; O2SAT 95
[2025-08-28] MEDS: Polyethylene Glycol 3350 17 GM PACKET PO (07:53)
[2025-08-28] MEDS: Cholecalciferol (Vitamin D3) 400 UNIT TAB PO (07:54)
[2025-08-28] MEDS: Multivitamin w/Minerals TAB 1 TAB PO (07:55)
[2025-08-28] MEDS: lamoTRIgine 100 MG TAB 200 MG PO (07:55)
[2025-08-28] MEDS: amLODIPine 10 MG TAB PO (07:56)
[2025-08-28] MEDS: Gabapentin 600 MG TAB PO ×3 (08:56→21:26)
[2025-08-28] MEDS: Insulin Glargine 300 UNITS/3 ML PEN 30 UNITS SC (08:57)
[2025-08-28] MEDS: Methadone Liquid 10 MG/ML 173 MG PO (09:37)
[2025-08-28] MEDS: Gadoterate meglumine 20 ML SYRINGE IVP (10:56)
[2025-08-28] MEDS: VANCOMYCIN/WATER (PEG) 1.25 GM/250 ML BAG IVPB ×2 (11:49→22:41)
[2025-08-28] MEDS: Insulin Aspart 300 UNITS/3 ML PEN SC ×2 (12:25→17:06)
--- NOTE | 2025-08-28 12:46 | DI.VRAD_ITS ---
PROCEDURE INFORMATION: Exam: MR Right Lower Extremity Joint Without and With Contrast; Ankle Exam date and time: 08/28/2025 10:44 AM Age: 64 years old Clinical indication: Other: Right medial mallelus diabetic wound infection. Right medial malleolus diabetic wound infection. TECHNIQUE: Imaging protocol: Magnetic resonance imaging of the right lower extremity without and with contrast. Exam focused on the ankle. Contrast material: DOTAREM; Contrast volume: 20 ml; Contrast route: INTRAVENOUS (IV); COMPARISON: CR XR ANKLE RT COMPLETE 08/27/2025 1:09 PM FINDINGS: Bones/joints: There are again chronic changes of Charcot arthropathy, including areas of joint disorganization, fragmentation and debris. Areas of marrow edema are present along the tibial plafond, throughout much of the talus, anteriorly in the calcaneus, and throughout the navicular. This could relate to neuropathic change and/or infection. LIGAMENTS: Distal tibiofibular syndesmosis: Ill-defined in association with chronic changes. Anterior talofibular ligament: Ill-defined in association with chronic changes. Posterior talofibular ligament: Ill-defined in association with chronic changes. Calcaneofibular ligament: Ill-defined in association with chronic changes. Deltoid ligament complex: Ill-defined in association with chronic changes. TENDONS: Flexor tendons of foot: Unremarkable as visualized. Tibialis posterior tendon: There is small fluid in the tibialis posterior tendon sheath posterior to the distal tibia, indicative of tenosynovitis. The tendon itself is intact. Peroneal tendons: Unremarkable as visualized. Extensor tendons of foot: Unremarkable as visualized. Tibialis anterior tendon: Unremarkable as visualized. Achilles tendon: Unremarkable as visualized. Tarsal canal (Sinus tarsi): Unremarkable. Normal signal of the fat. Tarsal tunnel: Unremarkable. Soft tissues: Subcutaneous soft tissue edema is present circumferentially about the ankle, extending from the distal leg proximal to the field of view and into the dorsum of the midfoot beyond the [id number]. No well-formed collection to suggest abscess is identified. Mild edema involves much of the intrinsic musculature of the foot as well. Plantar fascia: Plantar fascia is unremarkable. IMPRESSION: 1. Extensive chronic changes of Charcot arthropathy, as on radiographs of 1 day prior. 2. Subcutaneous soft tissue edema about much of the included lower extremity as described, without discrete abscess identified. 3. Areas of marrow edema along the tibial plafond, throughout much of the talus, anteriorly in the calcaneus and throughout the navicular, could relate to neuropathic change and/or infection. 4. Mild edema involving much of the intrinsic musculature of the foot, nonspecific, could the reactive or related to neuropathic change and/or myositis. 5. Mild peroneal tenosynovitis, also nonspecific, could be infectious. Dictated and Authenticated by: Bennett Dwyer MD. Orderin Milind Head MD
--- NOTE | 2025-08-28 16:45 | W.PM.PROGNOT ---
Date of Service Date of service: 08/28/25 Time of Service: 16:45 Assessment and Plan Assessment and plan (1) Diabetic ulcer of ankle: Status: Acute Assessment and plan: right medial malleolus, non healing present for approx 2 months did not meet SIRS or sepsis criteria on arrival to ED blood cultures and wound culture are pending. continue cefepime and vancomycin for now with cultures finalizing. IV fluid bolus overnight plain film with no evidence of osteomyelitis MRI with no evidence of osteomyelitis wound care consult (2) Diabetes mellitus with neuropathy: Status: Chronic Assessment and plan: hemoglobin A1C 6.8 Aug 03, 2025 continue diabetic diet with sliding scale coverage ac/hs (3) Severe obstructive sleep apnea: Status: Acute Assessment and plan: home cpap (4) HTN (hypertension): Status: Chronic Assessment and plan: routine monitoring home medication (5) Depression: Status: Chronic Assessment and plan: stable, continue home medications anticipate discharge to home tomorrow discussed with DR Calles Subjective Subjective Patient reports: no new complaints, tolerating liquids well, tolerating a regular diet, voiding w/o difficulty and afebrile; denies shortness of breath Exam Const General: cooperative, comfortable, no acute distress and ill appearing chronically Nutritional Appearance: overweight HENMT Head: normal to inspection, normocephalic and atraumatic Mouth: oral mucosae normal Chest Chest: normal inspection of the chest Resp Effort & Inspection: normal respiratory effort and able to speak in complete sentences Auscultation: clear to auscultation bilaterally Cardio Rate: regular rate Rhythm: regular rhythm GI Inspection: normal to inspection and obesity Palpation: soft and nontender Skin Lesions: lesion noted (right medial malleolus, wound bed dry, apprx 2 cm surrounding erythema) Neuro General: patient alert, patient awake and patient oriented x3 Extrem Right lower extremity: foot (charcot, lesion, erythema) Psych Appearance: grossly normal Mental Status: mental status grossly normal Speech and Movement: speech and movement normal Mood: congruent mood Affect: blunted Attitude: cooperative Objective Last Vital Signs Temp 36.8 C 08/28/25 07:31 Pulse 74 08/28/25 07:31 Resp 16 08/28/25 07:31 BP 137/59 L 08/28/25 07:31 Pulse Ox 95 08/28/25 07:31 Laboratory Results - last 24 hr 08/28/25 06:09 WBC 13.72 H RBC 5.30 Hgb 14.4 Hct 45.4 MCV 86 MCH 27.2 MCHC 31.7 L RDW 16.1 H Plt Count 177 MPV 10.1 Immature Gran % 0.5 Neutrophils % 89.5 Lymphocytes % 5.0 Monocytes % 4.7 Eosinophils % 0.1 Basophils % 0.2 Nucleated RBC % 0.0 Absolute Neutrophils 12.28 H Absolute Lymphocytes 0.69 L Absolute Monocytes 0.64 Absolute Eosinophils 0.01 Absolute Basophils 0.03 Sodium 135 L Potassium 3.5 Chloride 99 Carbon Dioxide 29.1 Anion Gap 6.9 BUN 12 Creatinine 0.8 Est GFR (CKD-EPI 2020) 100.06 Glucose 157 H Calcium 8.2 L Time Spent with Patient Time Spent with Patient: 35-49 minutes Time was spent: preparing to see the patient(eg.review tests), obtaining and/or reviewing separately otained hiistory, ordering medications,tests, procedures, indepentently interpreting results and counseling the patient
[2025-08-28] MEDS: LORazepam 1 MG TAB 0.5 MG PO (17:13)
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
[2025-08-28 19:54] VITALS: BP 127/68; PULSE 63; RESP 18; TEMP 36.7; O2SAT 96
[2025-08-28] MEDS: Normal Saline Flush 10 ML SYR IVP (22:41)
[2025-08-28] MEDS: Melatonin 3 MG TAB 9 MG PO (22:54)
[2025-08-29 06:28] LABS: Abs Immature Grans 0.04 10^3/uL (0.0-0.06); HCT 45.5 % (40.0-50.0); HGB 14.4 g/dL (13.5-17.5); Immature Grans % 0.4 %; MCH 27.3 pg (27.0-33.0); MCHC 31.6 % (32.0-36.0); MCV 86 fL (80-95); MPV 9.9 fL (8.0-11.0); Platelet Count 165 10^3/uL (130-400); RBC 5.27 10^6/uL (4.36-5.78); RDW 16.0 % (11.8-14.1); RDW-SD 50.1 fL; WBC 9.26 10^3/uL (4.4-10.8)
[2025-08-29 06:47] LABS: ALT 10 U/L (16-63); AST 16 U/L (15-37); Albumin 2.4 g/dL (3.4-5.0); Alkaline Phosphatase 71 U/L (46-116); Anion Gap 8.2 mmol/L (3-11); BUN 12 mg/dL (7-18); Bilirubin, Total 0.3 mg/dL (0.2-1.0); CO2 30.8 mmol/L (21.0-32.0); Calcium 8.2 mg/dL (8.5-10.1); Chloride 103 mmol/L (98-107); Glucose 168 mg/dL (74-106); Potassium 3.3 mmol/L (3.5-5.1); Sodium 142 mmol/L (136-145); Total Protein 6.5 g/dL (6.4-8.2)
[2025-08-29 08:00] VITALS: BP 133/72; PULSE 63; RESP 16; TEMP 36.7; O2SAT 95
[2025-08-29] MEDS: Methadone Liquid 10 MG/ML 173 MG PO (08:06)
[2025-08-29] MEDS: Insulin Glargine 300 UNITS/3 ML PEN 30 UNITS SC (09:01)
[2025-08-29] MEDS: Normal Saline Flush 10 ML SYR IVP ×2 (09:02→10:54)
[2025-08-29] MEDS: Multivitamin w/Minerals TAB 1 TAB PO (09:02)
[2025-08-29] MEDS: Magnesium Oxide 400 MG TAB PO (09:02)
[2025-08-29] MEDS: Gabapentin 600 MG TAB PO ×2 (09:03→13:47)
[2025-08-29] MEDS: Cholecalciferol (Vitamin D3) 400 UNIT TAB PO (09:03)
[2025-08-29] MEDS: amLODIPine 10 MG TAB PO (09:03)
[2025-08-29] MEDS: lamoTRIgine 100 MG TAB 200 MG PO (09:03)
[2025-08-29] MEDS: Polyethylene Glycol 3350 17 GM PACKET PO (09:04)
[2025-08-29 09:21] LABS: Vancomycin, Trough 6.8 ug/mL (10.0-20.0)
[2025-08-29 09:42] LABS: Lyme Ab w Rflx to Lyme Confirm Negative (Negative)
--- NOTE | 2025-08-29 09:42 | PDOC.CMPRO ---
Date of service: 08/29/25 Time of Service: 09:43 Care Management Progress Note Progress Note Text Progress Note Text: Armen was sitting up in his bed and awake when CM met with him. Discharge Potential Discharge Needs: PCP F/U Appt Anticipated Barriers to Discharge: None Identified Patient/Family Education Needs: Review discharge instructions, discuss Ask Me Three Transportation: Other (will likely utilize his ebike for transportation, which he here.) Plan: Anticipate Armen will return home once medically cleared with no new services. He will transport via his own ebike when ready. He will follow up with his PCP and discharge plan of care. CM will continue to follow. Social Determinants of Health Screening Social Determinants of health last assessed in clinic: 08/28/25 Will the Patient Participate in the Screening?: Yes Do you worry about having a steady place to live?: yes What is your living situation today?: I have housing today, but am worried about losing it Problems where you live: no known problems In the past 12 months, have you had to go without electric, gas, oil or water in your home?: no Has lack of transportation kept you from medical appointments or from doing things needed for daily living?: no Has anyone in your life made you feel unsafe or unsupported?: no How hard is it for you to pay for the very basics like food, housing, medical care, and heating? Would you say it is:: Not hard at all Do you want help finding or keeping work or a job?: I do not need or want help If for any reason you need help with day-to-day activities such as bathing, preparing meals, shopping, managing finances, etc., do you get the help you need?: I don’t need any help How often do you feel lonely or isolated from those around you?: Never Do you speak a language other than Yakut at home?: No Does the patient want assistance with any of the above?: No Health Related Social Needs Health related social needs: housing instability, housed, with risk of homelessness (Z59.811) Health related social needs details: none
[2025-08-29] MEDS: VANCOMYCIN/WATER (PEG) 1.5 GM/300 ML BAG IVPB (10:54)
[2025-08-29] MEDS: Insulin Aspart 300 UNITS/3 ML PEN SC (12:04)
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
--- NOTE | 2025-08-29 14:45 | DI.US_ITS ---
Exam(s) US LOWER EXTREMITY VENOUS RT EXAM: US LOWER EXTREMITY VENOUS RT CLINICAL HISTORY: DVT TECHNIQUE: Right lower extremity venous ultrasound performed using grayscale, color-flow, and spectral Doppler analysis. COMPARISON: No exams were available for comparison FINDINGS: The right common femoral, femoral and popliteal veins demonstrate normal compressibility, augmentation, and color Doppler. The posterior tibial veins are patent. The saphenofemoral junction is unremarkable. There is no evidence of a Rousseau cyst. There is mild edema in the soft tissues of the calf. There are enlarged lymph nodes in the right inguinal region. The largest measures 5.9 x 1.3 x 5.3 cm. There is a normal echogenic vascular hilum. IMPRESSION: No evidence of a right lower extremity DVT. DATA REPOSITORY:
--- NOTE | 2025-08-29 14:58 | PDOC.CMDIS ---
Date of service: 08/29/25 Time of Service: 14:58 LACE Index Scoring Tool Questions: Length of Stay (in days): 2 Was the patient admitted via the E.D.?: Yes Comorbidities: Diabetes w/o Complication E.D. Visits: 2 Answers: Total Score: 8 Risk of Readmission: Low Risk Care Management Discharge Plan Reason for Hospitalization: cellulitis Discharge Plan: Armen will return home today with no new services. He will transport via his own ebike when ready. He will follow up with his PCP and discharge plan of care. Patient/Family Education Needs: Review of discharge instructions, activity, limitations, and plan of care. Discuss ask me three SDOH Health Related Social Needs: Health related social needs risk of homeless Health related social needs details none Health related social needs details: none
[2025-08-30 23:37] LABS: B. miyamotoi PCR Negative (Negative); Babesia divergens/MO-1 Negative (Negative); Ehrlichia muris eauclairensis Negative (Negative)
== END 2025-08-29 16:40 | disposition home or self-care (01) | DRG 638 ==
LOC: ER 11:47 → MS 16:07
PROVIDERS: Nurse Practitioner Acute Care; Admitting Provider Family Medicine; Emergency Provider Physician Assistant; PCP Nurse Practitioner Adult Health; Responsible Provider Nurse Practitioner Acute Care; Visit Provider Family Medicine
DX: E11.622 Type 2 diabetes mellitus with other skin ulcer (principal); E11.40 Type 2 diabetes mellitus with diabetic neuropathy, unspecified; Z79.4 Long term (current) use of insulin; G47.33 Obstructive sleep apnea (adult) (pediatric); I10 Essential (primary) hypertension; F32.A Depression, unspecified; F11.20 Opioid dependence, uncomplicated; L97.321 Non-pressure chronic ulcer of left ankle limited to breakdown of skin; Z59.811 Housing instability, housed, with risk of homelessness; L08.89 Other specified local infections of the skin and subcutaneous tissue; R51.9 Headache, unspecified; E11.610 Type 2 diabetes mellitus with diabetic neuropathic arthropathy; Z86.711 Personal history of pulmonary embolism; F41.0 Panic disorder [episodic paroxysmal anxiety]; E78.5 Hyperlipidemia, unspecified; I87.8 Other specified disorders of veins; F43.10 Post-traumatic stress disorder, unspecified; F90.9 Attention-deficit hyperactivity disorder, unspecified type; M47.812 Spondylosis without myelopathy or radiculopathy, cervical region; F17.210 Nicotine dependence, cigarettes, uncomplicated; Z86.14 Personal history of Methicillin resistant Staphylococcus aureus infection; E55.9 Vitamin D deficiency, unspecified; Z96.652 Presence of left artificial knee joint; Z89.421 Acquired absence of other right toe(s); Z89.022 Acquired absence of left finger(s); D72.829 Elevated white blood cell count, unspecified; B95.62 Methicillin resistant Staphylococcus aureus infection as the cause of diseases classified elsewhere; R79.1 Abnormal coagulation profile; R11.2 Nausea with vomiting, unspecified; R19.7 Diarrhea, unspecified
CPT/HCPCS: 00123; 36415; 80048; 80053; 82805; 85652; 87040; 87077; 87637; 87798; 93005; 96361; 96365; 96367; 99291; 71046; 73610; 73723; 80202; 81003; 81015; 83605; 84484; 85025; 86140; 86618; 87070; 87186; 87205; 93010; 93971; 99222; 99232; 99239; J0131; J0692; J1815; J3373; J3490

== ENCOUNTER → 2025-08-31 09:16 | Outpatient (BNVA) | payer MEDICARE, MEDICAID, SELFPAY | PROVIDERS: PCP Nurse Practitioner Adult Health; Referring Provider Nurse Practitioner Adult Health; Visit Provider Podiatrist | DX: L97.512 Non-pressure chronic ulcer of other part of right foot with fat layer exposed (principal); M14.671 Charcot's joint, right ankle and foot; E11.622 Type 2 diabetes mellitus with other skin ulcer; L03.115 Cellulitis of right lower limb | CPT/HCPCS: 11042 ==

== ENCOUNTER 2025-08-31 10:17 | Inpatient (IN) | payer MEDICARE, MEDICAID, SELFPAY ==
[2025-08-31 10:25] VITALS: BP 142/75; PULSE 62; RESP 20; TEMP 36.7; O2SAT 92
[2025-08-31 10:28] VITALS: BP 142/75; PULSE 62; RESP 20; TEMP 36.7; O2SAT 92
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
[2025-08-31 11:27] LABS: Abs Immature Grans 0.07 10^3/uL (0.0-0.06); HCT 48.5 % (40.0-50.0); HGB 15.4 g/dL (13.5-17.5); Immature Grans % 0.8 %; MCH 27.0 pg (27.0-33.0); MCHC 31.8 % (32.0-36.0); MCV 85 fL (80-95); MPV 9.3 fL (8.0-11.0); Platelet Count 240 10^3/uL (130-400); RBC 5.70 10^6/uL (4.36-5.78); RDW 15.9 % (11.8-14.1); RDW-SD 48.8 fL; WBC 9.16 10^3/uL (4.4-10.8)
[2025-08-31 11:29] LABS: ESR 65 mm/hr (0-20)
[2025-08-31] MEDS: CEFEPIME 2 GM in Normal Saline 100 ML IVPB ×2 (11:29→23:25)
[2025-08-31 11:43] LABS: ALT 20 U/L (16-63); AST 16 U/L (15-37); Albumin 3.2 g/dL (3.4-5.0); Alkaline Phosphatase 94 U/L (46-116); Anion Gap 7.8 mmol/L (3-11); BUN 9 mg/dL (7-18); Bilirubin, Total 0.6 mg/dL (0.2-1.0); C-Reactive Protein 10.08 mg/dL (<or=0.5); CO2 31.2 mmol/L (21.0-32.0); Calcium 8.8 mg/dL (8.5-10.1); Chloride 98 mmol/L (98-107); Glucose 167 mg/dL (74-106); Magnesium 1.9 mg/dL (1.8-2.4); Potassium 3.9 mmol/L (3.5-5.1); Sodium 137 mmol/L (136-145); Total Protein 8.4 g/dL (6.4-8.2)
[2025-08-31] MEDS: VANCOMYCIN/WATER (PEG) 1.5 GM/300 ML BAG IVPB (12:13)
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
[2025-08-31] MEDS: Lidocaine/Epinephri/Tetracaine Topical Gel 3 ML TP (13:02)
[2025-08-31] MEDS: Lidocaine 1% Pres-Free W/EPI 1/200,000 30 ML VIAL IJ (13:03)
--- NOTE | 2025-08-31 13:47 | W.PC.ACHO ---
Registration Status: REG ER Primary Language: Preferred Language: Armenian ED Information & Data Chief Complaint Cellulitis 08/31/25 10:49 Triage Note PT reports increasing 08/31/25 10:25 cellulitus in R lower leg connected to an infection in his R leg. Wound has been present for the past several months, has gotten severely infected in the last week. PT reports transient fevers, cold sweats. Medical / Surgical History (Last Reviewed 08/31/25 @ 12:48 by Gurinder Singleton MD) Elevated hemoglobin Anemia (~04/2024) Septic joint of left knee joint Bilateral leg edema Streptococcal arthritis of left knee (~06/2024) Leg edema Corns and callosities Onychomycosis Tinea corporis Nocturia Vitamin D deficiency Angioedema Fever Pneumonia Umbilical hernia without mention of obstruction or gangrene Elbow joint pain Osteomyelitis Tick bite of back Cellulitis of foot, right Encounter for colorectal cancer screening Hepatitis C Abscess, hepatic Chest pain Lower urinary tract symptoms Infection of toe Neck swelling Normal colonoscopy (11/05/18) Personal history of colonic polyps Colon adenoma Fibula fracture (Last Reviewed 08/31/25 @ 12:48 by Gurinder Singleton MD) Status post revision of total replacement of left knee (~07/15/24) H/O rotator cuff surgery History of left knee replacement (~2017) Amputated toe of right foot (~11/2016) left index finger amputation (~1994) Most Recent Vital Signs Temperature 36.7 C 08/31/25 10:28 Pulse 62 08/31/25 10:28 Respiratory Rate 20 08/31/25 10:28 Blood Pressure 142/75 H 08/31/25 10:28 Blood Pressure Position Sitting 08/31/25 10:28 Pulse Oximetry 92 08/31/25 10:28 Oxygen Delivery Method Room Air 08/31/25 10:28 Oxygen Flow Rate 0 08/31/25 10:28 Allergies lisinopril Allergy (Verified 08/31/25 10:38) angioedema ? IV IV Catheter Type [Right Peripheral IV Antecubital] IV Catheter Gauge [Right 18 Antecubital] Diagnostics 08/31/25 Range/Units 11:20 WBC 9.16 (4.4-10.8) 10^3/uL RBC 5.70 (4.36-5.78) 10^6/uL Hgb 15.4 (13.5-17.5) g/dL Hct 48.5 (40.0-50.0) % MCV 85 (80-95) fL MCH 27.0 (27.0-33.0) pg MCHC 31.8 L (32.0-36.0) % RDW 15.9 H (11.8-14.1) % Plt Count 240 (130-400) 10^3/uL MPV 9.3 (8.0-11.0) fL Immature Gran % 0.8 % Neutrophils % 79.0 % Lymphocytes % 9.8 % Monocytes % 9.2 % Eosinophils % 0.9 % Basophils % 0.3 % Nucleated RBC % 0.0 (0.0-0.3) % Absolute Neutrophils 7.24 H (1.2-6.7) 10^3/uL Absolute Lymphocytes 0.90 L (1.2-3.4) 10^3/uL Absolute Monocytes 0.84 H (0.1-0.8) 10^3/uL Absolute Eosinophils 0.08 (0.0-0.7) 10^3/uL Absolute Basophils 0.03 (0.0-0.2) 10^3/uL ESR 65 H (0-20) mm/hr Sodium 137 (136-145) mmol/L Potassium 3.9 (3.5-5.1) mmol/L Chloride 98 (98-107) mmol/L Carbon Dioxide 31.2 (21.0-32.0) mmol/L Anion Gap 7.8 (3-11) mmol/L BUN 9 (7-18) mg/dL Creatinine 0.8 (0.70-1.30) mg/dL Est GFR (CKD-EPI 2020) 100.06 (mL/min/1.73m2) Glucose 167 H (74-106) mg/dL Calcium 8.8 (8.5-10.1) mg/dL Magnesium 1.9 (1.8-2.4) mg/dL Total Bilirubin 0.6 (0.2-1.0) mg/dL AST 16 (15-37) U/L ALT 20 (16-63) U/L Alkaline Phosphatase 94 (46-116) U/L C-Reactive Protein 10.08 H (<or=0.5) mg/dL Total Protein 8.4 H (6.4-8.2) g/dL Albumin 3.2 L (3.4-5.0) g/dL Intake and Output - 24 Hour Total 08/31/25 10:17 thru 08/31/25 11:59 Intake Total 110 Balance 110 Weight 116.573 kg Intake: IV 110 Falls Risk Assessment History of Falls No History 08/31/25 10:28 Contributing Factors No Factors 08/31/25 10:28 Ambulatory Aids Uses ambulatory device 08/31/25 10:28 Tubes/Lines None 08/31/25 10:28 Gait Evaluation No gait disturbance 08/31/25 10:28 Cognition No cognitive impairment 08/31/25 10:28 Fall Total Score 15 08/31/25 10:28 Level of Risk Standard/Low Risk 08/31/25 10:28 Problems (Last Reviewed 08/31/25 @ 12:48 by Gurinder Singleton MD) Diabetic ulcer of ankle (Acute) Severe obstructive sleep apnea (Acute) Diabetes mellitus with neuropathy (Chronic) Depression (Chronic) HTN (hypertension) (Chronic) v v v v v v v v v Sending and/or Receiving Nurses: Please use comment section below to note any information pertinent to the patient hand-off not included above. Information / Comments:Went to see taping machine operator earlier, concerned about increased redness, sent to ED. Redness to the knee. Spot on inside of calf that Dr. Singleton just lanced. Very tender to touch, swollen. Sample obtained for lab. #18 RAC. IV abx dose given. Alert and oriented. Asking about his e-bike. Report received from:Mary Grace Badillo RN
[2025-08-31 14:15] VITALS: BP 149/80; PULSE 56; RESP 20; TEMP 36.7; O2SAT 95
[2025-08-31] MEDS: Acetaminophen 325 MG TAB 650 MG PO ×2 (16:10→20:24)
[2025-08-31] MEDS: Insulin Aspart 300 UNITS/3 ML PEN SC (16:45)
[2025-08-31] MEDS: Normal Saline Flush 10 ML SYR IVP ×3 (17:24→20:09)
[2025-08-31] MEDS: DAPTOmycin 500 MG in Normal Saline 50 ML 100 MG IVPB (17:24)
[2025-08-31 19:50] VITALS: BP 146/93; PULSE 57; RESP 16; TEMP 36.7; O2SAT 96
[2025-08-31] MEDS: Gabapentin 600 MG TAB PO (20:10)
[2025-08-31] MEDS: Melatonin 3 MG TAB 9 MG PO (23:25)
[2025-08-31] MEDS: LORazepam 0.5 MG TAB PO (23:25)
[2025-09-01 06:31] VITALS: BP 139/74; PULSE 62; RESP 16; TEMP 36.1; O2SAT 94
[2025-09-01 06:52] LABS: Abs Immature Grans 0.06 10^3/uL (0.0-0.06); HCT 44.7 % (40.0-50.0); HGB 14.4 g/dL (13.5-17.5); Immature Grans % 0.7 %; MCH 27.6 pg (27.0-33.0); MCHC 32.2 % (32.0-36.0); MCV 86 fL (80-95); MPV 10.2 fL (8.0-11.0); Platelet Count 252 10^3/uL (130-400); RBC 5.22 10^6/uL (4.36-5.78); RDW 16.0 % (11.8-14.1); RDW-SD 49.3 fL; WBC 8.85 10^3/uL (4.4-10.8)
[2025-09-01 07:03] LABS: ALT 11 U/L (16-63); AST 10 U/L (15-37); Albumin 2.6 g/dL (3.4-5.0); Alkaline Phosphatase 79 U/L (46-116); Anion Gap 9.5 mmol/L (3-11); BUN 12 mg/dL (7-18); Bilirubin, Total 0.4 mg/dL (0.2-1.0); CO2 27.5 mmol/L (21.0-32.0); Calcium 8.5 mg/dL (8.5-10.1); Chloride 101 mmol/L (98-107); Glucose 243 mg/dL (74-106); Potassium 3.9 mmol/L (3.5-5.1); Sodium 138 mmol/L (136-145); Total Protein 7.1 g/dL (6.4-8.2)
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
[2025-09-01] MEDS: LORazepam 0.5 MG TAB PO (08:44)
[2025-09-01] MEDS: Multivitamin w/Minerals TAB 1 TAB PO (08:44)
[2025-09-01] MEDS: Gabapentin 600 MG TAB PO ×2 (08:45→15:17)
[2025-09-01] MEDS: amLODIPine 10 MG TAB PO (08:45)
[2025-09-01] MEDS: Magnesium Oxide 400 MG TAB PO (08:45)
[2025-09-01] MEDS: lamoTRIgine 100 MG TAB 200 MG PO (08:45)
[2025-09-01] MEDS: Methadone Liquid 10 MG/ML 173 MG PO (08:46)
[2025-09-01] MEDS: Insulin Glargine 300 UNITS/3 ML PEN 30 UNITS SC (08:48)
[2025-09-01] MEDS: Insulin Aspart 300 UNITS/3 ML PEN SC (08:49)
[2025-09-01] MEDS: CEFEPIME 2 GM in Normal Saline 100 ML IVPB (10:25)
--- NOTE | 2025-09-01 11:17 | CMDISCH_ITS ---
Date of service: 09/01/25 Time of Service: 11:17 LACE Index Scoring Tool Questions: Length of Stay (in days): 1 Was the patient admitted via the E.D.?: Yes Comorbidities: Diabetes w/o Complication E.D. Visits: 3 Answers: Total Score: 8 Risk of Readmission: Low Risk Care Management Discharge Plan Reason for Hospitalization: Diabetic food infection Discharge Plan: Armen will return home today with no new services. He will transp ort via his own E-bike which he has with him. He will follow up with his PCP and discharge plan of care. Armen does require a course of IV antibiotics which he will receive at the Infusion Therapy center at [facility] as coordinated by [facility]. CM contacted his PCP and requested a follow up appointment be scheduled at one week. Patient/Family Education Needs: Review of discharge instruction, activity, limitation, and plan of care. Discuss ask me three. SDOH Health Related Social Needs: Health related social needs risk of homeless Health related social needs details none
[2025-09-01] MEDS: Normal Saline Flush 10 ML SYR IVP ×2 (11:24→15:17)
--- NOTE | 2025-09-01 13:14 | NUR.NOTE ---
Nursing Note: Documentation by RASHAD Patel student reviewed.
--- NOTE | 2025-09-01 15:05 | CHAPLAIN ---
Armen was in the chair watching tv when I visited. He was pleasant and relaxed and engaged in conversation. He told me that he lives in an apartment in [facility] and his family is all out of state. He has some friends here, but hasn't told anyone that he's in the hospital because he doesn't want to worry anyone unnecessarily. He thinks he may be discharged later today. Armen's ebike was in the room. He said he gets around on it all the time, even if the winter if the roads are dry. He sometimes goes on the rail trails and does some exploring on it.This is his second ebike and it has a larger battery than his first one, so he can go farther with this one. Armen has an infection on his right foot and had surgery on his left knee, all due to diabetes, he said. That's why he got an ebike.
[2025-09-01] MEDS: DAPTOmycin 500 MG in Normal Saline 50 ML 100 MG IVPB (15:17)
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
== END 2025-09-01 16:41 | disposition home or self-care (01) | DRG 638 ==
LOC: ER 10:33 → MS 14:02
PROVIDERS: Admitting Provider Family Medicine; Emergency Provider Student in an Organized Health Care Education/Training Program; PCP Nurse Practitioner Adult Health; Responsible Provider Nurse Practitioner Acute Care; Visit Provider Family Medicine
DX: L02.415 Cutaneous abscess of right lower limb; E11.42 Type 2 diabetes mellitus with diabetic polyneuropathy; Z79.4 Long term (current) use of insulin; G47.33 Obstructive sleep apnea (adult) (pediatric); I10 Essential (primary) hypertension; E11.628 Type 2 diabetes mellitus with other skin complications; F11.20 Opioid dependence, uncomplicated; L97.312 Non-pressure chronic ulcer of right ankle with fat layer exposed; Z59.811 Housing instability, housed, with risk of homelessness; E11.622 Type 2 diabetes mellitus with other skin ulcer; B95.62 Methicillin resistant Staphylococcus aureus infection as the cause of diseases classified elsewhere; E11.610 Type 2 diabetes mellitus with diabetic neuropathic arthropathy; Z86.711 Personal history of pulmonary embolism; F41.0 Panic disorder [episodic paroxysmal anxiety]; E66.9 Obesity, unspecified; F43.10 Post-traumatic stress disorder, unspecified; F32.9 Major depressive disorder, single episode, unspecified; I87.2 Venous insufficiency (chronic) (peripheral); F90.9 Attention-deficit hyperactivity disorder, unspecified type; F17.210 Nicotine dependence, cigarettes, uncomplicated; M47.812 Spondylosis without myelopathy or radiculopathy, cervical region; Z96.652 Presence of left artificial knee joint; Z89.022 Acquired absence of left finger(s)
CPT/HCPCS: 00123; 10061; 11042; 36415; 76882; 76942; 80053; 85652; 87077; 96365; 96367; 99285; 83735; 85025; 86140; 87070; 87205; 99222; 99239; J0692; J0878; J1815; J2004; J3373

== ENCOUNTER 2025-09-04 14:52 | Outpatient (CLI) | payer MEDICARE, MEDICAID, SELFPAY | END 2025-09-04 14:53 | disposition home or self-care (01) | LOC: LBO 14:53 | PROVIDERS: PCP Nurse Practitioner Adult Health; Visit Provider Urology | DX: L97.512 Non-pressure chronic ulcer of other part of right foot with fat layer exposed (principal); E11.622 Type 2 diabetes mellitus with other skin ulcer; M14.671 Charcot's joint, right ankle and foot; L03.115 Cellulitis of right lower limb; E29.1 Testicular hypofunction | CPT/HCPCS: 11042; 36415; 84403 ==

== ENCOUNTER 2025-09-08 12:27 | Emergency (ER) | payer MEDICARE, MEDICAID, SELFPAY ==
[2025-09-08 12:29] VITALS: BP 152/79; PULSE 75; RESP 18; TEMP 36.6; O2SAT 93
[2025-09-08 12:47] VITALS: BP 152/79; PULSE 75; RESP 18; TEMP 36.6; O2SAT 93
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
[2025-09-08] MEDS: Linezolid 600 MG TAB PO (15:04)
== END 2025-09-08 17:45 | disposition home or self-care (01) ==
PROVIDERS: Emergency Provider General Practice; PCP Nurse Practitioner Adult Health
DX: L03.115 Cellulitis of right lower limb (principal)
CPT/HCPCS: 99284 ×2; 36415; 76882; 80053; 85652; 99281; 83605; 85025; 86140; 99282

== ENCOUNTER 2025-09-08 12:30 | Outpatient (RCR) | payer MEDICARE, MEDICAID, SELFPAY ==
[2025-09-02] MEDS: cefTRIAXone 1 GM/50 ML BAG IVPB (12:31)
[2025-09-02] MEDS: Normal Saline Flush 10 ML SYR IVP (12:32)
[2025-09-02] MEDS: DAPTOmycin 500 MG in Normal Saline 50 ML 100 MG IVPB (12:37)
[2025-09-03] MEDS: cefTRIAXone 1 GM/50 ML BAG IVPB (12:22)
[2025-09-03] MEDS: DAPTOmycin 500 MG in Normal Saline 50 ML 100 MG IVPB (12:30)
[2025-09-03 12:56] VITALS: BP 135/83; PULSE 82; RESP 17; TEMP 36.4; O2SAT 98
[2025-09-03] MEDS: Normal Saline Flush 10 ML SYR IVP (13:01)
[2025-09-04] MEDS: cefTRIAXone 1 GM/50 ML BAG IVPB (12:20)
[2025-09-04] MEDS: Normal Saline Flush 10 ML SYR IVP (12:20)
[2025-09-04] MEDS: DAPTOmycin 500 MG in Normal Saline 50 ML 100 MG IVPB (12:51)
[2025-09-05] MEDS: cefTRIAXone 1 GM/50 ML BAG IVPB (12:17)
[2025-09-05] MEDS: Normal Saline Flush 10 ML SYR IVP (12:17)
[2025-09-05] MEDS: DAPTOmycin 500 MG in Normal Saline 50 ML 100 MG IVPB (12:48)
[2025-09-06] MEDS: DAPTOmycin 500 MG in Normal Saline 50 ML 100 MG IVPB (13:30)
[2025-09-06] MEDS: Normal Saline Flush 10 ML SYR IVP (13:41)
[2025-09-06] MEDS: cefTRIAXone 1 GM/50 ML BAG IVPB (14:06)
[2025-09-07] MEDS: cefTRIAXone 1 GM/50 ML BAG IVPB (12:30)
[2025-09-07] MEDS: Normal Saline Flush 10 ML SYR IVP (12:30)
[2025-09-07] MEDS: DAPTOmycin 500 MG in Normal Saline 50 ML 100 MG IVPB (13:02)
[2025-09-08 12:34] LABS: Abs Immature Grans 0.05 10^3/uL (0.0-0.06); HCT 47.8 % (40.0-50.0); HGB 15.0 g/dL (13.5-17.5); Immature Grans % 0.5 %; MCH 26.9 pg (27.0-33.0); MCHC 31.4 % (32.0-36.0); MCV 86 fL (80-95); MPV 9.3 fL (8.0-11.0); Platelet Count 373 10^3/uL (130-400); RBC 5.57 10^6/uL (4.36-5.78); RDW 15.6 % (11.8-14.1); RDW-SD 49.1 fL; WBC 10.47 10^3/uL (4.4-10.8)
[2025-09-08 12:51] LABS: ALT 16 U/L (16-63); AST 12 U/L (15-37); Albumin 3.2 g/dL (3.4-5.0); Alkaline Phosphatase 107 U/L (46-116); Anion Gap 9.1 mmol/L (3-11); BUN 15 mg/dL (7-18); Bilirubin, Total 0.3 mg/dL (0.2-1.0); C-Reactive Protein 1.71 mg/dL (<or=0.5); CO2 26.9 mmol/L (21.0-32.0); Calcium 8.6 mg/dL (8.5-10.1); Chloride 100 mmol/L (98-107); Estimated GFR 96.57 (mL/min/1.73m2); Glucose 282 mg/dL (74-106); Potassium 4.1 mmol/L (3.5-5.1); Sodium 136 mmol/L (136-145); Total Protein 8.4 g/dL (6.4-8.2)
[2025-09-08 12:53] LABS: ESR 71 mm/hr (0-20)
== END 2025-10-01 23:59 | disposition home or self-care (01) ==
LOC: INF 12:30
PROVIDERS: PCP Nurse Practitioner Adult Health; Visit Provider Nurse Practitioner Acute Care
DX: L02.415 Cutaneous abscess of right lower limb (principal)
CPT/HCPCS: 80053; 85652; 96365; 85025; 86140; J0696; J0878

== ENCOUNTER 2025-09-08 15:19 | Emergency (ER) | payer MEDICARE, MEDICAID, SELFPAY ==
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
[2025-09-08 15:59] VITALS: BP 147/81; PULSE 76; RESP 18; TEMP 36.7; O2SAT 94
== END 2025-09-08 16:14 | disposition home or self-care (01) ==
PROVIDERS: Emergency Provider Emergency Medicine Emergency Medical Services; PCP Nurse Practitioner Adult Health
DX: I83.891 Varicose veins of right lower extremity with other complications (principal)
CPT/HCPCS: 99282; 99281

== ENCOUNTER → 2025-09-18 10:27 | Outpatient (BNVA) | payer MEDICARE, MEDICAID, SELFPAY | PROVIDERS: PCP Nurse Practitioner Adult Health; Referring Provider Nurse Practitioner Adult Health; Visit Provider Podiatrist | DX: E11.622 Type 2 diabetes mellitus with other skin ulcer (principal); L97.512 Non-pressure chronic ulcer of other part of right foot with fat layer exposed; L97.319 Non-pressure chronic ulcer of right ankle with unspecified severity; M14.671 Charcot's joint, right ankle and foot; L03.115 Cellulitis of right lower limb | CPT/HCPCS: 11042 ==

== ENCOUNTER → 2025-09-20 02:07 | Outpatient (CLI) | payer MEDICARE, MEDICAID, SELFPAY ==
--- NOTE | 2025-09-20 07:00 | DI.RAD_ITS ---
Exam(s) XR HIP LT COMPLETE AP PELVIS EXAM: XR HIP LT COMPLETE AP PELVIS CLINICAL HISTORY: ? OA,lt groin pain,r10.32. TECHNIQUE: 2D digital imaging was performed. Three views. COMPARISON: CT CT PELVIC WO from 01/17/2024 FINDINGS: BONES: No acute fracture is present. No bony destructive lesion is seen. Enthesophytes are noted at the iliac wings. Advanced degenerative changes are noted in the lower lumbar spine. JOINTS: No dislocation present. There is mild bilateral hip joint space narrowing. There is bilateral acetabular spurring as well as spurring of the margins of the femoral heads. There are 2 ossicles adjacent to the right superior acetabulum. SI joints and pubic symphysis are unremarkable. SOFT TISSUE: Normal. IMPRESSION: Mild degenerative changes of both hips. DATA REPOSITORY: RADIATION DOSE DELIVERED:
== END ==
LOC: DI 02:07
PROVIDERS: PCP Nurse Practitioner Adult Health; Visit Provider Nurse Practitioner Adult Health
DX: M16.0 Bilateral primary osteoarthritis of hip (principal)
CPT/HCPCS: 73502

== ENCOUNTER → 2025-10-10 11:27 | Outpatient (BNVA) | payer MEDICARE, MEDICAID, SELFPAY | PROVIDERS: PCP Nurse Practitioner Adult Health; Referring Provider Nurse Practitioner Adult Health; Visit Provider Podiatrist | DX: E11.621 Type 2 diabetes mellitus with foot ulcer (principal); M14.671 Charcot's joint, right ankle and foot; L97.312 Non-pressure chronic ulcer of right ankle with fat layer exposed; L03.115 Cellulitis of right lower limb | CPT/HCPCS: 11042 ==

== ENCOUNTER 2025-10-10 11:51 | Outpatient (REF) | payer MEDICARE, MEDICAID, SELFPAY | END 2025-10-10 11:52 | disposition home or self-care (01) | LOC: LBN 11:51 | PROVIDERS: PCP Nurse Practitioner Adult Health; Visit Provider Podiatrist | DX: L97.512 Non-pressure chronic ulcer of other part of right foot with fat layer exposed (principal); L97.319 Non-pressure chronic ulcer of right ankle with unspecified severity; L97.529 Non-pressure chronic ulcer of other part of left foot with unspecified severity | CPT/HCPCS: 87077; 87070; 87075; 87186; 87205 ==

== ENCOUNTER 2025-10-10 13:40 | Inpatient (IN) | payer MEDICARE, MEDICAID, SELFPAY ==
[2025-10-10 13:42] VITALS: BP 152/74; PULSE 70; RESP 16; TEMP 37; O2SAT 98
--- NOTE | 2025-10-10 13:44 | DI.MRI_ITS ---
Exam(s) MR LOWER JOINT RT WO/W EXAM: MR LOWER JOINT RT WO/W CLINICAL HISTORY: charcot joint R. ankle, non-healing ulcer TECHNIQUE: Multiplanar multisequence MRI was performed with both pre and post contrast infused sequences. Intravenous contrast = 20 mL Dotarem COMPARISON: MR MR LOWER JOINT RT WO/W from 08/28/2025 FINDINGS: There is motion artifact. SKIN: There is diffuse soft tissue edema. There is also a skin ulcer on the infero medial aspect of the ankle but without evidence of obvious osteomyelitis in the immediately subjacent posteromedial process of the talus. BONES/JOINTS: There are again noted evidence of severe Charcot arthropathy with hindfoot planovalgus, regions of joint disorganization, and fragmentation involving the tibiotalar, the sub talar, and talonavicular joints. There is lesser involvement of the calcaneocuboid articulation.. There is marrow edema evident at the level of the talus, navicular, and calcaneus. The preservation of degenerative subarticular cysts at the involved tibiotalar and talonavicular articulation are more in keeping with advanced Charcot changes than actual infectious etiology. With the exception of the navicular bone, there is no confluent hypointense intraosseous signal on the non fat sat T1 images to suggest obvious osteomyelitis. The navicular bone exhibits mild confluence hypointense signal on T1 images as well as enhancement following contrast administration. There is no abnormal intraosseous signal nor enhancement within the cuneiform bones nor within the visualized proximal half of the metatarsals and the Lisfranc joint and ligament are intact. LIGAMENTS: The anterior and posterior tibiofibular syndesmotic ligaments are poorly defined and probably chronically torn. Same is true for the anterior and posterior talofibular ligaments as well as the calcaneal fibular ligament SINUS TARSI: There is absence of the normal fat signal in the space which is replaced by enhancing tissue in this space. This finding does not have the appearance of a typical sinus tarsi ganglion cyst. It has more the appearance inflammatory tissue. MUSCULOTENDINOUS STRUCTURES: Achilles tendon: Intact. Plantar fascia: Unremarkable. No evidence of tear. Anterior Extensor tendons: Grossly intact Medial Tendons: Posterior Tibialis: Intact . No obvious tear. Flexor Digitorum longus: Intact . Flexor Hallicus longus: Intact no tear or tenosynovitis evident. Lateral Tendons: Peroneus longus: Appears intact no tear nor tenosynovitis evident. Peroneus brevis:Appears intact no tear nor tenosynovitis evident. SOFT TISSUES: Diffuse soft tissue edema. No truly discernible enhance and this tear see is probably related to the degenerative findings. OTHER FINDINGS: None. IMPRESSION: 1. Hindfoot planovalgus and extensive Charcot arthropathy again noted of the hindfoot articulations including the tibiotalar and subtalar/ talocalcaneal articulation as well as the talonavicular articulation; with lesser involvement of the calcaneocuboid joint. With the exception of the navicular bone there is also edema of these bones again evident and numerous degenerative subarticular cysts which are more in keeping with degenerative Charcot change than septic arthritis. However, there is some mild abnormal hypointensity with in the navicular bone on precontrast non fat sat T1 weighted images and therefore there is also the possibility of an element of osteomyelitis involving the navicular bone. This is adjacent to the above described abnormal enhancing tissue within the sinus tarsi. Cannot exclude an element of inflammatory/septic soft tissue involvement at this level. 2. There is a skin ulcer on the medial aspect of the ankle. The subjacent soft tissue signal abnormality extends towards the subjacent osseous structures but there is no evidence of obvious osteomyelitis in the subjacent prominent posteromedial aspect of the talus ( nor in the medial malleolus). 3. Poor visualization of the ankle syndesmotic ligaments and other ligaments around the ankle which is most probably related to chronic tearing of these ligamentous structures. Preliminary virtual Radiology report was reviewed DATA REPOSITORY:
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
[2025-10-10 14:35] LABS: Abs Immature Grans 0.01 10^3/uL (0.0-0.06); HCT 48.2 % (40.0-50.0); HGB 15.1 g/dL (13.5-17.5); Immature Grans % 0.1 %; MCH 27.5 pg (27.0-33.0); MCHC 31.3 % (32.0-36.0); MCV 88 fL (80-95); MPV 9.5 fL (8.0-11.0); Platelet Count 209 10^3/uL (130-400); RBC 5.50 10^6/uL (4.36-5.78); RDW 18.0 % (11.8-14.1); RDW-SD 56.3 fL; WBC 7.78 10^3/uL (4.4-10.8)
[2025-10-10 14:37] LABS: ESR 32 mm/hr (0-20)
[2025-10-10 14:52] LABS: C-Reactive Protein 2.46 mg/dL (<=0.50); Magnesium 1.7 mg/dL (1.6-2.6)
[2025-10-10 14:54] LABS: ALT 10 U/L (10-49); AST 13 U/L (<34); Albumin 4.0 g/dL (3.2-5.0); Alkaline Phosphatase 87 U/L (46-116); Anion Gap 3.9 mmol/L (3-11); BUN 17 mg/dL (9-23); Bilirubin, Total 0.3 mg/dL (0.2-1.2); CO2 32.1 mmol/L (20.0-31.0); Calcium 8.7 mg/dL (8.3-10.6); Chloride 102 mmol/L (98-107); Glucose 255 mg/dL (74-106); Potassium 4.3 mmol/L (3.5-5.1); Sodium 138 mmol/L (136-145); Total Protein 7.6 g/dL (5.7-8.2)
[2025-10-10] MEDS: LORazepam 2 MG/ML VIAL 1 MG IVP (15:21)
[2025-10-10] MEDS: Gadoterate meglumine 20 ML SYRINGE IJ (15:43)
[2025-10-10] MEDS: Normal Saline Flush 10 ML SYR IVP ×2 (15:44→21:17)
[2025-10-10] MEDS: PIPERACILLIN/TAZO 4.5 GM in Normal Saline 100 ML IVPB (16:39)
[2025-10-10] MEDS: VANCOMYCIN/WATER (PEG) 2 GM/400 ML BAG IVPB (16:40)
[2025-10-10] MEDS: Lactated Ringers 1,000 ML 1000 ML IV (16:40)
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
--- NOTE | 2025-10-10 18:03 | W.PC.ACHO1 ---
Registration Status: REG ER Primary Language: Preferred Language: Nepali ED Information & Data Chief Complaint Cellulitis 10/10/25 14:41 Chief Complaint Cellulitis 10/10/25 14:07 Triage Note right ankle ingoing 10/10/25 13:42 infection for months. had podiatry apt today, they sent him here for worsening infection. Medical / Surgical History (Last Reviewed 10/10/25 @ 11:33 by Romina Varela DPM) Abscess, hepatic Anemia (~04/2024) Angioedema Bilateral leg edema Cellulitis of foot, right Chest pain Colon adenoma Corns and callosities Elbow joint pain Elevated hemoglobin Encounter for colorectal cancer screening Fever Fibula fracture Hepatitis C Infection of toe Leg edema Lower urinary tract symptoms Neck swelling Nocturia Normal colonoscopy (11/05/18) Onychomycosis Osteomyelitis Personal history of colonic polyps Pneumonia Septic joint of left knee joint Streptococcal arthritis of left knee (~06/2024) Tick bite of back Tinea corporis Umbilical hernia without mention of obstruction or gangrene Vitamin D deficiency (Last Reviewed 10/10/25 @ 11:33 by Romina Varela DPM) Amputated toe of right foot (~11/2016) H/O rotator cuff surgery History of left knee replacement (~2017) left index finger amputation (~1994) Status post revision of total replacement of left knee (~07/15/24) Most Recent Vital Signs Temperature 37.0 C 10/10/25 13:42 Pulse 70 10/10/25 13:42 Respiratory Rate 16 10/10/25 13:42 Blood Pressure 152/74 H 10/10/25 13:42 Pulse Oximetry 98 10/10/25 13:42 Pain Level 5 10/10/25 13:42 Allergies lisinopril Allergy (Verified 10/10/25 14:44) angioedema ? Precautions Isolation Fall precaution 10/10/25 14:41 Active Medications Generic Name Dose Route Start Last Admin Trade Name Freq PRN Reason Stop Dose Admin Gadoterate Meglumine 20 ml 10/10/25 15:45 10/10/25 15:43 Gadoterate Meglumine 20 Ml Syringe IJ 11/09/25 23:59 20 ml DIRECTED EVA Administration Sodium Chloride 0 ml 10/10/25 13:43 10/10/25 15:44 Normal Saline Flush 10 Ml Syr IVP 10 ml PRN PRN Administration IV IV Catheter Type [Right Saline Lock Antecubital] IV Catheter Gauge [Right 18 Antecubital] Diagnostics 10/10/25 Range/Units 14:30 WBC 7.78 (4.4-10.8) 10^3/uL RBC 5.50 (4.36-5.78) 10^6/uL Hgb 15.1 (13.5-17.5) g/dL Hct 48.2 (40.0-50.0) % MCV 88 (80-95) fL MCH 27.5 (27.0-33.0) pg MCHC 31.3 L (32.0-36.0) % RDW 18.0 H (11.8-14.1) % Plt Count 209 (130-400) 10^3/uL MPV 9.5 (8.0-11.0) fL Immature Gran % 0.1 % Neutrophils % 69.4 % Lymphocytes % 19.3 % Monocytes % 8.9 % Eosinophils % 1.7 % Basophils % 0.6 % Nucleated RBC % 0.0 (0.0-0.3) % Absolute Neutrophils 5.40 (1.2-6.7) 10^3/uL Absolute Lymphocytes 1.50 (1.2-3.4) 10^3/uL Absolute Monocytes 0.69 (0.1-0.8) 10^3/uL Absolute Eosinophils 0.13 (0.0-0.7) 10^3/uL Absolute Basophils 0.05 (0.0-0.2) 10^3/uL ESR 32 H (0-20) mm/hr VBG Lactate 2.1 (<or=2.0) mmol/L Sodium 138 (136-145) mmol/L Potassium 4.3 (3.5-5.1) mmol/L Chloride 102 (98-107) mmol/L Carbon Dioxide 32.1 H (20.0-31.0) mmol/L Anion Gap 3.9 (3-11) mmol/L BUN 17 (9-23) mg/dL Creatinine 0.73 (0.73-1.18) mg/dL Est GFR (CKD-EPI 2020) 108.49 (mL/min/1.73m2) Glucose 255 H (74-106) mg/dL Calcium 8.7 (8.3-10.6) mg/dL Magnesium 1.7 (1.6-2.6) mg/dL Total Bilirubin 0.3 (0.2-1.2) mg/dL AST 13 (<34) U/L ALT 10 (10-49) U/L Alkaline Phosphatase 87 (46-116) U/L C-Reactive Protein 2.46 H (<=0.50) mg/dL Total Protein 7.6 (5.7-8.2) g/dL Albumin 4.0 (3.2-5.0) g/dL Intake and Output - 24 Hour Total 10/10/25 13:40 thru 10/10/25 17:35 Intake Total 110 Balance 110 Weight 116.573 kg Intake: IV 110 Falls Risk Assessment History of Falls No History 10/10/25 14:41 Contributing Factors Impairments 10/10/25 14:41 Ambulatory Aids Uses ambulatory device 10/10/25 14:41 Tubes/Lines None 10/10/25 14:41 Gait Evaluation W/any additional score 10/10/25 14:41 Cognition No cognitive impairment 10/10/25 14:41 Fall Total Score 38 10/10/25 14:41 Level of Risk Moderate Risk 10/10/25 14:41 Problems (Last Reviewed 10/10/25 @ 11:33 by Romina Varela DPM) Non-healing ulcer of right ankle (Acute) Charcot's joint, right ankle and foot (Acute) History of opioid abuse (Chronic) Panic attacks (Acute) Diabetes mellitus with neuropathy (Chronic) HTN (hypertension) (Chronic) Attestation Statement: By documenting the first initial, last name, and credentials of the reporting nurse below, both parties acknowledge that all relevant information regarding the patient handoff has been communicated, and that all questions have been addressed to ensure continuity and safety of care. Additional Patient Information/Comments: Report Received From: Lu PEREZ RN Armen arrived in the ER with cellulitis of his right lower extremity, Its been ongoing for a sometime. He has received multiple rounds of antibiotics and had a debridment with podiatry this morning and was told to come to the ER for rule out of abscess vs ostemlyelitis and IV antibiotics. Patient is alert and oriented, walks with a rolling walker baseline. He ambulate into the ER. His foot and ankle is purple red and swollen. Patient had a 18G IV in Right AC. ESR is 3.2 and CRP is 2.46. Patient is on insulin at home and has ordered dinner.
[2025-10-10 18:40] VITALS: BP 121/72; PULSE 60; RESP 16; TEMP 36.7; O2SAT 92
--- NOTE | 2025-10-10 18:47 | DI.VRAD_ITS ---
PROCEDURE INFORMATION: Exam: MR Right Lower Extremity Joint Without and With Contrast; Ankle Exam date and time: 10/10/2025 3:07 PM Age: 65 years old Clinical indication: Other: Ulcer medial ankle TECHNIQUE: Imaging protocol: Magnetic resonance imaging of the right lower extremity without and with contrast. Exam focused on the ankle. Contrast material: DOTAREM; Contrast volume: 20 ml; Contrast route: INTRAVENOUS (IV); COMPARISON: MR LOWER JOINT RT WO/W 08/28/2025 10:44 AM FINDINGS: Bones/joints: Soft tissue ulceration measuring 14 x 18 x 8 mm in the posteromedial ankle overlying the hypertrophic posteromedial talar process is increased in size from 08/28/2025. No evidence of osteomyelitis. Severe chronic arthropathy involving the ankle mortise joint is unchanged with severe joint space narrowing and extensive chronic articular erosion involving the weight-bearing articular surfaces. Severe chronic arthropathy involving the lateral gutter articulation between the distal fibula and the lateral talar process and lateral calcaneal body, with chronic articular remodeling and extensive chronic subarticular marrow signal changes which are unchanged in appearance. Chronic severe resorption/remodeling of the talar head and neck with extensive chronic articular erosion at the talonavicular joint and moderate dorsal marginal spurring is unchanged. LIGAMENTS: Distal tibiofibular syndesmosis: No acute injury. Chronic thickening of the anterior and posterior distal tibiofibular ligaments unchanged. Anterior talofibular ligament: No acute injury. Chronic thickening unchanged. Posterior talofibular ligament: No acute injury. Calcaneofibular ligament: No evidence of acute injury, unchanged. Deltoid ligament complex: No evidence of acute injury. Chronic thickening unchanged. TENDONS: Flexor tendons of foot: No tear. Mild tenosynovitis of the retromalleolar FDL tendon sheath Tibialis posterior tendon: No tear. Mild tenosynovitis of the retro malleolar tendon sheath. Peroneal tendons: No tear. Mild tenosynovitis of the retro malleolar peroneus longus tendon sheath. Extensor tendons of foot: Unremarkable as visualized. Tibialis anterior tendon: Unremarkable as visualized. Achilles tendon: Unremarkable as visualized. Tarsal canal (Sinus tarsi): Chronic subtalar remodeling and articular erosions, unchanged. Tarsal tunnel: Hindfoot valgus and posteromedial talar prominence causes chronic moderate local mass effect in the tarsal tunnel, unchanged from prior imaging. Soft tissues: Chronic hindfoot pes planovalgus configuration. Mild subcutaneous soft tissue swelling and enhancement near the ulceration consistent with mild regional cellulitis. No susceptibility effects suggestive of regional soft tissue air/gangrenous infection. Plantar fascia: Plantar fascia is unremarkable. IMPRESSION: 1. No convincing evidence of acute osteomyelitis. 2. Soft tissue ulceration in the posteromedial ankle is increased in size from 08/28/2025. 3. Mild regional cellulitis near the soft tissue ulceration. No gross soft tissue air is appreciated by MRI. No fluid collections suggestive of abscess or hematoma. 4. Chronic hindfoot planovalgus with severe multicompartmental chronic arthropathy demonstrating extensive chronic subarticular edema and enhancement, similar to 08/28/2025, favor chronic neuropathic arthropathy given the severity of articular remodeling although chronic inflammatory arthropathy not excluded. The lack of interval change goes against acute articular infection although the possibility of chronic infection is not excluded. 5. Mild chronic flexor and peroneus tenosynovitis. Dictated and Authenticated by: Fly Nicholas MD. Orderin [facility]. Demarcus Lyle MD
[2025-10-10 19:35] VITALS: BP 143/75; PULSE 64; RESP 17; TEMP 36.6; O2SAT 94
[2025-10-10] MEDS: Gabapentin 800 MG TAB PO (21:17)
[2025-10-10] MEDS: Insulin Aspart 300 UNITS/3 ML PEN SC (21:17)
[2025-10-10] MEDS: PIPERACILLIN/TAZO 3.375 GM in Normal Saline 50 ML IVPB (23:42)
[2025-10-10] MEDS: Acetaminophen 500 MG TAB 1000 MG PO (23:42)
[2025-10-10 23:45] VITALS: BP 151/78; PULSE 62; RESP 17; TEMP 36.9; O2SAT 92
[2025-10-11] MEDS: VANCOMYCIN 1,500 MG in Normal Saline 250 ML 166.667 MG IVPB (01:42)
[2025-10-11] MEDS: Normal Saline Flush 10 ML SYR IVP ×2 (05:40→08:06)
[2025-10-11] MEDS: PIPERACILLIN/TAZO 3.375 GM in Normal Saline 50 ML IVPB (05:40)
[2025-10-11 06:01] LABS: HCT 47.9 % (40.0-50.0); HGB 15.4 g/dL (13.5-17.5); MCH 28.0 pg (27.0-33.0); MCHC 32.2 % (32.0-36.0); MCV 87 fL (80-95); MPV 9.9 fL (8.0-11.0); Platelet Count 202 10^3/uL (130-400); RBC 5.50 10^6/uL (4.36-5.78); RDW 17.9 % (11.8-14.1); RDW-SD 55.8 fL; WBC 6.11 10^3/uL (4.4-10.8)
[2025-10-11] MEDS: Acetaminophen 500 MG TAB 1000 MG PO (06:02)
[2025-10-11] MEDS: LORazepam 0.5 MG TAB PO (06:05)
[2025-10-11 06:21] LABS: Magnesium 1.6 mg/dL (1.6-2.6)
[2025-10-11 06:22] LABS: Anion Gap 6.7 mmol/L (3-11); BUN 11 mg/dL (9-23); CO2 30.3 mmol/L (20.0-31.0); Calcium 8.2 mg/dL (8.3-10.6); Chloride 105 mmol/L (98-107); Glucose 185 mg/dL (74-106); Potassium 3.6 mmol/L (3.5-5.1); Sodium 142 mmol/L (136-145)
[2025-10-11 07:37] VITALS: BP 148/85; PULSE 63; RESP 16; TEMP 36.6; O2SAT 94
[2025-10-11] MEDS: Gabapentin 800 MG TAB PO (08:01)
[2025-10-11] MEDS: amLODIPine 10 MG TAB PO (08:01)
[2025-10-11] MEDS: Insulin Aspart 300 UNITS/3 ML PEN SC (08:01)
[2025-10-11] MEDS: lamoTRIgine 100 MG TAB 200 MG PO (08:01)
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
[2025-10-11] MEDS: Methadone Liquid 10 MG/ML 185 MG PO (08:35)
--- NOTE | 2025-10-11 09:20 | PGE_ITS ---
Date of Service Date of service: 10/11/25 Time of Service: 09:20 Assessment and Plan Assessment and plan (1) Non-healing ulcer of right ankle: Status: Acute Assessment and plan: - Chronic, nonhealing ulcer of the right ankle/Charcot with reported multiple rounds of p.o. and IV antibiotic therapy - Patient was seen in podiatry's office earlier today with concern for cellulit is and possible underlying osteomyelitis - Wound was sharply debrided in podiatry office - Patient started on vancomycin and cefepime, will continue - MRI shows no convincing signs of acute osteo - Appreciate podiatry's consultation; (2) Charcot's joint, right ankle and foot: Status: Acute Assessment and plan: -Charcot and uncontrolled DM resulting in non-healing wound as noted above (3) Diabetes mellitus with neuropathy: Status: Chronic Assessment and plan: -hold home insulin regimen -SSI, CCD (4) History of opioid abuse: Status: Chronic Assessment and plan: -continue home methadone dose once confirmed by pharmacy (5) HTN (hypertension): Status: Chronic Assessment and plan: -continue home amlodipine (6) Panic attacks: Status: Acute Assessment and plan: -continue home daily ativan Exam Narrative Exam Narrative: Well-appearing gentleman sitting on the edge of the bed no acute distress, ANO x 4, heart regulate rhythm, lungs good auscultation bilaterally, abdomen soft, nontender, nondistended, right ankle wound wrapped without surrounding erythema or drainage Objective Last Vital Signs Temp 97.9 F 10/11/25 07:37 Pulse 63 10/11/25 07:37 Resp 16 10/11/25 07:37 BP 148/85 H 10/11/25 07:37 Pulse Ox 94 10/11/25 07:37 Laboratory Results - last 24 hr 10/10/25 10/11/25 14:30 05:40 WBC 7.78 6.11 RBC 5.50 5.50 Hgb 15.1 15.4 Hct 48.2 47.9 MCV 88 87 MCH 27.5 28.0 MCHC 31.3 L 32.2 RDW 18.0 H 17.9 H Plt Count 209 202 MPV 9.5 9.9 Immature Gran % 0.1 Neutrophils % 69.4 Lymphocytes % 19.3 Monocytes % 8.9 Eosinophils % 1.7 Basophils % 0.6 Nucleated RBC % 0.0 Absolute Neutrophils 5.40 Absolute Lymphocytes 1.50 Absolute Monocytes 0.69 Absolute Eosinophils 0.13 Absolute Basophils 0.05 ESR 32 H VBG Lactate 2.1 Sodium 138 142 Potassium 4.3 3.6 Chloride 102 105 Carbon Dioxide 32.1 H 30.3 Anion Gap 3.9 6.7 BUN 17 11 Creatinine 0.73 0.62 L Est GFR (CKD-EPI 2020) 108.49 130.99 Glucose 255 H 185 H Calcium 8.7 8.2 L Magnesium 1.7 1.6 Total Bilirubin 0.3 AST 13 ALT 10 Alkaline Phosphatase 87 C-Reactive Protein 2.46 H Total Protein 7.6 Albumin 4.0 VTE Prohylaxis Risk Level: Moderate/High Risk Contraindications: None Prophylaxis: Mechanical
[2025-10-11 11:14] VITALS: BP 126/68; PULSE 68; RESP 17; TEMP 37.1; O2SAT 95
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
--- NOTE | 2025-10-11 12:29 | PDOC.CMDIS ---
Date of service: 10/11/25 Time of Service: 12:29 LACE Index Scoring Tool Questions: Length of Stay (in days): 1 Was the patient admitted via the E.D.?: Yes Comorbidities: Diabetes w/o Complication E.D. Visits: 6 Answers: Total Score: 9 Risk of Readmission: Low Risk Care Management Discharge Plan Reason for Hospitalization: Right ankle cellulitis, poss abscess Discharge Plan: Armen left AMA today. He will transport via his own E-bike. It is recommended will follow up with his PCP, podiatry, and discharge plan of care. CM contacted his PCP to make them aware of his current situation. Patient/Family Education Needs: Review of discharge instruction, activity, limitation, and plan of care. Discuss ask me three. SDOH Health Related Social Needs: Health related social needs risk of homeless Health related social needs details none
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
== END 2025-10-11 12:14 | disposition left against medical advice (07) | DRG 638 ==
LOC: ER 16:51 → MS 18:29
PROVIDERS: Admitting Provider Family Medicine; Emergency Provider Emergency Medicine; PCP Nurse Practitioner Adult Health; Responsible Provider Family Medicine; Visit Provider Family Medicine
DX: M14.671 Charcot's joint, right ankle and foot; E11.40 Type 2 diabetes mellitus with diabetic neuropathy, unspecified; Z79.4 Long term (current) use of insulin; I10 Essential (primary) hypertension; F41.0 Panic disorder [episodic paroxysmal anxiety]; G47.33 Obstructive sleep apnea (adult) (pediatric); Z86.711 Personal history of pulmonary embolism; E11.622 Type 2 diabetes mellitus with other skin ulcer; F11.20 Opioid dependence, uncomplicated; L03.115 Cellulitis of right lower limb; L97.312 Non-pressure chronic ulcer of right ankle with fat layer exposed; Z59.811 Housing instability, housed, with risk of homelessness; M16.0 Bilateral primary osteoarthritis of hip; E78.5 Hyperlipidemia, unspecified; E66.9 Obesity, unspecified; Z68.39 Body mass index [BMI] 39.0-39.9, adult; F43.10 Post-traumatic stress disorder, unspecified; M47.812 Spondylosis without myelopathy or radiculopathy, cervical region; D64.9 Anemia, unspecified; B35.1 Tinea unguium; Z96.652 Presence of left artificial knee joint; F17.210 Nicotine dependence, cigarettes, uncomplicated; E11.65 Type 2 diabetes mellitus with hyperglycemia; I83.893 Varicose veins of bilateral lower extremities with other complications
CPT/HCPCS: 00123; 36415; 80048; 80053; 85027; 85652; 96365; 96366; 96368; 96375; 99223; 99285; 73723; 80202; 83605; 83735; 85025; 86140; 99239; J1815; J2060; J2543; J3373

== ENCOUNTER → 2025-10-30 13:16 | Outpatient (BNVA) | payer MEDICARE, MEDICAID, SELFPAY | PROVIDERS: PCP Nurse Practitioner Adult Health; Referring Provider Nurse Practitioner Adult Health; Visit Provider Podiatrist | DX: L97.512 Non-pressure chronic ulcer of other part of right foot with fat layer exposed (principal); E11.622 Type 2 diabetes mellitus with other skin ulcer; L03.116 Cellulitis of left lower limb; M14.671 Charcot's joint, right ankle and foot; R60.0 Localized edema | CPT/HCPCS: 11042 ==